=== PATIENT | male | born 1945 | race Caucasian/White ===

== ENCOUNTER 2021-01-08 20:03 | Emergency (ER) | payer OTHER ==
--- NOTE | 2021-01-08 20:58 | RAD REPORT ---
EXAM DESCRIPTION: CT - CTHCSPWOC - 01/08/2021 8:44 pm CLINICAL HISTORY: PAIN, fall, head and neck injury COMPARISON: No comparisons TECHNIQUE: Axial 5 mm thick images of the head were obtained. Axial 2 mm thick images of the cervic al spine were obtained with sagittal and coronal reconstruction images generated and reviewed. All CT scans are performed using dose optimization technique as appropriate and may include automated exposure control or mA/KV adjustment according to patient size. FINDINGS: No intracranial hemorrhage, mass, edema or acute intracranial finding. No suspicion for ac merle infarction. No extra-axial fluid collections. Mastoid air cells and paranasal sinuses are clear. No globe or orbit abnormality seen. Atrophy and chronic ischemic changes are present [id number] in severity. Ventricles are in proportion to the volume loss. No skullbase fracture. Advanced facet joint degenerative changes are present. Multilevel uncovertebra l joint hypertrophy changes are present. Posterior endplate spurring posterior longitudinal ligament calcifications cause borderline spinal stenosis at C3-4. Large posterior endplate spurs and leg calcifications at C4-5 protrude significantly into the central canal. Central canal is reduced to 7 mm. There is almost certainly flattening the cord. Central kati l detail is inherently limited. There are degenerative calcifications in the disc space with signific ant right foraminal stenosis from facet and uncovertebral joint hypertrophy. Canal is reduced to 6-7 mm at the superior aspect of C5 right-sided protruding endplate spur likely f lattens the right lateral cord at at C5-6. There is mild bilateral foraminal stenosis at this level. Mild canal encroachment on the right at C6-7. . Cervical body height and alignment are normal. Slight narrowing of the C6-7 disc space noted. No fracture or acute bony abnormality. Central canal detail is inherently limited. No paraspinal mass or hematoma. IMPRESSION: Atrophy and chronic ischemic changes are present with no acute intracranial finding seen . No fracture or acute cervical spine finding identifiable. There are severe degenerative changes causi ng significant central spinal stenosis and cord flattening at multiple levels. Central canal detail i s inherently limited. Negative CT cervical spine examination for acute or significant finding.
[2021-01-08] MEDS ORDERED: MORPHINE 4 MG/ML SYR ONE (21:20)
[2021-01-08] MEDS ORDERED: ONDANSETRON 4 MG/2 ML VIAL ONE (21:20)
[2021-01-08 21:48] LABS: Absolute Lymphocytes (CBC) 0.5 K/uL (0.7-4.9); Basophils % 0.5 % (0-1.3); Hematocrit 30.8 % (39.6-49.0); Lymphocytes % 6.3 % (15.3-44.8); MPV 7.7 fL (7.6-11.3); RBC Red Blood Cell Count 3.41 M/uL (4.33-5.43)
[2021-01-08 22:04] LABS: Protime INR 0.92
--- NOTE | 2021-01-08 22:04 | RAD REPORT ---
EXAM DESCRIPTION: RAD - Tib Fib Left - 01/08/2021 9:07 pm CLINICAL HISTORY: Fall, laceration, leg pain COMPARISON: None. FINDINGS: No fracture is identified. There is no dislocation or periosteal reaction noted. No acute or suspicious bony finding. Degenerative meniscal calcifications are present. No foreign body in the soft tissues. IMPRESSION: No acute bone or joint finding. No foreign body in the soft tissues.
--- NOTE | 2021-01-08 22:06 | RAD REPORT ---
EXAM DESCRIPTION: RAD - Tib Fib Right - 01/08/2021 9:05 pm CLINICAL HISTORY: PAIN COMPARISON: Tibia Fibula Right dated 06/03/2012 FINDINGS: No fracture is identified. There is no dislocation or periosteal reaction noted. Meniscal degenerative calcifications are present. Medial compartment narrowing present with marginal spurring. Old hardware in place from prior calcaneus fracture repair. No foreign body in the soft tissues. Arterial calcifications are present. IMPRESSION: Negative right tibia & fibula examination for acute bone or joint finding No foreign body in the soft tissues.
--- NOTE | 2021-01-08 22:07 | RAD REPORT ---
EXAM DESCRIPTION: RAD - Shoulder Left 2 View - 01/08/2021 9:05 pm CLINICAL HISTORY: PAIN, fall COMPARISON: No comparisons TECHNIQUE: Internal and external rotation views of the left shoulder were obtained. FINDINGS: There is no fracture or dislocation. AC joint degenerative changes are present. Small infe riorly directed spur from the head of the clavicle with mild degenerative change to the undersurface of the acromion. Mild greater tuberosity degenerative changes are present. No suspicious soft tissue finding. IMPRESSION: Left shoulder degenerative change as detailed. No acute findings seen.
--- NOTE | 2021-01-08 22:07 | RAD REPORT ---
EXAM DESCRIPTION: RAD - Elbow Left 3 View - 01/08/2021 9:05 pm CLINICAL HISTORY: PAIN, fall COMPARISON: None. FINDINGS: No fracture is identified and no elevated posterior fat pad. There is no dislocation or pe riosteal reaction noted. No foreign body in the soft tissues. Soft tissue injury is present along th e posterolateral aspect of the elbow and proximal forearm. IMPRESSION: Negative left elbow examination for acute bone or joint finding. No foreign body.
--- NOTE | 2021-01-08 22:08 | RAD REPORT ---
EXAM DESCRIPTION: RAD - Hand Left 3 View - 01/08/2021 9:05 pm CLINICAL HISTORY: PAIN, fall COMPARISON: None. FINDINGS: No fracture, dislocation or periosteal reaction noted. IP joint space narrowing seen with minimal spurring but no erosive component. MCP joints are spared. Advanced degenerative change presen t at the trapezial first metacarpal articulation. No foreign body in the soft tissues. IMPRESSION: Negative left hand examination for acute bone or joint finding.
[2021-01-08 22:10] LABS: Potassium 3.6 mmol/L (3.5-5.1)
--- NOTE | 2021-01-09 01:16 | EDPHYS ---
Physician Documentation [facility] Name: Reilly Gillespie Age: 75 yrs Sex: Male : 1945 Arrival Date: 01/08/2021 Time: 20:05 Bed 13 Private MD: ED Physician Brenden Dalton HPI: 01/08 21:46 This 75 yrs old Male presents to ER via EMS with complaints of Fall. 7 21:46 Details of fall: The patient fell from seated position, out of a chair, and struck wood 7 kimberly. Onset: The symptoms/episode began/occurred just prior to arrival, today. Associated injuries: The patient sustained injury to the head, contusion, left shoulder, left arm and left hand, abrasion, contusion, ecchymosis, skin tear left arm, left leg, contusion, skin tear, right leg, contusion, skin tear. Severity of symptoms: At their worst the symptoms were moderate, earlier today, in the emergency department the symptoms have improved, mildly. Historical: - Allergies: 20:16 Augmentin; bs2 20:16 Cipro; bs2 20:16 Levaquin; bs2 - PMHx: 20:16 Dialysis; High Cholesterol; Hypertension; Prostate Cancer; Renal Disease; Sleep Apnea; bs2 - Social history:: Smoking status: Patient denies any tobacco usage or history of. ROS: 21:46 Constitutional: Negative for fever, chills, and weight loss, Eyes: Negative for injury, mh7 pain, redness, and discharge, ENT: Negative for injury, pain, and discharge, Neck: Negative for injury, pain, and swelling, Cardiovascular: Negative for chest pain, palpitations, and edema, Respiratory: Negative for shortness of breath, cough, wheezing, and pleuritic chest pain, Abdomen/GI: Negative for abdominal pain, nausea, vomiting, diarrhea, and constipation, Back: Negative for injury and pain, : Negative for injury, bleeding, discharge, and swelling, Neuro: Negative for headache, weakness, numbness, tingling, and seizure, Psych: Negative for depression, anxiety, suicide ideation, homicidal ideation, and hallucinations, Allergy/Immunology: Negative for hives, rash, and allergies, Endocrine: Negative for neck swelling, polydipsia, polyuria, polyphagia, and marked weight changes, Hematologic/Lymphatic: Negative for swollen nodes, abnormal bleeding, and unusual bruising. Exam: 21:46 Constitutional: This is a well developed, well nourished patient who is awake, alert, mh7 and in no acute distress. Head/Face: Normocephalic, atraumatic. Eyes: Pupils equal round and reactive to light, extra-ocular motions intact. Lids and lashes normal. Conjunctiva and sclera are non-icteric and not injected. Cornea within normal limits. Periorbital areas with no swelling, redness, or edema. ENT: Nares patent. No nasal discharge, no septal abnormalities noted. Tympanic membranes are normal and external auditory canals are clear. Oropharynx with no redness, swelling, or masses, exudates, or evidence of obstruction, uvula midline. Mucous membranes moist. Neck: Trachea midline, no thyromegaly or masses palpated, and no cervical lymphadenopathy. Supple, full range of motion without nuchal rigidity, or vertebral point tenderness. No Meningismus. Chest/axilla: Normal chest wall appearance and motion. Nontender with no deformity. No lesions are appreciated. Cardiovascular: Regular rate and rhythm with a normal S1 and S2. No gallops, murmurs, or rubs. Normal PMI, no JVD. No pulse deficits. Respiratory: Lungs have equal breath sounds bilaterally, clear to auscultation and percussion. No rales, rhonchi or wheezes noted. No increased work of breathing, no retractions or nasal flaring. Abdomen/GI: Soft, non-tender, with normal bowel sounds. No distension or tympany. No guarding or rebound. No evidence of tenderness throughout. Back: No spinal tenderness. No costovertebral tenderness. Full range of motion. Neuro: Awake and alert, GCS 15, oriented to person, place, time, and situation. Cranial nerves II-XII grossly intact. Motor strength 5/5 in all extremities. Sensory grossly intact. Cerebellar exam normal. Normal gait. Psych: Awake, alert, with orientation to person, place and time. Behavior, mood, and affect are within normal limits. 21:46 Musculoskeletal/extremity: Extremities: noted in the left shoulder: contusion, mh7 ecchymosis, pain, tenderness, noted in the left elbow: abrasion, contusion, skin tear, noted in the left leg: contusion, laceration, Noted in right leg: contusion, laceration, ROM: intact in all extremities, Circulation is intact in all extremities. Sensation intact. Compartment Syndrome exam of affected extremity: is normal. no numbness, no tingling, no sensation deficit, no palor, no weak pulses, Joints: the left shoulder displays tenderness, contusion, the left elbow displays skin tear, Tendon exam: specific tendon testing normal through active and passive range of motion 21:46 Skin: injury, laceration(s), the wound is approximately 2.5 cm(s), with a depth of mh7 0.5 cm(s), of the left leg, the second wound is approximately 3.5 cm(s), with a depth of 0.5 cm(s), of the right leg, skin tear left elbow. Vital Signs: 20:13 BP 134 / 88; Pulse 96; Resp 16; Temp 97.7(O); Pulse Ox 100% on R/A; Weight 74.84 kg bs2 (R); Height 5 ft. 10 in. (177.80 cm) (R); Pain 6/10; 21:30 BP 144 / 100; Pulse 91; Resp 16; Pulse Ox 100% on R/A; bs2 22:00 BP 147 / 95; Pulse 90; Resp 16; Pulse Ox 100% on R/A; bs2 23:00 BP 149 / 93; Pulse 89; Resp 16; Pulse Ox 100% on R/A; bs2 20:13 Body Mass Index 23.67 (74.84 kg, 177.80 cm) bs2 Laceration: 01/09 01:11 Wound Repair of 4cm ( 1.6in ) subcutaneous laceration to right hodge. Linear shaped.. mh7 Distal neuro/vascular/tendon intact. Anesthesia: Local anesthetic administered with 3 mls of 1% lidocaine. Wound prep: Extensive cleansing with hibiclenz by ak, Wound irrigation with saline, Wound explored extensively, Copious irrigation. Skin closed with 4 4-0 Prolene using simple sutures and sterile technique. Dressed with Neosporin, 4x4's, Zaid. Patient tolerated well. MDM: 01:09 Differential diagnosis: abrasion, closed head injury, contusion, fracture, laceration. mh7 Data reviewed: vital signs, nurses notes, lab test result(s), cardiac enzymes, CBC, electrolytes, EKG, radiologic studies, CT scan, plain films. Counseling: I had a detailed discussion with the patient and/or guardian regarding: the historical points, exam findings, and any diagnostic results supporting the discharge/admit diagnosis, lab results, radiology results, the need for outpatient follow up, to return to the emergency department if symptoms worsen or persist or if there are any questions or concerns that arise at home. Response to treatment: the patient's symptoms have markedly improved after treatment. 01:15 Patient medically screened. [facility] 01/08 20:19 Order name: Basic Metabolic Panel 2 01/08 20:19 Order name: CBC with Diff 2 01/08 20:19 Order name: Type And Screen 2 01/08 20:19 Order name: Basic Metabolic Panel; Complete Time: 22:18 EDMS 01/08 20:19 Order name: CBC with Automated Diff; Complete Time: 22:18 EDMS 01/08 20:28 Order name: PT-INR 2 01/08 20:12 Order name: XRAY Elbow LEFT 3 view; Complete Time: 22:18 bs2 01/08 20:12 Order name: XRAY Shoulder LEFT 2 view; Complete Time: 22:18 bs2 01/08 20:12 Order name: XRAY Tib Fib LEFT; Complete Time: 22:18 bs2 01/08 20:12 Order name: XRAY Tib Fib RIGHT; Complete Time: 22:18 bs2 01/08 20:12 Order name: XRAY Hand LEFT 3 View; Complete Time: 22:18 bs2 01/08 20:29 Order name: Protime (+INR); Complete Time: 22:18 EDMS 01/08 20:19 Order name: Labs collected and sent; Complete Time: 22:54 2 01/08 20:21 Order name: Head C Spine Mpr Wo Con; Complete Time: 21:12 EDMS Administered Medications: No medications were administered Disposition Summary: 01/09/21 01:15 Discharge Ordered Location: Home [facility] Problem: new mh7 Symptoms: have improved mh7 Condition: Stable mh7 Diagnosis - Fall-Mechanical mh7 - Contusion, Left Shoulder mh7 - Laceration, Right Leg mh7 - Abrasions mh7 - Skin Tear, Left Elbow, Left Leg mh7 Followup: 7 - With: Private Physician - When: 1 - 2 days - Reason: Wound Recheck, Worsening of condition, Recheck today's complaints, Continuance of care, Re-evaluation by your physician Discharge Instructions: - Discharge Summary Sheet [facility] - Contusion, [id number]-[id number] [facility] - Laceration Care, Adult, Zjfj-[id number]-[id number] [facility] - Abrasion, Iimp-sj-Yong 7 - Skin Tear, Cjbx-[id number] 7 - Fall Prevention in the Home, Adult, Offk-sw-Tgln [facility] Forms: - Medication Reconciliation Form [facility] - Thank You Letter [facility] - Antibiotic Education [facility] - Prescription Opioid Use [facility] Signatures: Dispatcher [employer] EDMS Brenden Dalton MD MD 7 Mandy Escamilla bs2 Corrections: (The following items were deleted from the chart) 01/08 20:21 20:19 C Spine Wo Con+CT.RAD.BRZ ordered. EDMS EDMS 20:22 20:19 Head Brain Wo Cont+CT.RAD.BRZ ordered. EDMS EDMS
--- NOTE | 2021-01-09 01:16 | ER ---
Nurse's Notes [facility] Name: Reilly Gillespie Age: 75 yrs Sex: Male : 1945 Arrival Date: 01/08/2021 Time: 20:05 Bed 13 Private MD: Diagnosis: Fall-Mechanical;Contusion, Left Shoulder;Laceration, Right Leg;Abrasions;Skin Tear, Left Elbow, Left Leg Presentation: 01/08 20:13 Chief complaint: Patient states: Fell out of chair, after leaning to far forward, pt bs2 remembers falling forward but does not remember how long he was on ground possible LOC, skin tears bilateral lower legs, LT hand, LT elbow and dark bruise to LT shoulder. Coronavirus screen: Client denies travel out of the [place] in the last 14 days. At this time, the client does not indicate any symptoms associated with coronavirus-19. Ebola Screen: Patient negative for fever greater than or equal to 101.5 degrees Fahrenheit, and additional compatible Ebola Virus Disease symptoms Patient denies exposure to infectious person. Patient denies travel to an Ebola-affected area in the 21 days before illness onset. No symptoms or risks identified at this time. Initial Sepsis Screen: Does the patient meet any 2 criteria? No. Patient's initial sepsis screen is negative. Does the patient have a suspected source of infection? No. Patient's initial sepsis screen is negative. Risk Assessment: Do you want to hurt yourself or someone else? Patient reports no desire to harm self or others. Onset of symptoms was January 08, 2021. 20:13 Method Of Arrival: EMS: [facility] bs2 20:13 Acuity: JERRY 2 bs2 Triage Assessment: 20:16 General: Appears in no apparent distress. uncomfortable, slender, well groomed, well bs2 developed, well nourished, Behavior is calm, cooperative, appropriate for age. Pain: Complains of pain in left hand, left arm, right leg and left leg Pain currently is 6 out of 10 on a pain scale. EENT: No deficits noted. No signs and/or symptoms were reported regarding the EENT system. Neuro: No deficits noted. Cardiovascular: No deficits noted. Respiratory: No deficits noted. GI: No deficits noted. No signs and/or symptoms were reported involving the gastrointestinal system. : No deficits noted. No signs and/or symptoms were reported regarding the genitourinary system. Derm: Wound noted left hand, left arm, right leg and left leg. Historical: - Allergies: 20:16 Augmentin; bs2 20:16 Cipro; bs2 20:16 Levaquin; bs2 - PMHx: 20:16 Dialysis; High Cholesterol; Hypertension; Prostate Cancer; Renal Disease; Sleep Apnea; bs2 - Social history:: Smoking status: Patient denies any tobacco usage or history of. Screenin:15 Abuse screen: Denies threats or abuse. Denies injuries from another. Nutritional bs2 screening: No deficits noted. Tuberculosis screening: No symptoms or risk factors identified. Fall Risk Fall in past 12 months (25 points). Secondary diagnosis (15 points) impaired mobility, IV access (20 points). Ambulatory Aid- Crutches/Cane/Walker (15 pts). Gait- Mental Status- Oriented to own ability (0 pts). Assessment: 20:15 General: Appears uncomfortable, slender, well groomed, well developed, well nourished, bs2 Behavior is calm, cooperative, appropriate for age. Pain: Complains of pain in left elbow and left shoulder and left leg and right leg and left arm and left hand Pain currently is 3 out of 10 on a pain scale. Neuro: No deficits noted. Neuro: Reports headache in left. Cardiovascular: No deficits noted. Respiratory: No deficits noted. GI: No deficits noted. No signs and/or symptoms were reported involving the gastrointestinal system. : No deficits noted. No signs and/or symptoms were reported regarding the genitourinary system. EENT: No deficits noted. No signs and/or symptoms were reported regarding the EENT system. Derm: No deficits noted. No signs and/or symptoms reported regarding the dermatologic system. Vital Signs: 20:13 BP 134 / 88; Pulse 96; Resp 16; Temp 97.7(O); Pulse Ox 100% on R/A; Weight 74.84 kg bs2 (R); Height 5 ft. 10 in. (177.80 cm) (R); Pain 6/10; 21:30 BP 144 / 100; Pulse 91; Resp 16; Pulse Ox 100% on R/A; bs2 22:00 BP 147 / 95; Pulse 90; Resp 16; Pulse Ox 100% on R/A; bs2 23:00 BP 149 / 93; Pulse 89; Resp 16; Pulse Ox 100% on R/A; bs2 20:13 Body Mass Index 23.67 (74.84 kg, 177.80 cm) bs2 ED Course: 20:05 Patient arrived in ED. mw2 20:15 Brenden Dalton MD is Attending Physician. 7 20:15 Patient has correct armband on for positive identification. Placed in gown. Bed in low bs2 position. Call light in reach. Side rails up X2. Pulse ox on. NIBP on. Door closed. Lights dimmed. Warm blanket given. 20:15 Dressings: Vaseline gauze X 3; left hand, right leg and left leg and left elbow. bs2 20:16 Triage completed. bs2 20:16 Arm band placed on right wrist. bs2 20:43 XRAY Elbow LEFT 3 view Sent. bs2 20:43 XRAY Shoulder LEFT 2 view Sent. bs2 20:43 XRAY Tib Fib RIGHT Sent. bs2 20:43 XRAY Tib Fib LEFT Sent. bs2 20:43 XRAY Hand LEFT 3 View Sent. bs2 20:44 Head C Spine Mpr Wo Con In Process Unspecified. EDMS 21:05 XRAY Elbow LEFT 3 view In Process Unspecified. EDMS 21:05 XRAY Shoulder LEFT 2 view In Process Unspecified. EDMS 21:05 XRAY Tib Fib RIGHT In Process Unspecified. EDMS 21:05 XRAY Hand LEFT 3 View In Process Unspecified. EDMS 21:07 XRAY Tib Fib LEFT In Process Unspecified. EDMS 22:54 Basic Metabolic Panel Sent. bs2 22:54 CBC with Diff Sent. bs2 22:54 Type And Screen Sent. bs2 22:54 PT-INR Sent. bs2 07 01:47 Assist provider with laceration repair on right hodge that was between 2.6 to 7.5 cm bs2 using sutures. Set up tray. Patient tolerated well. IV discontinued, intact, bleeding controlled, No redness/swelling at site. Pressure dressing applied. Administered Medications: No medications were administered Outcome: 01:15 Discharge ordered by . [facility] 01:48 Discharged to home ambulatory, via wheelchair. bs2 01:48 Condition: improved 01:48 Discharge instructions given to patient, significant other, Instructed on discharge instructions, follow up and referral plans. wound care, how to pressure dress should the elbow start bleeding again Demonstrated understanding of instructions, follow-up care. 01:49 Patient left the ED. bs2 Signatures: Dispatcher [employer] SATHYA Elmer Becerra mw2 Brenden Dalton MD MD 7 Mandy Escamilla bs2
[2021-01-09 02:06] VITALS: TEMP 97.7; O2SAT 100
[2021-01-09 02:10] VITALS: BP 149/93
== END 2021-01-09 01:49 | disposition home or self-care (01) ==
LOC: ER 20:03
PROC: 0JQN0ZZ Repair Right Lower Leg Subcutaneous Tissue and Fascia, Open Approach (ICD-10-PCS; principal; 2021-01-09)
DX: S81.811A Laceration without foreign body, right lower leg, initial encounter (principal); S51.012A Laceration without foreign body of left elbow, initial encounter; W07.XXXA Fall from chair, initial encounter; Z88.1 Allergy status to other antibiotic agents; I10 Essential (primary) hypertension
CPT/HCPCS: 85025; 80048; 36415; 86900; 86850; 85610; 86901; 70450; 72125; 73130; 73080; 73030; 73590 ×2; 99284; 12002; J2405

== ENCOUNTER 2021-04-13 11:56 | Emergency (ER) | payer OTHER ==
[2021-04-13] MEDS ORDERED: LIDOCAINE 1% W/EPI 1:100,000 MDV 20 ML VIAL ONE (12:40)
[2021-04-13 13:02] LABS: Absolute Lymphocytes (CBC) 0.5 K/uL (0.7-4.9); Basophils % 0.4 % (0-1.3); Hematocrit 30.8 % (39.6-49.0); Lymphocytes % 10.4 % (15.3-44.8); MPV 7.6 fL (7.6-11.3); RBC Red Blood Cell Count 3.05 M/uL (4.33-5.43)
[2021-04-13 13:21] LABS: Potassium 5.1 mmol/L (3.5-5.1)
--- NOTE | 2021-04-13 14:26 | EDPHYS ---
Physician Documentation [facility] Name: Reilly Gillespie Age: 75 yrs Sex: Male : 1945 Arrival Date: 04/13/2021 Time: 11:57 Bed 3 Private MD: ED Physician Hardy Christensen HPI: 04/13 14:19 This 75 yrs old Male presents to ER via EMS with complaints of corner block cutter access bleeding. 14:19 The patient or guardian complains of Fistula bleeding. The complaints affect the right rn bicep. Onset: The symptoms/episode began/occurred just prior to arrival. Treatment prior to arrival includes: applying pressure to the affected area. Modifying factors: The symptoms are alleviated by Pressure. the symptoms are aggravated by nothing. Severity of symptoms: At their worst the symptoms were moderate, in the emergency department the symptoms have improved. The patient has not experienced similar symptoms in the past. The patient has been recently seen by a physician:. Patient reports was attempting to get dialysis and when they put the needle in the fistula they could not stop the bleeding. Otherwise feels okay. EMS wrapped wound with bleeding controlled.. Historical: - Allergies: 12:02 Augmentin; ss 12:02 Cipro; ss 12:02 Levaquin; ss - PMHx: 12:02 Dialysis; High Cholesterol; Hypertension; Prostate Cancer; Renal Disease; Sleep Apnea; ss - Immunization history:: Client reports receiving the 2nd dose of the Covid vaccine. - Social history:: Smoking status: Patient denies any tobacco usage or history of. - Family history:: not pertinent. - Hospitalizations: : No recent hospitalization is reported. ROS: 14:19 Constitutional: Negative for fever, chills, and weight loss, Eyes: Negative for injury, rn pain, redness, and discharge, Neck: Negative for injury, pain, and swelling, Cardiovascular: Negative for chest pain, palpitations, and edema, Respiratory: Negative for shortness of breath, cough, wheezing, and pleuritic chest pain, Abdomen/GI: Negative for abdominal pain, nausea, vomiting, diarrhea, and constipation, Back: Negative for injury and pain, MS/Extremity: Positive for bleeding from right upper extremity dialysis fistula Skin: Negative for injury, rash, and discoloration, Neuro: Negative for headache, weakness, numbness, tingling, and seizure. Exam: 14:19 Constitutional: This is a well developed, well nourished patient who is awake, alert, rn and in no acute distress. Cardiovascular: Regular rate and rhythm. No pulse deficits. Respiratory: No increased work of breathing, no retractions or nasal flaring. MS/ Extremity: Pulses equal, no cyanosis. Right upper extremity fistula with superficial laceration and puncture wound with pressurized bleeding. Controlled with direct pressure. No cyanosis or ischemia of the distal arm Vital Signs: 11:58 BP 146 / 94; Pulse 95; Resp 18; Temp 98.0(TE); Pulse Ox 99% on R/A; Weight 74.84 kg; ss Height 5 ft. 9 in. (175.26 cm); Pain 0/10; 13:48 BP 148 / 91; Pulse 90; Resp 17; Pulse Ox 100% on R/A; tw2 11:58 Body Mass Index 24.37 (74.84 kg, 175.26 cm) ss Laceration: 14:19 Wound Repair of 1cm ( 0.4in ) subcutaneous laceration to Right upper extremity rn overlying dialysis fistula with arterial bleeding and required [id number] stitch to control arterial bleed. Distal neuro/vascular/tendon intact. Anesthesia: Wound infiltrated with 1 mls of 1% lidocaine w/ Epi. Wound prep: Moderate cleansing by me. Skin closed with 2 5-0 Prolene using simple sutures and sterile technique. Dressed with pressure dressing. Patient tolerated well. MDM: 12:00 Patient medically screened. rn 14:19 Differential diagnosis: Puncture wound and laceration to fistula with arterial bleed. rn Data reviewed: vital signs, nurses notes, lab test result(s), and as a result, I will discharge patient. Counseling: I had a detailed discussion with the patient and/or guardian regarding: the historical points, exam findings, and any diagnostic results supporting the discharge/admit diagnosis, lab results, the need for outpatient follow up, to return to the emergency department if symptoms worsen or persist or if there are any questions or concerns that arise at home. Response to treatment: the patient's symptoms have resolved after treatment, and as a result, I will discharge patient. Special discussion: I discussed with the patient/guardian in detail that at this point there is no indication for admission to the hospital. It is understood, however, that if the symptoms persist or worsen the patient needs to return immediately for re-evaluation. ED course: Consulted with Dr. Murray, states can be discharged since does not need emergent dialysis and bleeding controlled with stitches. Will see patient Thursday for dialysis.. 04/13 12:36 Order name: CBC with Diff; Complete Time: 13:53 rn 04/13 12:36 Order name: Basic Metabolic Panel; Complete Time: 13:53 rn 04/13 12:36 Order name: IV Start; Complete Time: 13:56 rn Administered Medications: No medications were administered Disposition Summary: 04/13/21 14:25 Discharge Ordered Location: Home rn Problem: new rn Symptoms: are resolved rn Condition: Stable rn Diagnosis - Arterial bleeding from dialysis fistula rn - End stage renal disease rn Followup: rn - With: Private Physician - When: 2 - 3 days - Reason: Recheck today's complaints, Re-evaluation by your physician Discharge Instructions: - Discharge Summary Sheet rn - Dialysis Vascular Access Malfunction rn - End-Stage Kidney Disease rn - Uncontrolled Wound Bleeding rn Forms: - Medication Reconciliation Form rn - Thank You Letter rn - Antibiotic returned goods inspector - Prescription Opioid Use rn Signatures: Dispatcher [employer] Hardy Diaz MD MD rn Smirch, Shelby, RN RN ss
--- NOTE | 2021-04-13 14:26 | ER ---
Nurse's Notes [facility] Name: Reilly Gillespie Age: 75 yrs Sex: Male : 1945 Arrival Date: 04/13/2021 Time: 11:57 Bed 3 Private MD: Diagnosis: Arterial bleeding from dialysis fistula;End stage renal disease Presentation: 04/13 11:58 Chief complaint: EMS states: Dialysis nurse attempted to access dialysis fistula, but ss noted quite a bit of bleeding. Pt reports that yesterday he had an angioplasty to open up areas of stenosis. Coronavirus screen: Client denies travel out of the [place] in the last 14 days. Ebola Screen: Patient denies exposure to infectious person. Patient denies travel to an Ebola-affected area in the 21 days before illness onset. Initial Sepsis Screen: Does the patient meet any 2 criteria? No. Patient's initial sepsis screen is negative. Does the patient have a suspected source of infection? No. Patient's initial sepsis screen is negative. Risk Assessment: Do you want to hurt yourself or someone else? Patient reports no desire to harm self or others. Onset of symptoms was April 13, 2021. Care prior to arrival: pressure dressing composed of gauze and Coban used to stop bleeding. No active bleeding observed at this time with dressing in place. 11:58 Method Of Arrival: EMS: [facility] 11:58 Acuity: JERRY 2 ss Triage Assessment: 14:49 General: Appears. hb Historical: - Allergies: 12:02 Augmentin; ss 12:02 Cipro; ss 12:02 Levaquin; ss - PMHx: 12:02 Dialysis; High Cholesterol; Hypertension; Prostate Cancer; Renal Disease; Sleep Apnea; ss - Immunization history:: Client reports receiving the 2nd dose of the Covid vaccine. - Social history:: Smoking status: Patient denies any tobacco usage or history of. - Family history:: not pertinent. - Hospitalizations: : No recent hospitalization is reported. Screenin:02 Abuse screen: Denies threats or abuse. Denies injuries from another. Nutritional ss screening: No deficits noted. Tuberculosis screening: Never had TB. Fall Risk None identified. Assessment: 13:48 Reassessment: Patient appears in no apparent distress at this time. No changes from tw2 previously documented assessment. Patient and/or family updated on plan of care and expected duration. Pain level reassessed. Patient is alert, oriented x 3, equal unlabored respirations, skin warm/dry/pink. Vital Signs: 11:58 BP 146 / 94; Pulse 95; Resp 18; Temp 98.0(TE); Pulse Ox 99% on R/A; Weight 74.84 kg; Height 5 ft. 9 in. (175.26 cm); Pain 0/10; 13:48 BP 148 / 91; Pulse 90; Resp 17; Pulse Ox 100% on R/A; tw2 11:58 Body Mass Index 24.37 (74.84 kg, 175.26 cm) ED Course: 11:57 Patient arrived in ED. 12:00 Hardy Christensen MD is Attending Physician. rn 12:02 Triage completed. ss 12:02 Arm band placed on right wrist. 12:02 Patient has correct armband on for positive identification. Pulse ox on. NIBP on. 12:02 Patient maintains SpO2 saturation greater than 95% on room air. 13:56 Aliyah Blancas, RN is Primary Nurse. hb Administered Medications: No medications were administered Outcome: 14:25 Discharge ordered by . rn 14:49 Patient left the ED. hb Signatures: Hardy Christensen MD MD rn Smirch, Shelby, RN RN Aliyah Blancas RN RN hb Wise, Tara, RN RN tw2
[2021-04-13 15:01] VITALS: TEMP 98
[2021-04-13 15:02] VITALS: BP 148/91; O2SAT 100
--- NOTE | 2021-04-13 16:19 | CON ---
Additional Consulting Physician: Dr. Christensen. History Of Present Illness: The patient is seen in emergency room in room 3. The patient is alert, awake, and comfortable, able to talk in full sentences. He was at the dialysis unit this morning whe n his fistula was bleeding and could not be stopped at the start of dialysis. The patient had been i [facility] with interventional lap polisher to get his fistula evaluated. He had a fist ulogram done, had 70% blockage, and states that was cleaned up. When he arrived to the dialysis unit today, he had a little bit of oozing from the location, but the area was not looking concerning and he was started on dialysis. Needle was placed to start him on dialysis. However, the bleeding then exacerbated and the patient started squirting blood from there. The area was pressure blocked and th e patient was sent to the emergency room with ambulance. The patient is otherwise alert, awake, able to answer questions comfortably. His last hemoglobin was about 11.4 to 11.5. Physical Examination: Vital Signs: His blood pressure on arrival and at the dialysis unit was about 140 systolic. Lungs: Clear. Abdomen: Soft. Extremities: Reveal no edema. He is otherwise in good condition except for the problem that this fi stula is bleeding. Past Medical History: The patient on dialysis, end-stage renal disease. Social History: Lives with . Alert, awake, does not drink alcohol in excess. Does not smoke ci garettes or use any drugs. Family History: Noncontributory. Allergies: TO LEVAQUIN AND CIPROFLOXACIN. Medications: Reviewed. The patient is not on any anticoagulation as per his own history. He did no t get any heparin today on dialysis that was confirmed with the dialysis nurse as well. Laboratory Data: Labs are back for WBC at 5.0, hemoglobin and hematocrit are reasonable at 10.2 and 30.8, platelet count of 121. Assessment And Plan: End-stage renal disease. The patient has regular dialysis day-to-day, but volu me status is good. Blood pressure is good. Breathing comfortably. His CBC looks reasonable with a hemoglobin of 10.2. If the bleeding is stopped with a stitch and his BNP comes back okay, the patien t may be able to go home with plan to come to dialysis on Thursday and we can do an extra treatment at that point. If the treatment is unsuccessful or the fistula cannot be used at that point, outpatient evaluation to get the fistula assessed and perhaps a catheter placement can be considered at that po int. If his BMP comes requiring him to get urgent dialysis and/or needing immediate attention for th e fistula because it continues to bleed, the patient then will be needing transfer to [facility] for higher level of care and vascular evaluation. I have discussed this with Dr. Christensen. BMP results are still pending, but the CBC results do not look concerning. Fistula bleeding seems to lyons ve stopped for now. If numbers come okay, the patient will be discharged home with plan to come to [facility] on Thursday. If the numbers look concerning, then transfer would be sought. The patient wants to go to [facility] if he needs to be transferred. I have also discussed the case with the patient's , who was in the emergency room visiting him and she is also in agreement. Also, discussed the plan with Dr. Christensen, who is the emergency room physic ian. SINGH/TUNG Voice ID: [id number] Report ID: [id number]
== END 2021-04-13 14:49 | disposition home or self-care (01) ==
LOC: ER 11:56
PROC: 0JQD0ZZ Repair Right Upper Arm Subcutaneous Tissue and Fascia, Open Approach (ICD-10-PCS; principal; 2021-04-13)
DX: T82.838A Hemorrhage due to vascular prosthetic devices, implants and grafts, initial encounter (principal); N18.6 End stage renal disease; Z99.2 Dependence on renal dialysis; Z88.6 Allergy status to analgesic agent; Z88.1 Allergy status to other antibiotic agents
CPT/HCPCS: 36415; 80048; 85025; 99284

== ENCOUNTER 2023-04-21 15:00 | Inpatient (IN) | payer OTHER ==
[2023-04-21 15:27] LABS: Absolute Lymphocytes (CBC) 0.6 K/uL (0.7-4.9); Hematocrit 31.1 % (39.6-49.0); Lymphocytes % 4.8 % (15.3-44.8); MCV 89.1 fL (80-100); MPV 7.2 fL (7.6-11.3); Platelets 253 thou/uL (152-406); RBC Red Blood Cell Count 3.49 M/uL (4.33-5.43)
[2023-04-21 15:37] LABS: Protime INR 1.16
[2023-04-21 15:40] LABS: Potassium 4.8 mEq/L (3.5-5.1)
--- OUTSIDE RECORDS SUMMARY | 2023-04-21 15:43 | XMS REPORT | Continuity of Care Document ---
:1945 Author Organization [facility] t Address [address] [facility] [address] [place] [address] Care Team Providers Name Role Phone Pcp, Patient Does Not Have A Primary Care Physician [phone] GÓMEZ FAY NATASHA Attending Clinician Unavailable [id number] Attending Clinician Unavailable Hailee Mclaughlin Anavella Attending Clinician Unava ilable Clint Arthur Attending Clinician Unavailable Maurilio Pena MD Attending Clinician [phone] Jadiel SYLVESTER, Ezequiel Attending Clinician Unavailable Елена Martines RN Attending Clinician Unavailable Cherelle Espino MD Attending Clinician Renetta Arthur MD Attending Clinician [phone] Saima Arthur MD Attending Clinician Miky Escobedo Attending Clinician Unavailable Hernesto Buenrostro MD Attending Clinician Ahmet Styles MD Attending Clinician [phone] Jeff Cruz MD Attending Clinician Arvind DEPARTMENT ASSISTANTAlma Attending Clinician Tamara Bell MA Attending Clinician Unavailable Rody Nava RN Attending Clinician Unavailable Chao Siegel MD Attending Clinician , [facility] Sleep Lab Bed Attending Clinician Unavailable Escobar Valdes MD Attending Clinician ESCOBAR VALDES Attending Clinician Unavailable ESCOBAR VALDES Attending Clinician Unavailable Doctor Unassigned, [place] Attending Clinician Unavailable Adonay Valencia MD Attending Clinician Christ Mancuso LVN Attending Clinician Unavailable Cleo Lerner MD Attending Clinician Josue Graham MD Attending Clinician Meghan Walton MA Attending Clinician Unavailable Jonathan Knox MD Attending Clinician [phone] Andreea Ann RN Attending Clinician Unavailable Gwendolyn Weems MA Attending Clinician Unavailable Ja Dahl MD Attending Clinician Provider, Unknown Attending Clinician Unavailable Danielle Dumas MA Attending Clinician Unavailable Emelia Paiz MA Attending Clinician Unavailable Elizabeth Cardenas MA Attending Clinician Unavailable Julien Lerner Attending Clinician Unavailable [facility] Attending Clinician Sweetie SINGH, [facility] Jesusita Attending Clinician Cholo Szymanski MD Attending Clinician Ray Garcia MD Attending Clinician Nae Tineo MD Attending Clinician [phone] ZULY CAMPBELL Attending Clinician Unavailable ELIZABETH OTTO Attending Clinician Unavailable MD ELIZABETH OTTO Attending Clinician Unavailable MATT REZA Attending Clinician Unavailable ILIANA STEVE Attending Clinician Unavailable COREY NEAL Attending Clinician Unavailable JANNIE ARGUETA Attending Clinician Unavailable GENET ROJAS Attending Clinician Unavailable WILLIAM GALO Attending Clinician Unavailable MD JANNIE ARGUETA Attending Clinician Unavailable MALENA REY Attending Clinician Unavailable NEDRA HURD Attending Clinician Unavailable JOSH SHABAZZ Attending Clinician Unavailable VIPIN ARGUETA Attending Clinician Unavailable MD VIPIN ARGUETA Attending Clinician Unavailable ALBA RODRIGUEZ Attending Clinician Unavailable JACKY CARRASQUILLO Attending Clinician Unavailable MD ADONAY VALENCIA Attending Clinician Unavailable CHAITANYA BARROSO Attending Clinician Unavailable BEHZAD JOHNSON Attending Clinician Unavailable SUZY FORREST Attending Clinician Unavailable MD BERTHA BOWERS Attending Clinician Unavailable MD SUZY FORREST Attending Clinician Unavailable KAMILAH ALLISON Attending Clinician Unavailable MD JA DAHL Attending Clinician Unavailable MEGHAN COX Attending Clinician Unavailable JOHNNIE YADAV Attending Clinician Unavailable MD JOSUE GRAHAM Attending Clinician Unavailable GÓMEZ FAY NATASHA Admitting Clinician Unavailable [id number] Admitting Clinician Unavailable Alfred Mclaughlin Anav Admitting Clinician Unavailable SAIMA ARTHUR Admitting Clinician Unavailable JA DAHL Admitting Clinician Unavailable MAXI JUAREZ Admitting Clinician Unavailable ELIZABETH OTTO Admitting Clinician Unavailable MD ELIZABETH OTTO Admitting Clinician Unavailable COREY NEAL Admitting Clinician Unavailable JANNIE ARGUETA Admitting Clinician Unavailable GENET ROJAS Admitting Clinician Unavailable MD MANDIE SHEETS Admitting Clinician Unavailable MANDIE SHEETS Admitting Clinician Unavailable VIPIN ARGUETA Admitting Clinician Unavailable MD VIPIN ARGUETA Admitting Clinician Unavailable JACKY CARRASQUILLO Admitting Clinician Unavailable MD ADONAY VALENCIA Admitting Clinician Unavailable BERTHA BOWERS Admitting Clinician Unavailable MD BERTHA BOWERS Admitting Clinician Unavailable WILLIAM GALO Admitting Clinician Unavailable MD JA DAHL Admitting Clinician Unavailable NEDRA HURD Admitting Clinician Unavailable MEGHAN COX Admitting Clinician Unavailable JOSUE GRAHAM Admitting Clinician Unavailable MD JOSUE GRAHAM Admitting Clinician Unavailable Payers Payer Name Policy Type Policy Number Effective Date Expiration Date S ource AETM AETM [id number] AETNA MEDICARE C1 [id number] 2017 Common Spi rit PPO 00:00:00 - [facility] Problems Condition Condition Condition Status Onset Resolution Last Treating Co mments Source Name Details Category Date Date Treatment Clinician Date Adrenal Adrenal Disease Active Methodi insufficie insufficie 8-19 st ncy ncy 00:00: Hospita 00 l Dizziness Dizziness Disease Active Met [facility] 8-15 st 00:00: Hospita 00 l Rheumatic Rheumatic Disease Active Met [facility] aortic aortic 7-24 st stenosis stenosis 00:00: Hospit a 00 l Tricuspid Tricuspid Disease Active Met hodi valve valve 2-03 st insufficie insufficie 00:00: Ho spita ncy ncy 00 l Heart Heart Disease Active 2021-07 Methodi transplant transplant 1 st recipient recipient 00:00: Hosp anant 00 l Sepsis, Sepsis, Disease Active 2021-07 Methodi due to due to 07-14 st unspecifie unspecifie 00:00: Ho spita d d 00 l organism, organism, unspecifie unspecifie d whether d whether acute acute organ organ dysfunctio dysfunctio n present n present COVID-19 COVID-19 Disease Active Meth[facility] di virus virus 4-08 st detected detected 00:00: Hospit a 00 l ESRD (end ESRD (end Disease Active 2020-07 Met hodi stage stage 1-27 st renal renal 00:00: Hospita disease) disease) 00 l Cough Cough Disease Active 2020-07 Methodi 1-11 st 00:00: Hospita 00 l Pneumonia Pneumonia Disease Active 2020-07 Met hodi due to due to 07-14 COVID-19 COVID-19 00:00: Hospit a virus virus 00 l Tachypnea Tachypnea Disease Active Met hodi 5-18 st 00:00: Hospita 00 l Encounter Encounter Disease Active Met hodi for for 5-12 st pre-transp pre-transp 00:00: Ho spita lant lant 00 l evaluation evaluation for kidney for kidney transplant transplant CKD CKD Disease Active Methodi (chronic (chronic 5-04 st kidney kidney 00:00: Hospita disease) disease) 00 l stage 5, stage 5, GFR less GFR less than 15 than 15 ml/min ml/min Coronary Coronary Disease Active Metho di artery artery 04 st disease disease 00:00: Hospita involving involving 00 l [place] coronary coronary artery of artery of [place] heart heart without without angina angina pectoris pectoris Hx of CABG Hx of CABG Disease Active M ethodi 11-06 st 00:00: Hospita 00 l Hx of Hx of Disease Active Methodi heart heart 11-06 st transplant transplant 00:00: Ho spita 00 l Essential Essential Disease Active Met hodi hypertensi hypertensi 11-06 st on on 00:00: Hospita 00 l Mixed Mixed Disease Active Methodi hyperlipid hyperlipid 11-06 st emia emia 00:00: Hospita 00 l Dependence Dependence Disease Active M ethodi on on 11-[address] hemodialys hemodialys 00:00: Ho spita is is 00 l MARIA T MARIA T Disease Active Methodi (obstructi (obstructi 11-06 ve sleep ve sleep 00:00: Hospit a apnea) apnea) 00 l Prostate Prostate Disease Active Metho di cancer cancer 11-06 st 00:00: Hospita 00 l Kidney Kidney Disease Active Methodi stones stones 504 st 00:00: Hospita 00 l Recurrent Recurrent Disease Recurre Me thodi Clostridio Clostridio nce 4-14 st ides ides 00:00: Hospita difficile difficile 00 l diarrhea diarrhea Clostridiu Clostridiu Disease Active M ethodi m m 4-13 st difficile difficile 00:00: Hosp anant diarrhea diarrhea 00 l Acute Acute Disease Active Methodi diarrhea diarrhea 3-13 st 00:00: Hospita 00 l Severe Severe Disease Active Methodi sepsis sepsis 07-07 st 00:00: Hospita 00 l Diarrhea Diarrhea Disease Active Overview: Me thodi of of 07-[address] presumed presumed 00:00: g of this Hos luciano infectious infectious 00 note l origin origin might be different from the original. Added automatic ally from request for surgery [id number] Debility Debility Disease Active Metho di 01-03 st 00:00: Hospita 00 l Status Status Disease Active Methodi post post 627 st reverse reverse 00:00: Hospita total total 00 l arthroplas arthroplas ty of ty of right right shoulder shoulder Complete Complete Disease Active Overview: Me thodi tear of tear of 6-[address] right right 00:00: g of this Hospita rotator rotator 00 note l cuff cuff might be different from the original. Added automatic ally from request for surgery [id number] Glenohumer Glenohumer Disease Active Overview : Methodi al al 12-[address] arthritis, arthritis, 00:00: g of this Hospita right right 00 note l might be different from the original. Added automatic ally from request for surgery [id number] Heart Heart Disease Active Overview: Method i transplant transplant 12-[address] ed ed 00:00: g of this Hospita 00 note l might be different from the original. Added automatic ally from request for surgery [id number] S/P right S/P right Disease Active Met hodi rotator rotator 4-16 st cuff cuff 00:00: Hospita repair repair 00 l Left Left Disease Active Methodi ureteral ureteral 08-25 stone stone 00:00: Hospita 00 l Hydronephr Hydronephr Disease Active M ethodi osis osis 08-10 00:00: Hospita 00 l Fever Fever Disease Active Methodi 01-11 00:00: Hospita 00 l Sepsis Sepsis Disease Active Methodi 01-11 00:00: Hospita 00 l Anemia, Anemia, Disease Active Methodi macrocytic macrocytic 01-11 00:00: Hospita 00 l Leukocytos Leukocytos Disease Active 2018 M ethodi is is 01-11 00:00: Hospita 00 l Thrombocyt Thrombocyt Disease Active M ethodi openia openia 01-11 00:00: Hospita 00 l Hypocalcem Hypocalcem Disease Active 2017- M ethodi ia ia 01-11 00:00: Hospita 00 l Hematoma Hematoma Disease Active Metho di 10-09 st 00:00: Hospita 00 l Hematoma Hematoma Disease Active Metho di of right of right 10-08 st thigh thigh 00:00: Hospita 00 l Cardiac Cardiac Disease Active Overview: Meth araceli allograft allograft 21 Formattin s t vasculopat vasculopat 00:00: g of this Hospita hy hy 00 note l might be different from the original. Added automatic ally from request for surgery [id number] Lipodystro Lipodystro Disease Active M ethodi phy phy 1-12 st 00:00: Hospita 00 l Cognitive Cognitive Disease Active Met hodi impairment impairment 03-27 st 00:00: Hospita 00 l Adrenal Adrenal Disease Active Methodi insufficie insufficie 02-18 st ncy due to ncy due to 00:00: Ho spita steroid steroid 00 l withdrawal withdrawal Status Status Disease Active Overview: Method i post heart post heart 02-[address] transplant transplant 00:00: g of this Hospita ation ation 00 note l might be different from the original. Images from the original note were not included. Pseudophak Pseudophak Disease Active M ethodi ia ia 01-21 st 00:00: Hospita 00 l Bilateral Bilateral Disease Active Last Met hodi posterior posterior 01-21 Assessmen s t capsular capsular 00:00: t & Plan: Hos luciano opacificat opacificat 00 Formattin l ion ion g of this note might be different from the original. Trace, follow. MRx deferred. Epiretinal Epiretinal Disease Active Last M ethodi membrane membrane 01-[address] (ERM) of (ERM) of 00:00: t & Plan: Hos luciano left eye left eye 00 Formattin l g of this note might be different from the original. OS, trace, stable. Heart Heart Disease Active Overview: Method i replaced replaced 11-[address] by by 00:00: g of this Hospita transplant transplant 00 note is l different from the original. Images from the original note were not included. DO NOT DELETE - [facility] DO NOT DELETE Year 1 Biopsy ScheduleP atient Name: : Date of Transplan t: Dx: CMV EBV Toxo Surgeon: Ischemic Time: Status at OHT: ABO: Insurance at Txp: Discharge Date: Visit Date Biopsy C4D Treatment Echo CMV Level Week1 High Risk Labs Week 2 Echo Week 3 Echo Week 4 DSA/ High Risk Labs/ HeartCare Week 6 Week 8 HeartCare Week10 Week12 Echo/DSA/ High Risk Labs/Hear tCare/Bon e Loss Labs/ DEXA Scan Month4 HeartCare Month5 HeartCare Month6 Echo/DSA/ High Risk Labs/ HeartCare / Bone Loss Labs Month7 Month8 Month9 Echo/ Bone Loss Labs/ HeartCae Month10 Month11 Annual 10/14/21 2R 12/09/21 Neg 5.9 Annual Annual Disease Active Methodi physical physical 10-31 exam exam 00:00: Hospita 00 l [place] agent jail Disease Active Met hodi current current 10-31 use of use of 00:00: Hospita immunosupp immunosupp 00 l ressive ressive drug drug Osteoporos Osteoporos Disease Active M ethodi is of is of 10-31 femur femur 00:00: Hospita without without 00 l pathologic pathologic al al fracture fracture Hyperparat Hyperparat Disease Active M ethodi hyroidism, hyroidism, 10-31 secondary secondary 00:00: Hosp anant renal renal 00 l ED ED Disease Active Methodi (erectile (erectile 10-31 dysfunctio dysfunctio 00:00: Ho spita n) n) 00 l Hyperlipid Hyperlipid Disease Active Overview : Methodi emia emia 10-[address] 00:00: g of this Hospita 00 note l might be different from the original. Well controlle d with medicatio n and diet [id number] Dialysis Problem Active Comm on patient [facility] Hypertensi Hypertensi Problem Active C ommon on on [facility] Seasonal Allergic Problem Active Commo n allergic rhinitis, Spiri t rhinitis seasonal - 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 Restless Restless Problem Active Commo n legs legs Spirit syndrome syndrome - [facility] Gastroesop GERD Problem Active Commo n hageal (gastroeso Spirit reflux phageal [facility] disease reflux St disease) [facility] ESRD on ESRD on Disease Active Methodi hemodialys hemodialys st is is Hospita l Allergies, Adverse Reactions, Alerts Allergy Allergy Status Severity Reaction(s) Onset Inactive Treating Comm ents Source Name Type Date Date Clinician Amlodipi Propensi Active Swelling Leg Meth araceli ne ty to 2-[address] adverse 00:00: Hospita reaction 00 l s to drug Amoxicil Propensi Active Other (See 2014-07 Headache Methodi virgil-Pot ty to Comments) 0-[address] Clavulan adverse 00:00: patient Hospit a ate reaction 00 07/17/17 l s to Tolerates drug zosyn well this is not an allergy Levoflox Propensi Active Other (See 2014-07 Muscle Me thodi acin ty to Comments) 0-[address] adverse 00:00: tendon Hospita reaction 00 aches and l s to pain drug ciproflo ciproflo Active Unknown Commo n xacin xacin [facility] - [facility] amoxicil amoxicil Active Unknown Commo n virgil / virgil / Spirit clavulan clavulan - [facility] ate ate [facility] NO KNOWN Drug Active Univers ALLERGIE Class ity of [facility] Family History Family Member Diagnosis Comments Start Date Stop Date Source Natural brother Heart disease Method [facility] Natural father [facility] Natural mother Heart disease [facility] Natural sister Heart disease [facility] Social History Social Habit Start Date Stop Date Quantity Comments Source History of Tobacco Common Spirit - Use [facility] Sexual orientation Method [facility] History of Social 2023-03-04 2023-03-[address] function 00:00:00 00:00:00 Hospital Alcohol intake 2023-01-30 2023-01-30 Current drinker Metho dist 00:00:00 00:00:00 of alcohol Hospital (finding) Tobacco use and 2022-02-10 2022-02-10 Smokeless Hindu exposure 00:00:00 00:00:00 tobacco non-user Hospital Sex Assigned At [birth year] [facility] 00:00:00 00:00:00 Hospital Smoking Status Start Date Stop Date Source Tobacco smoking consumption [facility] Never smoked tobacco [facility] Medications Ordered Filled Start Stop Current Ordering Indication Dosage Frequency Signature Comments Components Source Medication Medication Date Date Medication? Clinician (SIG) Name Name acetaminoph Yes 1000mg Q8H Take 2 Me thodi en 8-[address] (TYLENOL) 16:18: (1,000 mg Hos luciano 500 MG 51 total) by l tablet mouth every 8 (eight) hours as needed for mild pain. fexofenadin 0 Yes 180mg QD Take 1 Met hodi e (KASIA) 8-[address] 180 MG 16:18: (180 mg Hospita tablet 51 total) by l mouth daily. benzonatate 0 Yes 100mg Q.[id number] Take 1 Methodi (TESSALON) [id number] 100 MG 16:18: 3D (100 mg Hospita capsule 51 total) by l mouth 3 (three) times a day as needed for cough. cholecalcif 0 Yes 5000U QD Take 1 Met hodi jarvis, 8-[address] vitamin D3, 16:18: (5,000 Hosp anant 125 mcg 51 Units l (5,000 total) by unit) mouth tablet nightly. denosumab 0 Yes 60mg Q180D Inject 1 Met hodi (PROLIA) 60 8-30 mL ([address] mg/mL 16:18: total) Hospita syringe 51 under the l syringe skin every 6 (six) months. cyanocobala 0 Yes 100ug QD Take 1 Met hodi min 100 MCG 8-[address] tablet 16:18: (100 mcg Hospita 51 total) by l mouth every morning. montelukast 0 Yes 10mg QD Take 1 Meth araceli (SINGULAIR) 8-30 tablet (10 st 10 mg 16:18: mg total) Hospita tablet 51 by mouth l nightly. azelastine 0 Yes 1{spray Q.5D 1 spray M ethodi (ASTELIN) 03-04 } into each st 137 mcg 16:18: nostril 2 Hospi ta (0.1 %) 51 (two) l nasal spray times a day. Use in each nostril as directed midodrine 2022-0 3- No 5mg Q.[id number] Take 1 Methodi (PROAMATINE 30 08-30 [id number] tablet (5 st ) 5 MG 14:11: 00:00 3W mg total) Hospi ta tablet 17 :00 by mouth 3 l (three) times a week. Only on dialysis days; Jacky. midodrine 2022-0 Yes 5mg Q.[id number] Take 1 Methodi (PROAMATINE 8-30 [id number] tablet (5 st ) 5 MG 00:00: 3W mg total) Hospit a tablet 00 by mouth 3 l (three) times a week. Only on dialysis days; TueThuSat. tacrolimus Yes [id number] 1mg QD Take 1 Methodi (PROGRAF) 1 30 capsule (1 st MG capsule 00:00: mg total) Ho spita 00 by mouth l every evening. tacrolimus Yes [id number] .5mg QD Take 1 [facility] (PROGRAF) [address] 0.5 MG 00:00: (0.5 mg Hospita capsule 00 total) by l mouth every morning. vancomycin 2022- No 125mg Q.5D Take 1 Met hodi (VANCOCIN) 03-04-[address] 125 MG 00:00: 00:00 (125 mg Hospita capsule 00 :00 total) by l mouth 2 (two) times a day for 30 days. tacrolimus 2022- No [id number] .5mg QD Take 1 Methodi (PROGRAF) 03-04-[address] 0.5 MG 00:00: 00:00 (0.5 mg Hospita capsule 00 :00 total) by l mouth every morning for 30 days. tacrolimus 2022- No [id number] .5mg QD Take 1 [facility] (PROGRAF) 03-04-[address] 0.5 MG 00:00: 00:00 (0.5 mg Hospita capsule 00 :00 total) by l mouth every evening. aspirin 2022- No 81mg QD Take 1 [facility]i (ECOTRIN) 8 08-10 tablet (81 st 81 MG 18:05: 00:00 mg total) Hospit a enteric 08 :00 by mouth l coated daily. tablet hydrALAZINE 0 2022- No 25mg Q.5D Take 1 Met hodi (APRESOLINE 8- 08-10 tablet (25 s t ) 25 MG 18:05: 00:00 mg total) Hosp anatn tablet 08 :00 by mouth 2 l (two) times a day as needed (take if sbp is over 140 bpm). melatonin 3 No 3mg Take 1 Met hodi mg tablet 02-12-10 tablet (3 st 18:05: 00:00 mg total) Hospita 08 :00 by mouth. l ferrous No 324mg QD Take 1 Method i gluconate 02-[address] (FERGON) 00:00: 04:59 (324 mg Hospi ta 324 MG 00 :00 total) by l tablet mouth daily with breakfast for 30 days. QUEtiapine No 25mg QD Take 1 Meth araceli (SEROquel) 02-12 tablet (25 st 25 MG 00:00: 04:59 mg total) Hospit a tablet 00 :00 by mouth l nightly for 30 days. apixaban Yes 2.5mg Q.5D Take 1 Method i (ELIQUIS) 7-[address] 2.5 mg 00:00: (2.5 mg Hospita tablet 00 total) by l mouth 2 (two) times a day. predniSONE Yes TAKE 1 Metho di (DELTASONE) 7-[address] 5 mg tablet 00:00: MOUTH Hospi ta 00 DAILY l tacrolimus 2022- No [id number] TAKE ONE Methodi (PROGRAF) 7-18 08-[address] 0.5 MG 00:00: 00:00 MOUTH Hospita capsule 00 :00 EVERY l EVENING FOR 30 DAYS predniSONE 2022- No TAKE 1 Meth araceli (DELTASONE) 6-27 08-[address] 5 mg tablet 00:00: 00:00 MOUTH Hosp anant 00 :00 DAILY l pantoprazol Yes TAKE 1 Meth araceli e 6-23 TABLET(40 st (PROTONIX) 00:00: MG) BY Hospi ta 40 MG EC 00 MOUTH l tablet DAILY ferric 2022- No 1g QD Take 1 g Method i citrate 10-[address] (AURYXIA 11:20: 00:00 daily. Hospit a ORAL) 52 :00 l fluticasone 2022- No 100ug Q24H 2 sprays Methodi (FLONASE) 10-16 ([address] 50 11:20: 00:00 total) by Hospita mcg/actuati 28 :00 Each Nare l on nasal route spray daily as needed. denosumab 2022- No [id number] 60mg Met hodi (PROLIA) 08-15 st syringe 60 17:15: 16:50 Hospit a mg 00 :00 l pravastatin 2022- No 40mg QD Take 1 Met hodi (PRAVACHOL) 07-23 tablet (40 s t 40 mg 18:06: 00:00 mg total) Hospit a tablet 41 :00 by mouth l daily. pravastatin Yes TAKE 1 Meth araceli (PRAVACHOL) 07-23 TABLET(40 st 40 mg 00:00: MG) BY Hospita tablet 00 MOUTH l EVERY NIGHT loteprednol 2022- No 1[drp] Q24H Administer Methodi etabonate 07-[address] (Lotemax) 10:47: 00:00 into the Hos luciano 0.5 % 02 :00 left eye l drops,gel daily as needed. midodrine 2022- No 5mg Q.[id number] Take 1 Methodi (PROAMATINE 07-18 [id number] tablet (5 st ) 5 MG 00:00: 05:59 3D mg total) Hospi ta tablet 00 :00 by mouth 3 l (three) times a day for 30 days. tacrolimus 2022- No [id number] 1mg QD Take 1 Methodi (PROGRAF) 1 07-10 08-30 capsule (1 s t MG capsule 00:00: 00:00 mg total) H ospita 00 :00 by mouth l every morning. tacrolimus 2021-07- No [id number] Take 2 Methodi (PROGRAF) 08-27-[address] 0.5 MG 00:00: 00:00 (1 mg Hospita capsule 00 :00 total) by l mouth every morning AND 1 capsule (0.5 mg total) every evening. Take one capsule (0.5 mg) by mouth once daily in the morning and take two capsules (total 1 mg) by mouth nightly.. NON 2022-1 2022- No QD Apply 1 Methodi FORMULARY 08-[address] 15:51: 00:00 n Hospita 01 :00 topically l daily. Compounded Topical Cream - 1 applicatio n to forehead daily for shingles tacrolimus 2021-07 No 1.5mg QD Take 3 Met hodi (PROGRAF) 08-12- capsules st 0.5 MG 15:51: 00:00 (1.5 mg Hospita capsule 01 :00 total) by l mouth nightly. tacrolimus 2021-07 No 1mg QD Take 1 Meth araceli (PROGRAF) 1 08-11 capsule (1 s t MG capsule 15:51: 00:00 mg total) H ospita 21 :00 by mouth l every morning. tacrolimus 2021-07 No [id number] Take one Methodi (PROGRAF) 08-[address] 0.5 MG 00:00: 00:00 (0.5 mg) Hospit a capsule 00 :00 by mouth l once daily in the morning and take two capsules (total 1 mg) by mouth nightly. tacrolimus 2021-07 No [id number] .5mg Q.5D Take 1 Methodi (PROGRAF) 07-[address] 0.5 MG 00:00: 00:00 (0.5 mg Hospita capsule 00 :00 total) by l mouth 2 (two) times a day. tacrolimus 2021-07 No [id number] 1mg QD Take 1 Methodi (PROGRAF) 1 07-22 capsule (1 s t MG capsule 00:00: 00:00 mg total) H ospita 00 :00 by mouth l every morning. tacrolimus 2021-07 No [id number] .5mg QD Take 1 Methodi (PROGRAF) 17 -[address] 0.5 MG 00:00: 00:00 (0.5 mg Hospita capsule 00 :00 total) by l mouth nightly. cephalexin 2021-07 No 500mg QD Take 1 Met hodi (Keflex) 07-[address] 500 MG 00:00: 00:00 (500 mg Hospita capsule 00 :00 total) by l mouth every evening. On days of dialysis, take dose after dialysis tacrolimus 2021-07 [id number] 1mg Q.5D Take 1 Methodi (PROGRAF) 1 07-20- capsule (1 s t MG capsule 00:00: 00:00 mg total) H ospita 00 :00 by mouth 2 l (two) times a day. pantoprazol 2021-07 No 40mg QD Take 1 Met hodi e 07-14 tablet (40 st (PROTONIX) 20:25: 00:00 mg total) H ospita 40 MG EC 07 :00 by mouth l tablet daily. pravastatin 2021-07 No 1 tablet M ethodi (PRAVACHOL) 07-[address] 40 mg 20:23: 00:00 Once a day Hospi ta tablet 04 :00 l pramipexole 2021-07 No .125mg QD Take 0.125 Methodi (MIRAPEX) 07-[address] 0.125 MG 20:22: 00:00 mouth Hospita tablet 51 :00 every l evening. montelukast 2021-07 No 10mg QD Take 10 mg Method[facility] (SINGULAIR) 07-[address] 10 mg 20:22: 00:00 nightly. Hospita tablet 17 :00 l pramipexole 2021-07- No 1 tablet M ethodi (MIRAPEX) 0-17 10-[address] 0.125 MG 12:20: 00:00 bedtime Hospi ta tablet 38 :00 Orally l Once a day pramipexole 2021-07 Yes 1 tablet Me thodi (MIRAPEX) 0-[address] 0.125 MG 00:00: bedtime Hospit a tablet 00 Orally l Once a dayStrengt h: 0.125 mg calcium Yes 1334mg [id number] Take 2 [facility] acetate,alfredo - [id number] capsules st sphat bind, 00:00: 3D (1,334 mg H ospita (PHOSLO) 00 total) by l 667 mg mouth 3 capsule (three) times a day with meals. pantoprazol 2022- No 40mg QD Take 1 Met hodi e 12-18 tablet (40 st (PROTONIX) 00:00: 00:00 mg total) H ospita 40 MG EC 00 :00 by mouth l tablet daily. tacrolimus 2021- No [id number] .5mg QD Take 1 [facility] (PROGRAF) 12-[address] 0.5 MG 00:00: 00:00 (0.5 mg Hospita capsule 00 :00 total) by l mouth every evening for 30 days. tacrolimus 2021- No [id number] 1mg Q.5D Take 1 [facility] (PROGRAF) 1 12-18 capsule (1 s t MG capsule 00:00: 00:00 mg total) H ospita 00 :00 by mouth 2 l (two) times a day. predniSONE 2022- No 5mg QD Take 1 Meth araceli (DELTASONE) 12-03 tablet (5 st 5 mg tablet 00:00: 00:00 mg total) Hospita 00 :00 by mouth l daily. Cardiac transplant rejection prevention . SantyL 2021- No APPLY Methodi ointment 11-[address] 00:00: 00:00 THICK TO Hospita 00 :00 WOND DAILY l gabapentin Yes 100mg QD Take 1 Meth araceli (NEURONTIN) 11-[address] 100 mg 00:00: (100 mg Hospita capsule 00 total) by l mouth nightly. pravastatin 2020-07- No 40mg QD Take 1 Met hodi (PRAVACHOL) 08-11 tablet (40 s t 40 mg 00:00: 05:59 mg total) Hospit a tablet 00 :00 by mouth l nightly. [place] 2019-07 Yes 1{tbl} QD Take 1 Meth araceli Rx 1-60-300 2-[address] mg-mg-mcg 00:00: mouth Hospita tablet 00 daily. l Pipersalzenaida Tessalon Yes Clint 1 capsule Common Perles Perles 12-07 Arthur as needed Spiri t 00:00: - [facility] 00 [facility] Tessalon Tessalon No 1{capsu TID Tessalon Perles 100 Perles 100 6-04 le_as_n Perles 100 MG MG 00:00: eeded} MG 00 Pravastatin Pravastatin Yes Clint 1 tablet Common Sodium Sodium Arthur [facility] CellCept CellCept Yes Clint not Commo n Arthur defined [facility] Montelukast Montelukast Yes Clint TAKE 1 Common Sodium Sodium Arthur TABLET BY Spiri t MOUTH - CHI DAILY [facility] Flonase Flonase Yes Clint 1 spray in C ommon Arthur each [facility] nostril [facility] Protonix Protonix Yes Clint 1 tablet C ommon Arthur [facility] Prolia Prolia Yes Clint not Common Arthur defined [facility] Prograf Prograf Yes Clint not Common Arthur defined [facility] Lovaza Lovaza Yes Clint 2 capsules Com mon Arthur [facility] Singulair Singulair Yes Clint 1 tablet Common Arthur in the [facility] evening [facility] Pramipexole Pramipexole Yes Clint 1 tablet Common Dihydrochlo Dihydrochlo Arthur before Spirit ride ride bedtime [facility] Dilaudid Dilaudid Yes Clint 1 ml as Co mmon Arthur needed [facility] Gabapentin Gabapentin Yes Clint 1 capsule Common Arthur [facility] Flonase Flonase Yes Clint 2SPRAY(S) Co mmon Allergy Allergy Arthur INTRANASAL Sp alfredito Relief Relief LY ONCE A - CHI DAY FOR 30 [facility] Flonase Flonase No Flonase Allergy Allergy Allergy Relief 50 Relief 50 Relief 50 MCG/ACT MCG/ACT MCG/ACT CellCept CellCept No CellCept 250 MG 250 MG 250 MG Montelukast Montelukast No Montelukas Sodium 10 Sodium 10 t Sodium MG MG 10 MG Pramipexole Pramipexole No 1{table QD Pramipexol Dihydrochlo Dihydrochlo t_befor e ride 0.125 ride 0.125 e_bedti Dihydrochl MG MG me} oride 0.125 MG Dilaudid 2 Dilaudid 2 No 1{ml_as 6xD Dilaudid 2 MG/ML MG/ML _needed MG/ML } Prolia 60 Prolia 60 No Prolia 60 MG/ML MG/ML MG/ML Gabapentin Gabapentin No 1{capsu TID Gabapentin 100 MG 100 MG le} 100 MG Protonix 40 Protonix 40 No 1{table QD Protonix MG MG t} 40 MG Singulair Singulair No 1{table QD Singulair 10 MG 10 MG t_in_th 10 MG e_eveni ng} Prograf 1 Prograf 1 No Prograf 1 MG MG MG Flonase 50 Flonase 50 No 1{spray QD Flonase 50 MCG/ACT MCG/ACT _in_eac MCG/ACT h_nostr il} Pravastatin Pravastatin No 1{table QD Pravastati Sodium 40 Sodium 40 t} n Sodium MG MG 40 MG Lovaza 1 GM Lovaza 1 GM No 2{capsu BID Lovaza 1 les} GM Montelukast Montelukast No Montelukas Sodium 10 Sodium 10 t Sodium 10 Immunizations Ordered Immunization Filled Immunization Date Status Commen ts Source Name Name PFIZER COVID-19 MRNA Unknown Completed [facility] PFIZER COVID-19 MRNA Unknown Completed [facility] PFIZER COVID-19 MRNA Unknown Completed [facility] Bebtelovimab Unknown Completed [facility] Remdesivir Unknown Completed [facility] Remdesivir Unknown Completed [facility] Remdesivir Unknown Completed [facility] Vital Signs Vital Name Observation Time Observation Value Comments Source Systolic blood 2023-03-04 16:19:13 134 mm[Hg] Method [facility] pressure Diastolic blood 2023-03-04 16:19:13 81 mm[Hg] [facility] pressure Heart rate 2023-03-04 16:19:13 95 /min [facility] Body temperature 2023-03-04 16:19:13 36.28 Jacqui [facility] Respiratory rate 2023-03-04 16:19:13 18 /min [facility] Oxygen saturation in 2023-03-04 16:19:13 96 /min [facility] Arterial blood by Pulse oximetry Body weight 2023-03-04 09:58:52 83.553 kg [facility] BMI 2023-03-04 09:58:52 25.69 kg/m2 [facility] Body height 2023-02-01 20:24:00 180.3 cm [facility] Procedures Procedure Date / Time Performing Source Performed Clinician ESTIMATED GFR 2023-04-17 [facility] Maliea BASIC METABOLIC PANEL 2023-04-10 [facility] 16:01:00 CBC WITH PLATELET AND 2023-04-10 [facility] DIFFERENTIAL 16:01:00 [id number] TACROLIMUS LEVEL, 2023-04-10 [facility] RANDOM 16:01:00 CYTOMEGALOVIRUS BY PCR 2023-04-10 [facility] 16:01:00 ESTIMATED GFR [facility]10 [facility] Maliea ESTIMATED GFR 2023-04-03 Yann [facility] 05:08:00 Maliea ESTIMATED GFR 2023-03-27 [facility] 05:07:00 Maliea ESTIMATED GFR 2023-03-20 [facility] 05:07[facility]00 Maliea ESTIMATED GFR 2023-03-13 [facility] 05:07[facility]00 Maliea ESTIMATED GFR 2023-03-06 [facility] 05:08:00 Shana [id number] 2023-03-05 [facility] 00:00:00 [facility] ANTI XA APIXABAN 2023-03-04 Y[facility] keisha 18:08:00 Shana FL MODIFIED BARIUM SWALLOW 2023-03-04 [facility] 16:53:13 [id number] TACROLIMUS LEVEL, 2023-03-04 [facility] 11:02:00 Maliea CBC WITH PLATELET AND 2023-03-04 [facility] DIFFERENTIAL 11:02:00 COMPREHENSIVE METABOLIC 2023-03-04 [facility] PANEL 11:02:00 ESTIMATED GFR 2023-03-[address] [facility] 11[facility]02:00 MANUAL DIFFERENTIAL 2023-03-04 [facility] spital 11:02:00 ECG 12-LEAD 2023-03-04 Daryl [facility] Hospit al 04:26:07 HEMODIALYSIS 2023-03-03 Tracey [facility] 14:34:12 Aung CBC WITH PLATELET AND 2023-03-03 Saran Glez [facility] DIFFERENTIAL 09:44:00 Vincent BASIC METABOLIC PANEL 2023-03-03 Amaris [facility] 09:44:00 Vincent [id number] TACROLIMUS LEVEL, 2023-03-03 Amaris [facility] RANDOM 09:44:00 Vincent MAGNESIUM LEVEL 2023-03-03 [facility] 09:44:00 Aung PHOSPHORUS LEVEL 2023-03-03 Will, Tracey [facility] 09:44:00 Aung ESTIMATED GFR 2023-03-03 Saran Glezist Hospit al 09:44:00 Vincent MANUAL DIFFERENTIAL 2023-03-03 [facility] 09:44:00 Vincent MAGNESIUM LEVEL 2023-03-02 Edmar Pérez Hospi keisha 09:36:00 CBC WITH PLATELET AND 2023-03-02 Sandhya [facility] DIFFERENTIAL 09:36:00 COMPREHENSIVE METABOLIC 2023-03-02 Sandhya [facility] PANEL 09:36:00 [id number] TACROLIMUS LEVEL, 2023-03-02 [facility] 09:36:00 Vincent PROTHROMBIN TIME WITH INR 2023-03-02 Saran Glez [facility] 09:36:00 Vincent ESTIMATED GFR 2023-03-02 Saima [facility] Hospit al 09:36:00 BILIRUBIN DIRECT 2023-03-02 Saran Glez [facility] keisha 09:36:00 Vincent MANUAL DIFFERENTIAL 2023-03-02 Saima [facility] spital 09:36:00 ULTRAFILTRATION 2023-03-01 Shayne Younger Hosp ital 21:01:18 MAGNESIUM LEVEL 2023-03-01 Edmar Pérez [facility] keisha 10:25:00 CBC WITH PLATELET AND 2023-03-01 Sandhya [facility] DIFFERENTIAL 10:25:00 COMPREHENSIVE METABOLIC 2023-03-01 Arthur [facility] PANEL 10:25:00 [id number] TACROLIMUS LEVEL, 2023-03-01 [facility] RANDOM 10:25:00 Vincent TOTAL IRON BINDING CAPACITY 2023-03-01 Amaris [facility] 10:25:00 Vincent FERRITIN LEVEL 2023-03-01 Amaris [facility] Hospit al 10:25:00 Vincent IMMUNOGLOBULIN G 2023-03-01 [facility] 10:25:00 Vincent ESTIMATED GFR 2023-03-01 Arthur [facility] 10:25:00 BILIRUBIN DIRECT 2023-03-01 [facility] 10:25:00 Vincent XR CHEST 1 VW PORTABLE 2023-02-28 [facility] 20:05:54 Vincent ECG 12-LEAD 2023-02-28 [facility] 19:35[facility]52 Vincent MAGNESIUM LEVEL 2023-02-28 Edmar P[facility]rez [facility] keisha 11:07:00 PHOSPHORUS LEVEL 2023-02-28 Forest wellsisal [facility] ital 11:07:00 CBC WITH PLATELET AND 2023-02-28 [facility] 11:07:00 COMPREHENSIVE METABOLIC 2023-02-28 Arthur [facility] PANEL 11:07:00 ESTIMATED GFR 2023-02-[address] [facility] 11:07:00 [id number] TACROLIMUS LEVEL, 2023-02-28 [facility] RANDOM 11:07:00 MANUAL DIFFERENTIAL 2023-02-28 [facility] 11:07:00 HEMODIALYSIS 2023-02-27 Ward Ochoa [facility] 15:04:27 Max LDH 2023-02-27 Valerio Rodriguez [facility] 13:56:00 [id number] TACROLIMUS LEVEL, 2023-02-27 [facility] RANDOM 11:00:00 PROTHROMBIN TIME WITH INR 2023-02-27 Luis Huang [facility] 05:49:00 Douglas PARTIAL THROMBOPLASTIN TIME 2023-02-[address] [facility] [place] (PTT) 05:49:00 Douglas ANTI XA APIXABAN 2023-02-27 Luis Huang Ho spital 05:49:00 Douglas CBC WITH PLATELET AND 2023-02-27 [facility]imi [facility] DIFFERENTIAL 05:48:00 COMPREHENSIVE METABOLIC 2023-02-27 [facility] Edmar [facility] PANEL 05:48:00 MAGNESIUM LEVEL 2023-02-27 [facility] keisha 05:48:00 PHOSPHORUS LEVEL 2023-02-27 [facility] Hosp ital 05:48:00 ESTIMATED GFR 2023-02-27 Saima [facility] 05:48:00 IONIZED CALCIUM 2023-02-27 [facility] 05:48:00 Douglas ESTIMATED GFR 2023-02-27 Cleo Lerner [facility] 05:08:00 Maliea POC GLUCOSE 2023-02-27 ArthurIsacSaima [facility] 02:18:00 POC GLUCOSE 2023-02-26 Arthur, [facility] 22:02:00 HEMODIALYSIS 2023-02-26 Ward [facility] 15:33:26 Max US THORACENTESIS WITH 2023-02-26 [facility] IMAGING 15:26:46 XR CHEST 1 VW PORTABLE 2023-02-26 Ivonne Cuevas [facility] 15:23:39 GLUCOSE LEVEL, [facility] 2023-02-26 [facility] 14:57:00 ALBUMIN, MISC FLUID 2023-02-26 [facility] spital 14:57:00 LDH, MISC FLUID 2023-02-26 [facility] al 14:57:00 CELL COUNT AND 2023-02-26 [facility] DIFFERENTIAL, BODY FLUID 14:57:00 PROTEIN, [facility] FLUID 2023-02-26 [facility] spital 14:57:00 TRIGLYCERIDES, MISC FLUID 2023-02-26 [facility] 14:57:00 PH, MISC FLUID 2023-02-26 [facility] 14:57:00 CYTOLOGY 2023-02-[address] [facility] (NON-GYNECOLOGICAL) REQUEST 14:57:00 AEROBIC CULTURE 2023-02-26 [facility] 14:57:00 ANAEROBIC CULTURE 2023-02-26 [facility] Hosp ital 14:57:00 GRAM STAIN 2023-02-[address] [facility] 14:57:00 PARTIAL THROMBOPLASTIN TIME 2023-02-26 [facility] (PTT) 10:37:00 [id number] TACROLIMUS LEVEL, 2023-02-26 [facility] 10:37:00 PROTHROMBIN TIME WITH INR 2023-02-26 [facility] 06:22:00 CBC WITH PLATELET AND 2023-02-26 [facility] DIFFERENTIAL 06:22:00 COMPREHENSIVE METABOLIC 2023-02-26 [facility] PANEL 06:22:00 MAGNESIUM LEVEL 2023-02-[address] [facility] [place] keisha 06:22:00 PHOSPHORUS LEVEL 2023-02-26 [facility] ital 06:22:00 ESTIMATED GFR 2023-02-26 Sandhya [facility] 06:22:00 IONIZED CALCIUM 2023-02-26 [facility] 06:22:00 POC GLUCOSE 2023-02-26 [facility] 02:06:00 ENTERIC BACTERIAL PANEL 2023-02-25 [facility] 22:26:00 ENTERIC PARASITIC PANEL 2023-02-25 [facility] 22:26:00 POC GLUCOSE 2023-02-[address] [facility] 22:14:00 TRANSFUSE RED BLOOD CELLS 2023-02-25 [facility] 21:58:00 TYPE AND SCREEN 2023-02-25 [facility] 17:59:00 FIBRINOGEN 2023-02-25 Edmar Pérez Hospi keisha 17:59:00 PREPARE RBC 2023-02-25 [facility] 17:59:00 POC GLUCOSE 2023-02-25 [facility] 17:17:00 HEMOGLOBIN & HEMATOCRIT 2023-02-25 [facility] 13:24:00 VITAMIN B12 LEVEL 2023-02-25 [facility]osp ital 13:24:00 FOLATE LEVEL 2023-02-25 [facility] 13:24:00 XR CHEST 1 VW PORTABLE 2023-02-25 [facility] 12:08:06 [id number] TACROLIMUS LEVEL, 2023-02-25 [facility] RANDOM 10:37:00 CBC WITH PLATELET AND 2023-02-25 [facility] DIFFERENTIAL 07:21:00 PHOSPHORUS LEVEL 2023-02-25 [facility] Hospi keisha 07:21:00 IONIZED CALCIUM 2023-02-25 [facility] 07:21:00 SMEAR REVIEW 2023-02-25 Arthur, [facility] 07:21:00 MAGNESIUM LEVEL 2023-02-25 Edmar Pérez SMimi [facility] keisha 07:21:00 COMPREHENSIVE METABOLIC 2023-02-25 Edmar wells [facility] PANEL 07:21:00 ESTIMATED GFR 2023-02-25 Edmar Pérez [facility] keisha 07:21:00 ESTIMATED GFR 2023-02-[address] [facility] 06:12:00 CLOSTRIDIUM DIFFICILE TOXIN 2023-02-25 [facility] GENE (QUALITATIVE REAL-TIME 01:57:00 PCR) MAGNESIUM LEVEL 2023-02-24 Edmar Pérez SMimi [facility] keisha 23:40:00 PHOSPHORUS LEVEL 2023-02-24 Edmar wells [facility] 23:40:00 POTASSIUM LEVEL 2023-02-24 Edmar Pérez. [facility] keisha 23:40:00 IONIZED CALCIUM 2023-02-24 Edmar Pérez [facility] keisha 23:40:00 US CHEST 2023-02-24 [facility] 23:00:00 TTE LIMITED W AGITATED 2023-02-24 [facility] SALINE WO CONT W DOP 21:21:00 CT ABDOMEN PELVIS W 2023-02-24 Kristajaz, [facility] sp[facility] CONTRAST 21:10:27 INFLUENZA ANTIGEN TEST, 2023-02-24 [facility] REFLEX NEGATIVE TO RPP 15:56:00 RESPIRATORY PATHOGEN PANEL 2023-02-24 [facility] WITH COVID-19 RT-PCR 15:56:00 METHICILLIN-RESISTANT 2023-02-24 [facility] STAPHYLOCOCCUS AUREUS 15:55:00 (MRSA), IRINEO HEMODIALYSIS CATHETER 2023-02-24 [facility] PLACEMENT 14:13:06 HEMODIALYSIS CATHETER 2023-02-24 [facility] PLACEMENT 14:09:55 HEMODIALYSIS CATHETER 2023-02-24 [facility] PLACEMENT 14:05:45 BUN LEVEL 2023-02-24 Ward Ochoa Hospit al 13:56:00 Max CREATININE LEVEL 2023-02-24 Wadr Ochoa Hospi keisha 13:56:00 Max CALCIUM LEVEL 2023-02-24 Don Ward [facility] 13:56:00 Max IONIZED CALCIUM 2023-02-24 Don Ward [facility] 13:56:00 Max MAGNESIUM LEVEL 2023-02-24 Don Wardsiobhan [facility] al 13:56:00 Max PHOSPHORUS LEVEL 2023-02-24 Don Ward [facility] keisha 13:56:00 Max SODIUM LEVEL 2023-02-24 Don Wardsiobhan [facility] Hospit al 13:56:00 Max POTASSIUM LEVEL 2023-02-24 Ward Ochoa Hospit al 13:56:00 Max PARTIAL THROMBOPLASTIN TIME 2023-02-24 [facility] (PTT) 13:56:00 Max HEMOGLOBIN & HEMATOCRIT 2023-02-24 [facility] 13:56:00 Max PLATELET COUNT 2023-02-24 Ward Ochoa Hospit al 13:56:00 Max IMMUNOGLOBULIN G 2023-02-24 Lonny Tiffany [facility] keisha 13:56:00 ESTIMATED GFR 2023-02-24 Ward Ochoa Hospit al 13:56:00 Max POC GLUCOSE 2023-02-[address] [facility] 12:43:00 HI ARTL CATHJ/CANNULJ 2023-02-24 [facility] MNTR/TRANSFUSION SPX PRQ 10:42:26 POC GLUCOSE 2023-02-24 [facility] 10:07:00 BLOOD CULTURE, AEROBIC & 2023-02-24 [facility] ANAEROBIC 07:09:00 CYTOMEGALOVIRUS BY PCR 2023-02-24 [facility] 07:06:00 [facility] ARTERIAL BLOOD GAS 2023-02-24 [facility] pital 07:05:00 LACTIC ACID LEVEL, SEPSIS - 2023-02-24 [facility] NOW AND REPEAT 2X EVERY 3 07:04:00 HOURS BUN LEVEL 2023-02-24 Ward Ochoa Hospit al 07:03:00 Max CREATININE LEVEL 2023-02-24 Ward Ochoa Hospi keisha 07:03:00 Max CALCIUM LEVEL 2023-02-24 Ward Ochoa Hospit al 07:03:00 Max IONIZED CALCIUM 2023-02-24 Ward Ochoa Hospit al 07:03:00 Max MAGNESIUM LEVEL 2023-02-24 Ward Ochoa Hospit al 07:03:00 Max PHOSPHORUS LEVEL 2023-02-24 Ward Ochoa Hospi keisha 07:03:00 Max SODIUM LEVEL 2023-02-24 Ward Ochoa Hospit al 07:03:00 Max POTASSIUM LEVEL 2023-02-24 [facility] 07:03[facility]00 Max PARTIAL THROMBOPLASTIN TIME 2023-02-24 [facility] (PTT) 07:03:00 Max ESTIMATED GFR 2023-02-24 [facility] 07:03:00 Max CORTISOL LEVEL, AM 2023-02-24 [facility] Hos pital 07:03:00 Max CBC WITH PLATELET AND 2023-02-24 [facility] DIFFERENTIAL 07:01:00 VANCOMYCIN LEVEL, RANDOM 2023-02-24 [facility] 07:00:00 ESTIMATED GFR 2023-02-[address] [facility] 06:30:00 POC GLUCOSE 2023-02-[address] [facility] 05:05:00 CT CHEST WO CONTRAST 2023-02-24 [facility] H ospital 03:23:45 CT HEAD WO CONTRAST 2023-02-24 [facility] Ho spital 03:23:25 BLOOD CULTURE, AEROBIC & 2023-02-24 [facility] ANAEROBIC 02:51:00 POC GLUCOSE 2023-02-24 [facility] Hospit al 02:27:00 THYROID STIMULATING HORMONE 2023-02-24 [facility] 00:08:00 T4, FREE 2023-02-24 [facility] 00:08:00 PARATHYROID HORMONE 2023-02-24 [facility] Ho spital 00:08:00 PROTHROMBIN TIME WITH INR 2023-02-24 Edmar Pérez [facility] 00:08:00 LACTIC ACID LEVEL, SEPSIS - 2023-02-24 [facility] NOW AND REPEAT 2X EVERY 3 00:08:00 HOURS ANTI XA APIXABAN 2023-02-24 [facility] 00:08:00 PROCALCITONIN 2023-02-23 [facility] al 21:50:00 CBC WITH PLATELET AND 2023-02-23 [facility] DIFFERENTIAL 21:50:00 PROTHROMBIN TIME WITH INR 2023-02-23 [facility] 21:50:00 PARTIAL THROMBOPLASTIN TIME 2023-02-23 [facility] (PTT) 21:50:00 LACTIC ACID LEVEL, SEPSIS - 2023-02-23 [facility] NOW AND REPEAT 2X EVERY 3 21:50:00 HOURS CORTISOL LEVEL, RANDOM 2023-02-23 [facility] 21:50:00 COMPREHENSIVE METABOLIC 2023-02-23 [facility] 21:50:00 ESTIMATED GFR 2023-02-23 Saima [facility] 21:50:00 ANTI XA APIXABAN 2023-02-23 Isac Arthurchibenita Steveist Hospi keisha 21:50:00 SMEAR REVIEW 2023-02-23 Saima [facility] Hospit al 21:50:00 CRYPTOCOCCAL ANTIGEN SCREEN 2023-02-23 [facility] 21:50:00 ECG 12-LEAD 2023-02-23 ArthurRenetta jaureguiist Hospit al 21:29:57 Rupert POC GLUCOSE 2023-02-23 ArthurSaima jaureguiist Hospit al 21:18:00 ESTIMATED GFR 2023-02-23 Saima [facility] Hospit al 20:25:00 ECG 12-LEAD 2023-02-23 Arun Ryan spital 19:37:41 BUN LEVEL 2023-02-23 Ward Ochoa Hospit al 19:26:00 Max CREATININE LEVEL 2023-02-23 Ward Ochoa Hos[facility] keisha 19:26:00 Max CALCIUM LEVEL 2023-02-23 Ward Ochoa Hospit al 19:26:00 Max IONIZED CALCIUM 2023-02-23 Ward Ochoa Hospit al 19:26:00 Max MAGNESIUM LEVEL 2023-02-23 Ward Ochoa Hospit al 19:26:00 Max PHOSPHORUS LEVEL 2023-02-23 Ward Ochoa Hos[facility] keisha 19:26:00 Max SODIUM LEVEL 2023-02-23 [facility] 19:26:00 Max POTASSIUM LEVEL 2023-02-23 [facility] 19:26:00 Max ESTIMATED GFR 2023-02-23 [place] [facility] 19:26:00 Max PARTIAL THROMBOPLASTIN TIME 2023-02-23 [facility] (PTT) 19:25:00 Max HEMOGLOBIN & HEMATOCRIT 2023-02-23 [facility] 19:25:00 Max PLATELET COUNT 2023-02-23 [place] [facility] 19:25:00 [facility] ARTERIAL BLOOD GAS 2023-02-23 [facility] 19:11:00 POC GLUCOSE 2023-02-23 [facility] 18:16:00 COVID-19 QUALITATIVE RT-PCR 2023-02-23 [facility] 16:43:00 LACTIC ACID LEVEL 2023-02-23 [facility] 16:37:00 PROCALCITONIN 2023-02-23 Isac [facility] 16:37:00 SEDIMENTATION RATE 2023-02-23 ArthurIsac jaureguiSaimaB[facility] 16:37:00 C-REACTIVE PROTEIN 2023-02-23 Arthur, [facility] pital 16:37:00 XR CHEST 1 VW PORTABLE 2023-02-23 [facility] 13:55:00 CBC WITH PLATELET AND 2023-02-23 [facility] DIFFERENTIAL 08:50:00 Blanca COMPREHENSIVE METABOLIC 2023-02-23 [facility] PANEL 08:50:00 Blanca [id number] TACROLIMUS LEVEL, 2023-02-23 [facility] RANDOM 08:50:00 Blanca MAGNESIUM LEVEL 2023-02-23 [facility] 08:50:00 Blanca ESTIMATED GFR 2023-02-23 [facility] 08:50:00 Blanca ECG 12-LEAD 2023-02-23 Paige Mar [facility] 02:41:53 Karim SPUTUM CULTURE 2023-02-22 [facility] 22:25:00 GRAM STAIN 2023-02-22 [facility] 22:25:00 CBC WITH PLATELET AND 2023-02-22 [facility] DIFFERENTIAL 10:19:00 Blanca COMPREHENSIVE METABOLIC 2023-02-22 [facility] PANEL 10:19:00 Blanca [id number] TACROLIMUS LEVEL, 2023-02-22 [facility] RANDOM 10:19:00 Blanca MAGNESIUM LEVEL 2023-02-22 [facility] 10:19:00 Blanca ESTIMATED GFR 2023-02-22 [facility] 10:19:00 Blanca RESPIRATORY PATHOGEN PANEL 2023-02-21 [facility] WITH COVID-19 RT-PCR 22:24:00 XR CHEST 1 VW PORTABLE 2023-02-21 [facility] 18:56:57 HEMODIALYSIS 2023-02-21 Ward [facility] 13:53:20 Max CBC WITH PLATELET AND 2023-02-21 [facility] DIFFERENTIAL 09:50:00 Blanca COMPREHENSIVE METABOLIC 2023-02-21 [facility] PANEL 09:50:00 Blanca [id number] TACROLIMUS LEVEL, 2023-02-21 [facility] RANDOM 09:50:00 Blanca MAGNESIUM LEVEL 2023-02-21 [facility] 09:50:00 Blanca ESTIMATED GFR 2023-02-21 [facility] 09:50:00 Blanca DONOR SPECIFIC ANTIBODY 2023-02-21 [facility] 09:50:00 Blanca CBC WITH PLATELET AND 2023-02-20 [facility] DIFFERENTIAL 10:16:00 COMPREHENSIVE METABOLIC 2023-02-20 [facility] PANEL 10:16:00 [id number] TACROLIMUS LEVEL, 2023-02-20 Reji Munguia [facility] RANDOM 10:16:00 Tradell ESTIMATED GFR 2023-02-20 [facility], [facility] 10:16:00 ESTIMATED GFR 2023-02-20 Cleo Lerner [facility] 05:07:00 Maliea HEPATITIS B SURFACE ANTIGEN 2023-02-19 [facility] 14:23:00 Max URINE CULTURE 2023-02-19 [facility] 13:45:00 Tradell URINALYSIS SCREEN AND 2023-02-19 [facility] MICROSCOPY, WITH REFLEX TO 11:18:00 Tradell CULTURE CBC WITH PLATELET AND 2023-02-19 [facility] DIFFERENTIAL 11:16:00 COMPREHENSIVE METABOLIC 2023-02-19 [facility] PANEL 11:16:00 MAGNESIUM LEVEL 2023-02-19 Lu Alegria [facility] spital 11:16:00 PHOSPHORUS LEVEL 2023-02-19 Lu [facility]legria [facility] ospital 11:16:00 ESTIMATED GFR 2023-02-19 Arthur, [facility] 11:16:00 POC GLUCOSE 2023-02-19 Artuhr, [facility] 01:42:00 BLOOD CULTURE, AEROBIC & 2023-02-18 [facility] ANAEROBIC 23:32:00 Tradell POC GLUCOSE 2023-02-18 Arthur, [facility] 21:40:00 US CHEST 2023-02-18 Arthur, Asima [facility] 21:15:00 [facility]YSIS 2023-02-18 [facility] 20:24:00 Max POC GLUCOSE 2023-02-18 Arthur, [facility] 16:57:00 POC GLUCOSE 2023-02-18 Arthur, [facility] 12:52:00 TTE COMPLETE, WO CONTRAST, 2023-02-18 [place] [facility] W DOPPLER ([id number]) 12:00:00 Kemble CBC WITH PLATELET AND 2023-02-18 [facility] DIFFERENTIAL 10:14:00 COMPREHENSIVE METABOLIC 2023-02-18 [facility] PANEL 10:14:00 [id number] TACROLIMUS LEVEL, 2023-02-18 [facility] TROUGH 10:14:00 Kemble ESTIMATED GFR 2023-02-18 [facility] 10:14:00 MAGNESIUM LEVEL 2023-02-18 [facility] 10:14:00 XR CHEST 1 VW PORTABLE 2023-02-17 [facility] 22:58:00 Kemble CBC WITH PLATELET AND [facility]23[facility]02-[facility]:05[facility]00 Rupert COMPREHENSIVE METABOLIC 2023-02-17 [facility] PANEL 19:05:00 Rupert PHOSPHORUS LEVEL 2023-02-17 Sandhya Replaced By [facility] keisha 19:05:00 Rupert MAGNESIUM LEVEL 2023-02-17 [facility] 19:05:00 Rupert LACTIC ACID LEVEL, SEPSIS - 2023-02-17 [facility] AND REPEAT 2X EVERY 3 19:05:00 Rupert HOURS ESTIMATED GFR 2023-02-17 [facility] 19:05[facility]00 Rupert ECG ED PRELIMINARY 2023-02-17 Renetta [facility] INTERPRETATION 17:41:41 Rupert HI CRITICAL CARE 2023-02-17 Renetta Arthur [facility] ILL/INJURED PATIENT INIT 17:41:41 Rupert 30-74 MIN ECG 12-LEAD 2023-02-17 [facility] 16:34[facility]56 Rupert ESTIMATED GFR 2023-02-13 [facility] 05:06:00 Maliea POC GLUCOSE 2023-02-12 [facility] 17:45:00 POC GLUCOSE 2023-02-12 [facility] 12:39:00 CBC WITH PLATELET AND 2023-02-12 Arthur, [facility] DIFFERENTIAL 10:06:00 COMPREHENSIVE METABOLIC 2023-02-12 [facility] PANEL 10:06:00 PROTHROMBIN TIME WITH INR 2023-02-12 [facility] 10:06:00 ESTIMATED GFR 2023-02-12 [facility] 10:06:00 [id number] TACROLIMUS LEVEL, 2023-02-12 [facility] RANDOM 10:05:00 POC GLUCOSE 2023-02-12 [facility] 02:47:00 HEMODIALYSIS 2023-02-11 Tracey Solis [facility] 23:15:41 Aung POC GLUCOSE 2023-02-11 [facility] 22:49:00 POC GLUCOSE 2023-02-11 Arthur, [facility] 17:21:00 US ABDOMINAL DOPPLER 2023-02-11 [facility] ospital 14:35:45 US ABDOMINAL WITH LIVER 2023-02-[address] [facility] ELAST[facility] 14:35:25 POC GLUCOSE 2023-02-[address] [facility] 13:20:00 CBC WITH PLATELET AND 2023-02-11 [facility] DIFFERENTIAL 10:10:00 COMPREHENSIVE METABOLIC 2023-02-11 [facility] PANEL 10:10:00 PROTHROMBIN TIME WITH INR 2023-02-11 [facility] 10:10:00 ESTIMATED GFR 2023-02-11 [facility] 10:10:00 [id number] TACROLIMUS LEVEL, 2023-02-11 [facility] RANDOM 10:10:00 POC GLUCOSE 2023-02-[address] [facility] 02:19:00 POC GLUCOSE 2023-02-10 [facility] 23:02:00 ANTINUCLEAR ANTIBODIES 2023-02-10 [facility] ([facility]) WITH REFLEX TO TITER 20:45:00 AND PATTERN, IMMUNOFLUORESCENCE IMMUNOGLOBULIN G 2023-02-10 [facility] ke[facility] 20:45:00 HEPATITIS B CORE ANTIBODY 2023-02-10 [facility] TOTAL 20:45:00 ALPHA-1 ANTITRYPSIN 2023-02-10 [facility] PHENOTYPE 20:45:00 ALPHA-1 ANTITRYPSIN LEVEL 2023-02-10 [facility] 20:45:00 ALPHA FETOPROTEIN 2023-02-10 [facility] ital 20:45:00 CARCINOEMBRYONIC ANTIGEN 2023-02-10 [facility] (CEA) 20:45:00 CANCER ANTIGEN 19-9 2023-02-10 [facility] Ho spital 20:45:00 ANTI-NEUTROPHILIC 2023-02-10 [facility] ital CYTOPLASMIC ABS PANEL 20:45:00 HEMOCHROMATOSIS (HFE) 3 2023-02-10 [facility] MUTATIONS 20:45:00 ACUTE VIRAL HEPATITIS PANEL 2023-02-10 [facility] (HAV, HBV, HCV) 20:45:00 DOUBLE-STRANDED DNA (DSDNA) 2023-02-10 [facility] ANTIBODIES, CRITHIDIA 20:45:00 SMOOTH MUSCLE ANTIBODIES 2023-02-10 [facility] TITER 20:45:00 POC GLUCOSE 2023-02-10 [facility] 17:22:00 HEPATIC FUNCTION PANEL 2023-02-10 [facility] 15:21:00 PROTHROMBIN TIME WITH INR 2023-02-10 [facility] 15:21:00 POC GLUCOSE 2023-02-10 [facility] 13:10:00 CBC WITH PLATELET AND 2023-02-10 [facility] DIFFERENTIAL 10:20:00 Williams BASIC METABOLIC PANEL 2023-02-10 [facility] 10:20:00 Derek [id number] TACROLIMUS LEVEL, 2023-02-10 [facility] RANDOM 10:20:00 Vincent ESTIMATED GFR 2023-02-10 [facility]00 Vincent POC GLUCOSE 2023-02-10 [facility] 02:01:00 HEMODIALYSIS 2023-02-09 Tracey Solis [facility] pital 22:56:13 Aung POC GLUCOSE 2023-02-09 Arthur, [facility] 22:55:00 POC GLUCOSE 2023-02-09 Arthur, [facility] 17:09:00 POC GLUCOSE 2023-02-09 Arthur, [facility] 13:03:00 CBC WITH PLATELET AND 2023-02-09 [facility] DIFFERENTIAL 09:45:00 Vincent BASIC METABOLIC PANEL 2023-02-09 [facility] 09:45:00 Vincent [id number] TACROLIMUS LEVEL, 2023-02-09 [facility] RANDOM 09:45:00 Vincent ESTIMATED GFR 2023-02-09 [facility] 09:45:00 Vincent POC GLUCOSE 2023-02-09 [facility] 02:16:00 POC GLUCOSE 2023-02-08 Arthur, [facility] 23:06:00 POC GLUCOSE 2023-02-08 Arthur, [facility] 17:55:00 POC GLUCOSE 2023-02-08 Arthur, [facility] 12:58:00 CBC WITH PLATELET AND 2023-02-08 [facility] DIFFERENTIAL 09:59:00 Vincent BASIC METABOLIC PANEL 2023-02-08 [facility] 09:59:00 Vincent [id number] TACROLIMUS LEVEL, 2023-02-08 [facility] RANDOM 09:59:00 Vincent TOTAL IRON BINDING CAPACITY 2023-02-08 [facility] 09:59:00 Vincent FERRITIN LEVEL 2023-02-08 [facility] 09:59[facility]00 Vincent ESTIMATED GFR 2023-02-08 [facility] 09:59[facility]00 Vincent POC GLUCOSE 2023-02-08 Arthur, [facility] 02:43:00 POC GLUCOSE 2023-02-07 Arthur, [facility] 23:28:00 HEMODIALYSIS 2023-02-07 Shayne Younger [facility] 19:07:47 XR CHEST 1 VW PORTABLE 2023-02-07 Saran Glez [facility] 18:47:57 Vincent POC GLUCOSE 2023-02-07 [facility], [facility] 17:45:00 POC GLUCOSE 2023-02-07 Arthur, [facility] 13:05:00 BASIC METABOLIC PANEL 2023-02-07 [facility] 10:15:00 CBC WITH PLATELET AND 2023-02-07 [facility] DIFFERENTIAL 10:15:00 [id number] TACROLIMUS LEVEL, 2023-02-07 [facility] RANDOM 10:15:00 ESTIMATED GFR 2023-02-07 [facility], [facility] 10:15:00 MANUAL DIFFERENTIAL 2023-02-07 Arthur, [facility] spital 10:15:00 POC GLUCOSE 2023-02-07 [facility], [facility] 02:49:00 POC GLUCOSE 2023-02-06 [facility], [facility] 22:51:00 POC GLUCOSE 2023-02-06 [facility], [facility] 17:41:00 POC GLUCOSE 2023-02-06 [facility], [facility] 12:50:00 BASIC METABOLIC PANEL 2023-02-06 [facility] 10:45:00 CBC WITH PLATELET AND 2023-02-06 [facility] DIFFERENTIAL 10:45:00 [id number] TACROLIMUS LEVEL, 2023-02-06 [facility] RANDOM 10:45:00 ESTIMATED GFR 2023-02-06 Arthur, [facility] 10:45:00 MANUAL DIFFERENTIAL 2023-02-06 Arthur, [facility]ital 10:45:00 POC GLUCOSE 2023-02-06 Arthur, [facility] 01:54:00 POC GLUCOSE 2023-02-05 Arthur, [facility] 23:08:00 POC GLUCOSE 2023-02-05 Arthur, [facility] 17:48:00 POC GLUCOSE 2023-02-05 [facility] 13:15:00 COMPREHENSIVE METABOLIC 2023-02-05 [facility] PANEL 10:09:00 CBC WITH PLATELET AND 2023-02-05 [facility] DIFFERENTIAL 10:09:00 ESTIMATED GFR 2023-02-05 [facility] 10:09:00 MANUAL DIFFERENTIAL 2023-02-05 [facility] 10:09:00 POC GLUCOSE 2023-02-05 [facility] 02:13:00 POC GLUCOSE 2023-02-04 [facility] 23:35:00 COVID-19, INFLUENZA A&B, 2023-02-04 [facility] AND RSV QUALITATIVE RT-PCR 18:42:00 POC GLUCOSE 2023-02-04 [facility] 17:26:00 HEMODIALYSIS 2023-02-04 Tracey Solis [facility] pital 17:03:08 Aung POC GLUCOSE 2023-02-04 [facility] 13:19:00 COMPREHENSIVE METABOLIC 2023-02-04 [facility] PANEL 11:05:00 CBC WITH PLATELET AND 2023-02-04 [facility] DIFFERENTIAL 11:05:00 ESTIMATED GFR 2023-02-04 [facility] 11:05:00 [id number] TACROLIMUS LEVEL, 2023-02-04 [facility] TROUGH 11:05:00 MANUAL DIFFERENTIAL 2023-02-04 [facility] spital 11:05:00 POC GLUCOSE 2023-02-04 [facility] 03:08:00 POC GLUCOSE 2023-02-03 [facility] 23:00:00 POC GLUCOSE 2023-02-03 [facility] 17:47:00 POC GLUCOSE 2023-02-03 [facility] 13:05:00 COMPREHENSIVE METABOLIC 2023-02-03 [facility] PANEL 10:29:00 CBC WITH PLATELET AND 2023-02-03 [facility] DIFFERENTIAL 10:29:00 ESTIMATED GFR 2023-02-03 Arthur, [facility] 10:29:00 [id number] TACROLIMUS LEVEL, 2023-02-03 [facility] TROUGH 10:29:00 MANUAL DIFFERENTIAL 2023-02-03 Arthur, [facility] spital 10:29:00 POC GLUCOSE 2023-02-03 Arthur, [facility] 02:02:00 HEMODIALYSIS 2023-02-03 Tracey Solis [facility] 01:08:34 Aung POC GLUCOSE 2023-02-02 Arthur, [facility] 23:13:00 POC GLUCOSE 2023-02-02 Arthur, [facility] 17:28:00 POC GLUCOSE 2023-02-02 Arthur [facility] 13:10:00 [id number] TACROLIMUS LEVEL, 2023-02-02 [facility] TROUGH 10:36:00 Blanca BASIC METABOLIC PANEL 2023-02-02 [facility] 10:30:00 MAGNESIUM LEVEL 2023-02-02 Arthur, [facility] 10:30:00 PHOSPHORUS LEVEL 2023-02-02 Arthur, [facility] keisha 10:30:00 CBC HEMOGRAM 2023-02-02 Rathur, [facility] 10:30:00 ESTIMATED GFR 2023-02-02 Arthur, [facility] 10:30:00 POC GLUCOSE 2023-02-02 Arthur, [facility] 03:06:00 POC GLUCOSE 2023-02-01 Arthur, [facility] 23:09:00 POC GLUCOSE 2023-02-01 Arthur, [facility] 16:53:00 POC GLUCOSE 2023-02-01 Arthur, [facility] 12:50:00 [id number] TACROLIMUS LEVEL, 2023-02-01 [facility] TROUGH 10:46:00 Blanca XR CHEST 1 VW PORTABLE 2023-02-01 [facility] 09:38:09 Devante BASIC METABOLIC PANEL 2023-02-01 [facility] 06:03:00 Devante CBC WITH PLATELET AND 2023-02-01 [facility] DIFFERENTIAL 06:03:00 Devante MAGNESIUM LEVEL 2023-02-01 [facility] Hospit al 06:03:00 Devante PHOSPHORUS LEVEL 2023-02-01 [facility] Hospi keisha 06:03:00 Devante ESTIMATED GFR 2023-02-01 [facility] Hospit al 06:03:00 Devante POC GLUCOSE 2023-02-01 [facility] 01:06:00 POC GLUCOSE 2023-01-31 [facility] 21:30:00 POC GLUCOSE 2023-01-31 Arthur [facility] 17:16:00 POC GLUCOSE 2023-01-31 [facility] 12:55:00 XR CHEST 1 VW PORTABLE 2023-01-31 [facility] 11:02:22 Devante [id number] TACROLIMUS LEVEL, 2023-01-31 [facility] TROUGH 10:37:00 Blanca ECG 12-LEAD 2023-01-31 Driss Tam [facility] ital 06:25:23 COMPREHENSIVE METABOLIC 2023-01-31 [facility] PANEL 05:45:00 MAGNESIUM LEVEL 2023-01-31 [facility] 05:45:00 PHOSPHORUS LEVEL 2023-01-31 [facility] keisha 05:45:00 CBC WITH PLATELET AND 2023-01-31 [facility] DIFFERENTIAL 05:45:00 ESTIMATED GFR 2023-01-31 [facility] 05:45:00 IONIZED CALCIUM 2023-01-31 [facility] 05:45:00 POC GLUCOSE 2023-01-31 [facility] 05:39:00 ESTIMATED GFR 2023-01-31 [facility] 05:12:00 Alyssa POC GLUCOSE 2023-01-31 ArthurIsac jaureguiSaima [facility] 01:36:00 POC GLUCOSE 2023-01-30 Isac Arthurchita [facility] 22:30:00 MAGNESIUM LEVEL 2023-01-30 Isac Arthurchita [facility] 18:45:00 PHOSPHORUS LEVEL 2023-01-30 Isac Arthurchita [facility] keisha 18:45:00 BASIC METABOLIC PANEL 2023-01-30 [facility] 18:45:00 ESTIMATED GFR 2023-01-30 Isac Arthurchita [facility] 18:45:00 ESTIMATED GFR 2023-01-30 Isac Arthurchita [facility] 17:16:00 POC GLUCOSE 2023-01-30 ArthurIsac jaureguiSaima [facility] 16:51:00 HEMODIALYSIS 2023-01-30 Ward Ochoa [facility] 15:43:28 Max ULTRAFILTRATION 2023-01-30 Ward Ocho[facility] 15:43:27 Max POC GLUCOSE 2023-01-30 Arthur, [facility] 13:14:00 [id number] TACROLIMUS LEVEL, 2023-01-30 [facility] TROUGH 10:45:00 Blanca IONIZED CALCIUM 2023-01-30 ArthurSaima [facility] 10:45:00 POC GLUCOSE 2023-01-30 Saima Arthur [facility] 10:23:00 ECG 12-LEAD 2023-01-30 Driss Tam [facility] 09:12:03 POC GLUCOSE 2023-01-30 ArthurIsacSaima [facility] 05:30:00 CBC WITH PLATELET AND 2023-01-30 Gillian Snowden [facility] DIFFERENTIAL 05:21:00 Alyssa COMPREHENSIVE METABOLIC 2023-01-30 Gillian Snowden [facility] PANEL 05:21:00 Alyssa MAGNESIUM LEVEL 2023-01-30 [facility] 05:21:00 Alyssa PHOSPHORUS LEVEL 2023-01-30 Gillian Snowden [facility] 05:21:00 Alyssa ESTIMATED GFR 2023-01-30 [facility] 05:21:00 Alyssa TYPE AND SCREEN 2023-01-30 Saima Arthur [facility] 05:20:00 CBC WITH PLATELET AND 2023-01-30 [facility] DIFFERENTIAL 04:13:00 Alyssa POC GLUCOSE 2023-01-30 Saima Atrhur [facility] 01:30:00 POC GLUCOSE 2023-01-29 Saima Arthur [facility] 22:47:00 MAGNESIUM LEVEL 2023-01-29 Ward Ochoa [facility] 21:15:00 Max POTASSIUM LEVEL 2023-01-29 Ward Ochoa [facility] 21:15:00 Max PHOSPHORUS LEVEL 2023-01-29 Ward Ochoa [facility] keisha 21:15:00 Max IONIZED CALCIUM 2023-01-29 Ward Ochoa [facility] 21:15:00 Max POC GLUCOSE 2023-01-29 Saima Arthur [facility] 17:24:00 BUN LEVEL 2023-01-29 Driss Tam [facility] 13:53:00 CREATININE LEVEL 2023-01-29 Driss Tam [facility] 13:53:00 CALCIUM LEVEL 2023-01-29 [facility] 13:53:00 IONIZED CALCIUM 2023-01-29 [facility] 13:53:00 MAGNESIUM LEVEL 2023-01-29 [facility] 13:53:00 PHOSPHORUS LEVEL 2023-01-29 Driss Tam [facility] 13:53:00 POTASSIUM LEVEL 2023-01-29 [facility] 13:53:00 SODIUM LEVEL 2023-01-29 Driss Tam [facility] 13:53:00 PARTIAL THROMBOPLASTIN TIME 2023-01-29 Driss Tam [facility] (PTT) 13:53:00 HEMOGLOBIN & HEMATOCRIT 2023-01-29 Driss Tam [facility] 13:53:00 PLATELET COUNT 2023-01-29 [facility]iss [facility] 13:53:00 ESTIMATED GFR 2023-01-29 Yonatan [facility] ital 13:53:00 POC GLUCOSE 2023-01-29 Zita Arthurta [facility] 13:26:00 POC GLUCOSE 2023-01-29 Isac Arthurchita [facility] 11:06:00 XR CHEST 1 VW PORTABLE 2023-01-29 [facility] 11:04:31 Alyssa [id number] TACROLIMUS LEVEL, 2023-01-29 [facility] TROUGH 10:33:00 Blanca POC GLUCOSE 2023-01-29 Saima Arthur [facility] 09:25:00 POC GLUCOSE 2023-01-29 Zita Arthurta [facility] 07:32:00 ECG 12-LEAD 2023-01-29 [facility] 06:43:21 POC GLUCOSE 2023-01-29 Zita Arthurta [facility] 06:23:00 VANCOMYCIN LEVEL, RANDOM 2023-01-29 [facility] 05:24:00 CBC WITH PLATELET AND 2023-01-29 [facility] DIFFERENTIAL 05:22:00 Alyssa PARTIAL THROMBOPLASTIN TIME 2023-01-29 [facility] (PTT) 05:21:00 COMPREHENSIVE METABOLIC 2023-01-29 [facility] PANEL 05:21:00 Alyssa MAGNESIUM LEVEL 2023-01-29 Isi, [facility] 05:21:00 Alyssa PHOSPHORUS LEVEL 2023-01-29 [place], Gillianjordan [facility] 05:21:00 Alyssa ESTIMATED GFR 2023-01-29 [facility] 05:21:00 Alyssa POC GLUCOSE 2023-01-29 Saima Arthur [facility] 05:20:00 ESTIMATED GFR 2023-01-29 [facility] 05:12:00 POC GLUCOSE 2023-01-29 Isac Arthurchita [facility] 04:13:00 POC GLUCOSE 2023-01-29 Isac Arthurchita [facility] 03:09:00 ARTERIAL BLOOD GAS 2023-01-29 [facility] 01:35:00 Alyssa BASIC METABOLIC PANEL 2023-01-29 [facility] 01:35:00 Alyssa ESTIMATED GFR 2023-01-29 [facility] 01:35:00 Alyssa POC GLUCOSE 2023-01-29 Saima Arthur [facility] 01:33:00 XR CHEST 1 VW PORTABLE 2023-01-28 [facility] 22:36:30 POC GLUCOSE 2023-01-28 Sandhya [facility] 21:49:00 ECG 12-LEAD 2023-01-28 [facility] ital 21:41:26 INFLUENZA ANTIGEN TEST, 2023-01-28 [facility] REFLEX NEGATIVE TO RPP 21:12:00 RESPIRATORY PATHOGEN PANEL 2023-01-28 VirgilHardeep [facility] WITH COVID-19 RT-PCR 21:12:00 BUN LEVEL 2023-01-28 [facility] 21:12:00 CREATININE LEVEL 2023-01-28 [facility] 21:12:00 CALCIUM LEVEL 2023-01-28 [facility] 21:12:00 IONIZED CALCIUM 2023-01-28 [facility] 21:12:00 MAGNESIUM LEVEL 2023-01-28 [facility] 21:12:00 PHOSPHORUS LEVEL 2023-01-28 [facility] 21:12:00 POTASSIUM LEVEL 2023-01-28 [facility] 21:12:00 SODIUM LEVEL 2023-01-28 [facility] 21:12:00 PARTIAL THROMBOPLASTIN TIME 2023-01-28 [facility] ([facility] 21:12:00 HEMOGLOBIN & HEMATOCRIT 2023-01-28 [facility] 21:12:00 PLATELET COUNT 2023-01-28 [facility] [facility] 21:12:00 ESTIMATED GFR 2023-01-28 Ward [facility] 21:12:00 Max LACTIC ACID LEVEL, SEPSIS - 2023-01-28 [facility] NOW AND REPEAT 2X EVERY 3 21:00:00 HOURS HEMODIALYSIS CATHETER 2023-01-28 Rm Arthur [facility] PLACEMENT 20:15:47 Jefferson TTE COMPLETE, W CONTRAST, W 2023-01-28 [facility] DOPPLER ([id number]) 18:19:00 CT HEAD WO CONTRAST 2023-01-28 Khanh Ferro [facility]ital 18:14:46 PROCALCITONIN 2023-01-28 [facility] 16:44:00 IONIZED CALCIUM 2023-01-28 [facility] 16:44:00 LACTIC ACID LEVEL, SEPSIS - 2023-01-28 [facility] NOW AND REPEAT 2X EVERY 3 16:44:00 HOURS POC GLUCOSE 2023-01-28 Saima [facility] 16:21:00 ARTERIAL BLOOD GAS 2023-01-28 Des[facility]e [facility] 15:04:00 URINE CULTURE 2023-01-28 [facility]ac Ar[facility]urchita [facility] 14:30:00 URINALYSIS SCREEN AND 2023-01-28 GardnersDesiree [facility] MICROSCOPY, WITH REFLEX TO 14:30:00 CULTURE POC GLUCOSE 2023-01-28 Saima [facility] 13:54:00 COVID-19 QUALITATIVE RT-PCR 2023-01-28 Khanh Ferro [facility] 12:55:00 CBC WITH PLATELET AND 2023-01-28 [facility] DIFFERENTIAL 09:48:00 COMPREHENSIVE METABOLIC 2023-01-28 [facility] PANEL 09:48:00 [id number] TACROLIMUS LEVEL, 2023-01-28 [facility] RANDOM 09:48:00 VANCOMYCIN LEVEL, RANDOM 2023-01-28 Khan[facility] 09:48:00 ESTIMATED GFR 2023-01-28 Saima [facility] 09:48:00 ECG PRE/POST OP 2023-01-28 Khanh Ferro [facility] 09:05:15 POC GLUCOSE 2023-01-[address] 04:00:00 XR CHEST 1 VW PORTABLE 2023-01-28 [facility] 00:03:48 CBC WITH PLATELET AND 2023-01-27 [facility] DIFFERENTIAL 23:25:00 BASIC METABOLIC PANEL 2023-01-27 [facility] 23:25:00 ESTIMATED GFR 2023-01-27 Ah[facility] Styles [facility] keisha 23:25:00 Ian BLOOD CULTURE, AEROBIC & 2023-01-27 [facility] ANAEROBIC 23:23:00 BLOOD CULTURE, AEROBIC & 2023-01-27 [facility] ANAEROBIC 23:05:00 POC ARTERIAL BLOOD GAS, 2023-01-27 [facility] CORRECTED AND LYTES 22:45:00 CV TAVR FOR CARDIOLOGY 2023-01-27 Maurilio Pena Juan David [facility] 15:09:18 [place] ACTIVATED CLOTTING TIME 2023-01-27 [facility] 14:10:00 ACTIVATED CLOTTING TIME 2023-01-27 [facility] 13:32:00 ARTERIAL LINE 2023-01-27 [facility] 13:29:04 Ian HI ECHO TRANSESOPHAG R-T 2D 2023-01-27 Ahmet Styles [facility] W/PRB IMG ACQUISJ I&R 13:02:00 Ian ACTIVATED CLOTTING TIME 2023-01-27 [facility] 12:59:00 POC ARTERIAL BLOOD GAS, 2023-01-27 [facility] CORRECTED AND LYTES 12:58:00 HI AN ELECTIVE ENDOTRACHEAL 2023-01-27 Ahmet Weston [facility] AIRWAY 12:49:00 Ian TAVR FOR SURGERY 2023-01-27 [facility] 12:33:00 Ian CBC WITH PLATELET AND 2023-01-27 Yonatan [facility] DIFFERENTIAL 09:43:00 COMPREHENSIVE METABOLIC 2023-01-27 Driss Tam [facility] PANEL 09:43:00 [id number] TACROLIMUS LEVEL, 2023-01-27 Driss Tam [facility] RANDOM 09:43:00 CYTOMEGALOVIRUS BY PCR 2023-01-27 [facility] 09:43:00 Vincent PROTHROMBIN TIME WITH INR 2023-01-27 [facility] 09:43:00 Vincent PARTIAL THROMBOPLASTIN TIME 2023-01-27 [facility] (PTT) 09:43:00 Vincent TOTAL IRON BINDING CAPACITY 2023-01-27 [facility] 09:43:00 Vincent FERRITIN LEVEL 2023-01-27 [facility] 09:43[facility]00 Vincent IMMUNOGLOBULIN G 2023-01-27 [facility] keisha 09:43:00 Vincent ESTIMATED GFR 2023-01-[address] [facility] 09:43:00 BILIRUBIN DIRECT 2023-01-27 [facility] 09:43:00 Vincent DONOR SPECIFIC ANTIBODY 2023-01-27 [facility] 09:43:00 Vincent FERRITIN LEVEL 2023-01-27 [facility]osp ital 04:38:00 TOTAL IRON BINDING CAPACITY 2023-01-27 [facility] 04:38:00 HEPATITIS B SURFACE ANTIGEN 2023-01-27 [facility] 00:10:00 HEMODIALYSIS 2023-01-26 Shayne [facility] ital 23:18:39 ECG 12-LEAD 2023-01-26 [facility] 22:56:37 Vincent XR CHEST 1 VW PORTABLE 2023-01-26 [facility] 21:55:15 PROTHROMBIN TIME WITH INR 2023-01-26 [facility] 20:52:00 PARTIAL THROMBOPLASTIN TIME 2023-01-26 [facility] (PTT) 20:52:00 LDH 2023-01-26 Sandhya [facility] 20:52:00 LACTIC ACID LEVEL 2023-01-26 [facility] 20:52:00 TROPONIN T 2023-01-26 Sandhya [facility] 20:52:00 COMPREHENSIVE METABOLIC 2023-01-26 Sandhya [facility] PANEL 20:52:00 CBC WITH PLATELET AND 2023-01-26 [facility] DIFFERENTIAL 20:52:00 NT-PROBNP 2023-01-[address] [facility] 20:52:00 ESTIMATED GFR 2023-01-[address] [facility] 20:52:00 MAGNESIUM LEVEL 2023-01-26 [facility] 20:52:00 PHOSPHORUS LEVEL 2023-01-26 [facility] 20:52:00 ESTIMATED GFR 2023-01-26 [facility] 20:50:00 PREPARE RBC 2023-01-26 [facility] 20:38:00 TYPE AND SCREEN 2023-01-26 [facility]ante [facility] 20:38:00 SLEEP STUDY DATA REPORT 2023-01-03 Doctor Unassigned, [facility] 05:01:00 [facility] ECG PRE/POST OP 2022-11-10 Lillian Welsh [facility]ital 18:34:09 CV SELECTIVE CORONARY 2022-10-17 [facility] ANGIOGRAPHY 16:24:50 POC PANEL 2022-10-17 [facility] 14:19:00 ESTIMATED GFR 2022-10-17 [facility], [facility] al 14:19:00 ECG PRE/POST OP 2022-10-17 [facility] 14:07:19 BASIC METABOLIC PANEL 2022-09-29 [facility] 19:26:00 CBC WITH PLATELET AND 2022-09-29 [facility] DIFFERENTIAL 19:26:00 PHOSPHORUS LEVEL 2022-09-29 [facility] 19:26:00 MAGNESIUM LEVEL 2022-09-29 [facility] 19:26:00 HEPATIC FUNCTION PANEL 2022-09-29 [facility], [facility] 19:26:00 LIPID PANEL 2022-09-29 [facility], [facility] 19:26:00 HEMOGLOBIN A1C 2022-09-29 [facility], [facility] 19:26:00 IONIZED CALCIUM 2022-09-29 [facility], [facility] 19:26:00 PARATHYROID HORMONE 2022-09-29 [facility], [facility] spital 19:26:00 T3 2022-09-29 [facility], [facility] 19:26:00 T4 2022-09-29 [facility], [facility] 19:26:00 THYROID STIMULATING HORMONE 2022-09-29 [facility], [facility] 19:26:00 URIC ACID LEVEL 2022-09-29 [facility], [facility] 19:26:00 LDH 2022-09-29 [facility], [facility] 19:26:00 TROPONIN T 2022-09-29 [facility], [facility] 19:26:00 B NATRIURETIC PEPTIDE 2022-09-29 [facility], [facility] 19:26:00 [id number] TACROLIMUS LEVEL, 2022-09-29 [facility] RANDOM 19:26:00 VITAMIN D 25 HYDROXY LEVEL 2022-09-29 [facility] 19:26:00 PROSTATE SPECIFIC ANTIGEN 2022-09-29 [facility], [facility] 19:26:00 TESTOSTERONE, TOTAL, 2022-09-29 [facility], [facility] ospital IMMUNOASSAY (FOR ADULT 19:26:00 MALES) ESTIMATED GFR 2022-09-29 [facility], [facility] 19:26:00 PROSPERA 2022-09-29 Cleo Lerner [facility] 19:23:00 Maliea TTE COMPLETE, W CONTRAST, W 2022-09-29 [facility] DOPPLER ([id number]) 18:57:00 XR CHEST 2 VW 2022-09-29 Robbin, Ashrith [facility] 17:01:22 BONE DENSITY PERIPHERAL 2022-09-29 [facility] 17:01:06 BONE DENSITY 2022-09-29 [facility] 17:00:27 US ABDOMEN COMPLETE 2022-09-29 [facility] 16:11:00 CV CTA TTVR WORKUP W 2022-09-12 [facility] CONTRAST 19:45:00 Avila POC CREATININE 2022-09-12 [facility] spital 19:21:00 Avila ESTIMATED GFR 2022-09-12 [facility] 19:21:00 Avila POC CREATININE 2022-09-12 [facility] sp[facility] 19:15:00 [place] ECG 12-LEAD 2022-08-08 [facility] sp[facility] 16:23:36 [place] TTE COMPLETE, W CONTRAST, W 2022-08-08 [facility] DOPPLER ([id number]) 15:43:37 [place] VITAMIN D 25 HYDROXY LEVEL 2022-08-06 [facility] 15:49:00 BASIC METABOLIC PANEL 2022-08-06 [facility] 15:49:00 BASIC METABOLIC PANEL 2022-07-21 [facility] 17:03:00 CBC WITH PLATELET AND 2022-07-21 [facility] DIFFERENTIAL 17:03:00 [id number] TACROLIMUS LEVEL, 2022-07-21 [facility] RANDOM 17:03:00 CYTOMEGALOVIRUS BY PCR 2022-07-21 [facility] 17:03:00 ESTIMATED GFR 2022-07-18 [facility] 16:02:00 BASIC METABOLIC PANEL 2022-07-11 [facility] 17:00:00 CBC WITH PLATELET AND 2022-07-11 [facility] DIFFERENTIAL 17:00:00 [id number] TACROLIMUS LEVEL, 2022-07-11 [facility] RANDOM 17:00:00 CYTOMEGALOVIRUS BY PCR 2022-07-11 [facility] 17:00:00 MAGNESIUM LEVEL 2022-06-20 [facility] 16:01[facility]00 BASIC METABOLIC PANEL 2022-06-20 [facility] 16:01:00 CBC WITH PLATELET AND 2022-06-20 [facility] DIFFERENTIAL 16:01:00 [id number] TACROLIMUS LEVEL, 2022-06-20 [facility] RANDOM 16:01:00 CBC WITH PLATELET AND 2022-06-10 [facility] DIFFERENTIAL 11:23:00 Vincent BASIC METABOLIC PANEL 2022-06-10 [facility] 11:23:00 Vincent [id number] TACROLIMUS LEVEL, 2022-06-10 [facility] RANDOM 11:23:00 Vincent CYTOMEGALOVIRUS BY PCR 2022-06-10 [facility] 11:23:00 Vincent ESTIMATED GFR 2022-06-10 [facility] 11:23:00 Vincent HEMODIALYSIS 2022-06-10 Will, Estevan-C[facility]ar [facility] 03:00:58 Aung CBC WITH PLATELET AND 2022-06-09 [facility] DIFFERENTIAL 11:31:00 Vincent BASIC METABOLIC PANEL 2022-06-09 [facility] 11:31:00 Vincent [id number] TACROLIMUS LEVEL, 2022-06-09 [facility] R[facility] 11:31:00 Vincent PHOSPHORUS LEVEL 2022-06-09 Will, Estevan-Ceasar [facility] 11:31:00 Aung MAGNESIUM LEVEL 2022-06-09 Will, [facility] 11:31:00 Aung ESTIMATED GFR 2022-06-09 [facility] 11:31:00 Vincent XR CHEST 1 VW PORTABLE 2022-06-08 [facility] 18:33:18 Vincent CBC WITH PLATELET AND 2022-06-08 [facility] DIFFERENTIAL 11:51:00 Vincent BASIC METABOLIC PANEL 2022-06-08 [facility] 11:51:00 Vincent [id number] TACROLIMUS LEVEL, 2022-06-08 [facility] RANDOM 11:51:00 Vincent PHOSPHORUS LEVEL 2022-06-08 Solis, Estevan-Ceasar [facility] 11:51:00 Aung MAGNESIUM LEVEL 2022-06-08 Solis, [facility] 11:51:00 Aung ESTIMATED GFR 2022-06-08 [facility] 11:51:00 Vincent HEMODIALYSIS 2022-06-07 Shayne Younger [facility] 14:03:56 CBC WITH PLATELET AND 2022-06-07 [facility] DIFFERENTIAL 12:52:00 Vincent BASIC METABOLIC PANEL 2022-06-07 [facility] 12:52:00 Vincent [id number] TACROLIMUS LEVEL, 2022-06-07 [facility] RANDOM 12:52:00 Vincent PHOSPHORUS LEVEL 2022-06-07 Will, Tracey [facility] 12:52:00 Aung MAGNESIUM LEVEL 2022-06-07 Solis, Tracey [facility] 12:52:00 Aung ESTIMATED GFR 2022-06-07 [facility] 12:52:00 Vincent CBC WITH PLATELET AND 2022-06-06 [facility] DIFFERENTIAL 10:55:00 Vincent BASIC METABOLIC PANEL 2022-06-06 [facility] 10:55:00 Vincent [id number] TACROLIMUS LEVEL, 2022-06-06 [facility] RANDOM 10:55:00 Vincent ESTIMATED GFR 2022-06-06 [facility] 10:55:00 Vincent CBC WITH PLATELET AND 2022-06-05 [facility] DIFFERENTIAL 11:27:00 Vincent BASIC METABOLIC PANEL 2022-06-05 [facility] 11:27:00 Vincent [id number] TACROLIMUS LEVEL, 2022-06-05 [facility] RANDOM 11:27:00 Vincent ESTIMATED GFR 2022-06-05 Saran Glez [facility] 11:27:00 Vincent HEMODIALYSIS 2022-06-04 Tracey Sol[facility] 20:22:17 Aung CBC WITH PLATELET AND 2022-06-04 [facility] DIFFERENTIAL 11:42:00 Kirk Savage BASIC METABOLIC PANEL 2022-06-04 [facility] 11:42:00 Kirk Savage [id number] TACROLIMUS LEVEL, 2022-06-04 [facility] TROUGH 11:42:00 Kirk Savage ESTIMATED GFR 2022-06-04 [facility] al 11:42:00 Kirk Savage CBC WITH PLATELET AND 2022-06-[address] [facility] DIFFER[facility] 12:03:00 Kirk Savage BASIC METABOLIC PANEL 2022-06-[address] [facility] 12:03:00 Kirk Savage [id number] TACROLIMUS LEVEL, 2022-06-03 [facility] TROUGH 12:03:00 Kirk Savage ESTIMATED GFR 2022-06-03 [facility] 12:03:00 Kirk Savage HEMODIALYSIS 2022-06-03 Tracey Sol[facility] 03:09:17 Aung CBC WITH PLATELET AND 2022-06-[address] [facility] DIFFERENTIAL 10:59:00 Kirk Savage BASIC METABOLIC PANEL 2022-06-02 [facility] 10:59:00 Kirk Savage [id number] TACROLIMUS LEVEL, 2022-06-02 [facility] TROUGH 10:59:00 Kirk Savage ESTIMATED GFR 2022-06-02 [facility] 10:59:00 Kirk Savage CBC WITH PLATELET AND 2022-06-01 Amaris [facility] DIFFERENTIAL 12:22:00 Vincent BASIC METABOLIC PANEL 2022-06-01 Amaris [facility] 12:22:00 Vincent [id number] TACROLIMUS LEVEL, 2022-06-01 Amaris [facility] RANDOM 12:22:00 Vincent ESTIMATED GFR 2022-06-01 [facility] 12:22:00 Vincent [id number] TACROLIMUS LEVEL, 2022-05-31 [facility] TROUGH 11:40:00 CBC WITH PLATELET AND 2022-05-31 [facility] DIFFERENTIAL 11:40:00 Vincent BASIC METABOLIC PANEL 2022-05-31 [facility] 11:40:00 Vincent ESTIMATED GFR 2022-05-31 [facility] 11:40:00 Vincent HEMODIALYSIS 2022-05-30 Shayne Younger [facility] 21:19:52 [id number] TACROLIMUS LEVEL, 2022-05-30 [facility] TROUGH 11:36:00 CBC WITH PLATELET AND 2022-05-30 [facility] DIFFERENTIAL 11:36:00 Vincent BASIC METABOLIC PANEL 2022-05-30 [facility] 11:36:00 Vincent ESTIMATED GFR 2022-05-30 [facility] 11:36:00 Vincent XR HAND 3+ VW RIGHT 2022-05-29 ArthurSaima [facility] sp[facility] 17:41:00 [id number] TACROLIMUS LEVEL, 2022-05-29 [facility] TROUGH 11:09:00 CBC WITH PLATELET AND 2022-05-29 [facility] DIFFERENTIAL 11:09:00 Vincent BASIC METABOLIC PANEL 2022-05-29 [facility] 11:09:00 Vincent ESTIMATED GFR 2022-05-29 [facility] 11:09:00 Vincent URINE CULTURE 2022-05-28 [facility] 20:04:00 [facility] URINALYSIS SCREEN AND 2022-05-28 [facility] MICROSCOPY, WITH REFLEX TO 20:04:00 Vincent CULTURE CBC WITH PLATELET AND 2022-05-28 [facility] DIFFERENTIAL 10:56:00 Vincent BASIC METABOLIC PANEL 2022-05-28 [facility] 10:56:00 Vincent [id number] TACROLIMUS LEVEL, 2022-05-28 [facility] RANDOM 10:56:00 Vincent ESTIMATED GFR 2022-05-28 [facility] al 10:56:00 Vincent HEMODIALYSIS 2022-05-28 Tracey Sol[facility] 00:08:22 Aung CBC WITH PLATELET AND 2022-05-27 [facility] DIFFERENTIAL 09:52:00 Vincent BASIC METABOLIC PANEL 2022-05-27 [facility] 09:52:00 Vincent [id number] TACROLIMUS LEVEL, 2022-05-27 [facility] RANDOM 09:52:00 Vincent ESTIMATED GFR 2022-05-27 [facility] 09:52:00 Vincent CBC WITH PLATELET AND 2022-05-26 [facility] DIFFERENTIAL 11:24:00 [id number] TACROLIMUS LEVEL, 2022-05-26 [facility] TROUGH 11:24:00 BASIC METABOLIC PANEL 2022-05-26 Estevan SolisCeasar [facility] 11:24:00 Aung ESTIMATED GFR 2022-05-26 Estevan [facility] 11:24:00 Aung HEMODIALYSIS 2022-05-25 Estevan [facility] 17:30:36 Aung CBC WITH PLATELET AND 2022-05-25 [facility] DIFFERENTIAL 12:19:00 [id number] TACROLIMUS LEVEL, 2022-05-25 [facility] TROUGH 12:19:00 COMPREHENSIVE METABOLIC 2022-05-25 [facility] PANEL 12:19:00 ESTIMATED GFR 2022-05-[address] 12:19:00 METHICILLIN-RESISTANT 2022-05-25 [facility] STAPHYLOCOCCUS AUREUS 03:28:00 Arturo foreman (MRSA)IRINEO RESPIRATORY PATHOGEN PANEL 2022-05-25 [facility] WITH COVID-19 RT-PCR 03:18:00 Arturo foreman BLOOD CULTURE, AEROBIC & 2022-05-25 [place], [facility]IC 03:08:00 [facility] PROCALCITONIN 2022-05-25 [facility] 03:06:00 o, Arturo Kulkarni XR CHEST 1 VW PORTABLE 2022-05-25 [facility] 02:43:42 o, Arturo Kulkarni POC GLUCOSE 2022-05-25 [facility] 01:04:00 COMPREHENSIVE METABOLIC 2022-05-25 [facility] PANEL 00:20:00 [facility] LACTIC ACID LEVEL 2022-05-25 [facility] 00:20:00 ESTIMATED GFR 2022-05-25 [facility] keisha 00:20:00 [facility] BLOOD CULTURE, AEROBIC & 2022-05-25 [facility] ANAEROBIC 00:10:00 [facility] 2022-05-24 [facility] PANEL 23:30:00 Tarawaly CBC WITH PLATELET AND 2022-05-24 [facility] DIFFERENTIAL 23:30:00 Tarawaly MAGNESIUM LEVEL 2022-05-24 [facility] Hospit al 23:30:00 Tarawaly PHOSPHORUS LEVEL 2022-05-24 [facility] keisha 23:30:00 Tarawaly ESTIMATED GFR 2022-05-24 [facility] 23:30[facility]00 Tarawaly ECG 12-LEAD 2022-05-24 [facility] Hospit al 23:20:38 Tarawaly POC GLUCOSE 2022-05-24 [facility] 22:40:00 CBC WITH PLATELET AND 2022-05-24 [facility] DIFFERENTIAL 11:45:00 BASIC METABOLIC PANEL 2022-05-24 Trcaey [facility] 11:45:00 Aung ESTIMATED GFR 2022-05-24 Tr[facility] 11:45:00 Aung HEMODIALYSIS 2022-05-24 Tr[facility] 03:06:56 Aung OR [place] < 1 HOUR 2022-05-23 [facility] 20:30:00 Abdullahi FISTULOGRAPHY, DIALYSIS 2022-05-23 [facility] SHUNT, AND DECLOTTING 19:36:00 Abdullahi US DUPLEX HEMODIALYSIS AVG 2022-05-23 [facility] AVF ACCESS 15:00:00 Sandip CBC WITH PLATELET AND 2022-05-23 [facility] DI[facility] 11:15:00 BASIC METABOLIC PANEL 2022-05-23 [facility] 11:15:00 Vincent [id number] TACROLIMUS LEVEL, 2022-05-23 [facility] RANDOM 11:15:00 Vincent PROTHROMBIN TIME WITH INR 2022-05-23 [facility] 11:15:00 PARTIAL THROMBOPLASTIN TIME 2022-05-23 [facility] (PTT) 11:15:00 ESTIMATED GFR 2022-05-23 Amaris [facility] Hospit al 11:15:00 Vincent ESTIMATED GFR 2022-05-23 Arthur, [facility] 11:03:00 COMPREHENSIVE METABOLIC 2022-05-22 [facility] PANEL 13:45:00 CBC WITH PLATELET AND 2022-05-22 [facility] DIFFERENTIAL 13:45:00 [id number] TACROLIMUS LEVEL, 2022-05-22 [facility] RANDOM 13:45:00 ESTIMATED GFR 2022-05-22 Sandhya [facility] 13:45:00 CBC WITH PLATELET AND 2022-05-22 [facility] DIFFERENTIAL 11:58:00 COMPREHENSIVE METABOLIC 2022-05-22 [facility] PANEL 11:58:00 [id number] TACROLIMUS LEVEL, 2022-05-22 Amaris [facility] RANDOM 11:58:00 Vincent ESTIMATED GFR 2022-05-22 Sandhya [facility] 11:58:00 HEMODIALYSIS 2022-05-21 Tracey [facility] 21:22:11 Aung XR CHEST 1 VW PORTABLE 2022-05-21 [facility] 14:50:00 Vincent CBC WITH PLATELET AND 2022-05-21 [facility] DIFFERENTIAL 12:02:00 COMPREHENSIVE METABOLIC 2022-05-21 [facility] PANEL 12:02:00 [id number] TACROLIMUS LEVEL, 2022-05-21 [facility]Tri[facility] RANDOM 12:02:00 Vincent ESTIMATED GFR 2022-05-21 Isac Arthurchita [facility] 12:02:00 CBC WITH PLATELET AND 2022-05-20 [facility] DIFFERENTIAL 21:36:00 Vincent CBC WITH PLATELET AND 2022-05-20 [facility] DIFFERENTIAL 11:57:00 COMPREHENSIVE METABOLIC 2022-05-20 [facility] PANEL 11:57:00 [id number] TACROLIMUS LEVEL, 2022-05-20 [facility] RANDOM 11:57:00 Vincent C-REACTIVE PROTEIN 2022-05-20 [facility] 11:57:00 Vincent ESTIMATED GFR 2022-05-20 Sandhya [facility] 11:57:00 CONSULT TO WOUND AND 2022-05-19 Saima Arthur ospital CONTINENCE NURSE 22:23:13 HEMODIALYSIS 2022-05-19 Tracey [facility] 21:05:17 Aung BASIC METABOLIC PANEL 2022-05-19 [facility] (formerly [facility]) 11:13:00 Aung CBC WITH PLATELET AND 2022-05-19 Estevan SolisCeasar [facility] DIFFERENTIAL 11:13:00 Aung ESTIMATED GFR 2022-05-19 [facility] 11:13:00 Aung COMPREHENSIVE METABOLIC 2022-05-19 Estevan SolisCeasar [facility] PANEL 11:13:00 Aung [id number] TACROLIMUS LEVEL, 2022-05-19 Luis Huang [facility] TROUGH 11:13:00 Douglas CBC WITH PLATELET AND 2022-05-18 [facility] DI[facility] 11:19:00 Vincent BASIC METABOLIC PANEL 2022-05-18 [facility] 11:19:00 Vincent [id number] TACROLIMUS LEVEL, 2022-05-18 [facility] RANDOM 11:19:00 Vincent ESTIMATED GFR 2022-05-18 [facility] Vincent CBC WITH PLATELET AND 2022-05-17 [facility] DIFFERENTIAL 13:41:00 COMPREHENSIVE METABOLIC 2022-05-17 [facility] PANEL 11:16:00 [id number] TACROLIMUS LEVEL, 2022-05-17 [facility] RANDOM 11:16:00 Vincent IMMUNOGLOBULIN G 2022-05-17 [facility] keisha 11:16:00 Vincent ESTIMATED GFR 2022-05-17 [facility]00 DONOR SPECIFIC ANTIBODY 2022-05-17 [facility] 11:16:00 Vincent HEMODIALYSIS 2022-05-17 [facility] 06:06:50 Aung TTE COMPLETE, W CONTRAST, W 2022-05-[address] [facility] [place] [place] DOPPLER ([id number]) 21:03:00 CBC WITH PLATELET AND 2022-05-16 [facility] DIFFERENTIAL 11:42:00 COMPREHENSIVE METABOLIC 2022-05-16 [facility] PANEL 11:42:00 [id number] TACROLIMUS LEVEL, 2022-05-16 [facility] RANDOM 11:42:00 Vincent TOTAL IRON BINDING CAPACITY 2022-05-16 [facility] 11:42:00 Vincent FERRITIN LEVEL 2022-05-16 [facility] 11:42[facility]00 Vincent LIPID PANEL 2022-05-16 [facility] 11:42:00 Vincent THYROID STIMULATING HORMONE 2022-05-16 [facility] 11:42:00 Vincent T4, FREE 2022-05-16 [facility] 11[facility]42:00 Vincent ESTIMATED GFR 2022-05-16 [facility] Hospit al 11:42:00 DONOR SPECIFIC ANTIBODY 2022-05-16 [facility] 11:42:[address] CHEST WO CONTRAST 2022-05-16 Citlalli [facility] 03:44:28 HEPATITIS B SURFACE ANTIGEN 2022-05-15 [facility] HomeCeasar [facility] [place] [place] 20:53:00 Aung HEMODIALYSIS 2022-05-15 [facility] 17:38:14 Aung CYTOMEGALOVIRUS BY PCR 2022-05-15 [facility] 14:59:00 Derek CBC WITH PLATELET AND 2022-05-15 [facility] DIFFERENTIAL 11:03:00 COMPREHENSIVE METABOLIC 2022-05-15 [facility] PANEL 11:03:00 [id number] TACROLIMUS LEVEL, 2022-05-15 [facility] RANDOM 11:03:00 VANCOMYCIN LEVEL, RANDOM 2022-05-15 [facility] 11:03:00 ESTIMATED GFR 2022-05-15 [facility] Hospit al 11:03:00 C-REACTIVE PROTEIN 2022-05-15 [facility] 11:03:00 PROCALCITONIN 2022-05-[address] [facility] 11:03:00 TROPONIN T 2022-05-[address] [facility] 08:00:00 [id number] TACROLIMUS LEVEL, 2022-05-15 [facility] TROUGH 07:05:00 XR CHEST 1 VW PORTABLE 2022-05-15 [facility] 02:15:00 RESPIRATORY PATHOGEN PANEL 2022-05-15 [facility] WITH COVID-19 RT-PCR 01:53:00 INFLUENZA ANTIGEN 2022-05-15 Estevan [facility] 01:53:00 METHICILLIN-RESISTANT 2022-05-15 Ali, [facility] STAPHYLOCOCCUS AUREUS 01:52:00 (MRSA), IRINEO BLOOD CULTURE, AEROBIC & 2022-05-15 [facility] ANAEROBIC 01:28:00 Adolfo CBC WITH PLATELET AND 2022-05-15 [facility] DIFFERENTIAL 01:28:00 Adolfo COMPREHENSIVE METABOLIC 2022-05-15 [facility] Hospital PANEL 01:28:00 Adolfo TROPONIN T 2022-05-15 [facility] Hospit al 01:28:00 Adolfo B NATRIURETIC PEPTIDE 2022-05-15 [facility] 01:28:00 Adolfo PARTIAL THROMBOPLASTIN TIME 2022-05-15 [facility] (PTT) 01:28:00 Adolfo PROTHROMBIN TIME WITH INR 2022-05-15 [facility] 01:28:00 Adolfo ESTIMATED GFR 2022-05-15 [facility] Hospit al 01:28:00 Adolfo PROCALCITONIN 2022-05-15 [facility] 01:28:00 MAGNESIUM LEVEL 2022-05-15 [facility] 01:28:00 Ololade PHOSPHORUS LEVEL 2022-05-15 [facility] keisha 01:28:00 Ololade ECG ED PRELIMINARY 2022-05-15 [facility] INTERPRETATION 01:10:02 HI CRITICAL CARE 2022-05-15 [facility] keisha ILL/INJURED PATIENT INIT 01:10:02 Ololade 30-74 MIN [id number] 2021-03-16 [facility] 00:00:00 [facility] [id number] 2021-03-16 [facility] 00:00:00 [facility] [id number] 2021-03-16 [facility] 00:00:00 [facility] [id number] 2021-03-16 [facility] 00:00:00 [facility] [id number] 2021-03-16 [facility] 00:00:00 [facility] [id number] 2021-03-16 [facility] 00:00:00 [facility] [id number] 2021-03-16 [facility] 00:00:00 [facility] [id number] 2021-03-16 [facility] 00:00:00 [facility] [id number] 2021-03-16 [facility] 00:00:00 [facility] [id number] 2021-03-16 [facility] 00:00:00 [facility] [id number] 2021-03-16 [facility] 00:00:00 [facility] [id number] 2021-03-16 [facility] 00:00:00 [facility] [id number] 2021-03-16 [facility] 00:00:00 [facility] [id number] 2021-03-16 [facility] 00:00:00 [facility] [id number] 2021-03-16 [facility] 00:00:00 [facility] [id number] 2021-03-16 [facility] 00:00:00 [facility] Plan of Care Planned Activity Planned Date Details Comments Source Future Scheduled 2023-04-21 65+ PNEUMOCOCCAL [facility] Test 08:09:04 VACCINE (1 - PCV) [code = 65+ PNEUMOCOCCAL VACCINE (1 - PCV)] Future Scheduled 2023-04-21 SHINGLES VACCINES (1 Met [facility] Test 08:09:04 of 2) [code = SHINGLES VACCINES (1 of 2)] Future Scheduled 2023-04-21 RSV VACCINES > 60 YR Met [facility] Test 08:09:04 (1 - 1-dose 60+ series) [code = RSV VACCINES > 60 YR (1 - 1-dose 60+ series)] Future Scheduled 2023-04-21 COVID-19 VACCINE (5 - [facility] Test 08:09:04 season) [code = COVID-19 VACCINE ( - season)] Future Scheduled 2023-04-21 INFLUENZA VACCINE (#1) M [facility] Test 08:09:04 [code = INFLUENZA VACCINE (#1)] Future Scheduled 2023-04-21 Screening for [facility] Test 08:09:04 malignant neoplasm of colon (procedure) [code = 434935714] Encounters Start End Encounter Admission Attending Care Care Encounter Source Date/Time Date/Time Type Type Clinicians Facility Department ID 2023-03-03 Outpatient 3 BING FAYPL BIMAL [id number] [facility] 15:24:34 [facility]Z [facility] 2023-02-27 Outpatient 3 [id number] ENCPL BIMAL [id number] [facility] 14:06:53 0825 [facility] 2023-02-26 Outpatient 3 [id number] ENCPL BIMAL [facility] 11:52:29 0824 [facility] 2023-02-24 Outpatient 3 [id number] ENCPL CRD [facility] 12:56:52 0822 [facility] 2023-02-05 Outpatient 3 [id number] ENCPL CRD [id number] [facility] 10:21:27 0803 [facility] 2023-02-04 Outpatient 3 [id number] ENCPL REF [id number] [facility] 12:56:16 0802 [facility] [place] [facility] 2022-06-13 Outpatient 3 [facility] ENCPL BIMAL 2021 [facility] 10:26:15 hez, 1209 [facility] [place] [facility] 2022-06-06 Outpatient 3 [facility] ENCPL BIMAL 2021 [facility] 11:25:18 hez, 1202 [facility] 2022-06-03 Outpatient 3 [id number] ENCPL REF [id number] [facility] 12:09:33 1129 [facility] 2022-06-02 Outpatient 3 [id number] ENCPL REF [id number] [facility] 13:23:34 1128 [facility] 2021-10-28 Outpatient 3 BING FAYPL OTH [id number] [facility] 08:09:05 GÓMEZ 0425 [facility] 2021-10-24 Outpatient 3 BING FAYPL OTH [id number] [facility] 11:26:39 GÓMEZ 0421 [facility] 2021-10-22 Outpatient 3 SUMEET ENCPL OTH [id number] [facility] 11:35:56 GÓMEZ 0419 [facility] [place] [facility] 2021-10-18 Outpatient 3 BING FAYPL OTH [id number] [facility] 16:20:23 GÓMEZ 0415 [facility] [place] [facility] 2021-10-17 Outpatient 3 [id number] ENCPL REF [facility] 11:37:24 0414 [facility] [place] [facility] 2021-08-01 Outpatient 3 SUMEET, ENCPL CRD [facility] 12:52:07 GÓMEZ 0909 [facility] [place] 2021-08-01 Outpatient 3 [id number] ENCPL REF [facility] 12:51:30 0908 [facility] [place] [facility] 2021-08-01 Outpatient 3 [id number] ENCPL OTH [facility] 12:43:57 0818 [facility] [place] [facility] 2021-08-01 Outpatient 3 [id number] ENCPL REF [facility] 12:41:43 0812 [facility] [place] [facility] 2021-08-01 Outpatient 3 [id number] ENCPL OTH [facility] 11:53:16 0405 [facility] [place] 2021-07-31 [facility] [id number] Common 12:43:22 Clint 38792 [facility] 2021-07-31 Outpatient Arthur[facility] [id number] Common 10:59:18 Clint 53348 [facility] 2021-07-31 Outpatient Arthur[facility] [id number] Common 10:59:00 Clint 29826 [facility] 2021-03-25 Outpatient NEW ENCGEN ENCGEN [id number] EN CG[facility] 10:10:56 ADMISSION 2023-04-21 2023-04-21 Telephone Kaylyn, 1.2.840.1 [id number] 2100 [id number] Methodi 00:00:00 00:00:[address] Juan David 3.430.2.7 Hospit a [place] .3.412608 l .8 2023-04-17 2023-04-17 Orders Merhav, Nse 1.2.840.1 [id number] 21 [id number] Methodi 00:00:00 00:00:[address] 3.430.2.7 Hospit a .3.489746 l .8 2023-04-14 2023-04-14 René Martines, 1.2.840.1 [id number] 2100 [id number] Methodi 00:00:00 00:00:[address] 3.430.2.7 Hospit a .3.844629 l .8 2023-04-10 2023-04-10 Orders Merhav, Nse 1.2.840.1 [id number] Methodi 00:00:00 00:00:[address] 3.430.2.7 Hospit a .3.200161 l .8 2023-04-03 2023-04-03 Documentat Merhav, Nse 1.2.840.1 [id number] Methodi 00:00:00 00:00:[address] 3.430.2.7 Hospit a .3.238577 l .8 2023-04-03 2023-04-03 Orders Merhav, Nse 1.2.840.1 [id number] 21 [id number] Methodi 00:00:00 00:00:[address] 3.430.2.7 Hospit a .3.543954 l .8 2023-03-27 2023-03-27 Orders Merhav, Nse 1.2.840.1 [id number] Methodi 00:00:00 00:00:[address] 3.430.2.7 Hospit a .3.043412 l .8 2023-03-20 2023-03-20 Orders Merhav, Nse 1.2.840.1 [id number] Methodi 00:00:00 00:00:[address] 3.430.2.7 Hospit a .3.113736 l .8 2023-03-18 2023-03-18 Christiano Espino, 1.2.840.1 [id number] 2100 092008 Methodi 00:00:00 00:00:00 Cherelle Simmons 45450.1.[address] 3.430.2.7 Hospit a .3.390223 l .8 2023-03-04 2023-03-16 Inpatient 3 ALENA FAY BIN [id number] [facility] 16:48:00 12:08:00 [facility]MEZ [facility]30 [facility]23-03-13 2023-03-13 Orders Merhav, Nse 1.2.840.1 [id number] 21 [id number] Methodi 00:00:00 00:00:[address] 3.430.2.7 Hospit a .3.268653 l .8 2023-03-06 2023-03-06 Documentat Merhav, Nse 1.2.840.1 [id number] Methodi 00:00:00 00:00:[address] 3.430.2.7 Hospit a .3.631811 l .8 2023-03-06 2023-03-06 Orders Merhav, Nse 1.2.840.1 [id number] 21 [id number] Methodi 00:00:00 00:00:[address] 3.430.2.7 Hospit a .3.415442 l .8 2023-02-17 2023-03-04 [facility] 1.2.840 .1 [id number] Methodi 11:28:00 16:18:00 Encounter Saima Arthur 12000.1.[address] 3.430.2.7 Hospit a .3.813542 l .8 2023-02-17 2023-03-04 Inpatient [facility] [id number] [place] [address] 00:00:00 00:00:[address] SA[address] 2023-03-02 2023-03-02 Telephone Kaylyn, 1.2.840.1 [id number] 2100 [id number] Methodi 00:00:00 00:00:[address] Juan David 3.430.2.7 Hospit a [place] .3.473934 l .8 2023-02-27 2023-02-27 Orders Merhav, Nse 1.2.840.1 [id number] 21 [id number] Methodi 00:00:00 00:00:[address] 3.430.2.7 Hospit a .3.773489 l .8 2023-02-26 2023-02-26 Orders Sanjari, 1.2.840.1 [id number] 07080 28603 Methodi 00:00:00 00:00:00 Only Beatrizad 51302.1.[address] 3.430.2.7 Hospit a .3.539458 l .8 2023-02-20 2023-02-20 Orders Merhav, Nse 1.2.840.1 [id number] 21 [id number] Methodi 00:00:00 00:00:[address] 3.430.2.7 Hospit a .3.053258 l .8 2023-02-13 2023-02-13 Orders Conrad, 1.2.840.1 [id number] 2100 958625 Methodi 00:00:00 00:00:00 Only Елена 59218.1.[address] 3.430.2.7 Hospit a .3.535803 l .8 2023-02-13 2023-02-13 Orders Merhav, Nse 1.2.840.1 [id number] Methodi 00:00:00 00:00:[address] 3.430.2.7 Hospit a .3.826118 l .8 2023-01-26 2023-02-12 [facility] 1.2.840.1 [id number] 11865 83504 Methodi 15:20:00 18:04:00 Encounter Saima 62446.1.[address] 3.430.2.7 Hospit a .3.781737 l .8 2023-01-26 2023-02-12 [facility] 012 [id number] [address] [place] 00:00:00 00:00:00 SAIMA [address] 2023-02-11 2023-02-11 Telephone Morgan, 1.2.840.1 [id number] 2100 [id number] Methodi 00:00:00 00:00:[address] 3.430.2.7 Hospit a .3.367571 l .8 2023-02-03 2023-02-03 Orders Jadiel, Nse 1.2.840.1 [id number] 21 [id number] Methodi 00:00:00 00:00:[address] 3.430.2.7 Hospit a .3.548258 l .8 2023-01-27 2023-01-27 Surgery Jensen, 1.2.840.1 [id number] 38466 25231 Methodi 07:30:00 10:40:[address] Ian 3.430.2.7 Hospit a .3.223652 l .8 2023-01-27 2023-01-27 Anesthesia Cruz, Adelsobir 1.2.840.1 [id number] [id number] Methodi 07:34:00 10:20:00 Event Alma Samuels 57687.1.[address] 3.430.2.7 Hospit a .3.517973 l .8 2023-01-27 2023-01-27 Orders Arabella, 1.2.840.1 [id number] 38164 20869 Methodi 00:00:00 00:00:00 Only Tamara 67141.1.[address] 3.430.2.7 Hospit a .3.092953 l .8 2023-01-20 2023-01-20 Orders Brandy, 1.2.840.1 [id number] 2100 026422 Methodi 00:00:00 00:00:00 Only Rody 78561.1.[address] 3.430.2.7 Hospit a .3.749471 l .8 2023-01-20 2023-01-20 Refill Robbin, 1.2.840.1 [id number] 3456 Methodi 00:00:00 00:00:[address] 3.430.2.7 Hospit a .3.021519 l .8 2023-01-03 2023-01-03 Hogshead Inspector 1, [facility] Sleep Lab Bed [facility] 1. 2.840.114 [id number] Univers 20:00:00 22:30:00 Visit Escobar aVldes 350.1.13. 10 ity of [place] 4.2.7.2.686 [facility] [id number] [facility] [address] 2023-01-03 2023-01-03 Outpatient R ESCOBAR VALDES [facility] [id number] Univers 20:00:00 20:00:00 ESCOBAR VALDES ity [facility] 2023-01-03 2023-01-03 Orders Doctor PATTIE 1.2.840.114 [id number] Univers 00:00:00 00:00:00 Only Unassigned, ROBIN 350.1.13.10 ity of [facility] 4.2.7.2.686 [facility] [id number] [facility] [address] 2022-12-30 2022-12-30 Refill Bhimaraj, 1.2.840.1 [id number] 2100 657018 Methodi 00:00:00 00:00:[address] 3.430.2.7 Hospit a .3.921561 l .8 2022-12-26 2022-12-26 Refill Bhimaraj, 1.2.840.1 [id number] 2100 498744 Methodi 00:00:00 00:00:[address] 3.430.2.7 Hospit a .3.893918 l .8 2022-12-26 2022-12-26 Refill Robbin, 1.2.840.1 [id number] 777922 6251 Methodi 00:00:00 00:00:[address] 3.430.2.7 Hospit a .3.608151 l .8 2022-12-24 2022-12-24 Orders Bartolome, 1.2.840.1 [id number] 849080 4375 Methodi 00:00:00 00:00:00 Only Christ 63166.1.[address] 3.430.2.7 Hospit a .3.686651 l .8 2022-12-19 2022-12-19 Office Srinivas 1.2.840.1 [id number] 0082 Methodi 09:00:00 10:06:53 Visit Cherelle PascualMmii 79991.1.[address] 3.430.2.7 Hospit a .3.120292 l .8 2022-12-19 2022-12-19 Outpatient [facility] [id number] [address] [place] [address] 00:00:00 00:00:[address] CHERELLE [address] 2022-12-05 2022-12-05 Documentat Conrad, 1.2.840.1 [id number] 2 [id number] Methodi 00:00:00 00:00:00 ion Елена 72871.1.[address] 3.430.2.7 Hospit a .3.420850 l .8 2022-11-10 2022-11-21 Office Cleo Lerner 1.2.840.1 104 876919 [id number] Methodi 13:20:00 13:56:44 Visit Josue Graham 56970.1.[address] 3.430.2.7 Hospit a .3.045792 l .8 2022-11-11 2022-11-11 Abstract Anton, 1.2.840.1 [id number] 2100 885450 Methodi 00:00:00 00:00:[address] 3.430.2.7 Hospit a .3.172665 l .8 2022-11-10 2022-11-10 Office Lisette, 1.2.840.1 [id number] 9429 Methodi 15:30:00 15:50:00 Visit Jonathan 51437.1.[address] Patrice 3.430.2.7 Hospit a .3.125421 l .8 2022-11-10 2022-11-10 Outpatient YANN, [facility] [id number] [address] [place] 00:00:00 00:00:[address]O [address] 2022-11-10 2022-11-10 Outpatient LISETTE, [facility] [id number] [address] [place] 00:00:00 00:00:00 JONATHAN Aren[address] [facility] 2022-11-10 2022-11-10 Travel 1.2.840.1 1.2.541.504 4866 293715 Methodi 00:00:00 00:00:[address] 3.430.2.7 0.2.7.3.698 Ho spita .3.328669 084.8 l .8 2022-10-27 2022-10-27 Telephone Pattie, 1.2.840.1 [id number] 2100 475118 Methodi 00:00:00 00:00:[address] 3.430.2.7 Hospit a .3.914067 l .8 2022-10-20 2022-10-20 Telephone Dank, 1.2.840.1 [id number] 190 [id number] Methodi 00:00:00 00:00:[address] 3.430.2.7 Hospit a .3.254926 l .8 2022-10-17 2022-10-17 [facility], 1.2.840.1 [id number] 2100 691343 Methodi 08:47:00 15:41:00 Encounter Imad 51337.1.[address] 3.430.2.7 Hospit a .3.999621 l .8 2022-10-17 2022-10-17 Surgery [facility], 1.2.840.1 [id number] 43049 40999 Methodi 10:39:00 12:14:[address] 3.430.2.7 Hospit a .3.099971 l .8 2022-10-17 2022-10-17 Outpatient [facility] 021 [id number] [address] [place] 00:00:00 00:00:[address]AD [address] 2022-10-17 2022-10-17 Travel 1.2.840.1 1.2.300.341 2401 028262 Methodi 00:00:00 00:00:[address] 3.430.2.7 0.2.7.3.698 Ho spita .3.369460 084.8 l .8 2022-10-16 2022-10-16 Documentat Provider, 1.2.840.1 [id number] 2 [id number] Methodi 00:00:00 00:00:00 ion Unknown 37317.1.[address] 3.430.2.7 Hospit a .3.147301 l .8 2022-10-06 2022-10-06 Orders Pattie, 1.2.840.1 [id number] 712953 3669 Methodi 00:00:00 00:00:00 Only Andreea 10091.1.[address] 3.430.2.7 Hospit a .3.829901 l .8 2022-10-06 2022-10-06 Telephone Pattie, 1.2.840.1 [id number] 2100 601586 Methodi 00:00:00 00:00:[address] 3.430.2.7 Hospit a .3.418812 l .8 2022-10-01 2022-10-01 Orders Conrad, 1.2.840.1 [id number] 2099 658218 Methodi 00:00:00 00:00:00 Only Елена 72446.1.[address] 3.430.2.7 Hospit a .3.328566 l .8 2022-09-30 2022-09-30 Telephone Alesia, 1.2.840.1 [id number] 21 [id number] Methodi 00:00:00 00:00:[address] 3.430.2.7 Hospit a .3.902699 l .8 2022-09-29 2022-09-29 [facility], 1.2.840.1 [id number] 96061 51404 Methodi 12:08:12 23:59:00 Encounter Ashrith 67013.1.[address] 3.430.2.7 Hospit a .3.736602 l .8 2022-09-29 2022-09-29 [facility], 1.2.840.1 [id number] 86146 82398 Methodi 10:56:47 12:07:00 Encounter Ashrith 42526.1.[address] 3.430.2.7 Hospit a .3.587147 l .8 2022-09-29 2022-09-29 [facility], 1.2.840.1 [id number] 61284 87518 Methodi 10:56:33 12:07:00 Encounter Ashrith 69951.1.[address] 3.430.2.7 Hospit a .3.145921 l .8 2022-09-29 2022-09-29 [facility], 1.2.840.1 [id number] 24552 77676 Methodi 10:56:20 12:07:00 Encounter Ashrith 99487.1.[address] 3.430.2.7 Hospit a .3.938218 l .8 2022-09-29 2022-09-29 [facility], 1.2.840.1 [id number] 72433 54982 Methodi 10:00:00 10:55:00 Encounter Ashrith 95897.1.[address] 3.430.2.7 Hospit a .3.245904 l .8 2022-09-29 2022-09-29 [facility] [id number] [address] [place] [address] 00:00:00 00:00:00 ASHRITH [address] 2022-09-29 2022-09-29 [facility] [id number] [place] [address] 00:00:00 00:00:00 ASHRITH [address] 2022-09-29 2022-09-29 [facility] [id number] [address] [place] [address] 00:00:00 00:00:00 ASHRITH [address] 2022-09-29 2022-09-29 Outpatient [facility] [id number] [address] [place] 00:00:00 00:00:00 ASHRITH [address] 2022-09-29 2022-09-29 Outpatient [facility], [facility] [id number] [address] [place] 00:00:00 00:00:00 ASHRITH [address] 2022-09-29 2022-09-29 Outpatient [facility], [facility] [id number] [address] [place] 00:00:00 00:00:00 ASHRITH [address] 2022-09-29 2022-09-29 [facility], 1.2.840.1 [id number] 2099 [id number] Methodi 00:00:00 00:00:[address] [place] 3.430.2.7 Hospit a [place] .3.199056 l .8 2022-09-29 2022-09-29 Travel 1.2.840.1 1.2.703.249 7645 [id number] [facility] 00:00:00 00:00:[address] 3.430.2.7 0.2.7.3.698 Ho spita .3.294745 084.8 l .8 2022-09-26 2022-09-26 Orders Conrad, 1.2.840.1 [id number] 2099 [id number] [facility] 00:00:00 00:00:00 Only Елена 75070.1.[address] 3.430.2.7 Hospit a .3.218930 l .8 2022-09-22 2022-09-22 [facility], 1.2.840.1 [id number] 2099 [id number] Methodi 00:00:00 00:00:[address] [place] 3.430.2.7 Hospit a [place] .3.190275 l .8 2022-09-12 2022-09-12 [facility], 1.2.840.1 [id number] 33508 38150 Methodi 12:50:26 15:16:03 Encounter Maurilio 33924.1.[address] [place] 3.430.2.7 Hospit a [place] .3.966960 l .8 2022-09-12 2022-09-12 Outpatient KAYLYN, [facility] [id number] [address] [place] 00:00:00 00:00:00 MAURILIO [address] 2022-09-12 2022-09-12 Travel 1.2.840.1 1.2.765.976 6476 155680 [facility] 00:00:00 00:00:[address] 3.430.2.7 0.2.7.3.698 Ho spita .3.271309 084.8 l .8 2022-09-04 2022-09-04 Orders Paiz, 1.2.840.1 [id number] 43367 [facility] 00:00:00 00:00:00 Only Emelia 32457.1.[address] 3.430.2.7 Hospit a .3.304334 l .8 2022-08-26 2022-08-26 Telephone [facility], 1.2.840.1 [id number] 2100 [id number] Methodi 00:00:00 00:00:[address] [place] 3.430.2.7 Hospit a [place] .3.102588 l .8 2022-08-20 2022-08-20 Documentat Conrad, 1.2.840.1 [id number] 2 [id number] [facility] 00:00:00 00:00:00 ion Елена 38484.1.[address] 3.430.2.7 Hospit a .3.122133 l .8 2022-08-15 2022-08-15 Clinical Cardenas, 1.2.840.1 [id number] 14606 04842 [facility] 10:00:00 10:15:00 Support Elizabeth 92645.1.[address] 3.430.2.7 Hospit a .3.730266 l .8 2022-08-15 2022-08-15 Outpatient [facility] [id number] [address] [place] 00:00:00 00:00:[address] 2022-08-15 2022-08-15 Travel 1.2.840.1 1.2.289.194 2692 [id number] [facility] 00:00:00 00:00:[address] 3.430.2.7 0.2.7.3.698 Ho spita .3.911604 084.8 l .8 2022-08-14 2022-08-14 Documentat Conrad, 1.2.840.1 [id number] 2 [id number] [facility] 00:00:00 00:00:00 ion Елена 03907.1.[address] 3.430.2.7 Hospit a .3.825985 l .8 2022-08-08 2022-08-08 Office Kaylyn, 1.2.840.1 [id number] 6422 [facility] 09:45:00 10:47:40 Visit Maurilio 24507.1.[address] [place] 3.430.2.7 Hospit a [place] .3.335275 l .8 2022-08-08 2022-08-08 Outpatient [facility] [id number] [address] [place] 00:00:00 00:00:00 MAURILIO 455 Method i 2022-08-08 2022-08-08 Outpatient [facility] [id number] 181 [place] 00:00:00 00:00:00 MAURILIO [address] 2022-08-08 2022-08-08 Travel 1.2.840.1 1.2.123.169 2412 613008 Methodi 00:00:00 00:00:[address] 3.430.2.7 0.2.7.3.698 Ho spita .3.999668 084.8 l .8 2022-08-01 2022-08-01 Ya Martines, 1.2.840.1 [id number] 2100 357686 Methodi 00:00:00 00:00:00 Only Елена 24521.1.[address] 3.430.2.7 Hospit a .3.801815 l .8 2022-07-30 2022-07-30 Orders Conrad, 1.2.840.1 [id number] 2099 247403 Methodi 00:00:00 00:00:00 Only Елена 49797.1.[address] 3.430.2.7 Hospit a .3.817263 l .8 2022-07-30 2022-07-30 Telephone Yann, 1.2.840.1 [id number] 2099 399661 Methodi 00:00:00 00:00:[address] 3.430.2.7 Hospit a .3.654915 l .8 2022-07-30 2022-07-30 Orders Conrad, 1.2.840.1 [id number] 2099 755618 Methodi 00:00:00 00:00:00 Only Елена 02420.1.[address] 3.430.2.7 Hospit a .3.002753 l .8 2022-07-25 2022-07-25 Orders Arabella, 1.2.840.1 [id number] 59387 23519 Methodi 00:00:00 00:00:00 Only Tamara 25677.1.[address] 3.430.2.7 Hospit a .3.722815 l .8 2022-07-25 2022-07-25 Orders Conrad, 1.2.840.1 [id number] 2099 809234 Methodi 00:00:00 00:00:00 Only Елена 26872.1.[address] 3.430.2.7 Hospit a .3.266021 l .8 2022-07-24 2022-07-24 Documentat Conrad, 1.2.840.1 [id number] 2 [id number] Methodi 00:00:00 00:00:00 ion Елена 24917.1.[address] 3.430.2.7 Hospit a .3.449486 l .8 2022-07-23 2022-07-23 Documentat Conrad, 1.2.840.1 [id number] 2 [id number] Methodi 00:00:00 00:00:00 ion Елена 27404.1.[address] 3.430.2.7 Hospit a .3.654597 l .8 2022-07-22 2022-07-22 Orders Conrad, 1.2.840.1 [id number] 2099 804390 Methodi 00:00:00 00:00:00 Only Елена 51971.1.[address] 3.430.2.7 Hospit a .3.837651 l .8 2022-07-21 2022-07-21 Refill Jennparisleoncio, 1.2.840.1 [id number] 2100 036056 Methodi 00:00:00 00:00:[address] 3.430.2.7 Hospit a .3.065756 l .8 2022-07-18 2022-07-18 Office [facility], 1.2.840.1 [id number] 3042 Methodi 10:00:00 10:20:00 Visit Ashri 66069.1.[address] 3.430.2.7 Hospit a .3.061997 l .8 2022-07-18 2022-07-18 Lab [facility], 1.2.840.1 [id number] 5101 Methodi 08:00:00 08:05:[address] 3.430.2.7 Hospit a .3.997107 l .8 2022-07-18 2022-07-18 [facility] [id number] 818 [place] 00:00:00 00:00:00 [address]SHRITH [address] 2022-07-18 2022-07-18 [facility] [id number] 716 [place] 00:00:00 00:00:00 [address]RITH [address] 2022-07-18 2022-07-18 Travel 1.2.840.1 1.2.274.437 1789 040664 Methodi 00:00:00 00:00:[address] 3.430.2.7 0.2.7.3.698 Ho spita .3.784052 084.8 l .8 2022-07-18 2022-07-18 Orders Conrad, 1.2.840.1 [id number] 2100 [id number] Methodi 00:00:00 00:00:00 Only Елена 88444.1.[address] 3.430.2.7 Hospit a .3.644615 l .8 2022-07-10 2022-07-10 Orders Conrad, 1.2.840.1 [id number] 2099 611413 Methodi 00:00:00 00:00:00 Only Елена 95963.1.[address] 3.430.2.7 Hospit a .3.713433 l .8 2022-06-26 2022-06-26 Documentat Conrad, 1.2.840.1 [id number] 2 [id number] Methodi 00:00:00 00:00:00 ion Елена 64836.1.[address] 3.430.2.7 Hospit a .3.523520 l .8 2022-06-20 2022-06-20 Orders Larry, 1.2.840.1 [id number] 3623 Methodi 00:00:00 00:00:00 [address] Maxi 81082.1.[address] 3.430.2.7 Hospit a .3.256906 l .8 2022-06-19 2022-06-19 Telephone Yann, 1.2.840.1 [id number] 2100 653326 Methodi 00:00:00 00:00:[address] 3.430.2.7 Hospit a .3.442364 l .8 2022-05-14 2022-06-10 [facility] 1.2.840.1 79932 1029 5340175850 Methodi 18:04:00 15:51:00 [facility] Saima Arthur 77224.1.[address] 3.430.2.7 Hospit a .3.560228 l .8 2022-05-14 2022-06-10 [facility] [id number] [place] [address] 00:00:00 00:00:00 SAIMA [address] 2022-05-23 2022-05-23 Anesthesia Cholo Szymanski 1.2.840.1 1040 99231 [id number] Methodi 13:37:00 14:41:00 Event Ray Garcia 38379.1.[address] 3.430.2.7 Hospit a .3.380842 l .8 2022-05-23 2022-05-23 Surgery Bavare, 1.2.840.1 [id number] 7155 Methodi 12:25:00 13:50:00 Nae 56123.1.1 728 s t Abdullahi 3.430.2.7 Hospi ta .3.031256 l .8 2022-05-14 2022-05-14 Travel 1.2.840.1 1.2.470.457 2051 065798 Methodi 00:00:00 00:00:[address] 3.430.2.7 0.2.7.3.698 Ho spita .3.328026 084.8 l .8 2022-04-21 2022-04-21 Refill Conrad, 1.2.840.1 [id number] 2100 726539 Methodi 00:00:00 00:00:[address] 3.430.2.7 Hospit a .3.147912 l .8 2022-03-12 2022-03-12 [facility] [id number] [address] [place] 00:00:00 00:00:00 CHAO 521 Method i 2022-03-12 2022-03-12 [facility] [id number] 814 [place] 00:00:00 00:00:00 CHAO 563 Method i 2022-02-10 2022-02-10 Outpatient SHANNAN, [facility] [id number] 521 [place] 00:00:00 00:00:00 ZULY 426 Method i 2022-02-10 2022-02-10 Outpatient MORGAN, [facility] [id number] 296 [place] 00:00:00 00:00:00 HERNESTO cordero 2021-12-09 2021-12-09 Outpatient LARRY, [facility] [id number] 491 [place] 00:00:00 00:00:00 MAHWASH 005 Method i 2021-12-03 2021-12-03 Outpatient LARRY, [facility] [id number] 159 [place] 00:00:00 00:00:00 MAHWASH 813 Method i 2021-12-03 2021-12-03 Outpatient ROBBIN, [facility] [id number] 160 [place] 00:00:00 00:00:00 ASHRISTEF 574 Method i 2021-10-06 2021-10-29 Inpatient ARTHUR, [facility] 031 [id number] 39 [place] 00:00:00 00:00:00 SAIMA 484 Method i 2021-09-13 2021-09-13 Outpatient FAM, [facility] 021 [id number] [place] 00:00:00 00:00:00 ELIZABETH 447 Method i 2021-08-16 2021-08-16 Outpatient FAM, [facility] 021 [id number] 8447 [place] 00:00:00 00:00:00 ELIZABETH 897 Method i 2021-08-14 2021-08-14 Outpatient FAM, [facility] [id number] 4566 [place] 00:00:00 00:00:00 ELIZABETH 709 Method i 2021-08-14 2021-08-14 Outpatient [facility] [id number] 296 [place] 00:00:00 00:00:00 184 Method i 2021-07-26 2021-07-26 Outpatient JUAQUIN, [facility] [id number] 814 [place] 00:00:00 00:00:00 MATT 843 Method i 2021-07-26 2021-07-26 Outpatient SALOMONK, [facility] [id number] 450 [place] 00:00:00 00:00:00 MATT 806 Method i 2021-07-26 2021-07-26 Outpatient EVI, [facility] [id number] [id number] [place] 00:00:00 00:00:00 ILIANA 017 Method i 2021-07-19 2021-07-19 Outpatient FAM, [facility] 021 [id number] [place] 00:00:00 00:00:00 ELIZABETH 225 Method i 2021-07-17 2021-07-17 Outpatient FAM, [facility] [id number] 6686 [place] 00:00:00 00:00:00 ELIZABETH 201 Method i 2021-07-17 2021-07-17 Outpatient FAM, [facility] [id number] 4619 [place] 00:00:00 00:00:00 ELIZABETH 095 Method i 2021-07-17 2021-07-17 Outpatient FAM [facility] [id number] 2625 [place] 00:00:00 00:00:00 ELIAZBETH 689 Method i 2021-06-20 2021-06-20 Outpatient LACEY, [facility] [id number] [place] 00:00:00 00:00:00 ADONAY 503 Method i 2021-06-01 2021-06-04 Inpatient ÁNGEL, [facility] [id number] 64 [place] 00:00:00 00:00:00 COREY 573 Method i 2021-05-14 2021-05-19 Inpatient ELLIE, [facility] [id number] 7427 [place] 00:00:00 00:00:00 JANNIE 455 Method i 2021-01-08 2021-01-08 Outpatient BOB, [facility] [id number] 5917 [place] 00:00:00 00:00:00 GENET 384 Method i 2021-01-08 2021-01-08 Outpatient IRAJ, [facility] [id number] 075 [place] 00:00:00 00:00:00 AHMED 427 Method i 2020-12-31 2020-12-31 Outpatient LACEY [facility] [id number] [place] 00:00:00 00:00:00 ADONAY 236 Method i 2020-12-20 2020-12-20 Outpatient IRAJ, [facility] [id number] 936 [place] 00:00:00 00:00:00 AHMED 244 Method i 2020-12-06 2020-12-06 Outpatient IRAJ, [facility] [id number] 095 [place] 00:00:00 00:00:00 AHMED 466 Method i 2020-11-28 2020-11-28 Outpatient BOB, [facility] 021 [id number] [place] 00:00:00 00:00:00 GENET 157 Method i 2020-11-20 2020-11-23 Inpatient ELLIE, [facility] 064 [id number] [place] 00:00:00 00:00:00 JANNIE 762 Method i 2020-11-14 2020-11-14 Outpatient CANDIDO, [facility] [id number] 238 [place] 00:00:00 00:00:00 MALENA 946 Method i 2020-11-14 2020-11-14 Outpatient CANDIDO, [facility] [id number] 238 [place] 00:00:00 00:00:00 MALENA 947 Method i 2020-11-14 2020-11-14 Outpatient VICKEY, [facility] [id number] 7926 [place] 00:00:00 00:00:00 NEDRA 143 Method i 2020-11-14 2020-11-14 Outpatient [facility] [id number] 342 [place] 00:00:00 00:00:00 880 Method i 2020-11-12 2020-11-12 Outpatient LACEY, [facility] [id number] [place] 00:00:00 00:00:00 ADONAY [address] 2020-11-07 2020-11-07 Outpatient LACEY, [facility] [id number] [place] 00:00:00 00:00:00 ADONAY 623 Method i 2020-11-07 2020-11-07 Outpatient ROBBIN, [facility] [id number] 076 [place] 00:00:00 00:00:00 ASHRITH 846 Method i 2020-11-07 2020-11-07 Outpatient ROBBIN, [facility] [id number] 077 [place] 00:00:00 00:00:00 [address]SHRITH [address] 2020-11-07 2020-11-07 Outpatient ROBBIN, [facility] [id number] 921 [place] 00:00:00 00:00:00 ASHRITH [address] 2020-11-07 2020-11-07 Outpatient ROBBIN, [facility] [id number] 077 [place] 00:00:00 00:00:00 ASHRITH [address] 2020-11-07 2020-11-07 Outpatient ROBBIN, [facility] [id number] 077 [place] 00:00:00 00:00:00 ASHRITH [address] 2020-10-26 2020-10-26 Outpatient SHABAZZ, [facility] [id number] 005 [place] 00:00:00 00:00:00 JOSH 203 Method i 2020-10-16 2020-10-26 Inpatient ELLIE, [facility] 064 [id number] [place] 00:00:00 00:00:00 VIPIN 500 Method i 2020-10-11 2020-10-11 Outpatient IRAJ, [facility] [id number] 317 [place] 00:00:00 00:00:00 AHMED 375 Method i 2020-09-25 2020-09-25 (TEL) STLMLC STLMLC [id number] [place] 00:00:00 00:00:00 [facility] 2020-09-24 2020-09-24 Outpatient RADHAO, [facility] [id number] 668 [place] 00:00:00 00:00:00 ALBA 423 Method i 2020-09-24 2020-09-24 Outpatient MARIELUERO, [facility] [id number] 785 [place] 00:00:00 00:00:00 ALBA 059 Method i 2020-09-15 2020-09-20 Inpatient FOREIGN, UMAR [facility] [id number] [place] 00:00:00 00:00:00 901 Method i 2020-09-10 2020-09-10 Outpatient SHANNAN, [facility] [id number] 097 [place] 00:00:00 00:00:00 ZULY 539 Method i 2020-09-06 2020-09-06 Outpatient IRAJ, [facility] [id number] 822 [place] 00:00:00 00:00:00 AHMED 045 Method i 2020-08-24 2020-08-24 Outpatient BHIMARAJ, [facility] [id number] [place] 00:00:00 00:00:00 ADONAY 758 Method i 2020-08-24 2020-08-24 Outpatient DHARMESH, [facility] [id number] [place] 00:00:00 00:00:00 RAFIK 728 Method i 2020-08-09 2020-08-09 Outpatient IRAJ, [facility] [id number] [place] 00:00:00 00:00:00 AHMED [address] 2020-08-07 2020-08-07 Outpatient FRANDO, [facility] [id number] 034 [place] 00:00:00 00:00:00 BEHZAD [address] 2020-08-01 2020-08-01 Outpatient BHIMARAJ, [facility] [id number] [place] 00:00:00 00:00:00 ADONAY [address] 2020-08-01 2020-08-01 Outpatient BHIMARAJ, [facility] [id number] [place] 00:00:00 00:00:00 ADONAY [address] 2020-07-31 2020-07-31 Outpatient IRAJ, [facility] [id number] 994 [place] 00:00:00 00:00:00 AHMED [address] 2020-07-07 2020-07-24 Inpatient ROSALVAEKLAURENT, [facility] 031 [id number] 7030 [place] 00:00:00 00:00:00 SUZY [address] 2020-06-20 2020-06-20 Outpatient [facility] [id number] 324 [place] 00:00:00 00:00:[address] 2020-06-20 2020-06-20 Outpatient [facility] [id number] 325 [place] 00:00:00 00:00:[address] 2020-06-14 2020-06-14 Outpatient IRAJ, [facility] [id number] 155 [place] 00:00:00 00:00:00 AHMED [address] 2020-06-11 2020-06-11 Outpatient IRAJ, [facility] [id number] 722 [place] 00:00:00 00:00:00 AHMED [address] 2020-06-11 2020-06-11 Outpatient IRAJ, [facility] [id number] 760 [place] 00:00:00 00:00:00 AHMED [address] 2020-05-18 2020-05-23 Inpatient KEEGAN JU [facility] [id number] 13 [place] 00:00:00 00:00:[address] 2020-05-16 2020-05-16 Outpatient [facility] [id number] 903 [place] 00:00:00 00:00:[address] 2020-05-16 2020-05-16 Outpatient [facility] [id number] 354 [place] 00:00:00 00:00:[address] 2020-05-10 2020-05-10 Outpatient IRAJ, [facility] [id number] 266 [place] 00:00:00 00:00:00 AHMED [address] 2020-04-12 2020-04-12 Outpatient IRAJ, [facility] [id number] 577 [place] 00:00:00 00:00:00 AHMED [address] 2020-03-30 2020-03-30 Outpatient TOMPSON, [place] [id number] 1341 [place] 00:00:00 00:00:00 ELIZABETH [address] 2020-03-26 2020-03-26 Outpatient TOMPSON, [facility] [id number] [place] 00:00:00 00:00:00 ELIZABETH [address] 2020-03-21 2020-03-21 Outpatient TOMPSON, [facility] [id number] [place] 00:00:00 00:00:00 ELIZABETH [address] 2020-03-16 2020-03-16 Outpatient HOBEIKA, [facility] [id number] [place] 00:00:00 00:00:00 NEDRA [address] 2020-03-13 2020-03-13 Outpatient MILES, [facility] [id number] 092 [place] 00:00:00 00:00:00 ZULY [address] 2020-03-09 2020-03-09 Outpatient KOREAN, [facility] [id number] 425 [place] 00:00:00 00:00:00 MEGHAN [address] 2020-03-08 2020-03-08 Outpatient IRAJ, [facility] [id number] 513 [place] 00:00:00 00:00:00 AHMED [address] 2020-02-22 2020-02-22 Outpatient REY, [facility] [id number] 138 [place] 00:00:00 00:00:00 MALENA [address] 2020-02-22 2020-02-22 Outpatient IRAJ, [facility] [id number] 138 [place] 00:00:00 00:00:00 AHMED [address] 2020-02-22 2020-02-22 Outpatient IRAJ, [facility] [id number] 138 [place] 00:00:00 00:00:00 AHMED [address] 2020-02-22 2020-02-22 Outpatient REY, [facility] [id number] 138 [place] 00:00:00 00:00:00 MALENA [address] 2020-02-22 2020-02-22 Outpatient REY, [facility] [id number] 138 [place] 00:00:00 00:00:00 MALENA [address] 2020-02-17 2020-02-17 Outpatient LEIF, [facility] [id number] 450 [place] 00:00:00 00:00:00 JOHNNIE [address] 2020-02-09 2020-02-09 Outpatient IRAJ, [facility] [id number] 148 [place] 00:00:00 00:00:00 AHMED [address] 2020-01-16 2020-01-16 Outpatient BHIMARAJ, [facility] [id number] [place] 00:00:00 00:00:00 ADONAY [address] 2020-01-16 2020-01-16 Outpatient SHAKIL, [facility] [id number] 295 [place] 00:00:00 00:00:00 JAWAIRIA [address] 2020-01-16 2020-01-16 Outpatient [facility] [id number] 508 [place] 00:00:00 00:00:[address] 2020-01-13 2020-01-13 Outpatient NABILA, [facility] 021 [id number] [place] 00:00:00 00:00:00 IMAD [address] 2020-01-12 2020-01-12 Outpatient IRAJ, [facility] [id number] 995 [place] 00:00:00 00:00:00 AHMED [address] 2020-01-11 2020-01-11 Outpatient BHIMARAJ, [facility] [id number] [place] 00:00:00 00:00:00 ADONAY [address] 2020-01-11 2020-01-11 Outpatient BHIMARAJ, [facility] [id number] [place] 00:00:00 00:00:00 ADONAY [address] 2020-01-11 2020-01-11 Outpatient IRAJ, [facility] [id number] 603 [place] 00:00:00 00:00:00 AHMED [address] 2020-01-11 2020-01-11 Outpatient BHIMARAJ, [facility] [id number] [place] 00:00:00 00:00:00 ADONAY [address] 2020-01-11 2020-01-11 Outpatient BHIMARAJ, [facility] [id number] [place] 00:00:00 00:00:00 ADONAY [address] 2020-01-11 2020-01-11 Outpatient BHMITESH, [facility] [id number] 75840 [place] 00:00:00 00:00:00 ADONAY [address] 2020-01-11 2020-01-11 Outpatient BHIMARAJ, [facility] [id number] [place] 00:00:00 00:00:00 ADONAY [address] 2020-01-11 2020-01-11 Outpatient BHPARISRARadha, [facility] [id number] [place] 00:00:00 00:00:00 ADONAY [address] 2020-01-04 2020-01-07 Inpatient ELLIE, [facility] [id number] 9617 [place] 00:00:00 00:00:00 JANNIE [address] 2019-12-17 2019-12-17 Outpatient KOREAN, [facility] [id number] [place] 00:00:00 00:00:00 MEGHAN [address] 2019-12-08 2019-12-08 Outpatient IRAJ, [facility] [id number] 767 [place] 00:00:00 00:00:00 AHMED [address] 2019-12-04 2019-12-04 Outpatient IRAJ, [facility] [id number] 269 [place] 00:00:00 00:00:00 AHMED [address] 2019-11-15 2019-11-15 Outpatient IRAJ, [facility] [id number] 749 [place] 00:00:00 00:00:00 AHMED [address] 2019-11-14 2019-11-14 Outpatient KOREAN, [facility] [id number] 404 [place] 00:00:00 00:00:00 MEGHAN [address] 2019-11-05 2019-11-05 Outpatient KOREAN, [facility] [id number] 042 [place] 00:00:00 00:00:00 MEGHAN [address] 2019-10-12 2019-10-12 Outpatient IRAJ, [facility] [id number] 278 [place] 00:00:00 00:00:00 AHMED [address] 2019-10-11 2019-10-11 Outpatient IRAJ, [facility] [id number] 367 [place] 00:00:00 00:00:00 AHMED [address] 2019-10-03 2019-10-03 Out[facility] [id number] [place] 11:31:00 11:31:[place] [address] [place] [address] [facility] 2019-09-22 2019-09-22 Outpatient IRAJ, [facility] [id number] 598 [place] 00:00:00 00:00:00 AHMED [address] 2019-09-08 2019-09-08 Outpatient IRAJ, [facility] [id number] 164 [place] 00:00:00 00:00:00 AHMED [address] 2019-09-08 2019-09-08 Outpatient IRAJ, [facility] [id number] 218 [place] 00:00:00 00:00:00 AHMED [address] 2019-08-03 2019-08-03 Outpatient MILES, [facility] [id number] 098 [place] 00:00:00 00:00:00 ZULY [address] 2019-07-14 2019-07-14 Outpatient [facility] [id number] [place] 11:00:00 11:00:00 [place] [address] [facility] 2019-07-07 2019-07-07 Outpatient [facility] [id number] [place] 09:10:00 09:10:00 t [place] [address] [facility] 2019-03-31 2019-03-31 Outpatient [facility] [id number] [place] 10:30:00 10:30:00 t [place] [address] [facility] 2018-04-01 2018-04-01 Outpatient [facility] [id number] [place] 13:30:00 13:30:00 t [place] [address] [facility] 2017-12-07 2017-12-07 Outpatient [facility] [id number] [place] 14:02:00 14:02:00 [address] [place] [address] [facility] 2017-09-29 2017-09-29 Outpatient Dean Mann [id number] [place] 11:00:00 11:00:00 t [employer] [facility] it [employer] [facility] Results Test Description Test Time Test Comments Results Result Comments Source Basic metabolic panel 2023-04-14 19:45:00 Test Item Value Reference Range Interpretation Comme nts Glucose (test code = 85 mg/dL 65-99 Fastin g reference 2345-7) interval BUN (test code = 3094-0) 36 mg/dL 7-25 H Creatinine (test code = 5.30 mg/dL 0.70-1.28 H 2160-0) eGFR (test code = 36632-9) 11 See_Comment L [Automated message] The system [facility] h generated this result transmitted ref erence range: > OR = 6 0 mL/min/1.73m2. The reference range was not used to int erpret this result as normal/abnormal . BUN/creatinine ratio (test 7 See_Comment [Automated message] code = 3097-3) The system [facility] generated this result transmitted ref erence range: 6 - 22 ( calc). The reference r brittney was not used to interpret this result as normal/abnor mal. Sodium (test code = 138 mmol/L 836-477 9427-2) Potassium (test code = 4.6 mmol/L 3.5-5.3 2823-3) Chloride (test code = 100 mmol/L 98-110 2075-0) CO2 (test code = 8-9) 28 mmol/L 20-32 Calcium (test code = 11.5 mg/dL 8.6-10.3 H 80954-1) RAC (test code = RAC) Performing Organization Information: Site ID: [id number] Name: [facility] Address: [address] [place] [id number] Director: Alannah Roth Lab Interpretation (test Abnormal code = 29585-7) [facility] with platelet and [id number] 19:45:00 Test Item Value Reference Range Interpretation Comments WBC (test code = 8.2 See_Comment [Automated 3490-2) message] The system which generated this result transmitted reference range : 3.8 - 10.8 Thousand/uL. Th e reference range was not used to interpret this result as normal/abnormal . RBC (test code = 3.64 See_Comment L [Automated 789-8) message] The system which generated this result transmitted reference range : 4.20 - 5.80 Million/uL. The reference range was not used to interpret this result as normal/abnormal . HGB (test code = 10.9 g/dL 13.2-17.1 L 718-7) HCT (test code = 33.5 % 38.5-50.0 L 4544-3) MCV (test code = 92.0 fL 80.0-100.0 787-2) MCH (test code = 29.9 pg 27.0-33.0 785-6) MCHC (test code = 32.5 g/dL 32.0-36.0 786-4) RDW (test code = 14.4 % 11.0-15.0 788-0) Platelet count (test 215 See_Comment [Autom ated code = 777-3) message] The system which generated this result transmitted reference range : 140 - 400 Thousand/uL. Th e reference range was not used to interpret this result as normal/abnormal . MPV (test code = 10.5 fL 7.5-12.5 776-5) Neutrophils, 5551 See_Comment [Automated absolute (test code message] The = 751-8) system which generated this result transmitted reference range : 1,500 - 7,800 cells/uL. The reference range was not used to interpret this result as normal/abnormal . Lymphocytes, 1337 See_Comment [Automated absolute (test code message] The = 731-0) system which generated this result transmitted reference range : 850 - 3,900 cells/uL. The reference range was not used to interpret this result as normal/abnormal . Monocytes, absolute 869 See_Comment [Automa rahul (test code = 742-7) message] The system which generated this result transmitted reference range : 200 - 950 cells/uL. The reference range was not used to interpret this result as normal/abnormal . Eosinophils, 361 See_Comment [Automated absolute (test code message] The = 711-2) system which generated this result transmitted reference range : 15 - 500 cells/uL. The reference range was not used to interpret this result as normal/abnormal . Basophils, absolute 82 See_Comment [Automa rahul (test code = 704-7) message] The system which generated this result transmitted reference range : 0 - 200 cells/u L. The reference range was not used to interpr et this result as normal/abnormal . Neutrophils (test 67.7 % code = 770-8) Lymphocytes (test 16.3 % code = 736-9) Monocytes (test code 10.6 % = 5905-5) Eosinophils (test 4.4 % code = 713-8) Basophils + RC (test 1.0 % code = 706-2) RAC (test code = Performing RAC) Organization Information: Site ID: [id number] Name: [facility] Address: [address] [place] [address] Director: Alannah Roth Lab Interpretation Abnormal (test code = 46752-6) [facility]eland[facility]kuad[facility] Tacrolimus level, jixlja9252-20-59 19:45:00 Test Item Value Reference Interpretation Comments Range Tacrolimus, highly 4.8 mcg/L L No defini tive sensitive, LC/MS/MS therapeu tic or toxic (test code = [place] [address]-2) beenestablished . Optimal blood d rug levels are influencedby ty pe of transplant, pat ient response, time post-transplant , co-administrati on of other drugs, an d drug formulatio n. The following t rough range is a sugg ested guideline: 5.0- 20.0 mcg/L. This piper t was developed and i ts analytical performance characteristics have been determined by [facility]. It has not been cleared or appr felisa by theFDA. This assay has been validated pursu ant to the CLIA regulations and is used for clinic al purposes. RAC (test code = Performing RAC) Organization Information: Site ID: [id number] Name: [facility] Address: [address] [place] [address] Director: Dr. Ramy Shoemaker Lab Interpretation Abnormal (test code = 96195-5) [facility]yt[facility]galovirus by CJQ4801-16-03 19:45:00 Test Item Value Reference Interpretation Comments Range Source PLASMA (test code = 15229-2) CMV DNA, QN NOT DETECTED IU/mL real time PCR (test code = 32525-4) CMV DNA, QN NOT DETECTED Log IU/mL REFERENCE RANG E: NOT DETECTED PCR (test This test was d eveloped and code = its analytical 93788-4) performancechar acteristics have been deter mined by [facility].It has not been cleared or appr felisa by the U.S. Food andDr ug Administration. This assay has been validated pursuantto the CLIA regulation s and is used for clinical pu rposes. For additional info rmation, please refer [email or web address] [email or web address]/C [email or web address](Thi s link is being provided for informational/e ducational purposes only.) RAC (test Performing code = RAC) Organization Information: Site ID: EZ Name: [facility], Address: [address] [place] [id number] Director: Sonam Hunt MD,PhD,SYED [facility] Center[facility] 12 xbpd3268-99-71 23:32:53 Test Item Value Reference Range Interpretation Comments Ventricular rate 92 (test code = 253) Atrial rate (test 92 code = 255) HI interval (test 64 code = 266) QRSD interval (test 102 code = 260) QT interval (test 398 code = 264) QTC interval (test 492 code = 265) QRS axis 1 (test code -20 = 268) T wave axis (test 77 code = 270) EKG impression (test ^^^ Poor data quality, code = 273) interpretation may be adversely affected-Possible Junctional rhythm-Incomplete right bundle branch block-Nonspecific T wave abnormality-Prolonged QT-Abnormal ECG-In automated comparison with ECG of 28-FEB-2023 14:35,-Sinus rhythm has replaced Junctional rhythm- [facility] CenterCyt[facility] (non-gynecological) tukwckf2207-38-57 21:23:03 Test Item Value Reference Range Interpretation Comments Case number (test code = [id number]) Cytology See link below for (non-gynecological) PDF Lab Report report (test code = 1178) Result status (test code This is Final Report = [id number]) for [id number] [facility] azrficd1819-18-74 02:21:00 Test Item Value Reference Range Interpretation Comments POC glucose (test code = 110 mg/dL 65-99 H Ope rator Name: 57705-2) Gil Osborn ID: [id number] able: [facility] Notified sporting goods sales associate Interpretation (test Abnormal code = 26172-3) [facility] Center[facility] RBC, 1 Units, Irradiated, CMV Negative, Leukoreduced 2023-02-25 21:48:00 Test Item Value Reference Range Interpretation Comments Product name (test code Red Cells AS1 Leukored = 25) Irrad Unit number (test code [id number] = [id number]) Product code (test code X9000M54 = 3092) Dispense status (test Transfused code = 24) Blood expiration date (test code = 302) Blood type code (test 9500 code = 308) Blood type (test code = O NEGATIVE 1314) Compatibility (test Compatible code = 6400) KEVIN (test code = KEVIN) [facility] CenterDonnh specific vykspauw4041-05-04 17:18:54 Test Item Value Reference Range Interpretation Comments DSA serum ID (test code [id number] = 5858) DSA serum collection D&T 02/21/2023 04:50 AM (test code = 5859) DSA class I antibody Negative assignment (test code = 5862) DSA antibody I comments NONE (test code = 5863) DSA cPRA class I (test 0 code = 5860) DSA class II antibody Negative assignment (test code = 5864) DSA antibody II comments NONE (test code = 5865) DSA cPRA class II (test 0 code = 5861) Case number (test code = [id number]) Donor specific antibody See link below for PDF (test code = 1080) PDF [facility] RNA [Presence] in Respiratory specimen by IRINEO with probe aqdmxnzfx5167-25-43 15:26:46 Test Item Value Reference Range Interpretation Comments SARS-CoV-2 (COVID-19) RNA Not detected [Presence] in Respiratory specimen by IRINEO with probe detection (test code = 64951-8) Whether patient is employed in a No healthcare setting (test code = 62153-6) Whether the patient has symptoms Yes related to condition of interest (test code = 95498-4) Whether the patient was No hospitalized for condition of interest (test code = 42942-9) Whether the patient was admitted No to intensive care unit (ICU) for condition of interest (test code = 62582-8) Whether patient resides in a No congregate care setting (test code = 25791-2) status (test code = No 28500-9) Date and time of symptom onset Unknown (test code = 52736-7) ERIK MANE WESTUrine zcftraq6026-92-44 14:38:00 Test Item Value Reference Range Interpretation Comments Urine culture (test SEE COMMENT Bacteriu melvi screen code = 8103290) negative. [facility] and B iso6889-59-04 15:12:45 Test Item Value Reference Range Interpretation Comments SARS-CoV-2 (COVID-19) RNA Not detected [Presence] in Respiratory specimen by IRINEO with probe detection (test code = 84488-4) Whether patient resides in a No congregate care setting (test code = 91945-3) Date and time of symptom onset Unknown (test code = 70647-1) Whether the patient was No hospitalized for condition of interest (test code = 52742-3) Whether the patient was admitted No to intensive care unit (ICU) for condition of interest (test code = 40112-2) Whether patient is employed in a No healthcare setting (test code = 77395-8) Whether the patient has symptoms No related to condition of interest (test code = 95820-2) status (test code = No 47669-3) ERIK DE LA ROSAG Pre/Post Op TIMED at 0400 For 3 Bdlyburrnir0793-40-22 14:55:08 Test Item Value Reference Range Interpretation Comments Ventricular rate (test 113 code = 253) Atrial rate (test code 113 = 255) HI interval (test code 100 = 266) QRSD interval (test 82 code = 260) QT interval (test code 318 = 264) QTC interval (test code 436 = 265) P axis 1 (test code = 114 267) QRS axis 1 (test code = -38 268) T wave axis (test code 62 = 270) EKG impression (test Sinus tachycardia with code = 273) short HI-Left axis deviation-Pulmonary disease pattern-Nonspecific T wave abnormality-Abnormal ECG- Alhaji WareARS-CoV-2 (COVID-19) RNA [Presence] in Respiratory specimen by IRINEO with probe vgpyuuoav7345-85-82 14:51:48 Test Item Value Reference Range Interpretation Comments SARS-CoV-2 (COVID-19) RNA [Presence] Detected in Respiratory specimen by IRINEO with probe detection (test code = 92211-0) Whether patient is employed in a Unknown healthcare setting (test code = 25156-3) Whether the patient has symptoms Unknown related to condition of interest (test code = 88425-8) Whether the patient was hospitalized Unknown for condition of interest (test code = 17901-4) Whether the patient was admitted to Unknown intensive care unit (ICU) for condition of interest (test code = 85891-2) Whether patient resides in a Unknown congregate care setting (test code = 26281-3) status (test code = Unknown 14836-0) Date and time of symptom onset (test Unknown code = 92928-7) [facility] PROTESTANT WESTActivated clotting quhw6465-69-98 08:04:00 Test Item Value Reference Range Interpretation Comments Activated clotting time 244 See_Comment H Oper ator Name: (test code = 5298) Nehemias Henry Micheal ID: [id number] [Automated mess age] The system [employer] generated this result transmitted ref erence range: 96 - 152 sec. The reference r brittney was not used to interpret this result as normal/abnor mal. Lab Interpretation (test Abnormal code = 87232-1) [facility] arterial blood gas, corrected and znxum4242-16-74 22:45:00 Test Item Value Reference Range Interpretation Comments pH, arterial (test 7.40 7.35-7.45 code = 2744-1) pCO2, arterial (test 42 See_Comment [Autom ated message] code = 2019-8) The system [facility] generated this result transmitted ref erence range: 35 - 45 mmHg. The reference r brittney was not used to interpret this result as normal/abnor mal. pO2, arterial (test 88 See_Comment [Automa rahul message] code = 2703-7) The system [facility] generated this result transmitted ref erence range: 80 - 90 mmHg. The reference r brittney was not used to interpret this result as normal/abnor mal. Temperature, Celsius 37.0 Degrees C (test code = 8310-5) O2 saturation, 96 % 95-100 arterial (test code = 2708-6) pH, arterial 7.40 corrected (test code = 03239-2) pCO2, arterial 42 mmHg corrected (test code = 23598-6) pO2, arterial 88 mmHg Comp Field Case Manager ID: T ran corrected (test code Atul Robertson ID: = [id number]) [id number] Base excess, arterial 1 See_Comment [Auto mated message] (test code = 1925-7) The sys tem which generated this result transmitted ref erence range: -2 - 2 m Eq/L. The reference r brittney was not used to interpret this result as normal/abnor mal. Hemoglobin, syringe 11.4 g/dL 14.0-18.0 L (test code = 718-7) Potassium, syringe 5.0 See_Comment [Automat ed message] (test code = 21960-6) The sy stem which generated this result transmitted ref erence range: 3.5 - 5. 0 mEq/L. The refe rence range was not u sed to interpret this result as normal/abnor mal. Sodium, syringe (test 134 See_Comment L [Auto mated message] code = 2947-0) The system [facility] generated this result transmitted ref erence range: 135 - 14 8 mEq/L. The refe rence range was not u sed to interpret this result as normal/abnor mal. Ionized calcium, 1.20 mmol/L 1.11-1.32 arterial (test code = 33610-9) Glucose, syringe 89 mg/dL 65-99 (test code = 2345-7) Lactic acid, syringe 0.9 mmol/L 0.5-2.2 (test code = 48203-5) Lab Interpretation Abnormal (test code = 90653-5) [facility] rhhdf8245-67-25 14:23:00 Test Item Value Reference Range Interpretation Comments POC sodium (test code = 136 mmol/L 024-978 1549-0) POC potassium (test code 4.7 mmol/L 3.5-5.0 = 6298-4) POC chloride (test code = 97 mmol/L 99-109 L 9-3) POC CO2 (test code = 29 mmol/L 24-31 29276-8) POC glucose (test code = 91 mg/dL 65-99 2339-0) POC BUN (test code = 41 mg/dL 8-24 H 6299-2) POC creatinine (test code 4.9 mg/dl 0.7-1.2 H = 28478-0) POC hematocrit (test code 37 % 41-51 L = 4544-3) POC anion gap (test code 16 mmol/L 8-20 Ope rator Name: = [id number]) Christiano Marquez DDevice ID: [id number] Lab Interpretation (test Abnormal code = 04157-5) [facility] afiwrwuobu6421-22-24 19:23:00 Test Item Value Reference Range Interpretation Comments POC creatinine (test 4.7 mg/dl 0.7-1.2 H Operato r Name: Ng code = 10145-6) PaulineDevic e ID: [id number] Lab Interpretation Abnormal (test code = 26420-2) Hindu DlofgucpPWCB-MuK-6 (COVID-19) RNA [Presence] in Respiratory specimen by IRINEO with probe oexvcvttr2893-85-49 10:22:40 Test Item Value Reference Range Interpretation Comments SARS-CoV-2 (COVID-19) RNA Not detected [Presence] in Respiratory specimen by IRINEO with probe detection (test code = 79105-7) Whether patient is employed in a Unknown healthcare setting (test code = 80564-8) Whether the patient has symptoms Unknown related to condition of interest (test code = 80930-7) Whether the patient was Unknown hospitalized for condition of interest (test code = 79859-1) Whether the patient was admitted Unknown to intensive care unit (ICU) for condition of interest (test code = 17511-8) Whether patient resides in a Unknown congregate care setting (test code = 90252-5) status (test code = Unknown 44586-3) Date and time of symptom onset Unknown (test code = 64238-8) ERIK MANE FSCHUGPP-TnN-4 (COVID-19) RNA [Presence] in Respiratory specimen by IRINEO with probe gsmdtrtmj8392-31-10 19:22:54 Test Item Value Reference Range Interpretation Comments SARS-CoV-2 (COVID-19) RNA [Presence] Detected in Respiratory specimen by IRINEO with probe detection (test code = 79931-6) Whether patient is employed in a Unknown healthcare setting (test code = 33549-3) Whether the patient has symptoms Unknown related to condition of interest (test code = 55300-0) Whether the patient was hospitalized Unknown for condition of interest (test code = 75863-0) Whether the patient was admitted to Unknown intensive care unit (ICU) for condition of interest (test code = 52755-4) Whether patient resides in a Unknown congregate care setting (test code = 64572-9) status (test code = Unknown 87238-2) Date and time of symptom onset (test Unknown code = 31738-3) ERIK WILSONSARS-CoV-2 (COVID-19) RNA [Presence] in Respiratory specimen by IRINEO with probe qidlntbls8030-51-81 17:40:48 Test Item Value Reference Range Interpretation Comments SARS-CoV-2 (COVID-19) RNA Not detected Not-Detected [Presence] in Respiratory specimen by IRINEO with probe detection (test code = 44193-7) Whether patient is employed in a healthcare setting (test code = 47921-8) Whether the patient has symptoms related to condition of interest (test code = 28218-2) Patient was hospitalized because of this condition (test code = 09227-7) Whether the patient was admitted to intensive care unit (ICU) for condition of interest (test code = 07766-0) Whether patient resides in a congregate care setting (test code = 58223-1) ERIK WILSONSARS-CoV-2 (COVID-19) RNA [Presence] in Respiratory specimen by IRINEO with probe jprwwymup5445-61-81 15:13:15 Test Item Value Reference Range Interpretation Comments SARS-CoV-2 (COVID-19) RNA Not detected Not-Detected [Presence] in Respiratory specimen by IRINEO with probe detection (test code = 54542-6) Whether patient is employed in a healthcare setting (test code = 15001-8) Whether the patient has symptoms related to condition of interest (test code = 91928-0) Patient was hospitalized because of this condition (test code = 64113-4) Whether the patient was admitted to intensive care unit (ICU) for condition of interest (test code = 07994-9) Whether patient resides in a congregate care setting (test code = 70995-4) ERIK BONNERRS-CoV-2 (COVID-19) RNA [Presence] in Respiratory specimen by IRINEO with probe hoenhssvd2839-09-24 15:29:58 Test Item Value Reference Range Interpretation Comments SARS-CoV-2 (COVID-19) RNA Not detected Not-Detected [Presence] in Respiratory specimen by IRINEO with probe detection (test code = 03822-7) Whether patient is employed in a healthcare setting (test code = 10172-0) Whether the patient has symptoms related to condition of interest (test code = 51258-0) Patient was hospitalized because of this condition (test code = 48076-9) Whether the patient was admitted to intensive care unit (ICU) for condition of interest (test code = 11298-5) Whether patient resides in a congregate care setting (test code = 32005-8) ERIK BONNERRS-CoV-2 (COVID-19) RNA [Presence] in Respiratory specimen by IRINEO with probe pzrvqonrp3166-22-32 20:16:18 Test Item Value Reference Range Interpretation Comments SARS-CoV-2 (COVID-19) RNA Not detected Not-Detected [Presence] in Respiratory specimen by IRINEO with probe detection (test code = 38614-8) ERIK BONNERRS-CoV-2 (COVID-19) IgG+IgM Ab [Presence] in Serum or Plasma by Weztjzmwbun2297-12-74 15:25:00 Test Item Value Reference Range Interpretation Comments SARS-CoV-2 (COVID-19) IgG+IgM Ab Not detected [Presence] in Serum or Plasma by Immunoassay (test code = 30378-9) ERIK BONNERRS-CoV-2 (COVID-19) IgG Ab [Presence] in Serum or Plasma by Azafjmblvye2510-29-42 15:25:00 Test Item Value Reference Range Interpretation Comments SARS-CoV-2 (COVID-19) IgG Ab Not detected [Presence] in Serum or Plasma by Immunoassay (test code = 89042-7) ERIK WILSONSARS-CoV-2 (COVID-19) IgG+IgM Ab [Presence] in Serum or Plasma by Eoklddltowy8834-61-25 06:42:00 Test Item Value Reference Range Interpretation Comments SARS-CoV-2 (COVID-19) IgG+IgM Ab Positive [Presence] in Serum or Plasma by Immunoassay (test code = 70896-6) ERIK WILSONSARS-CoV-2 (COVID-19) IgG Ab [Presence] in Serum or Plasma by Hdymqrckfrk1880-73-52 06:42:00 Test Item Value Reference Range Interpretation Comments SARS-CoV-2 (COVID-19) IgG Ab Not detected [Presence] in Serum or Plasma by Immunoassay (test code = 31460-9) ERIK WILSONSARS-CoV-2 (COVID-19) RNA [Presence] in Respiratory specimen by IRINEO with probe lkwznvevf6385-80-43 16:10:13 Test Item Value Reference Range Interpretation Comments SARS-CoV-2 (COVID-19) RNA Not detected Not-Detected [Presence] in Respiratory specimen by IRINEO with probe detection (test code = 42031-7) ERIK MANE IRQESSPR-MzO-8 (COVID-19) RNA [Presence] in Respiratory specimen by IRINEO with probe zwxjunhel4638-45-38 14:50:19 Test Item Value Reference Range Interpretation Comments SARS-CoV-2 (COVID-19) RNA Not detected Not-Detected [Presence] in Respiratory specimen by IRINEO with probe detection (test code = 02649-5) ERIK WILSONSARS-CoV-2 (COVID-19) RNA [Presence] in Respiratory specimen by IRINEO with probe kyljkgynq9331-43-69 22:04:03 Test Item Value Reference Range Interpretation Comments SARS-CoV-2 (COVID-19) RNA Not detected Not-Detected [Presence] in Respiratory specimen by IRINEO with probe detection (test code = 92927-7) ERIK PROTESTANT WLZULMVB-MiH-6 (COVID-19) RNA [Presence] in Respiratory specimen by IRINEO with probe rlatrtfpk6378-21-14 17:30:06 Test Item Value Reference Range Interpretation Comments SARS-CoV-2 (COVID-19) RNA Not detected Not-Detected [Presence] in Respiratory specimen by IRINEO with probe detection (test code = 75518-7) VALENCIA ALHAJI ALBRIGHT-CoV-2 (COVID-19) RNA [Presence] in Respiratory specimen by IRINEO with probe wbuufmoyw1318-78-84 16:16:05 Test Item Value Reference Range Interpretation Comments SARS-CoV-2 (COVID-19) RNA Not detected Not-Detected [Presence] in Respiratory specimen by IRINEO with probe detection (test code = 48998-4) ERIK ALBRIGHT coronavirus 2 RNA [Presence] in Respiratory specimen by IRINEO with probe maywekchc0543-18-50 10:25:17 Test Item Value Reference Range Interpretation Comments SARS coronavirus 2 RNA Not detected Not-Detected [Presence] in Respiratory specimen by IRINEO with probe detection (test code = 82716-7) ERIK ALBRIGHT coronavirus 2 RNA [Presence] in Respiratory specimen by IRINEO with probe ncjvicuhs0970-46-79 06:37:09 Test Item Value Reference Range Interpretation Comments SARS coronavirus 2 RNA Not detected Not-Detected [Presence] in Respiratory specimen by IRINEO with probe detection (test code = 76064-3) ERIK WILSON
[2023-04-21 15:50] LABS: Blood Morphology Comment NOT SEEN (NOT SEEN); Platelet Estimate ADEQ; White Blood Cell Scan OK (OK)
[2023-04-21 16:32] LABS: SARS-CoV-2 Antigen Rapid Res Negative (Negative)
--- NOTE | 2023-04-21 16:35 | RAD REPORT ---
EXAM DESCRIPTION: RAD - Tib Fib Right - 04/21/2023 3:50 pm CLINICAL HISTORY: PAIN COMPARISON: Tib Fib Right dated 01/08/2021; Ankle Right 3 View dated 04/21/2023 TECHNIQUE: Right tibia and fibula, 2 views. FINDINGS: At least moderate knee joint effusion, allowing for the degree of patient rotation. No fra cture is identified. There is no dislocation or periosteal reaction noted. Diffuse osteopenia. Fixati on screw in the calcaneus is stable. Moderate to advanced knee and scattered up to moderate midfoot d egenerative changes. Vascular calcifications No foreign body or other soft tissue abnormality. IMPRESSION: At least moderate knee joint effusion. No other acute right tibia & fibula findings.
--- NOTE | 2023-04-21 16:43 | ER ---
Nurse's Notes [facility] Name: Reilly Gillespie Age: 77 yrs Sex: Male : 1945 Arrival Date: 04/21/2023 Time: 15:00 Bed 4 Private MD: Diagnosis: Hypotension, unspecified;Muscle weakness (generalized);End stage renal disease;Pneumonia, unspecified organism Presentation: 04/21 15:08 Chief complaint: Patient states: Fell onto R knee early this morning. Pain and weakness ll1 since. Had 30 minutes of dialysis, then called 911. BP was low for dialysis, better for EMS. EMS states: VSS, FS 101. Coronavirus screen: Vaccine status: Patient reports receiving the 2nd dose of the covid vaccine. Client denies travel out of the [place] in the last 14 days. At this time, the client does not indicate any symptoms associated with coronavirus-19. Coronavirus screen: Client indicates they have traveled out of the [place] in the last 14 days. Ebola Screen: Patient denies travel to an Ebola-affected area in the 21 days before illness onset. Initial Sepsis Screen: Does the patient meet any 2 criteria? HR > 90 bpm. No. Patient's initial sepsis screen is negative. Does the patient have a suspected source of infection? Yes: Bone or joint infection. Risk Assessment: Do you want to hurt yourself or someone else? Patient reports no desire to harm self or others. Onset of symptoms was April 21, 2023. 15:08 Method Of Arrival: EMS ll1 15:08 Acuity: JERRY 3 ll1 Triage Assessment: 15:10 General: Appears uncomfortable, Behavior is calm, cooperative, appropriate for age. ll1 Pain: Complains of pain in left leg Quality of pain is described as aching. Neuro: Reports weakness. Musculoskeletal: Reports pain in left leg. Injury Description: Report R ankle FX. Historical: - Allergies: 15:08 Augmentin; ll1 15:08 Cipro; ll1 15:08 Levaquin; ll1 - PMHx: 15:08 Dialysis; High Cholesterol; Hypertension; Prostate Cancer; Renal Disease; Sleep Apnea; ll1 - Immunization history:: Adult Immunizations up to date. - Social history:: Smoking status: Patient denies any tobacco usage or history of. - Family history:: not pertinent. - Hospitalizations: : No recent hospitalization is reported. Screenin:54 [facility] ED Fall Risk Assessment (Adult) History of falling in the last 3 months, ll1 including since admission Yes- single mechanical fall (1 pt) Impaired Gait Yes (1 pt) Mobility Assist Device Used Yes (1 pt) Score/Fall Risk Level 3 or more points = High Risk Oriented to surroundings, Maintained a safe environment, Educated pt \T\ family on fall prevention, incl call for assistance when getting out of bed, Hourly rounding (assess needs \T\ fall precautionary measures) done, Implemented a Fall Risk Plan of Care, Offered frequent toileting (1:1 observation). Abuse screen: Denies threats or abuse. Nutritional screening: No deficits noted. Tuberculosis screening: No symptoms or risk factors identified. Assessment: 15:24 Reassessment: No changes from previously documented assessment. Patient and/or family ll1 updated on plan of care and expected duration. Pain level reassessed. Patient is alert, oriented x 3, equal unlabored respirations, skin warm/dry/pink. 15:54 Reassessment: No changes from previously documented assessment. Dr. Christensen at . ll1 17:30 Reassessment: No changes from previously documented assessment. Patient and/or family ll1 updated on plan of care and expected duration. Pain level reassessed. Patient is alert, oriented x 3, equal unlabored respirations, skin warm/dry/pink. 18:02 Reassessment: No changes from previously documented assessment. Patient and/or family ll1 updated on plan of care and expected duration. Pain level reassessed. Patient is alert, oriented x 3, equal unlabored respirations, skin warm/dry/pink. 18:30 Reassessment: No changes from previously documented assessment. Patient and/or family ll1 updated on plan of care and expected duration. Pain level reassessed. Patient is alert, oriented x 3, equal unlabored respirations, skin warm/dry/pink. Vital Signs: 15:08 BP 118 / 56; Pulse 100; Resp 18; Temp 98; Pulse Ox 98% ; Weight 72.57 kg; Height 5 ft. ll1 6 in. ; Pain 6/10; 15:52 BP 156 / 108; Pulse 88; Resp 20; Pulse Ox 100% ; ll1 17:50 BP 164 / 98; Pulse 95; Resp 18; Pulse Ox 100% on R/A; ll1 19:47 BP 168 / 98; Pulse 86; Resp 16; Temp 98; Pulse Ox 100% ; bp 15:08 Body Mass Index 25.82 (72.57 kg, 167.64 cm) ll1 15:08 Pain Scale: Adult ll1 ED Course: 15:05 Patient arrived in ED. rn 15:05 Hardy Christensen MD is Attending Physician. rn 15:07 Yesenia Carbajal, HIGINIO is Primary Nurse. ll1 15:07 Arm band placed on Patient placed in an exam room, on a stretcher. ll1 15:09 Triage completed. ll1 15:24 Inserted saline lock: 22 gauge in left antecubital area, using aseptic technique. Blood ll1 collected. 15:52 XRAY Ankle RIGHT 3 view In Process Unspecified. EDMS 15:52 XRAY Tib Fib RIGHT In Process Unspecified. EDMS 15:54 Patient has correct armband on for positive identification. Bed in low position. Call ll1 light in reach. Client placed on continuous cardiac and pulse oximetry monitoring. NIBP monitoring applied. conveyor monitor on. 16:40 Cesar Zuniga MD is Hospitalizing Provider. rn 16:44 CXR XRAY In Process Unspecified. EDMS 17:37 Lactate w/ 2H reflex if indic. Sent. jl7 17:37 Blood Culture Adult (2) Sent. jl7 19:06 Primary Nurse role handed off by Yesenia Carbajal, HIGINIO bp 19:06 Lm Downey, HIGINIO is Primary Nurse. bp 19:46 No provider procedures requiring assistance completed. Patient admitted, IV remains in bp place. 19:49 Provided Education on: SPLINT. bp Administered Medications: 18:00 Drug: Cefepime IVPB 1 grams IVPB at 200 ml/hr once over 30 mins; (mix in NS 100 mL) ll1 Route: IVPB; Rate: 200 ml/hr; Infused Over: 30 mins; Site: left antecubital; 18:30 Follow up: Response: No adverse reaction; IV Status: Completed infusion; IV Intake: ll1 100ml Medication: 15:54 VIS not applicable for this client. ll1 Intake: 18:30 IV: 100ml; Total: 100ml. ll1 Outcome: 16:43 Decision to Hospitalize by Provider. rn 19:47 Admitted to Med/surg accompanied by tech, via stretcher, room 214, with chart, Report bp called to DORYS SYLVESTER 19:47 Condition: good 19:47 Instructed on the need for admit, 19:52 Patient left the ED. rv Signatures: Dispatcher [employer] EDHardy Arvizu MD MD rn Leal, Jahala RN RN jl7 Lm Downey RN RN bp Tito Rollins RN RN rv Yesenia Carbajal RN RN ll1
--- NOTE | 2023-04-21 16:43 | EDPHYS ---
Physician Documentation [facility] Name: Reilly Gillespie Age: 77 yrs Sex: Male : 1945 Arrival Date: 04/21/2023 Time: 15:00 Bed 4 Private MD: ED Physician Hardy Christensen HPI: 04/21 15:08 This 77 yrs old Male presents to ER via Unassigned with complaints of leg pain. rn 15:08 EMS reports called out to dialysis center for a hypotensive reading during dialysis. rn EMS was told blood pressure was in the high 80s systolic. Patient was seen last night at [facility] after a fall and diagnosed with a right ankle fracture, splinted, discharged home. Family took him to dialysis, his scheduled dialysis, completed some of his dialysis and then was noted to have transient low blood pressure. EMS reports upon arrival has been normotensive after dialysis center administered 2 small boluses. Patient reports only pain to right lower extremity.. Onset: The symptoms/episode began/occurred today. Severity of symptoms: At their worst the symptoms were mild in the emergency department the symptoms have improved. It is unknown whether or not the patient has had similar symptoms in the past. The patient has been recently seen by a physician:. Historical: - Allergies: 15:08 Augmentin; ll1 15:08 Cipro; ll1 15:08 Levaquin; ll1 - PMHx: 15:08 Dialysis; High Cholesterol; Hypertension; Prostate Cancer; Renal Disease; Sleep Apnea; ll1 - Immunization history:: Adult Immunizations up to date. - Social history:: Smoking status: Patient denies any tobacco usage or history of. - Family history:: not pertinent. - Hospitalizations: : No recent hospitalization is reported. ROS: 15:08 Constitutional: Negative for fever, chills, and weight loss, Cardiovascular: Negative rn for chest pain, palpitations, and edema, Respiratory: Negative for shortness of breath, cough, wheezing, and pleuritic chest pain, Abdomen/GI: Negative for abdominal pain, nausea, vomiting, diarrhea, and constipation, MS/Extremity: Positive for right leg pain and injury since last night Skin: Negative for injury, rash, and discoloration, Neuro: Negative for headache, weakness, numbness, tingling, and seizure, Exam: 15:08 Constitutional: This is a well developed, well nourished patient who is awake, alert, rn and in no acute distress. Head/Face: Normocephalic, atraumatic. Cardiovascular: Regular rate and rhythm. No pulse deficits. Respiratory: No increased work of breathing, no retractions or nasal flaring. Abdomen/GI: Soft, non-tender Skin: Warm, dry MS/ Extremity: Pulses equal, no cyanosis. Right lower extremity in a short leg splint. No discoloration of splinted foot. Pulses palpable. Neuro: Awake and alert, GCS 15 Vital Signs: 15:08 BP 118 / 56; Pulse 100; Resp 18; Temp 98; Pulse Ox 98% ; Weight 72.57 kg; Height 5 ft. ll1 6 in. ; Pain 6/10; 15:52 BP 156 / 108; Pulse 88; Resp 20; Pulse Ox 100% ; ll1 17:50 BP 164 / 98; Pulse 95; Resp 18; Pulse Ox 100% on R/A; ll1 19:47 BP 168 / 98; Pulse 86; Resp 16; Temp 98; Pulse Ox 100% ; bp 15:08 Body Mass Index 25.82 (72.57 kg, 167.64 cm) ll1 15:08 Pain Scale: Adult ll1 MDM: 15:05 Patient medically screened. rn 16:28 Differential Diagnosis COVID, flu, viral illness, UTI, volume depletion, orthostatic rn hypotension. Data reviewed: vital signs, nurses notes, lab test result(s), EKG, radiologic studies, plain films, and as a result, I will admit patient. Consideration of Admission/Observation Patient was admitted/placed on observation. Escalation of care including admission/observation considered. Care significantly affected by the following chronic conditions: Hypertension, Chronic Kidney Disease. Counseling: I had a detailed discussion with the patient and/or guardian regarding the historical points, exam findings, and any diagnostic results supporting the discharge/admit diagnosis, lab results, radiology results, the need for further work-up and treatment in the hospital. Response to treatment: the patient's symptoms have mildly improved after treatment, and as a result, I will admit patient. ED course: Patient has been normotensive entire time here after fluid boluses given at dialysis. Ankle fracture does not require immediate attention or surgery, can follow-up with his private orthopedist as an outpatient. states that has had possibly viral illness recently with runny nose and cough. Chest x-ray pending. COVID and flu pending. 16:39 ED course: concerned with weakness and episode of hypotension, concerned of fall rn and how he would do if he was discharged again. Will obs to Dr. Zuniga. 17:08 Management of patient was discussed with the following: Primary Care Provider: rn Discussed with Dr. Zuniga, given allergies, requests cefepime. . Independent interpretation of the following test(s) in the Emergency Department X-Ray: My interpretation is Chest x-ray shows mild pulmonary edema and possible right pneumonia.. 04/21 15:06 Order name: CBC with Diff; Complete Time: 15:52 rn 04/21 15:06 Order name: Basic Metabolic Panel; Complete Time: 15:52 rn 04/21 15:06 Order name: Protime (+inr); Complete Time: 15:52 rn 04/21 15:06 Order name: Ptt, Activated; Complete Time: 15:52 rn 04/21 15:11 Order name: BNP; Complete Time: 15:52 rn 04/21 15:29 Order name: CBC Smear Scan; Complete Time: 15:52 EDOR 04/21 16:08 Order name: SARS RAPID; Complete Time: 16:43 rn 04/21 16:08 Order name: Flu; Complete Time: 16:43 rn 04/21 17:09 Order name: Blood Culture Adult (2) rn 04/21 17:09 Order name: Lactate w/ 2H reflex if indic. rn 04/21 18:07 Order name: Lactate w/ 2H reflex if indic. EDMS 04/21 15:06 Order name: XRAY Ankle RIGHT 3 view; Complete Time: 17:00 rn 04/21 15:19 Order name: XRAY Tib Fib RIGHT; Complete Time: 16:43 rn 04/21 16:08 Order name: CXR XRAY; Complete Time: 17:00 ll1 04/21 15:11 Order name: EKG; Complete Time: 15:11 rn 04/21 15:06 Order name: IV Start; Complete Time: 15:10 rn 04/21 15:11 Order name: EKG - Nurse/Tech; Complete Time: 15:24 rn 04/21 15:11 Order name: Cardiac monitoring; Complete Time: 15:24 rn 04/21 15:11 Order name: O2 Sat Monitoring; Complete Time: 15:24 rn Administered Medications: 18:00 Drug: Cefepime IVPB 1 grams IVPB at 200 ml/hr once over 30 mins; (mix in NS 100 mL) ll1 Route: IVPB; Rate: 200 ml/hr; Infused Over: 30 mins; Site: left antecubital; 18:30 Follow up: Response: No adverse reaction; IV Status: Completed infusion; IV Intake: ll1 100ml Disposition Summary: 04/21/23 16:43 Hospitalization Ordered Notes: Hospitalization Status: Observation rn Provider: Cesar Zuniga rn Location: Telemetry/MedSurg (observation) rn Condition: Stable rn Problem: new rn Symptoms: have improved rn Bed/Room Type: Standard rn Room Assignment: 214(04/21/23 18:51) bd Diagnosis - Hypotension, unspecified rn - Muscle weakness (generalized) rn - End stage renal disease rn - Pneumonia, unspecified organism rn Forms: - Medication Reconciliation Form rn - SBAR form rn - Leadership Thank You Letter rn Signatures: Dispatcher [employer] Chelsey Greene Roman, MD MD rn Lewis, Lynsay, RN RN ll1 Corrections: (The following items were deleted from the chart) 18:51 16:43 rn bd
--- NOTE | 2023-04-21 16:53 | RAD REPORT ---
EXAM DESCRIPTION: RAD - Ankle Right 3 View - 04/21/2023 3:51 pm CLINICAL HISTORY: post fall and splint last night COMPARISON: Chest Single View dated 04/21/2023; Tib Fib Right dated 04/21/2023 TECHNIQUE: Right ankle, 3 views. FINDINGS: A crescentic lucency along the distal tibia with medial cortex irregularity, may represent an acute or healing fracture. Diffuse osteopenia. No dislocation or periosteal reaction. No joint ef fusion seen. Fixation screw along the base of the calcaneus. No joint space narrowing. No soft tissue abnormality. IMPRESSION: Crescentic lucency along the distal tibia, may represent an acute or healing fracture. O steopenia limits evaluation.
--- NOTE | 2023-04-21 16:59 | RAD REPORT ---
EXAM DESCRIPTION: Raizat Single View04/21/2023 4:42 pm CLINICAL HISTORY: CONGESTION COMPARISON: Chest Pa And Lat (2 Views) dated 05/13/2021; Chest Pa And Lat (2 Views) dated 05/15/2017; Chest Pa And Lat (2 Views) dated 07/29/2016; Chest Pa And Lat (2 Views) dated 03/24/2016 TECHNIQUE: Portable AP view of the chest. FINDINGS: Abandoned wire fragment along the SVC, stable. Newly placed vascular stents which appear t o be along the distal SVC and IVC. Developing right basilar airspace opacity with layering small to m oderate effusion. No pneumothorax. The cardiomediastinal contours are stable, with sequelae of prior CABG. IMPRESSION: Developing right basilar airspace opacity with layering small to moderate effusion. Unde rlying pneumonia should be considered.
--- NOTE | 2023-04-21 17:45 | P.HP ---
Certification for Inpatient Patient admitted to: Inpatient With expected LOS: >2 Midnights Practitioner: I am a practitioner with admitting privileges, knowledge of patient current condition, hospital course, and medical plan of care. Services: Services provided to patient in accordance with Admission requirements found in Title 42 Section 412.3 of the Code of Federal Regulations Patient History Date of Service: 04/21/23 Reason for admission: weak, fell at home, broke r ankle. History of Present Illness: STANLEY IS A HEART TRANSPLANT PATIENT WHO FELL AT HOME AFTER BEING WEAK AND BROKE R ANKLE. HE IS ALSO ESRD PATIENT ON HD. FAMILY IS NOT ABLE TO TAKE CARE OF HIM. HE FIRST WENT TO [place] AND NOW HERE THEY WERE NOT ABLE TO TAKE HIM TO HD. HE IS CONFUSED AND NOT ABLE TO TELL ME WHAT HAPPENED. Allergies levofloxacin [From Levaquin] Allergy (Unverified 09/10/16 19:14) Unknown ciprofloxacin [From Cipro] Adverse Reaction (Severe, Verified 06/03/12 15:32) lungs fill with fluid ciprofloxacin HCl [From Cipro] Adverse Reaction (Severe, Verified 06/03/12 15:32) lungs fill with fluid amoxicillin trihydrate [From Augmentin] Adverse Reaction (Mild, Verified 06/03/12 15:32) headache potassium clavulanate [From Augmentin] Adverse Reaction (Mild, Verified 06/03/12 15:32) headache Home Medications: Fexofenadine/Pseudoephedrine [Alison-D 24 Hour Tablet] 180 mg PO DAILY 10/06/13 Hydralazine [Apresoline*] 25 mg PO DAILY 10/06/13 Pantoprazole Sodium [Protonix] 40 mg PO DAILY 10/06/13 Pramipexole [Mirapex] 1.25 tab PO DAILY 10/06/13 Pravastatin Sodium [Pravachol] 40 mg PO BEDTIME 10/06/13 Tacrolimus [Prograf] 1 mg PO BEDTIME 10/06/13 Tacrolimus [Prograf] 1.5 mg PO AC 10/06/13 predniSONE [Deltasone] 5 mg PO DAILY 10/06/13 Acetaminophen 500 mg PO TID 01/20/21 Aspirin [Aspirin EC 81 MG] 81 mg PO DAILY 01/20/21 Fluticasone [Flonase 50mcg Nasal [place]] 2 sprays NS DAILY 01/20/21 Mecobalamin [B12 Active] 1,000 mcg PO DAILY 01/20/21 Montelukast [Singulair] 10 mg PO AC 01/20/21 Hydralazine HCl 25 mg PO DAILY 11/20/21 Melatonin 3 mg PO DAILY 11/20/21 - Past Medical/Surgical History Diabetic: No -: ESRD -: heart transplant -: htn -: lymphedema -: Shingles -: Heart transplant 2012 -: Balloon assist pump installed 2012 -: Wound cleaning debridement 2011 -: Defibrillator/pacemaker 2008 -: Cardiac ablation 2007 -: Mortons Neuroma removed left foot 2007 -: Pacemaker installed 2006 -: Tendon replacement interior tight ankle 2005 - Social History Alcohol use: Yes Review of Systems 10-point ROS is otherwise unremarkable Physical Examination - Physical Exam General: Oriented x2, Mild distress, Confused HEENT: Atraumatic, PERRLA, Mucous membr. moist/pink, EOMI, Sclerae nonicteric Neck: Supple, 2+ carotid pulse no bruit, No LAD, Without JVD or thyroid abnormality Respiratory: Clear to auscultation bilaterally, Normal air movement Cardiovascular: Regular rate/rhythm, Normal S1 S2 Gastrointestinal: Normal bowel sounds, No tenderness Musculoskeletal: No tenderness Integumentary: No rashes Neurological: Normal gait, Normal speech, Normal strength at 5/5 x4 extr, Normal tone, Normal affect Lymphatics: No axilla or inguinal lymphadenopathy - Studies Laboratory Data (last 24 hrs) 04/21/23 04/21/23 04/21/23 15:15 15:15 15:15 WBC 12.60 H Hgb 10.4 L Hct 31.1 L Plt Count 253 PT 12.8 H INR 1.16 APTT 44.4 H Sodium 139 Potassium 4.8 BUN 47 H Creatinine 6.43 H Glucose 99 Microbiology Data (last 24 hrs): 04/21/23 16:10 Nasopharnyx Influenza Type A Antigen Screen - Final 04/21/23 16:10 Nasopharnyx Influenza Type B Antigen Screen - Final Assessment and Plan - Problems (Diagnosis) (1) Bacterial pneumonia Current Visit: Yes Status: Acute Plan: ALLERGIC TO MANY MEDS I ASKED ER MD TO START CEFEPIME SPUTUM CS (2) Closed right ankle fracture Current Visit: Yes Status: Acute Plan: ORTHO CONSULT. SNIF OR NH OR SWING BED (3) Metabolic encephalopathy Current Visit: Yes Status: Acute Plan: SHOULD IMPROVE WITH IMPROVED INFECTION. (4) End-stage renal disease on hemodialysis Current Visit: No Status: Chronic Plan: CONSULT NEPH (5) Heart transplanted Current Visit: No Status: Chronic Plan: HAS MANY DOCTORS IN [place] FOR FOLLOW UP. - Advance Directives Does patient have a Living Will: No Does patient have a Durable POA for Healthcare: No
[2023-04-21] MEDS ORDERED: NA CHLORIDE 0.9% 100 ML ONE (17:52)
[2023-04-21] MEDS ORDERED: CEFEPIME 1 GM/VIAL ONE (17:52)
[2023-04-21] MEDS ORDERED: ONDANSETRON 4 MG/2 ML VIAL IV PRN (19:42)
[2023-04-21 20:39] VITALS: BMI 29.0
[2023-04-21] MEDS ORDERED: METOPROLOL XL 50 MG TAB PO SCH (21:00)
[2023-04-21] MEDS: APIXABAN 2.5 MG TABLET PO SCH (21:00)
[2023-04-21] MEDS ORDERED: CEFEPIME 1 GM in NA CHLORIDE 0.9% 100 ML IV SCH (21:00)
[2023-04-21] MEDS ORDERED: ACETAMINOPHEN 500 MG TAB PO PRN (21:01)
[2023-04-21] MEDS: METOPROLOL TAR 50 MG TAB PO SCH (21:13)
--- NOTE | 2023-04-21 21:52 | P.CNS ---
Date of Consult: 04/21/23 Reason for Consult: ESRD Requesting Physician: Cesar Zuniga V Chief Complaint: weak, fell at home, broke r ankle. History of Present Illness: 77 yo WM ESRD, Heart Transplant presented to the ER from dialysis due to hypotension and weakness following a broken right ankle earlier today. 15:08 This 77 yrs old Male presents to ER via Unassigned with complaints of leg pain. rn 15:08 EMS reports called out to dialysis center for a hypotensive reading during dialysis. rn EMS was told blood pressure was in the high 80s systolic. Patient was seen last night at [facility] after a fall and diagnosed with a right ankle fracture, splinted, discharged home. Family took him to dialysis, his scheduled dialysis, completed some of his dialysis and then was noted to have transient low blood pressure. EMS reports upon arrival has been normotensive after dialysis center administered 2 small boluses. Patient reports only pain to right lower extremity.. Onset: The symptoms/episode began/occurred today. Severity of symptoms: At their worst the symptoms were mild in the emergency department the symptoms have improved. It is unknown whether or not the patient has had similar symptoms in the past. The patient has been recently seen by a physician:. Allergies levofloxacin [From Levaquin] Allergy (Verified 04/21/23 20:37) Unknown ciprofloxacin [From Cipro] Adverse Reaction (Severe, Verified 04/21/23 20:37) lungs fill with fluid ciprofloxacin HCl [From Cipro] Adverse Reaction (Severe, Verified 04/21/23 20:37) lungs fill with fluid amoxicillin trihydrate [From Augmentin] Adverse Reaction (Mild, Verified 04/21/23 20:37) headache potassium clavulanate [From Augmentin] Adverse Reaction (Mild, Verified 04/21/23 20:37) headache Home medications list reviewed: Yes Home Medications: Fexofenadine/Pseudoephedrine [Alison-D 24 Hour Tablet] 180 mg PO DAILY 10/06/13 Hydralazine [Apresoline*] 25 mg PO BID 10/06/13 Pantoprazole Sodium [Protonix] 40 mg PO DAILY 10/06/13 Pramipexole [Mirapex] 0.125 tab PO DAILY 10/06/13 Pravastatin Sodium [Pravachol] 40 mg PO BEDTIME 10/06/13 Tacrolimus [Prograf] 0.5 mg PO BEDTIME 10/06/13 Tacrolimus [Prograf] 1 mg PO AC 10/06/13 predniSONE [Deltasone] 5 mg PO DAILY 10/06/13 Acetaminophen 1,000 mg PO Q8H PRN 01/20/21 Aspirin [Aspirin EC 81 MG] 81 mg PO DAILY 01/20/21 Fluticasone [Flonase 50mcg Nasal [place]] 2 sprays NS DAILY 01/20/21 Montelukast [Singulair] 10 mg PO BEDTIME 01/20/21 Apixaban [Eliquis] 2.5 mg PO BID 04/22/23 Cyanocobalamin (Vitamin B-12) [Vitamin B-12] 100 mcg PO DAILY 04/22/23 Denosumab 60 mg SQ SEECOM 04/22/23 Folic Acid/Vit B Complex and C [[place] Tablet] 1 tab PO DAILY 04/22/23 Gabapentin [Neurontin] 100 mg PO BEDTIME 04/22/23 - Past Medical/Surgical History Diabetic: No -: ESRD (Dr. Velazquez/ Dr. Valdivia) -: Heart transplant -: HTN -: Lymphedema -: Shingles -: Heart transplant 2012 -: Balloon assist pump installed 2012 -: Wound cleaning debridement 2011 -: Defibrillator/pacemaker 2008 -: Cardiac ablation 2007 -: Mortons Neuroma removed left foot 2007 -: Pacemaker installed 2006 -: Tendon replacement interior tight ankle 2006 - Social History Smoking Status: Never smoker Alcohol use: Yes CD- Drugs: No Caffeine use: Yes Place of Residence: Home Review of Systems 10-point ROS is otherwise unremarkable General: Weakness, Malaise Musculoskeletal: Leg Pain Physical Examination Temp Pulse Resp BP Pulse Ox 98 F 101 H 16 183/108 H 04/21/23 19:47 04/21/23 21:13 04/21/23 19:47 04/21/23 21:13 General: In no apparent distress, Cooperative HEENT: Atraumatic Neck: Supple Respiratory: Normal air movement Cardiovascular: Regular rate/rhythm, Edema Gastrointestinal: Soft and benign, Non-distended, No guarding Musculoskeletal: No clubbing, No contractures Integumentary: No rashes, No cyanosis Neurological: Normal speech Laboratory Data (last 24 hrs) 04/21/23 04/21/23 04/21/23 15:15 15:15 15:15 WBC 12.60 H Hgb 10.4 L Hct 31.1 L Plt Count 253 PT 12.8 H INR 1.16 APTT 44.4 H Sodium 139 Potassium 4.8 BUN 47 H Creatinine 6.43 H Glucose 99 Imagings Data: EXAM DESCRIPTION: RADChest Single View04/21/2023 4:42 pm CLINICAL HISTORY: CONGESTION COMPARISON: Chest Pa And Lat (2 Views) dated 05/13/2021; Chest Pa And Lat (2 Views) dated 05/15/2017; Chest Pa And Lat (2 Views) dated 07/29/2016; Chest Pa And Lat (2 Views) dated 03/24/2016 TECHNIQUE: Portable AP view of the chest. FINDINGS: Abandoned wire fragment along the SVC, stable. Newly placed vascular stents which appear to be along the distal SVC and IVC. Developing right basilar airspace opacity with layering small to moderate effusion. No pneumothorax. The cardiomediastinal contours are stable, with sequelae of prior CABG. IMPRESSION: Developing right basilar airspace opacity with layering small to moderate effusion. Underlying pneumonia should be considered. EXAM DESCRIPTION: RAD - Ankle Right 3 View - 04/21/2023 3:51 pm CLINICAL HISTORY: post fall and splint last night COMPARISON: Chest Single View dated 04/21/2023; Tib Fib Right dated 04/21/2023 TECHNIQUE: Right ankle, 3 views. FINDINGS: A crescentic lucency along the distal tibia with medial cortex irregularity, may represent an acute or healing fracture. Diffuse osteopenia. No dislocation or periosteal reaction. No joint effusion seen. Fixation screw along the base of the calcaneus. No joint space narrowing. No soft tissue abnormality. IMPRESSION: Crescentic lucency along the distal tibia, may represent an acute or healing fracture. Osteopenia limits evaluation. Conclusions/Impression: ESRD on HD TTS -HD TIW HTN with CKD/ CHF, labile -Labetolol prn -Continue Metoprolol Diastolic CHF, chronic -Low sodium diet -HD with UF Anemia in CKD -Retacrit prn CKD MBD Hypercalcemia -Renvela prn Heart Transplant Immunosuppressive state -Restart immunosuppressive therapy Hospitalist and ER notes reviewed Thank you kindly for the consultation Greater than 30min patient care
[2023-04-21] MEDS ORDERED: LABETALOL 20 MG/4ML SYRINGE IV PRN (22:06)
[2023-04-22 03:46] LABS: Absolute Lymphocytes (CBC) 0.9 K/uL (0.7-4.9); Hematocrit 25.5 % (39.6-49.0); Lymphocytes % 10.8 % (15.3-44.8); MCV 88.9 fL (80-100); MPV 7.6 fL (7.6-11.3); Platelets 216 thou/uL (152-406); RBC Red Blood Cell Count 2.87 M/uL (4.33-5.43)
[2023-04-22 03:47] LABS: Potassium 5.4 mEq/L (3.5-5.1)
[2023-04-22 06:41] LABS: Absolute Lymphocytes (CBC) 1.2 K/uL (0.7-4.9); Lymphocytes % 13.2 % (15.3-44.8); MCV 89.8 fL (80-100); MPV 7.2 fL (7.6-11.3); Platelets 215 thou/uL (152-406); RBC Red Blood Cell Count 3.23 M/uL (4.33-5.43)
[2023-04-22 06:52] LABS: Protime INR 1.38
[2023-04-22 07:04] LABS: Potassium 5.2 mEq/L (3.5-5.1)
[2023-04-22] MEDS ORDERED: ACETAMINOPHEN 500 MG TAB PO PRN (08:04)
[2023-04-22] MEDS ORDERED: HYDRALAZINE HCL 25 MG TABLET PO SCH (09:00)
[2023-04-22] MEDS: ASPIRIN EC 81 MG TAB PO SCH (09:00)
[2023-04-22] MEDS: CYANOCOBALAMIN 100 MCG PO SCH (09:00)
[2023-04-22] MEDS: APIXABAN 2.5 MG TABLET PO SCH ×2 (09:00→20:29)
[2023-04-22] MEDS ORDERED: PRAMIPEXOLE 0.25 MG TAB PO SCH (09:00)
[2023-04-22] MEDS: METOPROLOL TAR 50 MG TAB PO SCH ×2 (09:00→20:29)
[2023-04-22] MEDS: PANTOPRAZOLE 40MG TABLET PO SCH (09:00)
[2023-04-22] MEDS: LACTOBACILLUS/ACIDOPHILUS TAB PO SCH ×3 (09:00→21:00)
[2023-04-22] MEDS: predniSONE 5 MG TAB PO SCH (09:00)
--- NOTE | 2023-04-22 09:22 | RAD REPORT ---
EXAM DESCRIPTION: CT - Head angio - 04/22/2023 8:31 am CLINICAL HISTORY: Rule out large vessel occlusion Headache, drowsiness, CVA symptomology COMPARISON: Ct Stroke Brain Wo Cont dated 04/22/2023; Head Brain Wo Cont dated 03/04/2021 TECHNIQUE: CT angiography of the head was performed with MIPs. All CT scans are performed using dose optimization technique as appropriate and may include automated exposure control or mA/KV adjustment according to patient size. FINDINGS: Motion artifact is present, limiting quality of the study. No aneurysm is seen. No large v essel occlusion. Significant vertebral atherosclerosis, greater on the left. Right vertebral artery i s narrowed distally prior to basilar artery. Moderate atherosclerotic plaque right M1 segment. The visualized dural venous sinuses are patent. IMPRESSION: Motion degraded study is submitted demonstrating moderate multifocal atheromatous plaqui ng as detailed. There is significant stenosis of the distal right vertebral artery intracranially. Moderate atherosclerotic plaque is seen resulting in mild stenosis right M1 segment.
--- NOTE | 2023-04-22 09:26 | RAD REPORT ---
EXAM DESCRIPTION: CT - Neck Angio - 04/22/2023 8:31 am CLINICAL HISTORY: Rule out large vessel occlusion Headache, drowsiness, CVA symptomology COMPARISON: Head C Spine Mpr Wo Con dated 01/08/2021 TECHNIQUE: CT angiography of the neck vessels was performed with MIPs. All CT scans are performed using dose optimization technique as appropriate and may include automated exposure control or mA/KV adjustment according to patient size. FINDINGS: A left aortic arch is identified with normal three vessel configuration of the great vesse ls. Significant atheromatous plaquing is present the origin of the left subclavian artery. Mild atherosclerosis of both common carotid arteries noted. There is heavy hard plaquing present right carotid bulb with estimated 70-80% stenosis. Moderate to h eavy atherosclerotic plaquing is seen left carotid bulb with stenosis estimated at 80-90% based on NA SCET criteria. Left vertebral artery is dominant. Distal intracranial right vertebral artery is moderately narrowed with diminished flow seen. IMPRESSION: Heavy atherosclerotic vascular plaquing is present in both proximal internal carotid art oliver/carotid artery bulbs, greater on the left. This results in bilateral carotid stenosis as detailed . NASCET criteria used. Mild 0-49% stenosis Moderate 50-69% stenosis Severe 70-99% stenosis
[2023-04-22] MEDS ORDERED: VANCOMYCIN 1 GM in NA CHLORIDE 0.9% 250 ML IVPB ONE (09:49)
[2023-04-22] MEDS ORDERED: NA CHLORIDE 0.9% 1,000 ML IV PRN (09:53)
[2023-04-22] MEDS ORDERED: MANNITOL 25% 12.5 GM/50 ML VIAL IV PRN (09:53)
[2023-04-22] MEDS ORDERED: ALBUMIN HUMAN 25% 50 ML IV SCH (10:00)
[2023-04-22] MEDS ORDERED: VANCOMYCIN 1 GM in NA CHLORIDE 0.9% 250 ML IVPB SCH (10:00)
--- NOTE | 2023-04-22 10:39 | RAD REPORT ---
EXAM DESCRIPTION: ADDENDUM #1 ADDENDUM: Meghan Rodriguez RN is notified of findings on 04/22/2023 at 7:55 AM ET. Electronically signed by: Gutierrez Castillo MD 04/22/2023 6:59 AM CDT End of Addendum EXAM DESCRIPTION: CT Head/Brain Without Contrast 04/22/2023 at 6: 10 AM CLINICAL HISTORY: Code Stroke COMPARISON: CT Head/Brain Without Contrast 03/04/2021 TECHNIQUE: Head/brain axial images acquired without contrast. Coronal and sagittal reformats created . Exam performed according to departmental dose-optimization program which includes automated exposur e control, adjustment of mA and/or kV according to patient size, and/or use of iterative reconstructi on technique. FINDINGS: No midline shift, mass effect, intracranial hemorrhage, or hydrocephalus. CSF spaces appear overall mildly enlarged likely representing age-appropriate cerebral volume loss. Small polyp or mucous retention cyst in left maxillary sinus. Mastoid air cells clear. No skull fracture or significant skull lesion. Calcified atherosclerotic intracranial internal carotid and vertebral arteries. Extensive scalp vascular calcifications. Both lenses show postsurgical changes (intraocular lens implant). IMPRESSION: Unremarkable CT head/brain without contrast. If there remains strong clinical suspicion of acute ischemic infarct, then MR brain/head recommended (if there are no contraindications). Electronically signed by: Gutierrez Castillo MD 04/22/2023 6:30 AM CDT Due to temporary technical issues with the PACS/Fluency reporting system, reports are being signed by the in house radiologists without review as a courtesy to insure prompt reporting. The interpreting radiologist is fully responsible for the content of the report.
[2023-04-22] MEDS: HOME MED 1 EA UNK (Tacrolimus [Prograf] 0.5 MG Capsule) PO SCH ×2 (11:30→15:58)
[2023-04-22] MEDS ORDERED: NA CHLORIDE 0.9% 250 ML ONE (11:54)
--- NOTE | 2023-04-22 12:24 | EKG ---
Test Date: 2023-04-22 Test Time: 06:47:54 Assistant Professor Of Art: KELLY MEASUREMENT RESULTS: Intervals: Rate: 89 HI: QRSD: 80 QT: 528 QTc: 642 Glad[place]: P: HI: QRS: -49 T: -43 INTERPRETIVE STATEMENTS: Major Artifact, repeat EKG. Electronically Signed On 04-22-23 12:23:01 CDT by Abelardo Resendiz
--- NOTE | 2023-04-22 12:26 | EKG ---
Test Date: 2023-04-21 Test Time: 15:27:54 Building Engineer: Ania HARTMAN MEASUREMENT RESULTS: Intervals: Rate: 87 NV: QRSD: 82 QT: 344 QTc: 413 [place]: P: NV: QRS: -33 T: 49 INTERPRETIVE STATEMENTS: Sinus rhythm Left axis deviation Nonspecific T wave abnormality Abnormal ECG Compared to ECG 07/23/2010 18:50:02 Left-axis deviation now present T-wave abnormality now present Sinus tachycardia no longer present AV dual-paced complex(es) or rhythm no longer present Electronically Signed On 04-22-23 12:24:23 CDT by Abelardo Resendiz
[2023-04-22] MEDS: ALBUMIN HUMAN 25% 100 ML IV ONE ×2 (12:30→14:00)
[2023-04-22 13:59] LABS: Hepatitis B surface AG Interp. Nonreactive (Nonreactive)
[2023-04-22 14:12] LABS: Hepatitis B Surface Ab - Quant < 3.10 mIU/mL (<8.0)
[2023-04-22] MEDS: EPOETIN ALFA 10,000 UNIT/ML VIAL IV SCH (14:15)
[2023-04-22] MEDS: CEFEPIME 1 GM in NA CHLORIDE 0.9% 100 ML IV SCH (18:22)
--- NOTE | 2023-04-22 18:31 | P.PN ---
Subjective Date of Service: 04/22/23 Chief Complaint: weak, fell at home, broke r ankle. Subjective: New changes LAST NIGHT HE HAD CONFUSION, APHASIA AND HAD STROKE PROTOCOL FOLLOWED. CT BRAIN IS NEGATIVE. CT ANGIO SHOWS BILATERAL 80% STENOSIS AND R VERTEBRAL OCCLUSION. I TALKED TO ABOUT CODE Yusuf TAT. SHE IS GOING TO TALK TO SON. HE ALREADY HAS PAPERS FOR NOT DOING ANYTHING IN CASE OF CODE. WILL PICK NH. Review of Systems 10-point ROS is otherwise unremarkable Physical Examination - Vital Signs Temperature: 98.2 F Blood Pressure: 122/69 Pulse: 97 Respirations: 16 Pulse Ox (%): 93 - Physical Exam General: Mild distress, Moderate distress HEENT: Atraumatic, PERRLA, EOMI Neck: Supple, JVD not distended Respiratory: Clear to auscultation bilaterally, Normal air movement Cardiovascular: Regular rate/rhythm, Normal S1 S2 Gastrointestinal: Normal bowel sounds, No tenderness Musculoskeletal: No tenderness Integumentary: No rashes Neurological: Other, Abnormal speech, Abnormal strength (GEN WEAK) Lymphatics: No axilla or inguinal lymphadenopathy - Studies Laboratory Data (last 24 hrs) 04/22/23 04/22/23 04/22/23 06:31 06:31 06:31 WBC 9.00 Hgb 9.6 L D Hct 29.0 L Plt Count 215 PT 15.2 H INR 1.38 APTT 47.9 H Sodium 139 Potassium 5.2 H BUN 55 H Creatinine 7.52 H Glucose 97 04/22/23 04/22/23 02:27 02:27 WBC 8.40 Hgb 8.8 L D Hct 25.5 L Plt Count 216 PT INR APTT Sodium 139 Potassium 5.4 H BUN 52 H Creatinine 7.32 H Glucose 95 Microbiology Data (last 24 hrs): 04/21/23 16:10 Nasopharnyx Influenza Type A Antigen Screen - Final 04/21/23 16:10 Nasopharnyx Influenza Type B Antigen Screen - Final Medications List Reviewed: Yes Assessment And Plan - Current Problems (Diagnosis) (1) Bacterial pneumonia Current Visit: Yes Status: Acute Plan: ALLERGIC TO MANY MEDS I ASKED ER MD TO START CEFEPIME SPUTUM CS IV ABX DW DR. CHAUDHARY. (2) Closed right ankle fracture Current Visit: Yes Status: Acute Plan: ORTHO CONSULT. SNIF OR NH OR SWING BED (3) Metabolic encephalopathy Current Visit: Yes Status: Acute Plan: SHOULD IMPROVE WITH IMPROVED INFECTION. (4) End-stage renal disease on hemodialysis Current Visit: No Status: Chronic Plan: CONSULT NEPH (5) Heart transplanted Current Visit: No Status: Chronic Plan: HAS MANY DOCTORS IN [place] FOR FOLLOW UP. (6) Aphasia Current Visit: Yes Status: Acute Plan: HAPPENED OVERNIGHT. CT NEG BUT CT ANGIO SHOWS 80-90 BILAT. CAROTID STENOSIS AND VERTERBRAL STENOSIS DW SON AND TODAY. THEY MADE HIM DNR PER HIS WISH. REFER TO SNIF SW MET WITH FAMILY. CAROTID INTERVENTION IS ONLY WORTH IT IF HE BECOMES VIABLE. (7) Altered mental status Current Visit: Yes Status: Acute
[2023-04-22] MEDS: GABAPENTIN 100 MG CAP PO SCH (20:29)
[2023-04-22] MEDS: MONTELUKAST 10 MG TAB PO SCH (20:29)
[2023-04-22] MEDS ORDERED: HOME MED 1 EA UNK (Tacrolimus [Prograf] 1 MG Capsule) PO SCH (21:00)
[2023-04-22] MEDS: ATORVASTATIN 20 MG TAB PO SCH (21:00)
[2023-04-22] MEDS ORDERED: HOME MED 1 EA UNK (Pravastatin Sodium [Pravachol] 40 MG Tablet) PO SCH (21:00)
[2023-04-22] MEDS ORDERED: ATORVASTATIN 10 MG TAB PO SCH (21:00)
--- NOTE | 2023-04-22 21:47 | P.PN ---
Date of Service: 04/22/23 Vital Signs Temp Pulse Resp BP Pulse Ox 98.2 F 103 H 16 90/57 L 93 04/22/23 18:36 04/22/23 20:29 04/22/23 18:36 04/22/23 20:29 04/22/23 18:36 Medications Acetaminophen (Acetaminophen 500 Mg Tab) 1,000 mg PO Q8H PRN PRN Reason: Pain scale 2-4 (Mild) Apixaban (Apixaban 2.5 Mg Tablet) 2.5 mg PO BID [facility] Last Admin: 04/22/23 20:29 Dose: Not Given Aspirin (Aspirin Ec 81 Mg Tab) 81 mg PO DAILY [facility] Last Admin: 04/22/23 09:00 Dose: Not Given Atorvastatin Calcium (Atorvastatin 20 Mg Tab) 20 mg PO BEDTIME [facility] Epoetin Dung (Epoetin Dung 10,000 Unit/Ml Vial) 10,000 unit IV EVERY HD [facility] Last Admin: 04/22/23 14:15 Dose: 10,000 unit Gabapentin (Gabapentin 100 Mg Cap) 100 mg PO BEDTIME [facility] Last Admin: 04/22/23 20:29 Dose: Not Given Heparin Sodium (Porcine) (Heparin 1,000 Unit/Ml Vial) 3,000 unit IV EVERY HD PRN PRN Reason: Prevent HD Sytem Clotting Last Admin: 04/22/23 12:27 Dose: 3,000 unit Home Med (Cyanocobalamin (Vitamin B-12) [Vitamin B-12]) 100 mcg PO DAILY [facility] Last Admin: 04/22/23 09:00 Dose: Not Given Home Med (Tacrolimus [Prograf]) 1 mg PO AC [facility] Last Admin: 04/22/23 15:58 Dose: Not Given Home Med (Tacrolimus [Prograf]) 0.5 mg PO BEDTIME [facility] Last Admin: 04/22/23 20:29 Dose: Not Given Cefepime HCl 1 gm/ Sodium (Chloride) 100 mls @ 200 mls/hr IV Q24H [facility]; Protocol Last Admin: 04/22/23 18:22 Dose: 100 mls Albumin Human (Albumin 25%) 50 mls @ 100 mls/hr IV EVERY HD [facility] Sodium Chloride (Ns 1000 Ml Ivbag) 1,000 mls @ 0 mls/hr IV .Q0M PRN; Protocol PRN Reason: Priming and BP support at HD Stop: 04/22/23 23:59 Vancomycin HCl 1 gm/ Sodium (Chloride) 250 mls @ 250 mls/hr IVPB AFTER EACH DIALYSIS [facility] Labetalol HCl (Labetalol 20 Mg/4ml Syringe) 10 mg IV Q4H PRN PRN Reason: Goal to achieve SBP in comment Lactobacillus Acidoph/Bulgaricus (Lactobacillus/Acidophilus Tab) 1 tab PO TID [facility] Last Admin: 04/22/23 14:00 Dose: Not Given Mannitol (Mannitol 25% 12.5 Gm/50 Ml Vial) 12.5 gm IV EVERY HD PRN PRN Reason: Titrate to SBP (MUST DEFINE) Metoprolol Tartrate (Metoprolol Tar 50 Mg Tab) 50 mg PO BID [facility] Last Admin: 04/22/23 20:29 Dose: Not Given Montelukast Sodium (Montelukast 10 Mg Tab) 10 mg PO BEDTIME [facility] Last Admin: 04/22/23 20:29 Dose: Not Given Ondansetron HCl (Ondansetron 4 Mg/2 Ml Vial) 4 mg IV Q6H PRN PRN Reason: NAUSEA / VOMITING Pantoprazole Sodium (Pantoprazole 40mg Tablet) 40 mg PO DAILY [facility]; Protocol Last Admin: 04/22/23 09:00 Dose: Not Given Pramipexole Dihydrochloride (Pramipexole 0.25 Mg Tab) 0.0313 mg PO DAILY [facility] Prednisone (Prednisone 5 Mg Tab) 5 mg PO DAILY [facility] Last Admin: 04/22/23 09:00 Dose: Not Given Lab Results (last 24 hrs) 04/22/23 12:30: Hep Bs Antigen Nonreactive, Hep B Surface Ag Comm Report, Hep Bs Antibody Nonreactive, Hep Bs Antibody, Quant < 3.10 04/22/23 06:31: Sodium 139, Potassium 5.2 H, Chloride 107, Carbon Dioxide 25, Anion Gap 12.2, BUN 55 H, Creatinine 7.52 H, Est GFR (CKD-EPI) 7 L, Glucose 97, Calcium 10.6 H 04/22/23 06:31: PT 15.2 H, INR 1.38, APTT 47.9 H 04/22/23 06:31: WBC 9.00, RBC 3.23 L, Hgb 9.6 L D, Hct 29.0 L, MCV 89.8, MCH 29.7, MCHC 33.1, RDW 17.4 H, Plt Count 215, MPV 7.2 L, Neutrophils % 67.9, Lym phocytes % 13.2 L, Monocytes % 15.5 H, Eosinophils % 2.0, Basophils % 1.4 H, Absolute Neutrophils 6.1, Absolute Lymphocytes 1.2, Absolute Monocytes 1.4 H, Absolute Eosinophils 0.2, Absolute Basophils 0.1 04/22/23 05:59: POC Glucose 88 04/22/23 02:27: Sodium 139, Potassium 5.4 H, Chloride 107, Carbon Dioxide 25, Anion Gap 12.4, BUN 52 H, Creatinine 7.32 H, Est GFR (CKD-EPI) 7 L, Glucose 95, Calcium 10.5 H 04/22/23 02:27: WBC 8.40, RBC 2.87 L, Hgb 8.8 L D, Hct 25.5 L, MCV 88.9, MCH 30.7, MCHC 34.5, RDW 17.3 H, Plt Count 216, MPV 7.6, Neutrophils % 72.4, Lymphocytes % 10.8 L, Monocytes % 14.8 H, Eosinophils % 1.4, Basophils % 0.6, Absolute Neutrophils 6.1, Absolute Lymphocytes 0.9, Absolute Monocytes 1.3, Absolute Eosinophils 0.1, Absolute Basophils 0.1 Microbiology Results 04/21/23 17:53 Blood - Blood Aerobic Blood Culture - Preliminary No growth in 24 hours. 04/21/23 17:53 Blood - Blood Anaerobic Blood Culture - Preliminary No growth in 24 hours. 04/21/23 17:27 Blood - Blood Aerobic Blood Culture - Preliminary No growth in 24 hours. 04/21/23 17:27 Blood - Blood Anaerobic Blood Culture - Preliminary No growth in 24 hours. 04/21/23 16:10 Nasopharnyx Influenza Type A Antigen Screen - Final 04/21/23 16:10 Nasopharnyx Influenza Type B Antigen Screen - Final Assessment/ Plan: Nephrology Code stroke this morning Poorly responsive Weakness and fatigue Cold Vitals, medications, blood work and imaging reviewed in the chart. General: In no apparent distress, Cooperative HEENT: Atraumatic Neck: Supple Respiratory: Normal air movement Cardiovascular: Regular rate/rhythm, Edema Gastrointestinal: Soft and benign, Non-distended, No guarding Musculoskeletal: No clubbing, No contractures Integumentary: No rashes, No cyanosis Neurological: Normal speech Laboratory Data (last 24 hrs) 04/21/23 04/21/23 04/21/23 15:15 15:15 15:15 WBC 12.60 H Hgb 10.4 L Hct 31.1 L Plt Count 253 PT 12.8 H INR 1.16 APTT 44.4 H Sodium 139 Potassium 4.8 BUN 47 H Creatinine 6.43 H Glucose 99 Imagings Data: EXAM DESCRIPTION: RADChest Single View04/21/2023 4:42 pm CLINICAL HISTORY: CONGESTION COMPARISON: Chest Pa And Lat (2 Views) dated 05/13/2021; Chest Pa And Lat (2 V iews) dated 05/15/2017; Chest Pa And Lat (2 Views) dated 07/29/2016; Chest Pa And Lat (2 Views) dated 03/24/2016 TECHNIQUE: Portable AP view of the chest. FINDINGS: Abandoned wire fragment along the SVC, stable. Newly placed vascular stents which appear to be along the distal SVC and IVC. Developing right basilar airspace opacity with layering small to moderate effusion. No pneumothorax. The cardiomediastinal contours are stable, with sequelae of prior CABG. IMPRESSION: Developing right basilar airspace opacity with layering small to moderate effusion. Underlying pneumonia should be considered. EXAM DESCRIPTION: RAD - Ankle Right 3 View - 04/21/2023 3:51 pm CLINICAL HISTORY: post fall and splint last night COMPARISON: Chest Single View dated 04/21/2023; Tib Fib Right dated 04/21/2023 TECHNIQUE: Right ankle, 3 views. FINDINGS: A crescentic lucency along the distal tibia with medial cortex irregularity, may represent an acute or healing fracture. Diffuse osteopenia. No dislocation or periosteal reaction. No joint effusion seen. Fixation screw along the base of the calcaneus. No joint space narrowing. No soft tissue abnormality. IMPRESSION: Crescentic lucency along the distal tibia, may represent an acute or healing fracture. Osteopenia limits evaluation. Conclusions/Impression: ESRD on HD TTS -HD TIW -Acute HD today HTN with CKD/ CHF, labile -Labetolol prn -Continue Metoprolol Diastolic CHF, chronic -Low sodium diet -HD with UF Anemia in CKD -Retacrit prn CKD MBD Hypercalcemia -Renvela prn Heart Transplant Immunosuppressive state -Continue immunosuppressive therapy Hospitalist note reviewed Case reviewed with Dr. Zuniga Greater than 30min patient care
[2023-04-23 05:02] LABS: Absolute Lymphocytes (CBC) 1.4 K/uL (0.7-4.9); Hematocrit 28.4 % (39.6-49.0); Lymphocytes % 11.4 % (15.3-44.8); MCV 90.3 fL (80-100); MPV 7.3 fL (7.6-11.3); Platelets 204 thou/uL (152-406); RBC Red Blood Cell Count 3.15 M/uL (4.33-5.43)
[2023-04-23 05:21] LABS: Albumin 2.7 g/dL (3.4-5.0); Bilirubin Total 0.7 mg/dL (0.2-1.0); Phosphorus 4.3 mg/dL (2.5-4.9); Potassium 4.5 mEq/L (3.5-5.1); Protein, Total 6.2 g/dL (6.4-8.2)
[2023-04-23] MEDS: HOME MED 1 EA UNK (Tacrolimus [Prograf] 0.5 MG Capsule) PO SCH ×2 (07:30→11:30)
[2023-04-23] MEDS ORDERED: VANCOMYCIN 1 GM in NA CHLORIDE 0.9% 250 ML IVPB ONE (08:00)
--- NOTE | 2023-04-23 08:30 | RAD REPORT ---
EXAM DESCRIPTION: CT - Head Brain Wo Cont - 04/23/2023 8:20 am CLINICAL HISTORY: cva COMPARISON: April 22, 2023 TECHNIQUE: Computed axial tomography of the head was obtained. IV contrast was not requested. All CT scans are performed using dose optimization technique as appropriate and may include automated exposure control or mA/KV adjustment according to patient size. FINDINGS: An intracranial bleed is not seen The ventricles are normal in caliber No extra-axial fluid collection is noted. Mild low-density areas within periventricular, deep and subcortical white matter likely represent is chemic changes secondary to small vessel disease. Fluid within the sinuses/ mastoids is not seen. IMPRESSION: No acute intracranial abnormality is seen If patient's symptoms persist MRI of the brain would be recommended
[2023-04-23] MEDS: APIXABAN 2.5 MG TABLET PO SCH ×2 (09:00→21:00)
[2023-04-23] MEDS ORDERED: PRAMIPEXOLE 0.25 MG TAB PO SCH (09:00)
[2023-04-23] MEDS: CYANOCOBALAMIN 100 MCG PO SCH (09:00)
[2023-04-23] MEDS: LACTOBACILLUS/ACIDOPHILUS TAB PO SCH ×3 (09:00→21:00)
[2023-04-23] MEDS: ASPIRIN EC 81 MG TAB PO SCH (09:00)
[2023-04-23] MEDS: predniSONE 5 MG TAB PO SCH (09:00)
[2023-04-23] MEDS: PANTOPRAZOLE 40MG TABLET PO SCH (09:00)
[2023-04-23] MEDS: METOPROLOL TAR 50 MG TAB PO SCH ×2 (09:00→21:00)
[2023-04-23] MEDS: EPOETIN ALFA 10,000 UNIT/ML VIAL IV SCH (11:15)
[2023-04-23] MEDS ORDERED: ALBUMIN HUMAN 25% 100 ML IV ONE (11:41)
--- NOTE | 2023-04-23 12:51 | P.PN ---
Subjective Date of Service: 04/23/23 Chief Complaint: weak, fell at home, broke r ankle. Subjective: Worsening LAST NIGHT HE HAD CONFUSION, APHASIA AND HAD STROKE PROTOCOL FOLLOWED. CT BRAIN IS NEGATIVE. CT ANGIO SHOWS BILATERAL 80% STENOSIS AND R VERTEBRAL OCCLUSION. I TALKED TO ABOUT CODE Yusuf POWERS. SHE IS GOING TO TALK TO SON. HE ALREADY HAS PAPERS FOR NOT DOING ANYTHING IN CASE OF CODE. WILL PICK NH. HE IS STILL OBTUNDED. NOT FOLLOWING COMMANDS WELL. HE LIFTED HIS R ARM ON COMMAND ONCE. Review of Systems is unable to be obtained Physical Examination - Vital Signs Temperature: 99.1 F Blood Pressure: 118/61 Pulse: 103 Respirations: 23 Pulse Ox (%): 92 - Physical Exam General: Confused, Unresponsive HEENT: Atraumatic, PERRLA, EOMI Neck: Supple, JVD not distended Respiratory: Clear to auscultation bilaterally, Normal air movement Cardiovascular: Regular rate/rhythm, Normal S1 S2 Gastrointestinal: Normal bowel sounds, No tenderness Musculoskeletal: No tenderness, Other (RIGHT FOOT FRACTURE.) Integumentary: No rashes Neurological: Normal speech, Normal tone, Normal affect Lymphatics: No axilla or inguinal lymphadenopathy - Studies Medications List Reviewed: Yes Assessment And Plan - Current Problems (Diagnosis) (1) Bacterial pneumonia Current Visit: Yes Status: Acute Plan: ALLERGIC TO MANY MEDS I ASKED ER MD TO START CEFEPIME SPUTUM CS IV ABX DW DR. CHAUDHARY. (2) Closed right ankle fracture Current Visit: Yes Status: Acute Plan: ORTHO CONSULT. SNIF OR NH OR SWING BED (3) Metabolic encephalopathy Current Visit: Yes Status: Acute Plan: SHOULD IMPROVE WITH IMPROVED INFECTION. (4) End-stage renal disease on hemodialysis Current Visit: No Status: Chronic Plan: CONSULT NEPH (5) Heart transplanted Current Visit: No Status: Chronic Plan: HAS MANY DOCTORS IN [place] FOR FOLLOW UP. (6) Aphasia Current Visit: Yes Status: Acute Plan: HAPPENED OVERNIGHT. CT NEG BUT CT ANGIO SHOWS 80-90 BILAT. CAROTID STENOSIS AND VERTERBRAL STENOSIS DW SON AND TODAY. THEY MADE HIM DNR PER HIS WISH. REFER TO [facility] SW MET WITH FAMILY. CAROTID INTERVENTION IS ONLY WORTH IT IF HE BECOMES VIABLE. (7) Altered mental status Current Visit: Yes Status: Acute Plan: I SUSPECT HE HAS HAD CVA WE CAN'T DETECT ON CT. HE CAN'T DO MRI HE HAS BILATERAL SEVERE CAROTID STENOSIS. HIS ENCEPHALOPATHY IS FROM INFECTION AND UREMIA POSSIBLY. PROGNOSIS IS POOR FAMILY IS CONSIDERING HOSPICE AT HOME. THEY WILL LET ME KNOW.
[2023-04-23] MEDS: PRAMIPEXOLE 0.25 MG TAB PO SCH (15:00)
[2023-04-23] MEDS ORDERED: D10W 250 ML BAG IV PRN (16:00)
[2023-04-23] MEDS ORDERED: D50W 25 GM/50 ML SYRINGE IV PRN (16:00)
[2023-04-23] MEDS ORDERED: DEXTROSE 10%-WATER 500 ML IV SCH (16:00)
[2023-04-23] MEDS ORDERED: VANCOMYCIN 1 GM in NA CHLORIDE 0.9% 250 ML IVPB SCH (18:00)
[2023-04-23] MEDS ORDERED: VANCOMYCIN 1.5 GM in NA CHLORIDE 0.9% 500 ML IVPB ONE (18:00)
[2023-04-23] MEDS: CEFEPIME 1 GM in NA CHLORIDE 0.9% 100 ML IV SCH (18:16)
--- NOTE | 2023-04-23 20:10 | P.PN ---
Date of Service: 04/23/23 Vital Signs Temp Pulse Resp BP Pulse Ox 99.3 F 113 H 21 H 117/66 96 04/23/23 16:00 04/23/23 16:00 04/23/23 16:00 04/23/23 16:00 04/23/23 16:00 Medications Acetaminophen (Acetaminophen 500 Mg Tab) 1,000 mg PO Q8H PRN PRN Reason: Pain scale 2-4 (Mild) Apixaban (Apixaban 2.5 Mg Tablet) 2.5 mg PO BID [facility] Last Admin: 04/23/23 09:00 Dose: Not Given Aspirin (Aspirin Ec 81 Mg Tab) 81 mg PO DAILY [facility] Last Admin: 04/23/23 09:00 Dose: Not Given Atorvastatin Calcium (Atorvastatin 20 Mg Tab) 20 mg PO BEDTIME [facility] Last Admin: 04/22/23 21:00 Dose: Not Given Dextrose (D10w 250 Ml Bag) 125 ml IV PRN PRN; Protocol PRN Reason: HYPOGLYCEMIA PROTOCOL Epoetin Dung (Epoetin Dung 10,000 Unit/Ml Vial) 10,000 unit IV EVERY HD [facility] Last Admin: 04/23/23 11:15 Dose: 10,000 unit Gabapentin (Gabapentin 100 Mg Cap) 100 mg PO BEDTIME CAIT Last Admin: 04/22/23 20:29 Dose: Not Given Heparin Sodium (Porcine) (Heparin 1,000 Unit/Ml Vial) 3,000 unit IV EVERY HD PRN PRN Reason: Prevent HD Sytem Clotting Last Admin: 04/23/23 10:38 Dose: 3,000 unit Home Med (Cyanocobalamin (Vitamin B-12) [Vitamin B-12]) 100 mcg PO DAILY [facility] Last Admin: 04/23/23 09:00 Dose: Not Given Home Med (Tacrolimus [Prograf]) 0.5 mg PO BEDTIME [facility] Home Med (Tacrolimus [Prograf]) 1 mg PO DAILY [facility] Cefepime HCl 1 gm/ Sodium (Chloride) 100 mls @ 200 mls/hr IV Q24H [facility]; Protocol Last Admin: 04/23/23 18:16 Dose: 100 mls Albumin Human (Albumin 25%) 50 mls @ 100 mls/hr IV EVERY HD [facility] Last Admin: 04/23/23 11:29 Dose: 50 mls Vancomycin HCl 1 gm/ Sodium (Chloride) 250 mls @ 250 mls/hr IVPB AFTER EACH DIALYSIS [facility] Labetalol HCl (Labetalol 20 Mg/4ml Syringe) 10 mg IV Q4H PRN PRN Reason: Goal to achieve SBP in comment Lactobacillus Acidoph/Bulgaricus (Lactobacillus/Acidophilus Tab) 1 tab PO TID [facility] Last Admin: 04/23/23 14:00 Dose: Not Given Mannitol (Mannitol 25% 12.5 Gm/50 Ml Vial) 12.5 gm IV EVERY HD PRN PRN Reason: Titrate to SBP (MUST DEFINE) Metoprolol Tartrate (Metoprolol Tar 50 Mg Tab) 50 mg PO BID [facility] Last Admin: 04/23/23 09:00 Dose: Not Given Montelukast Sodium (Montelukast 10 Mg Tab) 10 mg PO BEDTIME [facility] Last Admin: 04/22/23 20:29 Dose: Not Given Ondansetron HCl (Ondansetron 4 Mg/2 Ml Vial) 4 mg IV Q6H PRN PRN Reason: NAUSEA / VOMITING Pantoprazole Sodium (Pantoprazole 40mg Tablet) 40 mg PO DAILY [facility]; Protocol Last Admin: 04/23/23 09:00 Dose: Not Given Pramipexole Dihydrochloride (Pramipexole 0.25 Mg Tab) 0.125 mg PO DAILY [facility] Last Admin: 04/23/23 15:00 Dose: Not Given Prednisone (Prednisone 5 Mg Tab) 5 mg PO DAILY [facility] Last Admin: 04/23/23 09:00 Dose: Not Given Microbiology Results 04/21/23 17:53 Blood - Blood Aerobic Blood Culture - Preliminary No growth in 24 hours. 04/21/23 17:53 Blood - Blood Anaerobic Blood Culture - Preliminary No growth in 24 hours. 04/21/23 17:27 Blood - Blood Aerobic Blood Culture - Preliminary No growth in 24 hours. 04/21/23 17:27 Blood - Blood Anaerobic Blood Culture - Preliminary No growth in 24 hours. 04/21/23 16:10 Nasopharnyx Influenza Type A Antigen Screen - Final 04/21/23 16:10 Nasopharnyx Influenza Type B Antigen Screen - Final Assessment/ Plan: Nephrology No dyspnea No chest pain Weakness and fatigue No acute events overnight Vitals, medications, blood work and imaging reviewed in the chart. General: In no apparent distress, Cooperative HEENT: Atraumatic Neck: Supple Respiratory: Normal air movement Cardiovascular: Regular rate/rhythm, Edema Gastrointestinal: Soft and benign, Non-distended, No guarding Musculoskeletal: No clubbing, No contractures Integumentary: No rashes, No cyanosis Neurological: Normal speech Laboratory Data (last 24 hrs) 04/21/23 04/21/23 04/21/23 15:15 15:15 15:15 WBC 12.60 H Hgb 10.4 L Hct 31.1 L Plt Count 253 PT 12.8 H INR 1.16 APTT 44.4 H Sodium 139 Potassium 4.8 BUN 47 H Creatinine 6.43 H Glucose 99 Imagings Data: EXAM DESCRIPTION: RADChest Single View04/21/2023 4:42 pm CLINICAL HISTORY: CONGESTION COMPARISON: Chest Pa And Lat (2 Views) dated 05/13/2021; Chest Pa And Lat (2 Views) dated 05/15/2017; Chest Pa And Lat (2 Views) dated 07/29/2016; Chest Pa And Lat (2 Views) dated 03/24/2016 TECHNIQUE: Portable AP view of the chest. FINDINGS: Abandoned wire fragment along the SVC, stable. Newly placed vascular stents which appear to be along the distal SVC and IVC. Developing right basilar airspace opacity with layering small to moderate effusion. No pneumothorax. The cardiomediastinal contours are stable, with sequelae of prior CABG. IMPRESSION: Developing right basilar airspace opacity with layering small to moderate effusion. Underlying pneumonia should be considered. EXAM DESCRIPTION: RAD - Ankle Right 3 View - 04/21/2023 3:51 pm CLINICAL HISTORY: post fall and splint last night COMPARISON: Chest Single View dated 04/21/2023; Tib Fib Right dated 04/21/2023 TECHNIQUE: Right ankle, 3 views. FINDINGS: A crescentic lucency along the distal tibia with medial cortex irregularity, may represent an acute or healing fracture. Diffuse osteopenia. No dislocation or periosteal reaction. No joint effusion seen. Fixation screw along the base of the calcaneus. No joint space narrowing. No soft tissue abnormality. IMPRESSION: Crescentic lucency along the distal tibia, may represent an acute or healing fracture. Osteopenia limits evaluation. Conclusions/Impression: ESRD on HD TTS -HD TIW -Acute HD today -Seen and examined on HD today HTN with CKD/ CHF, labile -Labetolol prn -Continue Metoprolol Diastolic CHF, chronic -Low sodium diet -HD with UF Anemia in CKD -Retacrit TIW CKD MBD Hypercalcemia -Renvela prn Heart Transplant Immunosuppressive state -Continue immunosuppressive therapy RLL Bacterial PNA -Continue Abx Hospitalist note reviewed Case reviewed with Dr. Zuniga
[2023-04-23] MEDS ORDERED: ACETAMINOPHEN 650MG/RECT SUPP PR PRN ×2 (20:31→20:38)
[2023-04-23] MEDS: ATORVASTATIN 20 MG TAB PO SCH (21:00)
[2023-04-23] MEDS: GABAPENTIN 100 MG CAP PO SCH (21:00)
[2023-04-23] MEDS: MONTELUKAST 10 MG TAB PO SCH (21:00)
[2023-04-23] MEDS ORDERED: HOME MED 1 EA UNK (Tacrolimus [Prograf] 0.5 MG Capsule) PO SCH (21:00)
[2023-04-24] MEDS ORDERED: HYDROCORTISONE SUC 100 MG INJ IV SCH (06:00)
[2023-04-24] MEDS ORDERED: D5W 1,000 ML IV SCH (06:00)
[2023-04-24] MEDS: PRAMIPEXOLE 0.25 MG TAB PO SCH (09:00)
[2023-04-24] MEDS: CYANOCOBALAMIN 100 MCG PO SCH (09:00)
[2023-04-24] MEDS: APIXABAN 2.5 MG TABLET PO SCH (09:00)
[2023-04-24] MEDS: LACTOBACILLUS/ACIDOPHILUS TAB PO SCH (09:00)
[2023-04-24] MEDS: ASPIRIN EC 81 MG TAB PO SCH (09:00)
[2023-04-24] MEDS: PANTOPRAZOLE 40MG TABLET PO SCH (09:00)
[2023-04-24] MEDS ORDERED: HOME MED 1 EA UNK (Tacrolimus [Prograf] 1 MG Capsule) PO SCH (09:00)
[2023-04-24] MEDS: METOPROLOL TAR 50 MG TAB PO SCH (09:00)
[2023-04-24] MEDS: predniSONE 5 MG TAB PO SCH (09:00)
[2023-04-24 10:06] VITALS: BP 108/52; TEMP 98.7
--- NOTE | 2023-04-24 11:19 | P.PN ---
(S) Pt's condition continues to decline, he has had low grade temps, BG have been low, he has been obtunded and has not had any PO intake. D5W IVF started by primary team. Pt has not been able to clear secretions. at bedside, case discussed in detail, /son have decided on IP hospice and she is agreeable to stopping any further dialysis due to pt's acute and chronic decline. (O) Vitals reviewed in the EMR Vitals, medications, blood work and imaging reviewed in the chart. General: Chronically ill appearing, pale, obtunded HEENT: Atraumatic, on LFNC Respiratory: Mild tachpnea, reduced BS Rt base, wet cough Cardiovascular: Tachy, mostly regular Gastrointestinal: Soft and benign, Non-distended Musculoskeletal: Rt UE AV access, Rt foot in cast Neuro: Obtunded, does not open eyes, non verbal, some grimacing Reviewed in the EMR Conclusions/Impression: ESRD on chronic HD -Last HD performed yesterday, pt's has elected to stop HD and proceed with hospice care in the setting of pt's acute (on chronic) decline which appears to be appropriate as pt is obtunded, hypoglycemic, febrile and likely with Rt sided (aspiration) or other PNA developed in the setting of fall, ankle fracture, debility/weakness, other. -Pt appears to be appropriate for IP hospice care, palliative measures per primary team. Greg Valdivia MD, [facility]
[2023-04-24 11:21] VITALS: O2SAT 93
[2023-04-24] MEDS ORDERED: VANCOMYCIN 1 GM in NA CHLORIDE 0.9% 250 ML IVPB SCH (18:00)
[2023-04-25] MEDS ORDERED: VANCOMYCIN 1 GM in NA CHLORIDE 0.9% 250 ML IVPB SCH (18:00)
== END 2023-04-24 13:40 | disposition hospice, inpatient (51) | DRG 193 ==
LOC: ER 15:00 → ERHOLD 16:47 → 2ND 19:47 → OBSVTOIN 04-22 14:34
PROVIDERS: ADMIT Internal Medicine; ATTEND Internal Medicine
PROC: 5A1D70Z Performance of Urinary Filtration, Intermittent, Less than 6 Hours Per Day (ICD-10-PCS; principal; 2023-04-21)
DX: J15.9 Unspecified bacterial pneumonia (principal); G93.41 Metabolic encephalopathy; N18.6 End stage renal disease; Z94.1 Heart transplant status; I50.32 Chronic diastolic (congestive) heart failure; I13.2 Hypertensive heart and chronic kidney disease with heart failure and with stage 5 chronic kidney disease, or end stage renal disease; R47.01 Aphasia; I95.3 Hypotension of hemodialysis; D63.1 Anemia in chronic kidney disease; E83.52 Hypercalcemia; E16.2 Hypoglycemia, unspecified; E78.00 Pure hypercholesterolemia, unspecified; I65.23 Occlusion and stenosis of bilateral carotid arteries; I65.03 Occlusion and stenosis of bilateral vertebral arteries; S82.891D Other fracture of right lower leg, subsequent encounter for closed fracture with routine healing; Z51.5 Encounter for palliative care; Z88.1 Allergy status to other antibiotic agents; Z99.2 Dependence on renal dialysis; Z85.46 Personal history of malignant neoplasm of prostate; Z79.82 Long term (current) use of aspirin; Z79.52 Long term (current) use of systemic steroids; Z79.899 Other long term (current) drug therapy; Z20.822 Contact with and (suspected) exposure to COVID-19
CPT/HCPCS: 36415; 70450; 70496; 70498; 71045; 80048; 80053; 80202; 82947; 83605; 83735; 83880; 84100; 85025; 85610; 85730; 86706; 87040; 87340; 87804; 87811; 90935; 93005; 96365; 99285; G0378; J0692; J1644; J1720; J7040; J7050; J7512; P9047; Q4081; Q9967

== ENCOUNTER 2023-04-24 13:42 | Inpatient (IN) | payer OTHER ==
--- OUTSIDE RECORDS SUMMARY | 2023-04-24 13:49 | XMS REPORT | Continuity of Care Document ---
:1945 Author Organization [facility] t Address [address] [facility] [address] [place] [address] Care Team Providers Name Role Phone Pcp, Patient Does Not Have A Primary Care Physician [id number] GÓMEZ FAY NATASHA Attending Clinician Unavailable [id number] Attending Clinician Unavailable Hailee Mclaughlin Anavella Attending Clinician Unava ilable Clint Arthur Attending Clinician Unavailable Maurilio Pena MD Attending Clinician [phone] Jadiel SYLVESTER, Ezequiel Attending Clinician Unavailable Елена Martines RN Attending Clinician Unavailable Román Espino MD Attending Clinician Renetta Arthur MD Attending Clinician [phone] Saima Arthur MD Attending Clinician Miky Escobedo Attending Clinician Unavailable Hernesto Buenrostro MD Attending Clinician Ahmet Styles MD Attending Clinician [phone] Jeff Cruz MD Attending Clinician Arvind FRITZAlma Attending Clinician Tamara Bell MA Attending Clinician Unavailable Rody Nava RN Attending Clinician Unavailable Chao Siegel MD Attending Clinician , [facility] Sleep Lab Bed Attending Clinician Unavailable Escobar Valdes MD Attending Clinician ESCOBAR VALDES Attending Clinician Unavailable ESCOBAR VALDES Attending Clinician Unavailable Doctor Unassigned, [place] Attending Clinician Unavailable Adonay Valencia MD Attending Clinician Christ Mancuso LVN Attending Clinician Unavailable Cleo Lerner MD Attending Clinician Josue Graham MD Attending Clinician Meghan Walton MA Attending Clinician Unavailable Jonathan Knox MD Attending Clinician [phone] Andreea Blankenship RN Attending Clinician Unavailable Gwendolyn Weems MA Attending Clinician Unavailable Ja Dahl MD Attending Clinician Provider, Unknown Attending Clinician Unavailable Danielle Dumas MA Attending Clinician Unavailable Emelia Paiz MA Attending Clinician Unavailable Elizabeth Cardenas MA Attending Clinician Unavailable Julien Lerner Attending Clinician Unavailable [facility]H [facility] Attending Clinician Sweetie SINGH, [facility] Jesusita Attending Clinician Cholo Szymanski MD Attending Clinician Ray Garcia MD Attending Clinician Nae Tineo MD Attending Clinician [phone] ZULY CAMPBELL Attending Clinician Unavailable ELIZABETH OTTO [...] Unavailable MD SUZY FORREST Attending Clinician Unavailable LOLITA ALLISON Attending Clinician Unavailable MD JA DAHL Attending Clinician Unavailable MEGHAN COX Attending Clinician Unavailable JOHNNIE YADAV Attending Clinician Unavailable MD JOSUE GRAHAM Attending Clinician Unavailable GÓMEZ FAY NATASHA Admitting Clinician Unavailable [id number] Admitting Clinician Unavailable Alfred Mclaughlin Anav Admitting [...] JACKY CARRASQUILLO Admitting Clinician Unavailable MD ADONAY VLAENCIA Admitting Clinician Unavailable BERTHA BOWERS Admitting Clinician Unavailable MD BERTHA BOWERS Admitting Clinician Unavailable WILLIAM GALO Admitting Clinician Unavailable MD JA DAHL Admitting Clinician Unavailable NEDRA HURD Admitting Clinician Unavailable MEGHAN COX Admitting Clinician Unavailable JOSUE GRAHAM Admitting Clinician Unavailable MD JOSUE GRAHAM Admitting Clinician Unavailable Payers Payer Name Policy Type Policy Number Effective Date Expiration Date S ource AETM AETM [id number] AETNA MEDICARE C1 [id number] 2017 Common Spi rit PPO 00:00:[facility] Problems Condition Condition Condition Status [...] 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 00:00: Hosp anant 00 l [...] disease 00:00: Hospita involving involving 00 l [place] coronary coronary artery of artery of [place] heart heart without without angina angina pectoris [...] Mixed Disease Active Methodi hyperlipid hyperlipid 11-06 emia emia 00:00: Hospita 00 l Dependence Dependence Disease Active M ethodi on on 11-06 hemodialys hemodialys 00:00: Ho spita is is 00 l MARIA T MARIA T Disease Active Methodi (obstructi (obstructi 11-06 ve sleep ve sleep 00:00: Hospit a apnea) apnea) 00 l Prostate Prostate Disease Active Metho di cancer cancer 11-06 st 00:00: Hospita 00 l Kidney Kidney Disease Active Methodi stones stones 11-06 st 00:00: Hospita 00 l Recurrent Recurrent [...] Added automatic ally from request for surgery [id number] Debility Debility Disease Active Metho di 01-03 st 00:00: Hospita 00 l Status Status Disease Active 2019-0 Methodi post post 6-27 st reverse reverse 00:00: Hospita total total 00 l arthroplas arthroplas ty of ty of right right shoulder shoulder Complete Complete Disease Active Overview: Me thodi tear of tear of 6-[address] right right 00:00: g of this Hospita rotator rotator 00 note l cuff cuff might be different from the original. Added automatic ally from request for surgery [id number] Glenohumer Glenohumer Disease Active Overview : Methodi al al 12-[address] arthritis, arthritis, 00:00: g of this Hospita right right 00 note l might be different from the original. Added automatic ally from request for surgery [id number] Heart Heart Disease Active Overview: Method i transplant transplant 12-[address] ed ed 00:00: g of this Hospita 00 note l might be different from the original. Added automatic ally from request for surgery [id number] S/P right S/P right Disease Active Met hodi rotator rotator 4-16 st cuff cuff 00:00: Hospita repair repair 00 l Left Left Disease Active Methodi ureteral ureteral 08-25 st stone stone 00:00: Hospita 00 l Hydronephr Hydronephr Disease Active 2019 M ethodi osis osis 08-10 00:00: Hospita 00 l Fever Fever Disease Active 0 Methodi 01-11 00:00: Hospita 00 l Sepsis Sepsis Disease Active 0 Methodi 01-11 00:00: Hospita 00 l Anemia, Anemia, Disease Active Methodi macrocytic macrocytic 01-11 00:00: Hospita 00 l Leukocytos Leukocytos Disease Active 2018-0 M ethodi is is 01-11 00:00: Hospita 00 l Thrombocyt Thrombocyt Disease Active 2017-0 M ethodi openia openia 01-11 00:00: Hospita 00 l Hypocalcem Hypocalcem Disease Active 2017-0 M ethodi ia ia 01-11 00:00: Hospita 00 l Hematoma Hematoma Disease Active Metho di 10-09 st 00:00: Hospita 00 l Hematoma Hematoma Disease Active Metho di of right of right 10-08 st thigh thigh 00:00: Hospita 00 l Cardiac Cardiac Disease Active Overview: Meth araceli allograft allograft -21 Formattin s t vasculopat vasculopat 00:00: g of this Hospita hy hy 00 note l might be different from the original. Added automatic ally from request for surgery [id number] Lipodystro Lipodystro Disease Active M ethodi phy [...] were not included. 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 Family History Family Member Diagnosis Comments Start Date Stop Date Source Natural brother Heart disease Method [facility] Natural father [facility] Natural mother Heart disease [facility] Natural sister Heart disease [facility] Social History Social Habit Start Date Stop Date Quantity Comments Source History of Tobacco Common Spirit - Use [facility] Sexual orientation [facility] History of Social 2023-03-04 2023-03-[address] function 00:00:00 00:00:00 Hospital Alcohol intake 2023-01-30 2023-01-30 1 /d [facility] 00:00:00 00:00:00 Hospital Tobacco use and 2022-02-10 2022-02-10 Smokeless [facility] exposure 00:00:00 00:00:00 tobacco non-user Hospital Sex Ass[birth year] [facility] 00:00:00 00:00:00 Hospital Smoking Status Start Date Stop Date Source Tobacco smoking consumption [facility] Never smoked tobacco [facility] Medications Ordered Filled Start Stop Current Ordering Indication Dosage Frequency Signature Comments Components Source Medication Medication Date Date Medication? Clinician (SIG) Name Name acetaminoph Yes 1000mg Q8H Take 2 Me thodi en 8-[address] (TYLENOL) 16:18: (1,000 mg Hos luciano 500 MG 51 total) by l tablet mouth every 8 (eight) hours as needed for mild pain. fexofenadin 2022-0 Yes 180mg QD Take 1 Met hodi e (KASIA) 8-[address] 180 MG 16:18: (180 mg Hospita tablet 51 total) by l mouth daily. benzonatate 2022-0 Yes 100mg Q.[id number] Take 1 Methodi (TESSALON) [id number] 100 MG 16:18: 3D (100 [...] as directed midodrine 2022-0 3- No 5mg Q.[id number] Take 1 Methodi (PROAMATINE 30 -30 [id number] tablet (5 st ) 5 MG 14:11: 00:00 3W mg total) Hospi ta tablet 17 :00 by mouth 3 l (three) times a week. Only on dialysis days; TueThuSat. midodrine 0 Yes 5mg Q.[id number] Take 1 Methodi (PROAMATINE 8-30 [id number] tablet (5 st ) 5 MG 00:00: 3W mg total) Hospit a tablet 00 by mouth 3 l (three) times a week. Only on dialysis days; TueThuSat. tacrolimus Yes [id number] 1mg QD Take 1 Methodi (PROGRAF) 1 30 capsule (1 st MG capsule 00:00: mg total) Ho spita 00 by mouth l every evening. tacrolimus Yes [id number] .5mg QD Take 1 [facility] (PROGRAF) [address] 0.5 MG 00:00: (0.5 mg Hospita capsule 00 total) by l mouth every morning. vancomycin 2022-2022- No 125mg Q.5D Take 1 Met hodi (VANCOCIN) 03-04-[address] 125 MG 00:00: 00:00 (125 mg Hospita capsule 00 :00 total) by l mouth 2 (two) times a day for 30 days. tacrolimus 2022- No [id number] .5mg QD Take 1 Methodi (PROGRAF) 03-04-[address] 0.5 MG 00:00: 00:00 (0.5 mg Hospita capsule 00 :00 total) by l mouth every morning for 30 days. tacrolimus 2022- No [id number] .5mg QD Take 1 Methodi (PROGRAF) 03-04-[address] 0.5 MG 00:00: 00:00 (0.5 mg Hospita capsule 00 :00 total) by l mouth every evening. aspirin 2022- No 81mg QD Take 1 Methodi (ECOTRIN) 8- 08-10 tablet (81 st 81 MG 18:05: 00:00 mg total) Hospit a enteric 08 :00 by mouth l coated daily. tablet hydrALAZINE 2022-2022- No 25mg Q.5D Take 1 Met hodi (APRESOLINE 8-10 08-10 tablet (25 s t ) 25 MG 18:05: 00:00 mg total) Hosp anant tablet 08 :00 by mouth 2 l (two) times a day as needed (take if sbp is over 140 bpm). melatonin 3 2022- No 3mg Take 1 Met hodi mg [...] ta 00 DAILY l tacrolimus 2022- No [id number] TAKE ONE Methodi (PROGRAF) 7-18 08-[address] 0.5 MG 00:00: 00:00 MOUTH Hospita capsule 00 :00 EVERY l EVENING FOR 30 DAYS predniSONE 2022-2022- No TAKE 1 Meth araceli (DELTASONE) 6-27 08-[address] 5 mg tablet 00:00: 00:00 MOUTH Hosp anant 00 :00 DAILY l pantoprazol Yes TAKE 1 Meth araceli e 6-23 TABLET(40 st (PROTONIX) 00:00: MG) BY Hospi ta 40 MG EC 00 MOUTH l tablet DAILY ferric 2022- No 1g QD Take 1 g Method i citrate 10-16-[address] (AURYXIA 11:20: 00:00 daily. Hospit a ORAL) 52 :00 l fluticasone 2022- No 100ug Q24H 2 sprays Methodi (FLONASE) 10-16 ([address] 50 11:20: 00:00 total) by Hospita mcg/actuati 28 :00 Each Nare l on nasal route spray daily as needed. denosumab 2022- No [id number] 60mg Met hodi (PROLIA) 08-15 02-10 st syringe 60 17:15: 16:50 Hospit a mg 00 :00 l pravastatin 2022- No 40mg QD Take 1 Met hodi (PRAVACHOL) 07-23-18 tablet (40 s t 40 mg 18:06: 00:00 mg total) Hospit a tablet 41 :00 by mouth l daily. pravastatin Yes TAKE 1 Meth araceli (PRAVACHOL) 07-23 TABLET(40 st 40 mg 00:00: MG) BY Hospita tablet 00 MOUTH l EVERY NIGHT loteprednol No 1[drp] Q24H Administer Methodi etabonate 07-[address] (Lotemax) 10:47: 00:00 into the Hos luciano 0.5 % 02 :00 left eye l drops,gel daily as needed. midodrine No 5mg Q.[id number] Take 1 Methodi (PROAMATINE 07-18 [id number] tablet (5 st ) 5 MG 00:00: 05:59 3D mg total) Hospi ta tablet 00 :00 by mouth 3 l (three) times a day for 30 days. tacrolimus 2022- No [id number] 1mg QD Take 1 Methodi (PROGRAF) 07-1030 capsule (1 s t MG capsule 00:00: 00:00 mg total) H ospita 00 :00 by mouth l every morning. tacrolimus 2021-07- No [id number] Take 2 Methodi (PROGRAF) 08-27-[address] 0.5 MG 00:00: 00:00 (1 mg Hospita capsule 00 :00 total) by l mouth every morning AND 1 capsule (0.5 mg total) every evening. Take one capsule (0.5 mg) by mouth once daily in the morning and take two capsules (total 1 mg) by mouth nightly.. NON 2021-07 QD Apply 1 Methodi FORMULARY 08-[address] 15:51: 00:00 n Hospita 01 :00 topically l daily. Compounded Topical Cream - 1 applicatio n to forehead daily for shingles tacrolimus 2021-07 No 1.5mg QD Take 3 Met hodi (PROGRAF) 08-[address] 0.5 MG 15:51: 00:00 (1.5 mg Hospita capsule 01 :00 total) by l mouth nightly. tacrolimus 2021-07 No 1mg QD Take 1 Meth araceli (PROGRAF) 1 08-11 capsule (1 s t MG capsule 15:51: 00:00 mg total) H ospita 21 :00 by mouth l every morning. tacrolimus 2021-07 No [id number] Take one Methodi (PROGRAF) 08-[address] 0.5 MG 00:00: 00:00 (0.5 mg) Hospit a capsule 00 :00 by mouth l once daily in the morning and take two capsules (total 1 mg) by mouth nightly. tacrolimus 2021-07 No [id number] .5mg Q.5D Take 1 Methodi (PROGRAF) 07-[address] 0.5 MG 00:00: 00:00 (0.5 mg Hospita capsule 00 :00 total) by l mouth 2 (two) times a day. tacrolimus 2021-07 No [id number] 1mg QD Take 1 Methodi (PROGRAF) 1 07-2218 capsule (1 s t MG capsule 00:00: 00:00 mg total) H ospita 00 :00 by mouth l every morning. tacrolimus 2021-07 No [id number] .5mg QD Take 1 Methodi (PROGRAF) 07-[address] 0.5 MG 00:00: 00:00 (0.5 mg Hospita capsule 00 :00 total) by l mouth nightly. cephalexin 2021-07 No 500mg QD Take 1 Met hodi (Keflex) 07-20-[address] 500 MG 00:00: 00:00 (500 mg Hospita capsule 00 :00 total) by l mouth every evening. On days of dialysis, take dose after dialysis tacrolimus 2021-07 No [id number] 1mg Q.5D Take 1 Methodi (PROGRAF) 1 07-20 capsule (1 s t MG capsule 00:00: 00:00 mg total) H ospita 00 :00 by mouth 2 l (two) times a day. pantoprazol 2021-07 No 40mg QD Take 1 Met hodi e 07-14 tablet (40 st (PROTONIX) 20:25: 00:00 mg total) H ospita 40 MG EC 07 :00 by mouth l tablet daily. pravastatin 2021-07 1 tablet M ethodi (PRAVACHOL) 07-14 Orally [...] nightly. Hospita tablet 17 :00 l pramipexole 2021-07 No 1 tablet M ethodi (MIRAPEX) 0-17 10-[address] 0.125 MG 12:20: 00:00 bedtime Hospi ta tablet 38 :00 Orally l Once a day pramipexole 2021-07 Yes 1 tablet Me thodi (MIRAPEX) 0-[address] 0.125 MG 00:00: bedtime Hospit a tablet 00 Orally l Once a dayStrengt h: 0.125 mg calcium Yes 1334mg Q.[id number] Take 2 Methodi acetate,alfredo 6-[id number] sphat bind, 00:00: 3D (1,334 mg H ospita (PHOSLO) 00 total) by l 667 mg mouth 3 capsule (three) times a day with meals. pantoprazol No 40mg QD Take 1 Met hodi e 12-18 tablet (40 st (PROTONIX) 00:00: 00:00 mg total) H ospita 40 MG EC 00 :00 by mouth l tablet daily. tacrolimus 2021- No [id number] .5mg QD Take 1 Methodi (PROGRAF) 12-[address] 0.5 MG 00:00: 00:00 (0.5 mg Hospita capsule 00 :00 total) by l mouth every evening for 30 days. tacrolimus 2021- No [id number] 1mg Q.5D Take 1 Methodi (PROGRAF) 1 [...] 00:00: mouth Hospita tablet 00 daily. l Erik Valencia Yes Clint 1 capsule Common Perles Perles 6 Arthur as needed Spiri t 00:00: - [facility] 00 [facility] Pipersalzenaida Oterosalon No 1{capsu TID Tessalon Perles 100 Perles 100 6-04 le_as_n Perles 100 MG MG 00:00: eeded} MG 00 Pravastatin Pravastatin Yes Clint 1 tablet Common Sodium Sodium Arthur [facility] CellCept CellCept Yes Clint not Commo n Arthur defined [facility] Montelukast Montelukast Yes Clint TAKE 1 Common Sodium Sodium Arthur TABLET BY Spiri t MOUTH - [facility] DAILY [facility] Flonase Flonase Yes Clint 1 spray in C ommon Arthur each [facility] nostril [facility] Protonix Protonix Yes Clint 1 tablet C ommon Arthur [facility] Prolia Prolia Yes Clint not Common Arthur defined [facility] Prograf Prograf Yes Clint not Common Arthur defined [facility] Lovaza Lovaza Yes Clint 2 capsules Com mon Arthur [facility] Singulair Singulair Yes Clint 1 tablet Common Arthur in the [facility] evening [facility] Pramipexole Pramipexole Yes Clint 1 tablet Common Dihydrochlo Dihydrochlo Arthur before Spirit ride ride bedtime [facility] Dilaudid Dilaudid Yes Clint 1 ml as Co mmon Arthur needed [facility] Gabapentin Gabapentin Yes Clint 1 capsule Common Arthur [facility] Flonase Flonase Yes Clint 2SPRAY(S) Co mmon Allergy Allergy Arthur INTRANASAL Sp alfredito Relief Relief LY ONCE A - CHI DAY FOR 30 DAYS [facility] Flonase Flonase No Flonase Allergy Allergy Allergy [...] Name Name PFIZER COVID-[address] [facility] PFIZER COVID-[address] [facility] PFIZER COVID-[address] [facility] Bebtelovimab Unknown Completed [facility] Remdesivir Unknown Completed [facility] Remdesivir Unknown Completed [facility] Remdesivir Unknown Completed [facility] Vital Signs Vital Name Observation Time Observation Value Comments Source Systolic blood 2023-03-04 16:19:13 134 mm[Hg] [facility] pressure Diastolic blood 2023-03-04 16:19:13 81 mm[Hg] [facility] pressure Heart rate 2023-03-04 16:19:13 95 /min [facility] Body temperature 2023-03-04 16:19:13 36.28 Jacqui [facility] Respiratory rate 2023-03-04 16:19:13 18 /min [facility] Oxygen saturation in 2023-03-04 16:19:13 96 /min [facility] Arterial blood by Pulse oximetry Body weight 2023-03-04 09:58:52 83.553 kg [facility] BMI 2023-03-04 09:58:52 25.69 kg/m2 [facility] Body height 2023-02-01 20:24:00 180.3 cm [facility] Procedures Procedure Date / Time Performing Source Performed Clinician ESTIMATED GFR 2023-04-17 [facility] Maliea BASIC METABOLIC PANEL 2023-04-10 [facility] 16:01:00 CBC WITH PLATELET AND 2023-04-10 [facility] DIFFERENTIAL 16:01:00 [id number] TACROLIMUS LEVEL, 2023-04-10 [facility] RANDOM 16:01:00 CYTOMEGALOVIRUS BY PCR 2023-04-10 [facility] 16:01:00 ESTIMATED GFR 2023-04-10 Yann Cle[facility] 05:06:00 Maliea ESTIMATED GFR 2023-04-03 Yann Cle[facility] 05:08:00 Maliea ESTIMATED GFR 2023-03-27 Yann Cle[facility] 05:07:00 Maliea ESTIMATED GFR 2023-03-20 [facility] 05:07[facility]00 Maliea ESTIMATED GFR 2023-03-13 [facility] 05:07:00 Maliea ESTIMATED GFR 2023-03-06 [facility] 05:08:00 Shana [id number] 2023-03-05 [facility] 00:00:00 [facility] [place] ANTI XA APIXABAN 2023-03-04 Yann Cleo [facility] keisha 18:08:00 Shana [place] MODIFIED BARIUM SWALLOW 2023-03-04 [facility] 16:53:13 [id number] TACROLIMUS LEVEL, 2023-03-04 [facility] TROUGH 11:02:00 Maliea CBC WITH PLATELET AND 2023-03-04 [facility] DIFFERENTIAL 11:02:00 COMPREHENSIVE METABOLIC 2023-03-04 [facility] PANEL 11:02:00 ESTIMATED GFR [facility] 11:[facility]00 MANUAL DIFFERENTIAL 2023-03-04 [facility] spital 11:02:00 ECG 12-LEAD 2023-03-04 Na, Darylricky [facility] al 04:26:07 HEMODIALYSIS 2023-03-03 Tracey [facility] 14:34:12 Aung CBC WITH PLATELET AND 2023-03-03 Amaris [facility] DIFFERENTIAL 09:44:00 Vincent BASIC METABOLIC PANEL [facility]03[facility] 09[facility]00 Vincent [id number] TACROLIMUS LEVEL, 2023-03-03 [facility] 09:44:00 Vincent MAGNESIUM LEVEL 2023-03-03 [facility] 09:44:00 Aung PHOSPHORUS LEVEL 2023-03-03 Will, Tracey [facility] 09:44:00 Aung ESTIMATED GFR 2023-03-03 Saran [facility] 09:44:00 Vincent MANUAL DIFFERENTIAL 2023-03-03 Amaris Saran [facility] 09:44:00 Vincent MAGNESIUM LEVEL 2023-03-02 Edmar Pérez Hospi keisha 09:36:00 CBC WITH PLATELET AND 2023-03-02 [facility] 09:36:00 COMPREHENSIVE METABOLIC 2023-03-02 Yuriy [facility] PANEL 09:36:00 [id number] TACROLIMUS LEVEL, 2023-03-02 Amaris [facility] Hospital RANDOM 09:36:00 Vincent PROTHROMBIN TIME WITH INR 2023-03-02 [facility] 09[facility]36:00 Vincent ESTIMATED GFR 2023-03-02 Saima [facility] 09:36:00 BILIRUBIN DIRECT 2023-03-02 Saran Glez [facility] keisha 09:36:00 Vincent MANUAL DIFFERENTIAL 2023-03-02 Saima [facility] 09:36:00 ULTRAFILTRATION 2023-03-01 Shayne Younger Hosp ital 21:01:18 MAGNESIUM LEVEL 2023-03-01 Edmar Pérez Hospi keisha 10:25:00 CBC WITH PLATELET AND 2023-03-01 [facility] 10:25:00 COMPREHENSIVE METABOLIC 2023-03-01 Arthur, [facility] PANEL 10:25:00 [id number] TACROLIMUS LEVEL, 2023-03-01 [facility] Hospital RANDOM 10:25:00 Vincent TOTAL IRON BINDING CAPACITY 2023-03-01 Saran Glez [facility] 10:25:00 Vincent FERRITIN LEVEL 2023-03-01 Amaris [facility] Hospit al 10:25:00 Vincent IMMUNOGLOBULIN G 2023-03-01 [facility] Hospi keisha 10:25:00 Vincent ESTIMATED GFR 2023-03-01 Yuriy [facility] al 10:25:00 BILIRUBIN DIRECT 2023-03-01 [facility] 10:25:00 Vincent XR CHEST 1 VW PORTABLE [facility]23-02-[facility] 20[facility]05:54 Vincent ECG 12-LEAD 2023-02-28 Amaris [facility] Hospit al 19:35:52 Vincent MAGNESIUM LEVEL 2023-02-28 Forest Pérezisal S. [facility] keisha 11:07:00 PHOSPHORUS LEVEL 2023-02-28 russell, Edmar [facility] 11:07:00 CBC WITH PLATELET AND 2023-02-28 [facility] 11:07:00 COMPREHENSIVE METABOLIC 2023-02-28 Yuriy [facility] PANEL 11:07:00 ESTIMATED GFR 2023-02-28 Yuriy [facility] Hospit al 11:07:00 [id number] TACROLIMUS LEVEL, 2023-02-28 Ovi [facility] RANDOM 11:07:00 MANUAL DIFFERENTIAL 2023-02-28 Yuriy [facility] spital 11:07:00 HEMODIALYSIS 2023-02-27 [facility] 15:04:27 Max LDH 2023-02-27 Valerio Rodriguez [facility] 13:56:00 [id number] TACROLIMUS LEVEL, 2023-02-27 Ovi Edy [facility] RANDOM 11:00:00 PROTHROMBIN TIME WITH INR 2023-02-27 Luis Huang [facility] 05:49:00 Douglas PARTIAL THROMBOPLASTIN TIME 2023-02-27 Luis Huang [facility] (PTT) 05:49:00 Douglas ANTI XA APIXABAN 2023-02-27 Luis Huang Ho spital 05:49:00 Douglas CBC WITH PLATELET AND 2023-02-27 [facility] DI[facility] 05:48:00 COMPREHENSIVE METABOLIC 2023-02-27 [facility] Hospital PANEL 05:48:00 MAGNESIUM LEVEL 2023-02-27 [facility] keisha 05:48:00 PHOSPHORUS LEVEL 2023-02-27 [facility] Hosp ital 05:48:00 ESTIMATED GFR 2023-02-27 Saima [facility] 05:48:00 IONIZED CALCIUM 2023-02-27 [facility] 05:48:00 Douglas ESTIMATED GFR 2023-02-27 Cleo Lerner [facility] 05:08:00 Maliea POC GLUCOSE 2023-02-27 Isac Arthurchita [facility] 02:18:00 POC GLUCOSE 2023-02-26 Yuriy [facility] 22:02:00 HEMODIALYSIS 2023-02-26 Ward Ochoa [facility] 15:33:26 Max US THORACENTESIS WITH 2023-02-26 [facility] IMAGING 15:26:46 XR CHEST 1 VW PORTABLE 2023-02-26 [facility] 15:23:39 AEROBIC CULTURE 2023-02-26 [facility] Hospit al 14:57:00 ANAEROBIC CULTURE 2023-02-26 [facility] ital 14:57:00 GRAM STAIN 2023-02-26 Saima Arthur [facility] 14:57:00 GLUCOSE LEVEL, [facility] 2023-02-26 [facility] 14:57:00 ALBUMIN, MISC FLUID 2023-02-26 [facility] spital 14:57:00 LDH, MISC FLUID 2023-02-26 Bhachawat, Valerio [facility] 14:57:00 CELL COUNT AND 2023-02-26 [facility] DIFFERENTIAL, BODY FLUID 14:57:00 PROTEIN, MISC FLUID 2023-02-26 [facility] 14:57:00 TRIGLYCERIDES, MISC FLUID 2023-02-26 [facility] 14:57:00 PH, MISC FLUID 2023-02-26 [facility] 14:57:00 CYTOLOGY 2023-02-26 [facility] (NON-GYNECOLOGICAL) REQUEST 14:57:00 PARTIAL THROMBOPLASTIN TIME 2023-02-26 Edmar wells [facility] (PTT) 10:37:00 [id number] TACROLIMUS LEVEL, 2023-02-[address] [facility] RANDOM 10:37:00 PROTHROMBIN TIME WITH INR 2023-02-26 [facility] 06:22:00 CBC WITH PLATELET AND 2023-02-26 [facility] DIFFERENTIAL 06:22:00 COMPREHENSIVE METABOLIC 2023-02-26 [facility] Edmar [facility] Hospital PANEL 06:22:00 MAGNESIUM LEVEL 2023-02-26 [facility] Edmar [facility] keisha 06:22:00 PHOSPHORUS LEVEL 2023-02-26 [facility] 06:22:00 ESTIMATED GFR 2023-02-26 Isac [facility] 06:22:00 IONIZED CALCIUM 2023-02-26 [facility] 06:22:00 POC GLUCOSE 2023-02-26 Y[facility]y [facility] 02:06:00 ENTERIC BACTERIAL PANEL 2023-02-25 Yuriy [facility] 22:26:00 ENTERIC VIRAL PANEL 2023-02-25 [facility] 22:26:00 POC GLUCOSE 2023-02-25 Arthur, [facility] 22:14:00 TRANSFUSE RED BLOOD CELLS 2023-02-25 [facility] 21:58:00 TYPE AND SCREEN 2023-02-25 [facility] Hospit al 17:59:00 FIBRINOGEN 2023-02-25 Edmar Pérez [facility] keisha 17:59:00 PREPARE RBC 2023-02-25 [facility] 17:59:00 POC GLUCOSE 2023-02-25 [facility] 17:17:00 HEMOGLOBIN & HEMATOCRIT 2023-02-25 [facility] 13:24:00 VITAMIN B12 LEVEL 2023-02-25 [facility] Hosp ital 13:24:00 FOLATE LEVEL 2023-02-25 [facility] 13:24:00 XR CHEST 1 VW PORTABLE 2023-02-25 [facility] 12:08:06 [id number] TACROLIMUS LEVEL, 2023-02-25 [facility] RANDOM 10:37:00 CBC WITH PLATELET AND 2023-02-25 [facility] DIFFERENTIAL 07:21:00 PHOSPHORUS LEVEL 2023-02-25 [facility] 07:21:00 IONIZED CALCIUM 2023-02-25 [facility] 07:21:00 SMEAR REVIEW 2023-02-25 Arthur, [facility] ri 07:21:00 MAGNESIUM LEVEL 2023-02-25 Edmar Pérez SMimi [facility] keisha 07:21:00 COMPREHENSIVE METABOLIC 2023-02-25 Edmar wells [facility] PANEL 07:21:00 ESTIMATED GFR 2023-02-25 Edmar Pérez SMimi [facility] keisha 07:21:00 ESTIMATED GFR 2023-02-25 Yuriy [facility] 06:12:00 CLOSTRIDIUM DIFFICILE TOXIN 2023-02-25 [facility] GENE (QUALITATIVE REAL-TIME 01:57:00 PCR) MAGNESIUM LEVEL 2023-02-24 Edmar Pérez SM[facility] keisha 23:40:00 PHOSPHORUS LEVEL 2023-02-24 Edmar wells [facility] ital 23:40:00 POTASSIUM LEVEL 2023-02-24 Edmar Pérez Hospi keisha 23:40:00 IONIZED CALCIUM 2023-02-24 Edmar Pérez [facility] keisha 23:40:00 US CHEST 2023-02-24 [facility], [facility] 23:00:00 TTE LIMITED W AGITATED 2023-02-24 [facility] SALINE WO CONT W DOP 21:21:00 CT ABDOMEN PELVIS W 2023-02-24 Kristajaalfred, Tiffany [facility] spital CONTRAST 21:10:27 INFLUENZA ANTIGEN TEST, 2023-02-24 [facility] REFLEX NEGATIVE TO RPP 15:56:00 RESPIRATORY PATHOGEN PANEL 2023-02-24 [facility] WITH COVID-19 RT-PCR 15:56:00 METHICILLIN-RESISTANT 2023-02-24 [facility] STAPHYLOCOCCUS AUREUS 15:55:00 (MRSA), IRINEO HEMODIALYSIS CATHETER 2023-02-24 [facility] PLACEMENT 14:13:06 HEMODIALYSIS CATHETER 2023-02-24 [facility] PLACEMENT 14:09:55 HEMODIALYSIS CATHETER 2023-02-24 [facility] PLACEMENT 14:05:45 BUN LEVEL 2023-02-24 Ward Ochoa Hospit al 13:56:00 Max CREATININE LEVEL 2023-02-24 Ward Ochoa Hospi keisha 13:56:00 Max CALCIUM LEVEL 2023-02-24 Ward Ochoa Hospit al 13:56:00 Max IONIZED CALCIUM 2023-02-24 Ward Ochoa Hospit al 13:56:00 Max MAGNESIUM LEVEL 2023-02-24 Ward Ochoa Hospit al 13:56:00 Max PHOSPHORUS LEVEL 2023-02-24 Ward Ochoa Hos[facility] keisha 13:56:00 Max SODIUM LEVEL 2023-02-24 Ward Ochoa Hospit al 13:56:00 Max POTASSIUM LEVEL 2023-02-24 Ward Ochoa Hospit al 13:56:00 Max PARTIAL THROMBOPLASTIN TIME 2023-02-24 [facility] (PTT) 13:56:00 Max HEMOGLOBIN & HEMATOCRIT 2023-02-24 [facility] 13:56:00 Max PLATELET COUNT 2023-02-24 Don Wardsiobhan [facility] Hospit al 13:56:00 Max IMMUNOGLOBULIN G 2023-02-24 Aijaz, Tiffany [facility] keisha 13:56:00 ESTIMATED GFR 2023-02-24 Don Wardsiobhan Steveist Hospit al 13:56:00 Max POC GLUCOSE 2023-02-24 [facility] 12:43:00 AK ARTL CATHJ/CANNULJ 2023-02-24 [facility] MNTR/TRANSFUSION SPX PRQ 10:42:26 POC GLUCOSE 2023-02-24 [facility] 10:07:00 BLOOD CULTURE, AEROBIC & 2023-02-24 [facility] ANAEROBIC 07:09:00 CYTOMEGALOVIRUS BY PCR 2023-02-24 [facility] 07:06:00 [facility] ARTERIAL BLOOD GAS 2023-02-24 [facility] pital 07:05:00 LACTIC ACID LEVEL, SEPSIS - 2023-02-24 [facility] NOW AND REPEAT 2X EVERY 3 07:04:00 HOURS BUN LEVEL 2023-02-24 Don Wardsiobhan Steveist Hospit al 07:03:00 Max CREATININE LEVEL 2023-02-24 Don Wardsiobhan [facility] keisha 07:03:00 Max CALCIUM LEVEL 2023-02-24 Don Wardsiobhan Steve[facility] Hospit al 07:03:00 Max IONIZED CALCIUM 2023-02-24 Don Wardsiobhan Steveist Hospit al 07:03:00 Max MAGNESIUM LEVEL 2023-02-24 Don Wardsiobhan [facility] al 07:03:00 Max PHOSPHORUS LEVEL 2023-02-24 Don Wardsiobhan [facility] keisha 07:03:00 Max SODIUM LEVEL 2023-02-24 Don Wardsiobhan [facility] al 07:03:00 Max POTASSIUM LEVEL 2023-02-24 [facility] 07:03:00 Max PARTIAL THROMBOPLASTIN TIME 2023-02-24 [facility] (PTT) 07:03:00 Max ESTIMATED GFR 2023-02-24 [facility] 07[facility]03[facility]00 Max CORTISOL LEVEL, AM 2023-02-[address] [facility] 07:03:00 Max CBC WITH PLATELET AND 2023-02-24 [facility] DIFFERENTIAL 07:01:00 VANCOMYCIN LEVEL, RANDOM 2023-02-24 [facility] 07:00:00 ESTIMATED GFR 2023-02-24 [facility] 06:30:00 POC GLUCOSE 2023-02-24 [facility] 05:05:00 CT CHEST WO CONTRAST 2023-02-24 [facility]sp[facility] 03:23:45 CT HEAD WO CONTRAST 2023-02-24 [facility] spital 03:23:25 BLOOD CULTURE, AEROBIC & 2023-02-24 [facility] ANAEROBIC 02:51:00 POC GLUCOSE 2023-02-24 [facility] al 02:27:00 THYROID STIMULATING HORMONE 2023-02-24 [facility] 00:08:00 T4, FREE 2023-02-24 [facility] 00:08:00 PARATHYROID HORMONE 2023-02-24 [facility] Ho spital 00:08:00 PROTHROMBIN TIME WITH INR 2023-02-24 [facility] 00:08:00 LACTIC ACID LEVEL, SEPSIS - 2023-02-24 [facility] NOW AND REPEAT 2X EVERY 3 00:08:00 HOURS ANTI XA APIXABAN 2023-02-24 [facility] 00:08:00 CRYPTOCOCCAL ANTIGEN SCREEN 2023-02-23 Severo Robertson [facility] 21:50:00 PROCALCITONIN 2023-02-23 Bhachawat, Valerio [facility] 21:50:00 CBC WITH PLATELET AND 2023-02-23 [facility] DIFFERENTIAL 21:50:00 PROTHROMBIN TIME WITH INR 2023-02-23 [facility] 21:50:00 PARTIAL THROMBOPLASTIN TIME 2023-02-23 [facility] (PTT) 21:50:00 LACTIC ACID LEVEL, SEPSIS - 2023-02-23 [facility] NOW AND REPEAT 2X EVERY 3 21:50:00 HOURS CORTISOL LEVEL, RANDOM 2023-02-23 [facility] 21:50:00 COMPREHENSIVE METABOLIC 2023-02-23 [facility] PANEL 21:50:00 ESTIMATED GFR 2023-02-23 Saima Arthur Hospit al 21:50:00 ANTI XA APIXABAN 2023-02-23 ArthurIsac jaureguiSaimabenita [facility] keisha 21:50:00 SMEAR REVIEW 2023-02-23 Saima [facility] Hospit al 21:50:00 ECG 12-LEAD 2023-02-23 Renetta [facility] Hospit al 21:29:57 Rupert POC GLUCOSE 2023-02-23 Saima Arthur Hospit al 21:18:00 ESTIMATED GFR 2023-02-23 Saima [...] Hospi keisha 19:26:00 Max SODIUM LEVEL 2023-02-23 [facility]00 Max POTASSIUM LEVEL 2023-02-23 [facility] 19:26:00 Max ESTIMATED GFR 2023-02-23 [facility] 19:26:00 Max PARTIAL THROMBOPLASTIN TIME 2023-02-23 [facility] (PTT) 19:25:00 Max HEMOGLOBIN & HEMATOCRIT 2023-02-23 [facility] 19:25:00 Max PLATELET COUNT 2023-02-23 [facility] 19:25:00 Max ARTERIAL BLOOD GAS 2023-02-23 [facility] 19:11:00 POC GLUCOSE 2023-02-23 [facility]Is[facility]SaimaUT [facility] al 18:16:00 COVID-19 QUALITATIVE RT-PCR 2023-02-23 [facility] 16:43:00 LACTIC ACID LEVEL 2023-02-23 [facility] 16:37:00 PROCALCITONIN 2023-02-23 Isac [facility]UT [facility] al 16:37:00 SEDIMENTATION RATE 2023-02-23 Arthur, [facility] pital 16:37:00 C-REACTIVE PROTEIN 2023-02-23 Arthur, [facility] pital 16:37:00 XR CHEST 1 VW PORTABLE 2023-02-[address] [facility] 13:55:00 CBC WITH PLATELET AND 2023-02-23 [facility] DIFFERENTIAL 08:50:00 Blanca COMPREHENSIVE METABOLIC 2023-02-23 [facility] PANEL 08:50:00 Blanca [id number] TACROLIMUS LEVEL, 2023-02-23 [facility] RANDOM 08:50:00 Blanca MAGNESIUM LEVEL 2023-02-23 [facility] 08:50:00 Blanca ESTIMATED GFR 2023-02-23 [facility] 08:50:00 Blanca ECG 12-LEAD 2023-02-23 Paige Mar [facility] 02:41:53 Karim SPUTUM CULTURE 2023-02-22 [facility] al 22:25:00 GRAM STAIN 2023-02-22 [facility] 22:25:00 CBC WITH PLATELET AND 2023-02-22 [facility] DIFFERENTIAL 10:19:00 Blanca COMPREHENSIVE METABOLIC 2023-02-22 [facility] PANEL 10:19:00 Blanca [id number] TACROLIMUS LEVEL, 2023-02-22 [facility] RANDOM 10:19:00 Blanca MAGNESIUM LEVEL 2023-02-22 [facility] 10:19:00 Blanca ESTIMATED GFR 2023-02-22 [facility] 10:19:00 Blanca RESPIRATORY PATHOGEN PANEL 2023-02-21 [facility] WITH COVID-19 RT-PCR 22:24:00 XR CHEST 1 VW PORTABLE 2023-02-21 [facility] 18:56:57 HEMODIALYSIS 2023-02-21 Ward Ochoa [facility] 13:53:20 Max CBC WITH PLATELET AND 2023-02-21 [facility] DIFFERENTIAL 09:50:00 Blanca COMPREHENSIVE METABOLIC 2023-02-21 [facility] PANEL 09:50:00 Blanca [id number] TACROLIMUS LEVEL, 2023-02-21 [facility] RANDOM 09:50:00 Blanca MAGNESIUM LEVEL 2023-02-21 [facility] 09:50:00 Blanca ESTIMATED GFR 2023-02-21 [facility] 09:50:00 Blanca DONOR SPECIFIC ANTIBODY 2023-02-21 [facility] 09:50:00 Blanca CBC WITH PLATELET AND 2023-02-20 [facility] DIFFERENTIAL 10:16:00 COMPREHENSIVE METABOLIC 2023-02-20 [facility] PANEL 10:16:00 [id number] TACROLIMUS LEVEL, 2023-02-20 Reji [facility]ia [facility] RANDOM 10:16:00 Tradell ESTIMATED GFR 2023-02-20 Arthur, Saima [facility] 10:16:00 ESTIMATED GFR 2023-02-20 Yann Cleo [facility] 05:07:00 Maliea HEPATITIS B SURFACE ANTIGEN 2023-02-19 [facility] 14:23:00 Max URINE CULTURE 2023-02-19 [facility] Hospit al 13:45:00 Tradell URINALYSIS SCREEN AND 2023-02-19 [facility] MICROSCOPY, WITH REFLEX TO 11:18:00 Tradell CULTURE CBC WITH PLATELET AND 2023-02-19 [facility] 11:16:00 COMPREHENSIVE METABOLIC 2023-02-19 [facility] PANEL 11:16:00 MAGNESIUM LEVEL 2023-02-19 Lu Alegria Ho spital 11:16:00 PHOSPHORUS LEVEL 2023-02-19 Lu Alegria H ospital 11:16:00 ESTIMATED GFR 2023-02-19 Zita Arthurta [facility] 11:16:00 POC GLUCOSE 2023-02-19 Yuriy, Saima [facility] 01:42:00 BLOOD CULTURE, AEROBIC & 2023-02-18 [facility] ANAEROBIC 23:32:00 Tradell POC GLUCOSE 2023-02-18 Yuriy, Saima [facility] 21:40:00 US CHEST 2023-02-18 Arthur, Saima [facility] 21:15:[address]IS 2023-02-[address] [facility] Hospit al 20:24:00 Max POC GLUCOSE 2023-02-18 Arthur, Saima [facility] 16:57:00 POC GLUCOSE 2023-02-18 Arthur, Saima [facility] 12:52:00 TTE COMPLETE, WO CONTRAST, 2023-02-18 Sera [facility] W DOPPLER ([id number]) 12:00:00 Kemble CBC WITH PLATELET AND 2023-02-18 [facility] DIFFERENTIAL 10:14:00 COMPREHENSIVE METABOLIC 2023-02-18 [facility] PANEL 10:14:00 [id number] TACROLIMUS LEVEL, 2023-02-18 [facility] TROUGH 10:14:00 Kemble ESTIMATED GFR 2023-02-18 Saima [facility]ist Hospit al 10:14:00 MAGNESIUM LEVEL 2023-02-18 Yuriy [facility] 10:14:00 XR CHEST 1 VW PORTABLE 2023-02-17 [facility] 22:58:00 Kemble CBC WITH PLATELET AND 2023-02-17 [facility] DIFFERENTIAL 19:05:00 Rupert COMPREHENSIVE METABOLIC 2023-02-17 [facility] PANEL 19:05:00 Rupert PHOSPHORUS LEVEL 2023-02-17 Arthur, [facility] keisha 19:05:00 Rupert MAGNESIUM LEVEL 2023-02-17 Arthur, [facility] 19:05:00 Rupert LACTIC ACID LEVEL, SEPSIS - 2023-02-17 [facility] NOW AND REPEAT 2X EVERY 3 19:05:00 Rupert HOURS ESTIMATED GFR 2023-02-17 [facility] 19:05:00 Rupert AK CRITICAL CARE 2023-02-17 Yuriy [facility]INJURED PATIENT INIT 17:41:41 Rupert 30-74 MIN ECG ED PRELIMINARY 2023-02-17 Renetta [facility] INTERPRETATION 17:41:41 Rupert ECG 12-LEAD 2023-02-17 [facility] 16:34:56 Rupert ESTIMATED GFR 2023-02-13 Cleo Lernerist Hospit al 05:06:00 Maliea POC GLUCOSE 2023-02-12 Saima [facility] Hospit al 17:45:00 POC GLUCOSE 2023-02-12 Isac Arthurchita [facility] 12:39:00 CBC WITH PLATELET AND 2023-02-12 [facility] 10:06:00 COMPREHENSIVE METABOLIC 2023-02-12 [facility] PANEL 10:06:00 PROTHROMBIN TIME WITH INR 2023-02-12 [facility] 10:06:00 ESTIMATED GFR 2023-02-12 [facility] 10:06:00 [id number] TACROLIMUS LEVEL, 2023-02-12 [facility] RANDOM 10:05:00 POC GLUCOSE 2023[facility]02[facility]12 [facility] 02:47:00 HEMODIALYSIS 2023-02-11 Tracey [facility]ist [facility] pital 23:15:41 Aung POC GLUCOSE 2023-02-11 [facility] 22:49:00 POC GLUCOSE 2023-02-11 [facility] 17:21:00 US ABDOMINAL DOPPLER 2023-02-11 [facility] ospital 14:35:45 US ABDOMINAL WITH LIVER 2023-02-11 [facility] 14:35:25 POC GLUCOSE 2023-02-11 [facility] 13:20:00 CBC WITH PLATELET AND 2023-02-11 [facility] DIFFERENTIAL 10:10:00 COMPREHENSIVE METABOLIC 2023-02-11 [facility] PANEL 10:10:00 PROTHROMBIN TIME WITH INR 2023-02-11 [facility] 10:10:00 ESTIMATED GFR 2023-02-11 [facility] 10:10:00 [id number] TACROLIMUS LEVEL, 2023-02-11 [facility] RANDOM 10:10:00 POC GLUCOSE 2023-02-11 [facility] 02:19:00 POC GLUCOSE 2023-02-10 [facility] 23:02:00 ANTINUCLEAR ANTIBODIES 2023-02-10 [facility] (BRYANT) WITH REFLEX TO TITER 20:45:00 AND PATTERN, IMMUNOFLUORESCENCE IMMUNOGLOBULIN A 2023-[facility]-10 [facility] 20:45:00 HEPATITIS B CORE ANTIBODY 2023-02-10 [facility] TOTAL 20:45:00 ALPHA-1 ANTITRYPSIN 2023-02-10 [facility] spital PHENOTYPE 20:45:00 ALPHA-1 ANTITRYPSIN LEVEL 2023-02-10 [facility] 20:45:00 ALPHA FETOPROTEIN 2023-02-10 [facility] ital 20:45:00 CARCINOEMBRYONIC ANTIGEN 2023-02-10 [facility] (CEA) 20:45:00 CANCER ANTIGEN 19-9 2023-02-10 [facility] spital 20:45:00 SMOOTH MUSCLE ANTIBODIES 2023-02-10 [facility] WITH REFLEX TO TITER, IFA 20:45:00 HEMOCHROMATOSIS (HFE) 3 2023-02-10 [facility] MUTATIONS 20:45:00 ACUTE VIRAL HEPATITIS PANEL 2023-02-10 [facility] (HAV, HBV, HCV) 20:45:00 DOUBLE-STRANDED DNA (DSDNA) 2023-02-10 [facility] ANTIBODIES, CRITHIDIA 20:45:00 SMOOTH MUSCLE ANTIBODIES 2023-02-10 [facility] TITER 20:45:00 POC GLUCOSE 2023-02-10 [facility] 17:22:00 HEPATIC FUNCTION PANEL 2023-02-10 [facility] 15:21:00 PROTHROMBIN TIME WITH INR 2023-02-10 [facility] 15:21:00 POC GLUCOSE 2023-02-10 [facility] 13:10:00 CBC WITH PLATELET AND 2023-02-10 [facility] DIFFERENTIAL 10:20:00 Check BASIC METABOLIC PANEL 2023-02-10 [facility] 10:20:00 Vincent [id number] TACROLIMUS LEVEL, 2023-02-10 [facility] RANDOM 10:20:00 Vincent ESTIMATED GFR 2023-02-10 [facility] 10:20:00 Vincent POC GLUCOSE 2023-02-10 [facility] 02:01:00 HEMODIALYSIS 2023-02-09 Tracey [facility] 22:56:13 Aung POC GLUCOSE 2023-02-09 Arthur, [facility] 22:55:00 POC GLUCOSE 2023-02-09 Arthur, [facility] 17:09:00 POC GLUCOSE 2023-02-09 Arthur, [facility] 13:03:00 CBC WITH PLATELET AND 2023-02-09 [facility] DIFFERENTIAL 09:45:00 Vincent BASIC METABOLIC PANEL 2023-02-09 [facility] 09:45:00 Vincent [id number] TACROLIMUS LEVEL, 2023-02-09 [facility] RANDOM 09:45:00 Vincent ESTIMATED GFR 2023-02-09 [facility] 09:45:00 Vincent POC GLUCOSE 2023-02-09 [facility] 02:16:00 POC GLUCOSE 2023-02-08 [facility] 23:06:00 POC GLUCOSE 2023-02-08 [facility] 17:55:00 POC GLUCOSE 2023-02-08 Arthur, [facility] 12:58:00 CBC WITH PLATELET AND 2023-02-08 [facility] DIFFERENTIAL 09:59:00 Vincent BASIC METABOLIC PANEL 2023-02-08 [facility] 09:59:00 Vincent [id number] TACROLIMUS LEVEL, 2023-02-08 [facility] RANDOM 09:59:00 Vincent TOTAL IRON BINDING CAPACITY 2023-02-08 [facility] 09:59:00 Vincent FERRITIN LEVEL 2023-02-08 [facility] 09:59:00 Vincent ESTIMATED GFR 2023-02-08 [facility] al 09:59:00 Vincent POC GLUCOSE 2023-02-08 [facility] 02:43:00 POC GLUCOSE 2023-02-07 [facility] Hospit al 23:28:00 HEMODIALYSIS 2023-02-07 Shanye Younger [facility] ital 19:07:47 XR CHEST 1 VW PORTABLE 2023-02-07 [facility] 18:47:57 Vincent POC GLUCOSE 2023-02-07 Arthur, [facility] 17:45:00 POC GLUCOSE 2023-02-07 Arthur, [facility] 13:05:00 BASIC METABOLIC PANEL 2023-02-07 [facility] 10:15:00 CBC WITH PLATELET AND 2023-02-07 [facility] DIFFERENTIAL 10:15:00 [id number] TACROLIMUS LEVEL, 2023-02-07 [facility] RANDOM 10:15:00 ESTIMATED GFR 2023-02-07 Arthur, [facility] 10:15:00 MANUAL DIFFERENTIAL 2023-02-07 Arthur, [facility] 10:15:00 POC GLUCOSE 2023-02-07 [facility] 02:49:00 POC GLUCOSE 2023-02-06 [facility], [facility] 22:51:00 POC GLUCOSE 2023-02-06 [facility], [facility] 17:41:00 POC GLUCOSE 2023-02-06 Arthur, [facility] 12:50:00 BASIC METABOLIC PANEL 2023-02-06 [facility] 10:45:00 CBC WITH PLATELET AND 2023-02-06 [facility] DIFFERENTIAL 10:45:00 [id number] TACROLIMUS LEVEL, 2023-02-06 [facility], [facility] RANDOM 10:45:00 ESTIMATED GFR 2023-02-06 Arthur, [facility] 10:45:00 MANUAL DIFFERENTIAL 2023-02-06 Arthur, [facility] 10:45:00 POC GLUCOSE 2023-02-06 Arthur, [facility] 01:54:00 POC GLUCOSE 2023-02-05 Arthur, [facility] 23:08:00 POC GLUCOSE 2023-02-05 Arthur, [facility] 17:48:00 POC GLUCOSE 2023-02-05 Arthur, [facility] 13:15:00 COMPREHENSIVE METABOLIC 2023-02-05 [facility] PANEL 10:09:00 CBC WITH PLATELET AND 2023-02-05 [facility] DIFFERENTIAL 10:09:00 ESTIMATED GFR 2023-02-05 Arthur, [facility] 10:09:00 MANUAL DIFFERENTIAL 2023-02-05 Arthur, [facility] spital 10:09:00 POC GLUCOSE 2023-02-05 [facility] 02:13:00 POC GLUCOSE 2023-02-04 [facility] 23:35:00 COVID-19, INFLUENZA A&B, 2023-02-04 [facility] AND RSV QUALITATIVE RT-PCR 18:42:00 POC GLUCOSE 2023-02-04 [facility] 17:26:00 HEMODIALYSIS 2023-02-04 [facility] 17:03:08 Aung POC GLUCOSE 2023-02-04 [facility] 13:19:00 COMPREHENSIVE METABOLIC 2023-02-04 [facility] PANEL 11:05:00 CBC WITH PLATELET AND 2023-02-04 [facility] DIFFERENTIAL 11:05:00 ESTIMATED GFR 2023-02-04 [facility] 11:05:00 [id number] TACROLIMUS LEVEL, 2023-02-04 [facility] TROUGH 11:05:00 MANUAL DIFFERENTIAL 2023-02-04 Arthur [facility] 11:05:00 POC GLUCOSE 2023-02-04 [facility] 03:08:00 POC GLUCOSE 2023-02-03 [facility] 23:00:00 POC GLUCOSE 2023-02-03 Arthur, [facility] 17:47:00 POC GLUCOSE 2023-02-03 [facility] 13:05:00 COMPREHENSIVE METABOLIC 2023-02-03 [facility] PANEL 10:29:00 CBC WITH PLATELET AND 2023-02-03 [facility] DIFFERENTIAL 10:29:00 ESTIMATED GFR 2023-02-03 Arthur, [facility] 10[facility]29:00 [id number] TACROLIMUS LEVEL, 2023-02-03 [facility] TROUGH 10:29:00 MANUAL DIFFERENTIAL 2023-02-03 Arthur [facility] spital 10:29:00 POC GLUCOSE 2023-02-03 Arthur, [facility] 02:02:00 HEMODIALYSIS 2023-02-03 Tracey Solis [facility] 01:08:34 Aung POC GLUCOSE 2023-02-02 Arthur, [facility] 23:13:00 POC GLUCOSE 2023-02-02 [facility], [facility] 17:28:00 POC GLUCOSE 2023-02-02 Arthur, [facility] 13:10:00 [id number] TACROLIMUS LEVEL, 2023-02-02 [facility] TROUGH 10:36:00 Blanca BASIC METABOLIC PANEL 2023-02-02 [facility] 10:30:00 MAGNESIUM LEVEL 2023-02-02 [facility] 10:30:00 PHOSPHORUS LEVEL 2023-02-02 Arthur, [facility] ke[facility] 10:30:00 CBC HEMOGRAM 2023-02-02 [facility] 10:30:00 ESTIMATED GFR 2023-02-02 Arthur, [facility] 10:30:00 POC GLUCOSE 2023-02-02 Arthur, [facility] 03:06:00 POC GLUCOSE 2023-02-01 Arthur, [facility] 23:09:00 POC GLUCOSE 2023-02-01 Arthur [facility] 16:53:00 POC GLUCOSE 2023-02-01 Arthur [facility] 12:50:00 [id number] TACROLIMUS LEVEL, 2023-02-01 [facility] TROUGH 10:46:00 Blanca XR CHEST 1 VW PORTABLE 2023-02-01 [facility] 09:38:09 Devante BASIC METABOLIC PANEL 2023-02-01 [facility] 06:03:00 Devante CBC WITH PLATELET AND 2023-02-01 [facility] DIFFERENTIAL 06:03:00 Devante MAGNESIUM LEVEL 2023-02-01 [facility] 06:03:00 Devante PHOSPHORUS LEVEL 2023-02-01 [facility] keisha 06:03:00 Devante ESTIMATED GFR 2023-02-01 [facility] 06:03:00 Devante POC GLUCOSE 2023-02-01 [facility] 01:06:00 POC GLUCOSE 2023-01-31 [facility] 21:30:00 POC GLUCOSE 2023-01-31 [facility] 17:16:00 POC GLUCOSE 2023-01-31 [facility] 12:55:00 XR CHEST 1 VW PORTABLE 2023-01-31 [facility] 11:02:22 Devante [id number] TACROLIMUS LEVEL, 2023-01-31 [facility] 10:37:00 Blanca ECG 12-LEAD 2023-01-31 Driss [facility] 06:25:23 COMPREHENSIVE METABOLIC 2023-01-31 [facility] PANEL 05:45:00 MAGNESIUM LEVEL 2023-01-31 Arthur, [facility] 05:45:00 PHOSPHORUS LEVEL 2023-01-31 [facility] keisha 05:45:00 CBC WITH PLATELET AND 2023-01-31 [facility] DIFFERENTIAL 05:45:00 ESTIMATED GFR 2023-01-31 Arthur, [facility] 05:45:00 IONIZED CALCIUM 2023-01-31 [facility] 05:45:00 POC GLUCOSE 2023-01-31 [facility] 05:39:00 ESTIMATED GFR 2023-01-31 [facility] 05:12:00 Alyssa POC GLUCOSE 2023-01-31 Isac Arthurchita [facility] 01:36:00 POC GLUCOSE 2023-01-30 Isac Ar[facility]urch[facility] 22:30:00 MAGNESIUM LEVEL 2023-01-30 Isac Ar[facility]urch[facility] 18:45:00 PHOSPHORUS LEVEL 2023-01-30 Isac Arthurchita [facility] keisha 18:45:00 BASIC METABOLIC PANEL 2023-01-30 Arthur, [facility] 18:45:00 ESTIMATED GFR 2023-01-30 Isac Arthurchita [facility] 18:45:00 ESTIMATED GFR 2023-01-30 Isac [facility]urch[facility] 17:16:00 POC GLUCOSE 2023-01-30 Isac Ar[facility]urch[facility] 16:51:00 HEMODIALYSIS 2023-01-30 [facility] 15:43:28 Max ULTRAFILTRATION 2023-01-30 Ward [facility] 15:43:27 Max POC GLUCOSE 2023-01-30 Yuriy [facility] 13:14:00 [id number] TACROLIMUS LEVEL, 2023-01-30 [place] [facility] TROUGH 10:45:00 Blanca IONIZED CALCIUM 2023-01-30 Isac Arthurchita [facility] 10:45:00 POC GLUCOSE 2023-01-30 Arthur, [facility] 10:23:00 ECG 12-LEAD 2023-01-30 Dr[facility] 09:12:03 POC GLUCOSE 2023-01-30 ArthurIsac jaureguiSaima [facility] 05:30:00 CBC WITH PLATELET AND 2023-01-30 Gillian Snowden [facility] DIFFERENTIAL 05:21:00 Alyssa COMPREHENSIVE METABOLIC 2023-01-30 Gillian Snowden [facility] PANEL 05:21:00 Alyssa MAGNESIUM LEVEL 2023-01-30 [facility] 05:21:00 Alyssa PHOSPHORUS LEVEL 2023-01-30 [facility]ian [facility] 05:21:00 Alyssa ESTIMATED GFR 2023-01-30 IsiGillian alcantar [facility] 05:21:00 Alyssa TYPE AND SCREEN 2023-01-30 Saima [facility] 05:20:00 CBC WITH PLATELET AND 2023-01-30 [facility] 04:13:00 Alyssa POC GLUCOSE 2023-01-30 Saima [facility] 01:30:00 POC GLUCOSE 2023-01-29 Zita Arthurta [facility] 22:47:00 MAGNESIUM LEVEL 2023-01-29 Lolita Ochoaan [facility] 21:15:00 Max POTASSIUM LEVEL 2023-01-29 Don Ward [facility] 21:15:00 Max PHOSPHORUS LEVEL 2023-01-29 Ward Ochoa [facility] keisha 21:15:00 Max IONIZED CALCIUM 2023-01-29 Ward Ochoa [facility] 21:15:00 Max POC GLUCOSE 2023-01-29 Zita Arthur[facility] 17:24:00 BUN LEVEL 2023-01-29 Driss [facility] 13:53:00 CREATININE LEVEL 2023-01-29 [facility] 13:53:00 CALCIUM LEVEL 2023-01-29 Driss [facility] 13:53:00 IONIZED CALCIUM 2023-01-29 Driss [facility] 13:53:00 MAGNESIUM LEVEL 2023-01-29 Driss [facility] 13:53:00 PHOSPHORUS LEVEL 2023-01-29 Driss [facility] 13:53:00 POTASSIUM LEVEL 2023-01-29 Driss [facility] 13:53:00 SODIUM LEVEL 2023-01-29 Driss [facility] 13:53:00 PARTIAL THROMBOPLASTIN TIME 2023-01-29 Driss Tam [facility] (PTT) 13:53:00 HEMOGLOBIN & HEMATOCRIT 2023-01-29 Driss Tam [facility] 13:53:00 PLATELET COUNT 2023-01-29 Driss [facility] 13:53:00 ESTIMATED GFR 2023-01-29 Driss Tam [facility] 13:53:00 POC GLUCOSE 2023-01-29 Saima [facility] 13:26:00 POC GLUCOSE 2023-01-29 Zita Arthurta [facility] 11:06:00 XR CHEST 1 VW PORTABLE 2023-01-29 [facility] 11:04:31 Alyssa [id number] TACROLIMUS LEVEL, 2023-01-29 [facility] TROUGH 10:33:00 Blanca POC GLUCOSE 2023-01-29 Saima [facility] 09:25:00 POC GLUCOSE 2023-01-29 Saima Arthur [facility] 07:32:00 ECG 12-LEAD 2023-01-29 Yonatan Driss [facility] 06:43:21 POC GLUCOSE 2023-01-29 Saima Arthur [facility] 06:23:00 VANCOMYCIN LEVEL, RANDOM 2023-01-29 [facility] 05:24:00 CBC WITH PLATELET AND 2023-01-29 [facility] DIFFERENTIAL 05:22:00 Alyssa PARTIAL THROMBOPLASTIN TIME 2023-01-29 [facility] (PTT) 05:21:00 COMPREHENSIVE METABOLIC 2023-01-29 [facility] PANEL 05:21:00 Alyssa MAGNESIUM LEVEL 2023-01-29 [facility] 05:21:00 Alyssa PHOSPHORUS LEVEL 2023-01-29 Isi, Gillianryan Mane [facility] 05:21:00 Alyssa ESTIMATED GFR 2023-01-29 [place] [facility] 05:21:00 Alyssa POC GLUCOSE 2023-01-29 Saima Arthur [facility] 05:20:00 ESTIMATED GFR 2023-01-29 Driss Tam [facility] 05:12:00 POC GLUCOSE 2023-01-29 Zita Arthurta [facility] 04:13:00 POC GLUCOSE 2023-01-29 Saima Arthur [facility] 03:09:00 ARTERIAL BLOOD GAS 2023-01-29 [facility] 01:35:00 Alyssa BASIC METABOLIC PANEL 2023-01-29 [facility] 01:35:00 Alyssa ESTIMATED GFR 2023-01-29 [facility] 01:35:00 Alyssa POC GLUCOSE 2023-01-29 [facility] 01:33:00 XR CHEST 1 VW PORTABLE 2023-01-28 [facility] 22:36:30 POC GLUCOSE 2023-01-28 Yuriy [facility] 21:49:00 ECG 12-LEAD 2023-01-28 [facility] 21:41:26 INFLUENZA ANTIGEN TEST, 2023-01-28 [facility] REFLEX NEGATIVE TO RPP 21:12:00 RESPIRATORY PATHOGEN PANEL 2023-01-28 Hardeep Barrientos [facility] WITH COVID-19 RT-PCR 21:12:00 BUN LEVEL 2023-01-28 [facility] 21:12:00 CREATININE LEVEL 2023-01-28 [facility] 21:12:00 CALCIUM LEVEL 2023-01-28 [facility] 21:12:00 IONIZED CALCIUM 2023-01-28 [facility] 21:12:00 MAGNESIUM LEVEL 2023-01-28 [facility] 21:12:00 PHOSPHORUS LEVEL 2023-01-28 [facility] 21:12:00 POTASSIUM LEVEL 2023-01-28 [facility] 21:12:00 SODIUM LEVEL 2023-01-28 [facility] 21:12:00 PARTIAL THROMBOPLASTIN TIME 2023-01-28 [facility] ([facility]TT) 21:12:00 HEMOGLOBIN & HEMATOCRIT 2023-01-28 [facility] 21:12:00 PLATELET COUNT 2023-01-28 [facility] 21:12:00 ESTIMATED GFR 2023-01-28 Ward O[facility] 21:12:00 Max LACTIC ACID LEVEL, SEPSIS - 2023-01-28 [facility] NOW AND REPEAT 2X EVERY 3 21:00:00 HOURS HEMODIALYSIS CATHETER 2023-01-28 Rm [facility] PLACEMENT 20:15:47 [place] TTE COMPLETE, W CONTRAST, W 2023-01-28 [facility] DOPPLER ([id number]) 18:19:00 CT HEAD WO CONTRAST 2023-01-28 Khanh Ferro Ho spital 18:14:46 PROCALCITONIN 2023-01-28 Desiree [facility] 16:44:00 IONIZED CALCIUM 2023-01-28 Desiree [facility] 16:44:00 LACTIC ACID LEVEL, SEPSIS - 2023-01-28 [facility] NOW AND REPEAT 2X EVERY 3 16:44:00 HOURS POC GLUCOSE 2023-01-28 Saima Arthur Hospit al 16:21:00 ARTERIAL BLOOD GAS 2023-01-28 Desiree Escamilla [facility] 15:04:00 URINE CULTURE 2023-01-28 [facility] 14:30:00 URINALYSIS SCREEN AND 2023-01-28 [facility] MI[facility]OS[facility], WITH REFLEX TO 14:30:00 CULTURE POC GLUCOSE 2023-01-28 [facility] 13:54:00 COVID-19 QUALITATIVE RT-PCR 2023-01-28 Khanh Ferro [facility] 12:55:00 CBC WITH PLATELET AND 2023-01-28 [facility] DIFFERENTIAL 09:48:00 COMPREHENSIVE METABOLIC 2023-01-28 [facility] PANEL 09:48:00 [id number] TACROLIMUS LEVEL, 2023-01-28 [facility] RANDOM 09:48:00 VANCOMYCIN LEVEL, RANDOM 2023-01-28 [facility] 09:48:00 ESTIMATED GFR 2023-01-28 Saima Arthur [facility] 09:48:00 ECG PRE/POST OP 2023-01-28 [facility] 09:05:15 POC GLUCOSE 2023-01-28 [facility] 04:00:00 XR CHEST 1 VW PORTABLE 2023-01-28 [facility] 00:03:48 CBC WITH PLATELET AND 2023-01-27 [facility] DIFFERENTIAL 23:25:00 BASIC METABOLIC PANEL 2023-01-27 [facility] 23:25:00 ESTIMATED GFR 2023-01-27 [facility] 23:25:00 Ian BLOOD CULTURE, AEROBIC & 2023-01-[address] [facility] ANAEROBIC 23:23:00 BLOOD CULTURE, AEROBIC & 2023-01-[address] [facility] ANAEROBIC 23:05:00 POC ARTERIAL BLOOD GAS, 2023-01-27 [facility] CORRECTED AND LYTES 22:45:00 CV VENOGRAPHY SUPERIOR VENA 2023-01-27 Maurilio Pena [facility] CAVA 15:09:18 [place] ACTIVATED CLOTTING TIME 2023-01-27 [facility] 14:10:00 ACTIVATED CLOTTING TIME 2023-01-27 [facility] 13:32:00 ARTERIAL LINE 2023-01-27 Ahmet Weston [facility] keisha 13:29:04 Ian AK ECHO TRANSESOPHAG R-T 2D 2023-01-27 Ahmet Styles [facility] W/PRB IMG ACQUISJ I&R 13:02:00 Ian ACTIVATED CLOTTING TIME 2023-01-27 [facility] 12:59:00 POC ARTERIAL BLOOD GAS, 2023-01-27 [facility] CORRECTED AND LYTES 12:58:00 AK AN ELECTIVE ENDOTRACHEAL 2023-01-27 Enrico [facility] AIRWAY 12:49:00 Ian TAVR FOR SURGERY 2023-01-27 Jensen [facility] ital 12:33:00 Ian CBC WITH PLATELET AND 2023-01-27 [facility] DIFFERENTIAL 09:43:00 COMPREHENSIVE METABOLIC 2023-01-27 [facility] PANEL 09:43:00 [id number] TACROLIMUS LEVEL, 2023-01-27 Driss Tam [facility] RANDOM 09:43:00 CYTOMEGALOVIRUS BY PCR 2023-01-27 [facility] 09:43:00 Vincent PROTHROMBIN TIME WITH INR 2023-01-27 [facility] 09:43:00 Vincent PARTIAL THROMBOPLASTIN TIME 2023-01-27 [facility] ([facility] 09:43:00 Vincent TOTAL IRON BINDING CAPACITY 2023-01-27 [facility] 09:43:00 Vincent FERRITIN LEVEL 2023-01-27 [facility] 09:43:00 Vincent IMMUNOGLOBULIN G 2023-01-27 [facility] keisha 09:43:00 Vincent ESTIMATED GFR 2023-01-27 [facility] 09:43:00 BILIRUBIN DIRECT 2023-01-27 [facility] 09:43:00 Vincent DONOR SPECIFIC ANTIBODY 2023-01-27 [facility] 09:43:00 Vincent FERRITIN LEVEL 2023-01-27 [facility] 04:38:00 TOTAL IRON BINDING CAPACITY 2023-01-27 [facility] 04:38:00 HEPATITIS B SURFACE ANTIGEN 2023-01-27 [facility] 00:10:00 HEMODIALYSIS 2023-01-26 [facility] 23:18:39 ECG 12-LEAD 2023-01-26 [facility] 22:56:37 Vincent XR CHEST 1 VW PORTABLE 2023-01-26 [facility] 21:55:15 CBC WITH PLATELET AND 2023-01-26 [facility] DIFFERENTIAL 20:52:00 PROTHROMBIN TIME WITH INR 2023-01-[address] [facility] 20:52:00 PARTIAL THROMBOPLASTIN TIME 2023-01-26 [facility] 20:52:00 NT-PROBNP 2023-01-26 Yuriy, [facility] 20:52:00 LDH 2023-01-26 Isac Arthurchita [facility] 20:52:00 LACTIC ACID LEVEL 2023-01-26 Isac [facility] 20:52:00 TROPONIN T 2023-01-26 Isac Arthurchita [facility] 20:52:00 COMPREHENSIVE METABOLIC 2023-01-26 [facility]ac [facility] PANEL 20:52:00 ESTIMATED GFR 2023-01-26 Isac Arthurjose g [facility] 20:52:00 MAGNESIUM LEVEL 2023-01-26 Devante Morse [facility] 20:52:00 PHOSPHORUS LEVEL 2023-01-26 Devante Morse [facility] 20:52:00 ESTIMATED GFR 2023-01-26 Devante [facility] 20:50:00 TYPE AND SCREEN 2023-01-26 Devante [facility] 20:38:00 PREPARE RBC 2023-01-26 Devante [facility] 20:38:00 SLEEP STUDY DATA REPORT 2023-01-03 Doctor Unassigned, [facility] 05:01:00 [facility] ECG PRE/POST OP 2022-11-10 Lillian Welsh [facility] sp[facility] 18:34:09 CV RIGHT HEART CATH 2022-10-17 Nabila, Imad [facility] 16:24:50 ESTIMATED GFR 2022-10-17 Nabila, Im[facility] 14:19:00 POC PANEL 2022-10-17 Nabila, Imad [facility] 14:19:00 ECG PRE/POST OP 2022-10-17 Nabila, Imad [facility] 14:07:19 BASIC METABOLIC PANEL 2022-09-29 [facility] 19:26:00 CBC WITH PLATELET AND 2022-09-29 [facility] DIFFERENTIAL 19:26:00 PHOSPHORUS LEVEL 2022-09-29 [facility] 19:26:00 MAGNESIUM LEVEL 2022-09-29 [facility] 19:26:00 HEPATIC FUNCTION PANEL 2022-09-29 [facility], [facility] 19:26:00 LIPID PANEL 2022-09-29 [facility], [facility] 19:26:00 HEMOGLOBIN A1C 2022-09-29 [facility], [facility] 19:26:00 IONIZED CALCIUM 2022-09-29 [facility], [facility] 19:26:00 PARATHYROID HORMONE 2022-09-29 [facility], [facility] spital 19:26:00 T3 2022-09-29 [facility], [facility] 19:26:00 T4 2022-09-29 [facility], [facility] 19:26:00 THYROID STIMULATING HORMONE 2022-09-29 [facility], [facility] 19:26:00 URIC ACID LEVEL 2022-09-29 [facility], [facility] 19:26:00 LDH 2022-09-29 [facility], [facility] 19:26:00 TROPONIN T 2022-09-29 [facility], [facility] 19:26:00 B NATRIURETIC PEPTIDE 2022-09-29 [facility], [facility] 19:26:00 [id number] TACROLIMUS LEVEL, 2022-09-29 [facility], [facility] RANDOM 19:26:00 VITAMIN D 25 HYDROXY LEVEL 2022-09-29 [facility] 19:26:00 PROSTATE SPECIFIC ANTIGEN 2022-09-29 [facility], [facility] 19:26:00 TESTOSTERONE, TOTAL, 2022-09-29 [facility], [facility] ospital IMMUNOASSAY (FOR ADULT 19:26:00 MALES) ESTIMATED GFR 2022-09-29 [facility], [facility] 19:26:00 PROSPERA 2022-09-29 Cleo Lerner [facility] 19:23:00 Maliea TTE COMPLETE, W CONTRAST, W 2022-09-29 [facility], [facility] DOPPLER ([id number]) 18:57:00 XR CHEST 2 VW 2022-09-29 [facility] 17:01:22 BONE DENSITY PERIPHERAL 2022-09-29 [facility] 17:01:06 BONE DENSITY 2022-09-29 [facility] 17:00:27 US ABDOMEN COMPLETE 2022-09-29 [facility] spital 16:11:00 CV CTA TTVR WORKUP W 2022-09-12 [facility] CONTRAST 19:45:00 [place] POC CREATININE 2022-09-12 [facility] 19:21:00 Avila ESTIMATED GFR 2022-09-12 [facility] 19:21:00 Avila POC CREATININE 2022-09-12 [facility] 19:15:00 [place] ECG 12-LEAD 2022-08-08 [facility], [facility] Ho spital 16:23:36 [place] TTE COMPLETE, W CONTRAST, W 2022-08-08 [facility] DOPPLER ([id number]) 15:43:37 [place] VITAMIN D 25 HYDROXY LEVEL 2022-08-06 [facility] 15:49:00 BASIC METABOLIC PANEL 2022-08-06 [facility] 15:49:00 BASIC METABOLIC PANEL 2022-07-21 [facility] 17:03:00 CBC WITH PLATELET AND 2022-07-21 [facility] DIFFERENTIAL 17:03:00 [id number] TACROLIMUS LEVEL, 2022-07-21 [facility] RANDOM 17:03:00 CYTOMEGALOVIRUS BY PCR 2022-07-21 [facility] 17:03:00 ESTIMATED GFR 2022-07-18 [facility] 16:02:00 BASIC METABOLIC PANEL 2022-07-11 [facility] 17:00:00 CBC WITH PLATELET AND 2022-07-11 [facility] DIFFERENTIAL 17:00:00 [id number] TACROLIMUS LEVEL, 2022-07-11 [facility] RANDOM 17:00:00 CYTOMEGALOVIRUS BY PCR 2022-07-11 [facility] 17:00:00 MAGNESIUM LEVEL 2022-06-[address] [facility] Txit al 16:01:00 BASIC METABOLIC PANEL 2022-06-20 [facility] 16:01:00 CBC WITH PLATELET AND 2022-06-20 [facility] DIFFERENTIAL 16:01:00 [id number] TACROLIMUS LEVEL, 2022-06-20 [facility] RANDOM 16:01:00 CBC WITH PLATELET AND 2022-06-10 [facility] DIFFERENTIAL 11:23:00 Vincent BASIC METABOLIC PANEL 2022-06-10 [facility] 11:23:00 Vincent [id number] TACROLIMUS LEVEL, 2022-06-10 [facility] RANDOM 11:23:00 Vincent CYTOMEGALOVIRUS BY PCR 2022-06-10 [facility] 11:23[facility]00 Vincent ESTIMATED GFR 2022-06-10 [facility] 11:23:00 Vincent HEMODIALYSIS 2022-06-10 Will, [facility] 03:00:58 Aung CBC WITH PLATELET AND 2022-06-09 [facility] 11:31:00 Vincent BASIC METABOLIC PANEL 2022-06-09 [facility] 11:31:00 Vincent [id number] TACROLIMUS LEVEL, 2022-06-09 [facility] RANDOM 11:31:00 Vincent PHOSPHORUS LEVEL 2022-06-09 Will, [facility] 11:31:00 Aung MAGNESIUM LEVEL 2022-06-09 Will, [facility] 11:31:00 Aung ESTIMATED GFR 2022-06-09 [facility] 11:31:00 Vincent XR CHEST 1 VW PORTABLE 2022-06-08 [facility] 18:33:18 Vincent CBC WITH PLATELET AND 2022-06-08 [facility] 11:51:00 Vincent BASIC METABOLIC PANEL 2022-06-08 [facility] 11:51:00 Vincent [id number] TACROLIMUS LEVEL, 2022-06-08 [facility] 11:51:00 Vincent PHOSPHORUS LEVEL 2022-06-08 Solis, [facility] 11:51:00 Aung MAGNESIUM LEVEL 2022-06-08 Solis, [facility] 11:51:00 Aung ESTIMATED GFR 2022-06-08 [facility] 11:51:00 Vincent HEMODIALYSIS 2022-06-07 [facility] 14:03:56 CBC WITH PLATELET AND 2022-06-07 [facility] DI[facility] 12:52:00 Vincent BASIC METABOLIC PANEL 2022-06-07 [facility] 12:52:00 Vincent [id number] TACROLIMUS LEVEL, 2022-06-07 [facility] 12:52:00 Vincent PHOSPHORUS LEVEL 2022-06-07 Solis, [facility] 12:52:00 Aung MAGNESIUM LEVEL 2022-06-07 Solis, [facility] 12:52:00 Aung ESTIMATED GFR 2022-06-07 [facility] 12:52:00 Vincent CBC WITH PLATELET AND 2022-06-06 [facility] 10:55:00 Vincent BASIC METABOLIC PANEL 2022-06-06 [facility] 10:55:00 Vincent [id number] TACROLIMUS LEVEL, 2022-06-06 [facility] 10:55:00 Vincent ESTIMATED GFR 2022-06-06 [facility] 10:55:00 Vincent CBC WITH PLATELET AND 2022-06-05 [facility] DIFFERENTIAL 11:27:00 Vincent BASIC METABOLIC PANEL 2022-06-05 [facility] 11:27:00 Vincent [id number] TACROLIMUS LEVEL, 2022-06-05 [facility] 11:27:00 Vincent ESTIMATED GFR 2022-06-05 [facility] 11:27:00 Vincent HEMODIALYSIS 2022-06-04 Tracey [facility] 20:22:17 Aung CBC WITH PLATELET AND 2022-06-04 [facility] DIFFERENTIAL 11:42:00 Kirk Savage BASIC METABOLIC PANEL 2022-06-04 [facility] 11:42:00 Kirk Savage [id number] TACROLIMUS LEVEL, 2022-06-04 [facility] TROUGH 11:42:00 Kirk Savage ESTIMATED GFR 2022-06-04 [facility] 11:42:00 Kirk Savage CBC WITH PLATELET AND 2022-06-[address] [facility] DI[facility] 12:03:00 Kirk Savage BASIC METABOLIC PANEL 2022-06-03 [facility] 12:03:00 Kirk Savage [id number] TACROLIMUS LEVEL, 2022-06-03 [facility] TROUGH 12:03:00 Kirk Savage ESTIMATED GFR 2022-06-03 [facility] 12:03:00 Kirk Savage HEMODIALYSIS 2022-06-03 Tracey [facility] 03:09:17 Aung CBC WITH PLATELET AND 2022-06-[address] [facility] DIFFERENTIAL 10:59:00 Kirk Savage BASIC METABOLIC PANEL 2022-06-02 [facility] 10:59:00 Kirk Savage [id number] TACROLIMUS LEVEL, 2022-06-02 [facility] TROUGH 10:59:00 Kirk Savage ESTIMATED GFR 2022-06-02 [facility] 10:59:00 Kirk Savage CBC WITH PLATELET AND 2022-06-01 Amaris [facility] DIFFERENTIAL 12:22:00 Vincent BASIC METABOLIC PANEL 2022-06-01 Amaris [facility] 12:22:00 Vincent [id number] TACROLIMUS LEVEL, 2022-06-01 Amaris [facility] RANDOM 12:22:00 Vincent ESTIMATED GFR 2022-06-01 [facility] 12:22:00 Vincent [id number] TACROLIMUS LEVEL, 2022-05-31 [facility] 11:40:00 Vincent CBC WITH PLATELET AND 2022-05-31 [facility] DIFFERENTIAL 11:40:00 Vincent BASIC METABOLIC PANEL 2022-05-31 [facility] 11:40:00 Vincent ESTIMATED GFR 2022-05-31 [facility] 11:40:00 Vincent HEMODIALYSIS 2022-05-30 [facility] 21:19:52 [id number] TACROLIMUS LEVEL, 2022-05-30 [facility] R[facility] 11:36:00 Vincent CBC WITH PLATELET AND 2022-05-30 [facility] DIFFERENTIAL 11:36:00 Vincent BASIC METABOLIC PANEL 2022-05-30 [facility] 11:36:00 Vincent ESTIMATED GFR 2022-05-30 [facility] 11:36:00 Vincent XR HAND 3+ VW RIGHT 2022-05-29 Arthur, S[facility]a [facility] 17:41:00 [id number] TACROLIMUS LEVEL, 2022-05-29 [facility] R[facility] 11:09:00 Vincent CBC WITH PLATELET AND 2022-05-29 [facility] 11:09:00 Check BASIC METABOLIC PANEL 2022-05-29 [facility] 11:09:00 Vincent ESTIMATED GFR 2022-05-29 [facility] 11:09:00 Vincent URINE CULTURE 2022-05-28 [facility] 20:04:00 Check URINALYSIS SCREEN AND 2022-05-28 [facility] MICROSCOPY, WITH REFLEX TO 20:04:00 [facility] WITH PLATELET AND 2022-05-28 [facility] DIFFERENTIAL 10:56:00 Vincent BASIC METABOLIC PANEL 2022-05-28 [facility] 10:56:00 Vincent [id number] TACROLIMUS LEVEL, 2022-05-28 [facility] RANDOM 10:56:00 Vincent ESTIMATED GFR 2022-05-28 [facility] 10:56:00 Vincent HEMODIALYSIS 2022-05-28 Tracey [facility] 00:08:22 Aung CBC WITH PLATELET AND 2022-05-27 [facility] DIFFERENTIAL 09:52:00 Vincent BASIC METABOLIC PANEL 2022-05-27 [facility] 09:52:00 Vincent [id number] TACROLIMUS LEVEL, 2022-05-27 [facility] RANDOM 09:52:00 Vincent ESTIMATED GFR 2022-05-27 [facility] 09:52:00 Vincent CBC WITH PLATELET AND 2022-05-26 [facility] DIFFERENTIAL 11:24:00 [id number] TACROLIMUS LEVEL, 2022-05-26 [facility] TROUGH 11:24:00 BASIC METABOLIC PANEL 2022-05-26 Tracey Solis [facility] 11:24:00 Aung ESTIMATED GFR 2022-05-26 Estevan [facility] 11:24:00 Aung HEMODIALYSIS 2022-05-25 Estevan [facility] 17:30:36 Aung CBC WITH PLATELET AND 2022-05-25 [facility] DIFFERENTIAL 12:19:00 [id number] TACROLIMUS LEVEL, 2022-05-25 [facility] TROUGH 12:19:00 COMPREHENSIVE METABOLIC 2022-05-25 [facility] PANEL 12:19:00 ESTIMATED GFR 2022-05-25 [facility] 12:19:00 METHICILLIN-RESISTANT 2022-05-25 [facility] STAPHYLOCOCCUS AUREUS 03:28:00 Arturo foreman (MRSA)IRINEO RESPIRATORY PATHOGEN PANEL 2022-05-25 [facility] WITH COVID-19 RT-PCR 03:18:00 Arturo foreman BLOOD CULTURE, AEROBIC & 2022-05-25 Sera, [facility] ANAEROBIC 03:08:00 [facility] PROCALCITONIN 2022-05-25 [facility] 03:06:00 o, Arturo Kulkarni XR CHEST 1 VW PORTABLE 2022-05-25 [facility] 02:43:42 o, Arturo Kulkarni POC GLUCOSE 2022-05-25 [facility] 01:04:00 COMPREHENSIVE METABOLIC 2022-05-25 [facility] PANEL 00:20:00 [facility] LACTIC ACID LEVEL 2022-05-25 [facility] 00:20:00 ESTIMATED GFR 2022-05-25 [facility] keisha 00:20:00 [facility] BLOOD CULTURE, AEROBIC & 2022-05-25 [facility] ANAEROBIC 00:10:00 [facility]22-05-24 [facility] PANEL 23:30:00 Tarawaly CBC WITH PLATELET AND 2022-05-24 [facility] DIFFERENTIAL 23:30:00 Tarawaly MAGNESIUM LEVEL 2022-05-24 [facility]:30[facility]00 Tarawaly PHOSPHORUS LEVEL 2022-05-24 [facility] keisha 23:30:00 Tarawaly ESTIMATED GFR 2022-05-24 [facility] 23:30:00 Tarawaly ECG 12-LEAD 2022-05-24 [facility] 23:20:38 Tarawaly POC GLUCOSE 2022-05-24 Yuriy [facility] 22:40:00 CBC WITH PLATELET AND 2022-05-24 [facility] DIFFERENTIAL 11:45:00 BASIC METABOLIC PANEL 2022-05-24 [facility] 11:45:00 Aung ESTIMATED GFR 2022-05-24 Tracey [facility] 11:45:00 Aung HEMODIALYSIS 2022-05-24 Tracey [facility] 03:06:56 Aung OR [place] < 1 HOUR 2022-05-23 [facility] 20:30:00 Abdullahi FISTULOGRAPHY, DIALYSIS 2022-05-23 [facility] SHUNT, AND DECLOTTING 19:36:00 Abdullahi US DUPLEX HEMODIALYSIS AVG 2022-05-23 [facility] AVF ACCESS 15:00:00 Sandip CBC WITH PLATELET AND 2022-05-23 [facility] 11:15:00 BASIC METABOLIC PANEL 2022-05-23 [facility] 11:15:00 Vincent [id number] TACROLIMUS LEVEL, 2022-05-23 [facility] R[facility] 11:15:00 Vincent PROTHROMBIN TIME WITH INR 2022-05-23 [facility] 11:15:00 PARTIAL THROMBOPLASTIN TIME 2022-05-23 [facility] (PTT) 11:15:00 ESTIMATED GFR 2022-05-23 Amaris [facility] Hospit al 11:15:00 Vincent ESTIMATED GFR 2022-05-23 Yuriy [facility] 11:03:00 COMPREHENSIVE METABOLIC 2022-05-22 [facility] PAN[facility] 13:45:00 CBC WITH PLATELET AND 2022-05-22 [facility] DIFFERENTIAL 13:45:00 [id number] TACROLIMUS LEVEL, 2022-05-22 [facility] R[facility] 13:45:00 ESTIMATED GFR 2022-05-22 Yuriy [facility] 13:45:00 CBC WITH PLATELET AND 2022-05-22 [facility] DIFFERENTIAL 11:58:00 COMPREHENSIVE METABOLIC 2022-05-22 [facility] PANEL 11:58:00 [id number] TACROLIMUS LEVEL, 2022-05-22 Amaris [facility] RANDOM 11:58:00 Vincent ESTIMATED GFR 2022-05-22 Yuriy [facility] 11:58:00 HEMODIALYSIS 2022-05-21 Tracey [facility] 21:22:11 Aung XR CHEST 1 VW PORTABLE 2022-05-21 [facility] 14:50:00 Vincent CBC WITH PLATELET AND 2022-05-21 [facility] DIFFERENTIAL 12:02:00 COMPREHENSIVE METABOLIC 2022-05-21 [facility] PANEL 12:02:00 [id number] TACROLIMUS LEVEL, 2022-05-21 [facility] 12:02:00 Vincent ESTIMATED GFR 2022-05-21 Isac Arthurchita [facility] 12:02:00 CBC WITH PLATELET AND 2022-05-20 [facility] DIFFERENTIAL 21:36:00 Vincent CBC WITH PLATELET AND 2022-05-20 [facility] 11:57:00 COMPREHENSIVE METABOLIC 2022-05-20 [facility] PANEL 11:57:00 [id number] TACROLIMUS LEVEL, 2022-05-20 [facility] R[facility]OM 11:57:00 Vincent C-REACTIVE PROTEIN 2022-05-[address] [facility] pital 11:57:00 Vincent ESTIMATED GFR 2022-05-20 Yuriy [facility] 11:57:00 CONSULT TO WOUND AND 2022-05-19 Saima Arthur ospital CONTINENCE NURSE 22:23:13 HEMODIALYSIS 2022-05-19 Tracey [facility] 21:05:17 Aung BASIC METABOLIC PANEL 2022-05-19 [facility] 11:13:00 Aung CBC WITH PLATELET AND 2022-05-19 Estevan SolisCeasar [facility] DIFFERENTIAL 11:13:00 Aung ESTIMATED GFR 2022-05-19 Tracey [facility] 11:13:00 Aung COMPREHENSIVE METABOLIC 2022-05-19 Estevan SolisCeasar [facility] PANEL 11:13:00 Aung [id number] TACROLIMUS LEVEL, 2022-05-19 Luis Huang [facility] TROUGH 11:13:00 Douglas CBC WITH PLATELET AND 2022-05-18 [facility] DIFFERENTIAL 11:19:00 Vincent BASIC METABOLIC PANEL 2022-05-18 [facility] 11:19:00 Vincent [id number] TACROLIMUS LEVEL, 2022-05-18 [facility] 11:19:00 Vincent ESTIMATED GFR 2022-05-[address] [facility] 11:19:00 Vincent CBC WITH PLATELET AND 2022-05-17 [facility] DIFFERENTIAL 13:41:00 COMPREHENSIVE METABOLIC 2022-05-17 [facility] PANEL 11:16:00 [id number] TACROLIMUS LEVEL, 2022-05-17 [facility] R[facility] 11:16:00 Vincent IMMUNOGLOBULIN G 2022-05-17 [facility] keisha 11:16:00 Vincent ESTIMATED GFR 2022-05-17 [facility] 11:16:00 DONOR SPECIFIC ANTIBODY 2022-05-17 [facility] 11:16:00 Vincent HEMODIALYSIS 2022-05-17 Tracey Solis [facility] pital 06:06:50 Aung TTE COMPLETE, W CONTRAST, W 2022-05-16 [facility] DOPPLER ([id number]) 21:03:00 CBC WITH PLATELET AND 2022-05-16 [facility] DIFFERENTIAL 11:42:00 COMPREHENSIVE METABOLIC 2022-05-16 [facility] PANEL 11:42:00 [id number] TACROLIMUS LEVEL, 2022-05-16 [facility] R[facility]OM 11:42:00 Vincent TOTAL IRON BINDING CAPACITY 2022-05-16 [facility] 11:42:00 Vincent FERRITIN LEVEL 2022-05-[address] [facility] 11:42:00 Vincent LIPID PANEL 2022-05-[address] [facility] 11:42:00 Vincent THYROID STIMULATING HORMONE 2022-05-16 [facility] 11:42:00 Vincent T4, FREE 2022-05-[address] [facility] 11:42:00 Derek ESTIMATED GFR 2022-05-16 [facility] 11:42:00 DONOR SPECIFIC ANTIBODY 2022-05-16 [facility] 11:42:[address] CHEST WO CONTRAST 2022-05-16 Citlalli Marquez [facility] 03:44:28 HEPATITIS B SURFACE ANTIGEN 2022-05-15 [facility] 20:53:00 Aung HEMODIALYSIS 2022-05-[address] [facility] 17:38:14 Aung CYTOMEGALOVIRUS BY PCR 2022-05-15 [facility] 14:59:00 Derek CBC WITH PLATELET AND 2022-05-15 [facility] DIFFERENTIAL 11:03:00 COMPREHENSIVE METABOLIC 2022-05-15 [facility] PANEL 11:03:00 [id number] TACROLIMUS LEVEL, 2022-05-15 [facility] RANDOM 11:03:00 VANCOMYCIN LEVEL, RANDOM 2022-05-15 [facility] 11:03:00 ESTIMATED GFR 2022-05-15 [facility] 11:03:00 C-REACTIVE PROTEIN 2022-05-15 [facility] 11:03:[address] PROC[address]CITONIN 2022-05-15 [facility] 11:03:00 TROPONIN T 2022-05-15 [facility] 08:00:00 [id number] TACROLIMUS LEVEL, 2022-05-15 [facility] TROUGH 07:05:00 XR CHEST 1 VW PORTABLE 2022-05-15 [facility] 02:15:00 RESPIRATORY PATHOGEN PANEL 2022-05-15 [facility] WITH COVID-19 RT-PCR 01:53:00 INFLUENZA ANTIGEN 2022-05-15 Estevan [facility] 01:53:00 METHICILLIN-RESISTANT 2022-05-15 [facility] STAPHYLOCOCCUS AUREUS 01:52:00 (MRSA), IRINEO BLOOD CULTURE, AEROBIC & 2022-05-15 [facility] ANAEROBIC 01:28:00 Adolfo CBC WITH PLATELET AND 2022-05-15 [facility] DIFFERENTIAL 01:28:00 Adolfo COMPREHENSIVE METABOLIC 2022-05-15 [facility] PANEL 01:28:00 Adolfo TROPONIN T 2022-05-15 [facility] Hospit al 01:28:00 Adolfo B NATRIURETIC PEPTIDE 2022-05-15 [facility] 01:28:00 Adolfo PARTIAL THROMBOPLASTIN TIME 2022-05-15 [facility] (PTT) 01:28:00 Adolfo PROTHROMBIN TIME WITH INR 2022-05-15 [facility] 01:28:00 Adolfo ESTIMATED GFR 2022-05-15 [facility] Hospit al 01:28:00 Adolfo PROCALCITONIN 2022-05-15 [facility] 01:28:00 MAGNESIUM LEVEL 2022-05-15 [facility] 01:28:00 Ololade PHOSPHORUS LEVEL 2022-05-15 [facility] keisha 01:28:00 Ololade AK CRITICAL CARE 2022-05-15 [facility] keisha ILL/INJURED PATIENT INIT 01:10:02 Ololade 30-74 MIN ECG ED PRELIMINARY 2022-05-15 [facility] INTERPRETATION 01:10:02 [id number] 2021-03-16 [facility] 00:00:00 [facility] [place] [id number] 2021-03-16 [facility] 00:00:00 [facility] [place] [id number] 2021-03-16 [facility] 00:00:00 [facility] [place] [id number] 2021-03-16 [facility] 00:00:00 [facility] [place] [id number] 2021-03-16 [facility] 00:00:00 [facility] [place] [id number] 2021-03-16 [facility] 00:00:00 [facility] [place] [id number] 2021-03-16 [facility] 00:00:00 [facility] [place] [id number] 2021-03-16 [facility] 00:00:00 [facility] [place] [id number] 2021-03-16 [facility] 00:00:00 [facility] [place] [id number] 2021-03-16 [facility] 00:00:00 [facility] [place] [id number] 2021-03-16 [facility] 00:00:00 [facility] [place] [id number] 2021-03-16 [facility] 00:00:00 [facility] [place] [id number] 2021-03-16 [facility] 00:00:00 [facility] [place] [id number] 2021-03-16 [facility] 00:00:00 [facility] [place] [id number] 2021-03-16 [facility] 00:00:00 [facility] [place] [id number] 2021-03-16 [facility] 00:00:00 [facility] [place] Plan of Care Planned Activity Planned Date Details Comments Source Future Scheduled 2023-04-21 65+ PNEUMOCOCCAL [facility] Test 08:09:04 VACCINE (1 - PCV) [code = 65+ PNEUMOCOCCAL VACCINE (1 - PCV)] Future Scheduled 2023-04-21 SHINGLES VACCINES ([address] [facility] Test 08:09:04 of 2) [code = SHINGLES VACCINES (1 of 2)] Future Scheduled 2023-04-21 RSV VACCINES > [address] [facility] Test 08:09:04 (1 - 1-dose 60+ series) [code = RSV VACCINES > 60 YR (1 - 1-dose 60+ series)] Future Scheduled 2023-04-21 COVID-19 VACCINE (5 - [facility] Test 08:09:04 season) [code = COVID-19 VACCINE ( - season)] Future Scheduled 2023-04-21 INFLUENZA VACCINE (#1) [facility] Test 08:09:04 [code = INFLUENZA VACCINE (#1)] Future Scheduled 2023-04-21 Screening for [facility] Test 08:09:04 malignant neoplasm of colon (procedure) [code = 347346791] Encounters Start End Encounter Admission Attending Care Care Encounter Source Date/Time Date/Time Type Type Clinicians Facility Department ID 2023-03-03 Outpatient 3 SUMEET, ENC[facility] BIMAL [id number] [facility] 15:24:34 G[facility]MEZ [facility] 2023-02-27 Outpatient 3 [id number] E[facility] BIMAL [id number] [facility] 14:06:53 0825 [facility] [facility] 2023-02-26 Outpatient 3 [id number] E[facility] BIMAL [id number] [facility] 11:52:29 0824 [facility] [place] [facility] 2023-02-24 Outpatient 3 [id number] ENCPL CRD [facility] 12:56:52 0822 [facility] [place] [facility] 2023-02-05 Outpatient 3 [id number] ENCPL CRD [id number] [facility] 10:21:27 0803 [facility] [place] [facility] 2023-02-04 Outpatient 3 [id number] ENCPL REF [id number] [facility] 12:56:16 0802 [facility] [place] 2022-06-13 Outpatient 3 [facility] ENCPL BIMAL 2021 [facility] 10:26:15 hez, 1209 [facility] [place] 2022-06-06 Outpatient 3 [facility] ENC[facility] BIMAL 2021 [facility] 11:25:18 hez, 1202 [facility] [place] [facility] 2022-06-03 Outpatient 3 [id number] ENCPL REF [id number] [facility] 12:09:33 1129 [facility] [place] [facility] 2022-06-02 Outpatient 3 [id number] ENCPL REF [id number] [facility] 13:23:34 1128 [facility] [place] [facility] 2021-10-28 Outpatient 3 [facility] OTH [id number] [facility] 08:09:05 GÓMEZ 0425 [facility] [place] [facility] 2021-10-24 Outpatient 3 [facility] OTH [id number] [facility] 11:26:39 GÓMEZ 0421 [facility] [place] 2021-10-22 Outpatient 3 [facility] OTH [id number] [facility] 11:35:56 GÓMEZ 0419 [facility] [place] 2021-10-18 Outpatient 3 [place] FAY[place] OTH [id number] [facility] 16:20:23 GÓMEZ 0415 [facility] [place] 2021-10-17 Outpatient 3 [id number] ENCPL REF [facility] 11:37:24 0414 [facility] [place] 2021-08-01 Outpatient 3 SUMEET, ENCPL CRD [facility] 12:52:07 GÓMEZ 0909 [facility] [place] 2021-08-01 Outpatient 3 [id number] ENCPL REF [facility] 12:51:30 0908 [facility] [place] 2021-08-01 Outpatient 3 [id number] ENCPL OTH [facility] 12:43:57 0818 [facility] [place] 2021-08-01 Outpatient 3 [id number] ENCPL REF [facility] 12:41:43 0812 [facility] [place] 2021-08-01 Outpatient 3 [id number] ENCPL OTH [facility] 11:53:16 0405 [facility] [place] 2021-07-31 Outpatient Arthur, STLMLC STLMLC [id number] Common 12:43:22 Clint 937[address] [facility] 2021-07-31 Outpatient Arthur, STLMLC STLMLC [id number] Common 10:59:18 Clint 88633 [facility] 2021-07-31 Outpatient Arthur, STLMLC STLC [id number] Common 10:59:00 Clint 039[address] [facility] 2021-03-25 Outpatient NEW ENCGEN ENCGEN [id number] EN CGEN 10:10:56 ADMISSION 2023-04-21 2023-04-21 Telephone Becky, 1.2.840.1 [id number] Methodi 00:00:00 00:00:[address] Juan David 3.430.2.7 Hospit a [place] .3.082398 l .8 2023-04-17 2023-04-17 Orders Merhav, Nse 1.2.840.1 [id number] Methodi 00:00:00 00:00:[address] 3.430.2.7 Hospit a .3.103833 l .8 2023-04-14 2023-04-14 René Martines, 1.2.840.1 [id number] 2100 [id number] Methodi 00:00:00 00:00:[address] 3.430.2.7 Hospit a .3.547696 l .8 2023-04-10 2023-04-10 Orders Merhav, Nse 1.2.840.1 [id number] Methodi 00:00:00 00:00:[address] 3.430.2.7 Hospit a .3.063928 l .8 2023-04-03 2023-04-03 Documentat Merhav, Nse 1.2.840.1 [id number] Methodi 00:00:00 00:00:[address] 3.430.2.7 Hospit a .3.003057 l .8 2023-04-03 2023-04-03 Orders Merhav, Nse 1.2.840.1 [id number] 21 [id number] Methodi 00:00:00 00:00:[address] 3.430.2.7 Hospit a .3.843956 l .8 2023-03-27 2023-03-27 Orders Merhav, Nse 1.2.840.1 [id number] Methodi 00:00:00 00:00:[address] 3.430.2.7 Hospit a .3.102556 l .8 2023-03-20 2023-03-20 Orders Merhav, Nse 1.2.840.1 [id number] Methodi 00:00:00 00:00:[address] 3.430.2.7 Hospit a .3.111001 l .8 2023-03-18 2023-03-18 Christiano Espino, 1.2.840.1 [id number] [id number] Methodi 00:00:00 00:00:00 Román GarnerMimi [address]49.1.[address] 3.430.2.7 Hospit a .3.681957 l .8 2023-03-04 2023-03-16 Inpatient 3 ALENA FAY BIN [id number] 23 [facility] 16:48:00 12:08:00 GÓMEZ [facility]23-03-13 2023-03-13 Orders Merhav, Nse 1.2.840.1 [id number] 21 [id number] Methodi 00:00:00 00:00:[address] 3.430.2.7 Hospit a .3.284245 l .8 2023-03-06 2023-03-06 Documentat Merhav, Nse 1.2.840.1 318899594 [id number] Methodi 00:00:00 00:00:[address] 3.430.2.7 Hospit a .3.732707 l .8 2023-03-06 2023-03-06 Orders Merhav, Nse 1.2.840.1 193563544 21 [id number] Methodi 00:00:00 00:00:[address] 3.430.2.7 Hospit a .3.887892 l .8 2023-02-17 2023-03-04 [facility] Renetta Arthur 1.2.840 .1 [id number] [id number] Methodi 11:28:00 16:18:00 [facility] Arthur, Saima 71991.1.[address] 3.430.2.7 Hospit a .3.502148 l .8 2023-03-02 2023-03-02 Telephone Becky, 1.2.840.1 [id number] 2100 355934 Methodi 00:00:00 00:00:[address] Juan David 3.430.2.7 Hospit a Avila .3.647452 l .8 2023-02-272023-02-27 Orders Merhav, Nse 1.2.840.1 [id number] 21 [id number] Methodi 00:00:00 00:00:[address] 3.430.2.7 Hospit a .3.511526 l .8 2023-02-26 2023-02-26 Orders Sanjari, 1.2.840.1 [id number] 04580 60860 Methodi 00:00:00 00:00:00 Only Omad 14446.1.[address] 3.430.2.7 Hospit a .3.852122 l .8 2023-02-20 2023-02-20 Orders Merhav, Nse 1.2.840.1 [id number] 21 [id number] Methodi 00:00:00 00:00:[address] 3.430.2.7 Hospit a .3.654684 l .8 2023-02-13 2023-02-13 Orders Conrad, 1.2.840.1 [id number] 2100 566478 Methodi 00:00:00 00:00:00 Only Елена 94471.1.[address] 3.430.2.7 Hospit a .3.368479 l .8 2023-02-13 2023-02-13 Orders Merhav, Nse 1.2.840.1 [id number] 21 [id number] Methodi 00:00:00 00:00:[address] 3.430.2.7 Hospit a .3.069286 l .8 2023-01-26 2023-02-12 [facility], 1.2.840.1 [id number] 74919 61910 Methodi 15:20:00 18:04:00 Encounter Saima 17113.1.[address] 3.430.2.7 Hospit a .3.654743 l .8 2023-02-11 2023-02-11 Telephone Porter, 1.2.840.1 [id number] 2100 036456 Methodi 00:00:00 00:00:[address] 3.430.2.7 Hospit a .3.745305 l .8 2023-02-03 2023-02-03 Orders Jadiel, Nse 1.2.840.1 [id number] 21 [id number] Methodi 00:00:00 00:00:[address] 3.430.2.7 Hospit a .3.462578 l .8 2023-01-27 2023-01-27 Surgery Jensen, 1.2.840.1 869336438 65944 61974 Methodi 07:30:00 10:40:[address] Ian 3.430.2.7 Hospit a .3.359219 l .8 2023-01-27 2023-01-27 Anesthesia Cruz, Adelsocarlos 1.2.840.1 26149 1218 8632437107 Methodi 07:34:00 10:20:00 Event MarcosAlma toussaint 38731.1.[address] 3.430.2.7 Hospit a .3.220233 l .8 2023-01-27 2023-01-27 Orders Arabella, 1.2.840.1 245208100 20915 51397 Methodi 00:00:00 00:00:00 Only Tamara 01358.1.[address] 3.430.2.7 Hospit a .3.864107 l .8 2023-01-20 2023-01-20 Orders Simonini, 1.2.840.1 798491769 2100 120753 Methodi 00:00:00 00:00:00 Only Rody 33644.1.[address] 3.430.2.7 Hospit a .3.594312 l .8 2023-01-20 2023-01-20 Refill Robbin, 1.2.840.1 [id number] 843499 9077 Methodi 00:00:00 00:00:[address] 3.430.2.7 Hospit a .3.991610 l .8 2023-01-03 2023-01-03 Spray Machine Operator 1, [facility] Sleep [facility] Bed [facility] 1. 2.840.114 [id number] Univers 20:00:00 22:30:00 Visit Escobra Valdes 350.1.13. 10 ity of [place] [facility]7.2.686 [id number] [facility] [address] 2023-01-03 2023-01-03 Outpatient R ESCOBAR VALDES [facility] [id number] Univers 20:00:00 20:00:00 ESCOBAR VALDES ity of [facility] 2023-01-03 2023-01-03 Orders Doctor [facility] 1.2.840.114 [id number] 660 [facility] 00:00:00 00:00:00 Only Unassigned, ROBIN 350.1.13.10 ity of [facility] 4.2.7.2.686 [facility] [phone] [facility] [address] 2022-12-30 2022-12-30 Refill Erik, 1.2.840.1 [id number] 2100 908530 Methodi 00:00:00 00:00:[address] 3.430.2.7 Hospit a .3.346199 l .8 2022-12-26 2022-12-26 Refill Erik, 1.2.840.1 423454211 2100 [address]9969 Methodi 00:00:00 00:00:[address] 3.430.2.7 Hospit a .3.448111 l .8 2022-12-26 2022-12-26 Refill Robbin, 1.2.840.1 894617581 555964 8978 Methodi 00:00:00 00:00:[address] 3.430.2.7 Hospit a .3.681245 l .8 2022-12-24 2022-12-24 Orders Bartolome, 1.2.840.1 [id number] 128972 7583 Methodi 00:00:00 00:00:00 Only Christ 94909.1.[address] 3.430.2.7 Hospit a .3.520356 l .8 2022-12-19 2022-12-19 Office Srinivas, 1.2.840.1 657428886 801202 9914 Methodi 09:00:00 10:06:53 Visit Román Simmons 86086.1.[address] 3.430.2.7 Hospit a .3.779442 l .8 2022-12-05 2022-12-05 Documentat Conrad, 1.2.840.1 [id number] 2 [id number] Methodi 00:00:00 00:00:00 [address] Christiansen 26842.1.[address] 3.430.2.7 Hospit a .3.979085 l .8 2022-11-10 2022-11-21 Office Cleo Lerner 1.2.840.1 104 501642 4622021655 Methodi 13:20:00 13:56:44 Visit Josue Graham 91248.1.[address] 3.430.2.7 Hospit a .3.995982 l .8 2022-11-11 2022-11-11 Abstract Anton, 1.2.840.1 [id number] 2100 601670 Methodi 00:00:00 00:00:[address] 3.430.2.7 Hospit a .3.650997 l .8 2022-11-10 2022-11-10 Office Lisette, 1.2.840.1 481658444 676954 8386 Methodi 15:30:00 15:50:00 Visit Jonathan 15484.1.[address] Patrice 3.430.2.7 Hospit a .3.796243 l .8 2022-11-10 2022-11-10 Travel 1.2.840.1 1.2.241.422 4617 247832 Methodi 00:00:00 00:00:[address] 3.430.2.7 0.2.7.3.698 Ho spita .3.772573 084.8 l .8 2022-10-27 2022-10-27 Telephone Seth, 1.2.840.1 [id number] 2100 913088 Methodi 00:00:00 00:00:[address] 3.430.2.7 Hospit a .3.129555 l .8 2022-10-20 2022-10-20 Telephone Dank, 1.2.840.1 [id number] 668 2433147 Methodi 00:00:00 00:00:[address] 3.430.2.7 Hospit a .3.529104 l .8 2022-10-17 2022-10-17 [facility], 1.2.840.1 [id number] 2099 422757 Methodi 08:47:00 15:41:00 Encounter Imad 23516.1.[address] 3.430.2.7 Hospit a .3.298078 l .8 2022-10-17 2022-10-17 [facility], 1.2.840.1 [id number] 97533 97517 Methodi 10:39:00 12:14:[address] 3.430.2.7 Hospit a .3.761312 l .8 2022-10-17 2022-10-17 Travel 1.2.840.1 1.2.070.483 9956 897309 Methodi 00:00:00 00:00:[address] 3.430.2.7 0.2.7.3.698 spita .3.657260 084.8 l .8 2022-10-16 2022-10-16 Documentat Provider, 1.2.840.1 [id number] 2 [id number] Methodi 00:00:00 00:00:00 ion Unknown 14413.1.[address] 3.430.2.7 Hospit a .3.970060 l .8 2022-10-06 2022-10-06 [facility], 1.2.840.1 806438163 793098 4642 Methodi 00:00:00 00:00:00 Only Andreea 37443.1.[address] 3.430.2.7 Hospit a .3.184704 l .8 2022-10-06 2022-10-06 Telephone Seth, 1.2.840.1 640493671 2099 302570 Methodi 00:00:00 00:00:[address] 3.430.2.7 Hospit a .3.980452 l .8 2022-10-01 2022-10-01 Orders Conrad, 1.2.840.1 022713806 2099 429187 Methodi 00:00:00 00:00:00 Only Елена 46775.1.[address] 3.430.2.7 Hospit a .3.195669 l .8 2022-09-30 2022-09-30 Telephone Alesia, 1.2.840.1 457550345 21 31457724 Methodi 00:00:00 00:00:[address] 3.430.2.7 Hospit a .3.512301 l .8 2022-09-29 2022-09-29 [facility], 1.2.840.1 [id number] 49698 47637 Methodi 12:08:12 23:59:00 Encounter Ashrith 03433.1.[address] 3.430.2.7 Hospit a .3.154013 l .8 2022-09-29 2022-09-29 [facility], 1.2.840.1 [id number] 25807 93696 Methodi 10:56:47 12:07:00 Encounter Ashrith [address]157.1.[address] 3.430.2.7 Hospit a .3.873062 l .8 2022-09-29 2022-09-29 [facility], 1.2.840.1 847561200 02410 31244 Methodi 10:56:33 12:07:00 Encounter Ashrith 86818.1.[address] 3.430.2.7 Hospit a .3.249718 l .8 2022-09-29 2022-09-29 [facility], 1.2.840.1 101243264 97914 Methodi 10:56:20 12:07:00 Encounter Ashrith 90544.1.[address] 3.430.2.7 Hospit a .3.233241 l .8 2022-09-29 2022-09-29 [facility], 1.2.840.1 [id number] 32435 92874 Methodi 10:00:00 10:55:00 Encounter Ashrith 62770.1.[address] 3.430.2.7 Hospit a .3.444113 l .8 2022-09-29 2022-09-29 [facility] [id number] 463 [place] 00:00:00 00:00:00 ASHRITH [address] 2022-09-29 2022-09-29 Telephone [facility], 1.2.840.1 [id number] 2099 198272 Methodi 00:00:00 00:00:[address] Juan David 3.430.2.7 Hospit a [place] .3.981766 l .8 2022-09-29 2022-09-29 Travel 1.2.840.1 1.2.815.589 1742 599818 Methodi 00:00:00 00:00:[address] 3.430.2.7 0.2.7.3.698 Ho spita .3.871092 084.8 l .8 2022-09-26 2022-09-26 Orders Conrad, 1.2.840.1 [id number] 2099830 Methodi 00:00:00 00:00:00 Only Елена 29816.1.[address] 3.430.2.7 Hospit a .3.523054 l .8 2022-09-22 2022-09-22 Telephone [facility], 1.2.840.1 [id number] 2099420 Methodi 00:00:00 00:00:[address] Juan David 3.430.2.7 Hospit a [place] .3.339313 l .8 2022-09-12 2022-09-12 [facility], 1.2.840.1 [id number] 51162 64722 Methodi 12:50:26 15:16:03 Encounter Maurilio 07491.1.[address] Juan David 3.430.2.7 Hospit a [place] .3.683060 l .8 2022-09-12 2022-09-12 Travel 1.2.840.1 1.2.214.023 4668 952096 Methodi 00:00:00 00:00:[address] 3.430.2.7 0.2.7.3.698 Ho spita .3.852774 084.8 l .8 2022-09-04 2022-09-04 Orders Paiz, 1.2.840.1 [id number] 32652 Methodi 00:00:00 00:00:00 Only Emelia 24589.1.[address] 3.430.2.7 Hospit a .3.718093 l .8 2022-08-26 2022-08-26 [facility], 1.2.840.1 [id number] 2099 064430 Methodi 00:00:00 00:00:[address] Juan David 3.430.2.7 Hospit a [place] .3.030507 l .8 2022-08-20 2022-08-20 Documentat Conrad, 1.2.840.1 240175497 2 [id number] Methodi 00:00:00 00:00:00 ion Елена 56291.1.[address] 3.430.2.7 Hospit a .3.887183 l .8 2022-08-15 2022-08-15 Clinical Cardenas, 1.2.840.1 [id number] 63391 Methodi 10:00:00 10:15:00 Support Elizabeth 12632.1.[address] 3.430.2.7 Hospit a .3.948303 l .8 2022-08-15 2022-08-15 Travel 1.2.840.1 1.2.474.736 4353 172620 Methodi 00:00:00 00:00:[address] 3.430.2.7 0.2.7.3.698 Ho spita .3.562319 084.8 l .8 2022-08-14 2022-08-14 Documentat Conrad, 1.2.840.1 [id number] 2 [id number] Methodi 00:00:00 00:00:00 ion Елена 21389.1.[address] 3.430.2.7 Hospit a .3.892222 l .8 2022-08-08 2022-08-08 Office Becky, 1.2.840.1 132891597 561630 7000 Methodi 09:45:00 10:47:40 Visit Maurilio 48271.1.[address] Juan David 3.430.2.7 Hospit a [place]ila .3.228036 l .8 2022-08-08 2022-08-08 Outpatient [facility] [id number] 181 [place] 00:00:00 00:00:00 MAURILIO [address] 2022-08-08 2022-08-08 Travel 1.2.840.1 1.2.009.528 0385 499933 Methodi 00:00:00 00:00:[address] 3.430.2.7 0.2.7.3.698 Ho spita .3.342479 084.8 l .8 2022-08-01 2022-08-01 Orders Conrad, 1.2.840.1 [id number] 2100 642819 Methodi 00:00:00 00:00:00 Only Елена 15066.1.[address] 3.430.2.7 Hospit a .3.712381 l .8 2022-07-30 2022-07-30 Orders Conrad, 1.2.840.1 [id number] 2099 764460 Methodi 00:00:00 00:00:00 Only Елена 58601.1.[address] 3.430.2.7 Hospit a .3.008479 l .8 2022-07-30 2022-07-30 Telephone Yann, 1.2.840.1 556955421 2100 883340 Methodi 00:00:00 00:00:[address] 3.430.2.7 Hospit a .3.707881 l .8 2022-07-30 2022-07-30 Orders Conrad, 1.2.840.1 961394660 2099 411599 Methodi 00:00:00 00:00:00 Only Елена 72202.1.[address] 3.430.2.7 Hospit a .3.220022 l .8 2022-07-25 2022-07-25 Orders Arabella, 1.2.840.1 328871505 45487 91923 Methodi 00:00:00 00:00:00 Only Tamara 67908.1.[address] 3.430.2.7 Hospit a .3.633326 l .8 2022-07-25 2022-07-25 Orders Conrad, 1.2.840.1 [id number] 2099 362902 Methodi 00:00:00 00:00:00 Only Елена 76964.1.[address] 3.430.2.7 Hospit a .3.382784 l .8 2022-07-24 2022-07-24 Documentat Conrad, 1.2.840.1 850612413 2 918898174 Methodi 00:00:00 00:00:00 ion Елена 70705.1.[address] 3.430.2.7 Hospit a .3.419409 l .8 2022-07-23 2022-07-23 Documentat Conrad, 1.2.840.1 010114421 2 783379744 Methodi 00:00:00 00:00:00 ion Елена 54755.1.[address] 3.430.2.7 Hospit a .3.239064 l .8 2022-07-22 2022-07-22 Orders Conrad, 1.2.840.1 177511791 2099 859589 Methodi 00:00:00 00:00:00 Only Елена 76398.1.[address] 3.430.2.7 Hospit a .3.744127 l .8 2022-07-21 2022-07-21 Refill Erik, 1.2.840.1 067810658 2100 336571 Methodi 00:00:00 00:00:[address] 3.430.2.7 Hospit a .3.757948 l .8 2022-07-18 2022-07-18 Office Robbin, 1.2.840.1 077459613 576351 0730 Methodi 10:00:00 10:20:00 Visit Ashrith 47918.1.[address] 3.430.2.7 Hospit a .3.968165 l .8 2022-07-18 2022-07-18 Lab Robbin, 1.2.840.1 666441584 671095 4423 Methodi 08:00:00 08:05:[address] 3.430.2.7 Hospit a .3.129624 l .8 2022-07-18 2022-07-18 Travel 1.2.840.1 1.2.160.481 0112 097172 Methodi 00:00:00 00:00:[address] 3.430.2.7 0.2.7.3.698 Ho spita .3.199820 084.8 l .8 2022-07-18 2022-07-18 Ya Martines, 1.2.840.1 7242234312099603 Methodi 00:00:00 00:00:00 Only Елена 47904.1.[address] 3.430.2.7 Hospit a .3.713049 l .8 2022-07-10 2022-07-10 Ya Martines, 1.2.840.1 3719014922099080 Methodi 00:00:00 00:00:00 Only Елена 69328.1.[address] 3.430.2.7 Hospit a .3.095891 l .8 2022-06-26 2022-06-26 Documentat Conrad, 1.2.840.1 764663407 2 456240217 Methodi 00:00:00 00:00:00 ion Елена 70262.1.[address] 3.430.2.7 Hospit a .3.732070 l .8 2022-06-20 2022-06-20 Orders Larry, 1.2.840.1 [id number] 173833 7476 Methodi 00:00:00 00:00:00 Only Maxi 38843.1.[address] 3.430.2.7 Hospit a .3.696829 l .8 2022-06-19 2022-06-19 Telephone Yann, 1.2.840.1 [id number] 2100 709887 Methodi 00:00:00 00:00:[address] 3.430.2.7 Hospit a .3.844677 l .8 2022-05-14 2022-06-10 [facility] 1.2.840.1 29632 1029 [id number] Methodi 18:04:00 15:51:00 Encounter Saima Arthur 74428.1.[address] 3.430.2.7 Hospit a .3.031770 l .8 2022-05-23 2022-05-23 Anesthesia Stephon Cholo Kristian 1.2.840.1 1040 39939 3848835321 Methodi 13:37:00 14:41:00 Event Ray Garcia 85289.1.[address] 3.430.2.7 Hospit a .3.459382 l .8 2022-05-23 2022-05-23 [facility] 1.2.840.1 [id number] 149911 1358 Methodi 12:25:00 13:50:00 Nae 11637.1.1 728 s t Abdullahi 3.430.2.7 Hospi ta .3.262527 l .8 2022-05-14 2022-05-14 Travel 1.2.840.1 1.2.407.110 2134 258939 Methodi 00:00:00 00:00:[address] 3.430.2.7 0.2.7.3.698 Ho spita .3.568446 084.8 l .8 2022-04-21 2022-04-21 Reftalya Martines, 1.2.840.1 [id number] 2100 782771 Methodi 00:00:00 00:00:[address] 3.430.2.7 Hospit a .3.693393 l .8 2022-03-12 2022-03-12 Outpatient ROBBIN, [facility] [id number] 213 [place] 00:00:00 00:00:00 ASHRITH 521 Method i 2022-03-12 2022-03-12 Outpatient ROBBIN, [facility] [id number] 814 [place] 00:00:00 00:00:00 ASHRITH 563 Method i 2022-02-10 2022-02-10 Outpatient MILES, [facility] [id number] 521 [place] 00:00:00 00:00:00 ZULY 426 Method i 2022-02-10 2022-02-10 Outpatient SHAKIL, [facility] [id number] 296 [place] 00:00:00 00:00:00 HERNESTO 494 Alo di 2021-12-09 2021-12-09 Outpatient LARRY, [facility] [id number] 491 [place] 00:00:00 00:00:00 MAXI 005 Method i 2021-12-03 2021-12-03 Outpatient LARRY, [facility] [id number] 159 [place] 00:00:00 00:00:00 MAHTYRONSH 813 Method i 2021-12-03 2021-12-03 Outpatient ROBBIN, [facility] [id number] 160 [place] 00:00:00 00:00:00 ASHRITH 574 Method i 2021-10-06 2021-10-29 Inpatient ARTHUR, [facility] 031 [id number] 39 [place] 00:00:00 00:00:00 SAIMA 484 Method i 2021-09-13 2021-09-13 Outpatient TOMPSON, [facility] 021 [id number] 4095 [place] 00:00:00 00:00:00 ELIZABETH Beltrán Method i 2021-08-16 2021-08-16 Outpatient FAM, [facility] 021 [id number] 5893 [place] 00:00:00 00:00:00 ELIZABETH 897 Method i 2021-08-14 2021-08-14 Outpatient FAM, [facility] [id number] 0766 [place] 00:00:00 00:00:00 ELIZABETH 709 Method i 2021-08-14 2021-08-14 Outpatient [facility] [id number] 296 [place] 00:00:00 00:00:00 184 Method i 2021-07-26 2021-07-26 Outpatient JUAQUIN, [facility] [id number] 814 [place] 00:00:00 00:00:00 MATT 843 Method i 2021-07-26 2021-07-26 Outpatient JUAQUIN, [facility] [id number] 450 [place] 00:00:00 00:00:00 MATT 806 Method i 2021-07-26 2021-07-26 Outpatient EVI, [facility] 2100 [id number] [place] 00:00:00 00:00:00 ILIANA 017 Method i 2021-07-19 2021-07-19 Outpatient FAM, [facility] 021 [id number] 6783 [place] 00:00:00 00:00:00 ELIZABETH 225 Method i 2021-07-17 2021-07-17 Outpatient FAM, [facility] [id number] 0707 [place] 00:00:00 00:00:00 ELIZABETH 201 Method i 2021-07-17 2021-07-17 Outpatient FAM, [facility] [id number] 4322 [place] 00:00:00 00:00:00 ELIZABETH 095 Method i 2021-07-17 2021-07-17 Outpatient FAM, [facility] [id number] 5002 [place] 00:00:00 00:00:00 ELIZABETH 689 Method i 2021-06-20 2021-06-20 Outpatient BHPARISRARadha, [facility] [id number] 58430 [place] 00:00:00 00:00:00 ADONAY 503 Method i 2021-06-01 2021-06-04 Inpatient ÁNGEL, [facility] 064 [id number] 64 [place] 00:00:00 00:00:00 COREY Kennedy3 Method i 2021-05-14 2021-05-19 Inpatient ELLIE, [facility] 064 [id number] 7673 [place] 00:00:00 00:00:00 JANNIE [address] 2021-01-08 2021-01-08 Outpatient BOB, [facility] [id number] 3295 [place] 00:00:00 00:00:00 GENET [address] 2021-01-08 2021-01-08 Outpatient IRAJ, [facility] [id number] 075 [place] 00:00:00 00:00:00 AHMED [address] 2020-12-31 2020-12-31 Outpatient ERIK, [facility] [id number] 44209 [place] 00:00:00 00:00:00 ADONAY [address] 2020-12-20 2020-12-20 Outpatient IRAJ, [facility] [id number] 936 [place] 00:00:00 00:00:00 AHMED [address] 2020-12-06 2020-12-06 Outpatient IRAJ, [facility] [id number] 095 [place] 00:00:00 00:00:00 AHMED [address] 2020-11-28 2020-11-28 Outpatient BOB, [facility] 021 [id number] 8600 [place] 00:00:00 00:00:00 GENET [address] 2020-11-20 2020-11-23 Inpatient ELLIE, [facility] 064 [id number] 0254 [place] 00:00:00 00:00:00 JANNIE 762 Method i 2020-11-14 2020-11-14 Outpatient CANDIDO, [facility] [id number] 238 [place] 00:00:00 00:00:00 MALENA [address] 2020-11-14 2020-11-14 Outpatient CANDIDO, [facility] [id number] 238 [place] 00:00:00 00:00:00 MALENA [address] 2020-11-14 2020-11-14 Outpatient VICKEY, [facility] [id number] 8807 [place] 00:00:00 00:00:00 NEDRA [address] 2020-11-14 2020-11-14 Outpatient [facility] [id number] 342 [place] 00:00:00 00:00:[address] 2020-11-12 2020-11-12 Outpatient ERIK, [facility] [id number] [place] 00:00:00 00:00:00 ADONAY [address] 2020-11-07 2020-11-07 Outpatient ERIK, [facility] [id number] [place] 00:00:00 00:00:00 ADONAY [address] 2020-11-07 2020-11-07 Outpatient ROBBIN, [facility] [id number] [place] 00:00:00 00:00:00 ASHRITH [address] 2020-11-07 2020-11-07 Outpatient ROBBIN, [facility] [id number] [place] 00:00:00 00:00:00 ASHRITH [address] 2020-11-07 2020-11-07 Outpatient ROBBIN, [facility] [id number] 921 [place] 00:00:00 00:00:00 ASHRITH [address] 2020-11-07 2020-11-07 Outpatient ROBBIN, [facility] [id number] [place] 00:00:00 00:00:00 ASHRITH [address] 2020-11-07 2020-11-07 Outpatient ROBBIN, [facility] [id number] [place] 00:00:00 00:00:00 ASHRITH [address] 2020-10-26 2020-10-26 Outpatient SHABAZZ, [facility] [id number] [place] 00:00:00 00:00:00 JOSH [facility] 2020-10-16 2020-10-26 Inpatient ELLIE, [facility] [id number] [place] 00:00:00 00:00:00 VIPIN [address] 2020-10-11 2020-10-11 Outpatient IRAJ, [facility] [id number] 317 [place] 00:00:00 00:00:00 AHMED [address] 2020-09-25 2020-09-25 (TEL) STLMLC STLMLC [id number] [place] 00:00:00 00:00:00 [facility] 2020-09-24 2020-09-24 Outpatient AHTHALIAO, [facility] [id number] 668 [place] 00:00:00 00:00:00 ALBA [facility] 2020-09-24 2020-09-24 Outpatient MARIELUERClaire, [facility] [id number] [place] 00:00:00 00:00:00 ALBA [address] 2020-09-15 2020-09-20 Inpatient JACKY CARRASQUILLO [facility] [id number] [place] 00:00:00 00:00:00 [facility] 2020-09-10 2020-09-10 Outpatient SHANNAN, [facility] [id number] [place] 00:00:00 00:00:00 ZULY [facility] 2020-09-06 2020-09-06 Outpatient IRAJ, [facility] [id number] 822 [place] 00:00:00 00:00:00 AHMED [address] 2020-08-24 2020-08-24 Outpatient BHPARISRARadha, [facility] [id number] [place] 00:00:00 00:00:00 ADONAY 758 [facility] 2020-08-24 2020-08-24 Outpatient DHARMESH, [facility] [id number] [place] 00:00:00 00:00:00 RAFIK 728 [facility] 2020-08-09 2020-08-09 Outpatient IRAJ, [facility] [id number] [place] 00:00:00 00:00:00 AHMED [address] 2020-08-07 2020-08-07 Outpatient JONATHANNDClaire, [facility] [id number] [place] 00:00:00 00:00:00 BEHZAD 857 [facility] 2020-08-01 2020-08-01 Outpatient BHIMARAJ, [facility] [id number] [place] 00:00:00 00:00:00 ADONAY [facility] 2020-08-01 2020-08-01 Outpatient BHPARISRARadha, [facility] [id number] [place] 00:00:00 00:00:00 ADONAY [address] 2020-07-31 2020-07-31 Outpatient IRAJ, [facility] [id number] [place] 00:00:00 00:00:00 AHMED [address] 2020-07-07 2020-07-24 Inpatient JOGLEKAR, [facility] [id number] [place] 00:00:00 00:00:00 SUZY [address] 2020-06-20 2020-06-20 Outpatient [facility] [id number] 324 [place] 00:00:00 00:00:[address] 2020-06-20 2020-06-20 Outpatient [facility] [id number] 325 [place] 00:00:00 00:00:[address] 2020-06-14 2020-06-14 Outpatient IRAJ, [facility] [id number] 155 [place] 00:00:00 00:00:00 AHMED [address] 2020-06-11 2020-06-11 Outpatient IRAJ, [facility] [id number] 722 [place] 00:00:00 00:00:00 AHMED [address] 2020-06-11 2020-06-11 Outpatient IRAJ, [facility] [id number] [place] 00:00:00 00:00:00 AHMED [address] 2020-05-18 2020-05-23 Inpatient KEEGAN, J[facility] [id number] 13 [place] 00:00:00 00:00:[address] 2020-05-16 2020-05-16 Outpatient [facility] [id number] [place] 00:00:00 00:00:[address] 2020-05-16 2020-05-16 Outpatient [facility] [id number] 354 [place] 00:00:00 00:00:[address] 2020-05-10 2020-05-10 Outpatient IRAJ, [facility] [id number] 266 [place] 00:00:00 00:00:00 AHMED [address] 2020-04-12 2020-04-12 Outpatient IRAJ, [facility] [id number] 577 [place] 00:00:00 00:00:00 AHMED [address] 2020-03-30 2020-03-30 Outpatient TOMPSON, [facility] [id number] [place] 00:00:00 00:00:00 ELIZABETH [address] 2020-03-26 2020-03-26 Outpatient TOMPSON, [facility] [id number] [place] 00:00:00 00:00:00 ELIZABETH [address] 2020-03-21 2020-03-21 Outpatient TOMPSON, [facility] [id number] [place] 00:00:00 00:00:00 ELIZABETH [address] 2020-03-16 2020-03-16 Outpatient HOBEIKA, [facility] [id number] [place] 00:00:00 00:00:00 NEDRA [address] 2020-03-13 2020-03-13 Outpatient MILES, [facility] [id number] [place] 00:00:00 00:00:00 ZULY [address] 2020-03-09 2020-03-09 Outpatient KINYARWANDA, [facility] [id number] 425 [place] 00:00:00 00:00:00 MEGHAN [address] 2020-03-08 2020-03-08 Outpatient IRAJ, [facility] [id number] 513 [place] 00:00:00 00:00:00 AHMED [address] 2020-02-22 2020-02-22 Outpatient REY, [facility] [id number] 138 [place] 00:00:00 00:00:00 MALENA [address] 2020-02-22 2020-02-22 Outpatient IRAJ, [facility] [id number] 138 [place] 00:00:00 00:00:00 AHMED [address] 2020-02-22 2020-02-22 Outpatient IRAJ, [facility] [id number] 138 [place] 00:00:00 00:00:00 AHMED [address] 2020-02-22 2020-02-22 Outpatient REY, [facility] [id number] 138 [place] 00:00:00 00:00:00 MALENA [address] 2020-02-22 2020-02-22 Outpatient REY, [facility] [id number] 138 [place] 00:00:00 00:00:00 MALENA [address] 2020-02-17 2020-02-17 Outpatient LEIF, [facility] [id number] 450 [place] 00:00:00 00:00:00 JOHNNIE [address] 2020-02-09 2020-02-09 Outpatient IRAJ, [facility] [id number] [place] 00:00:00 00:00:00 AHMED [address] 2020-01-16 2020-01-16 Outpatient BHIMARAJ, [facility] [id number] [place] 00:00:00 00:00:00 ADONAY [address] 2020-01-16 2020-01-16 Outpatient SHAKIL, [facility] [id number] 295 [place] 00:00:00 00:00:00 JAWAIRIA [address] 2020-01-16 2020-01-16 Outpatient [facility] [id number] 508 [place] 00:00:00 00:00:[address] 2020-01-13 2020-01-13 Outpatient NABILA, [facility] 021 [id number] [place] 00:00:00 00:00:00 IMAD [address] 2020-01-12 2020-01-12 Outpatient IRAJ, [facility] [id number] [place] 00:00:00 00:00:00 AHMED 474 [facility] 2020-01-11 2020-01-11 Outpatient BHPARISRAJ, [facility] [id number] [place] 00:00:00 00:00:00 ADONAY 757 [facility] 2020-01-11 2020-01-11 [facility] [id number] [place] 00:00:00 00:00:00 ADONAY 857 [facility] i 2020-01-11 2020-01-11 Outpatient IRAJ, [facility] [id number] [place] 00:00:00 00:00:00 AHMED [address] 2020-01-11 2020-01-11 Outpatient BHPARISRAJ, [facility] [id number] [place] 00:00:00 00:00:00 ADONAY 331 [facility] 2020-01-11 2020-01-11 Outpatient PARISRARadha, [facility] [id number] [place] 00:00:00 00:00:00 ADONAY [address] 2020-01-11 2020-01-11 Outpatient BHPARISRAJ, [facility] [id number] [place] 00:00:00 00:00:00 ADONAY 176 [facility] 2020-01-11 2020-01-11 Outpatient BHPARISRAJ, [facility] [id number] [place] 00:00:00 00:00:00 ADONAY 249 [facility] 2020-01-11 2020-01-11 Outpatient BHPARISRARadha, [facility] [id number] [place] 00:00:00 00:00:00 ADONAY [address] 2020-01-04 2020-01-07 Inpatient ELLIE, [facility] 060 [id number] [place] 00:00:00 00:00:00 JANNIE [address] 2019-12-17 2019-12-17 Outpatient KINYARWANDA, [facility] [id number] [place] 00:00:00 00:00:00 MEGHAN [address] 2019-12-08 2019-12-08 Outpatient IRAJ, [facility] [id number] [place] 00:00:00 00:00:00 AHMED [address] 2019-12-04 2019-12-04 Outpatient IRAJ, [facility] [id number] 269 [place] 00:00:00 00:00:00 AHMED [address] 2019-11-15 2019-11-15 Outpatient IRAJ, [facility] [id number] [place] 00:00:00 00:00:00 AHMED [address] 2019-11-14 2019-11-14 Outpatient KINYARWANDA, [facility] [id number] 404 [place] 00:00:00 00:00:00 MEGHAN [address] 2019-11-05 2019-11-05 Outpatient KINYARWANDA, [facility] [id number] [place] 00:00:00 00:00:00 MEGHAN [address] 2019-10-12 2019-10-12 Outpatient IRAJ, [facility] [id number] [place] 00:00:00 00:00:00 AHMED [address] 2019-10-11 2019-10-11 Outpatient IRAJ, [facility] [id number] [place] 00:00:00 00:00:00 AHMED [address] 2019-10-03 2019-10-03 [facility] [id number] [facility] 11:31:00 11:31:00 [email or web address] [facility], located [facility] 2019-09-22 2019-09-22 Outpatient IRAJ, [facility] [id number] [place] 00:00:00 00:00:00 AHMED [address] 2019-09-08 2019-09-08 Outpatient IRAJ, [facility] [id number] [place] 00:00:00 00:00:00 AHMED [address] 2019-09-08 2019-09-08 Outpatient IRAJ, [facility] [id number] [place] 00:00:00 00:00:00 AHMED 256 [facility] 2019-08-03 2019-08-03 Outpatient SHANNAN [facility] [id number] [place] 00:00:00 00:00:00 ZULY 536 [facility] i 2019-07-14 2019-07-14 [facility] [id number] [facility] 11:00:00 11:00:[address] [facility] 2019-07-07 2019-07-07 [facility] [id number] [facility] 09:10:00 09:10:[address] [facility] located [facility] 2019-03-31 2019-03-31 [facility] [id number] [facility] 10:30:00 10:30:[address] [facility] located [facility] 2018-04-01 2018-04-01 [facility] 13 [id number] [facility] 13:30:00 13:30:[address] [facility] located [facility] 2017-12-07 2017-12-07 [facility] [id number] [facility] 14:02:00 14:02:[address] [facility] located [facility] 2017-09-29 2017-09-29 [facility] [id number] [facility] 11:00:00 11:00:[address] [facility] Results Test Description Test Time Test Comments Results Result Comments Source Basic metabolic panel 2023-04-14 19:45:00 Test Item Value Reference Range Interpretation Comme nts Glucose (test code = 85 mg/dL 65-99 Fastin g reference 2345-7) interval BUN (test code = 3094-0) 36 mg/dL 7-25 H Creatinine (test code = 5.30 mg/dL 0.70-1.28 H 2160-0) eGFR (test code = 12079-0) 11 See_Comment L [Automated message] The system [employer] generated this result transmitted ref erence range: > OR = 6 0 mL/min/1.73m2. The reference range was not used to int erpret this result as normal/abnormal . BUN/creatinine ratio (test 7 See_Comment [Automated message] code = 3097-3) The system ich generated this result transmitted ref erence range: 6 - 22 ( calc). The reference r brittney was not used to interpret this result as normal/abnor mal. Sodium (test code = 138 mmol/L 203-201 1963-2) Potassium (test code = 4.6 mmol/L 3.5-5.3 2823-3) Chloride (test code = 100 mmol/L 98-110 2075-0) CO2 (test code = 2027-9) 28 mmol/L 20-32 Calcium (test code = 11.5 mg/dL 8.6-10.3 H 93980-6) RAC (test code = RAC) Performing Organization Information: Site ID: RGA Name: [facility] Address: [address] [place] [phone] Director: Alannah Roth Lab Interpretation (test Abnormal code = 51226-2) [facility] with platelet and wmrtwzgynmfm9738-02-22 19:45:00 Test Item Value Reference Range Interpretation Comments WBC (test code = 8.2 See_Comment [Automated 2090-2) message] The system which generated this result transmitted reference range : 3.8 - 10.8 Thousand/uL. Th e reference range was not used to interpret this result as normal/abnormal . RBC (test code = 3.64 See_Comment L [Automated 179-8) message] The system which generated this result [...] RAC) Organization Information: Site ID: RGA Name: [facility] Lab Address: [address] [place] [phone] Director: Alannah Roth Lab Interpretation Abnormal (test code = 95286-6) [facility], uacied5182-91-06 19:45:00 Test Item Value Reference Interpretation Comments Range Tacrolimus, highly 4.8 mcg/L L No defini tive sensitive, LC/MS/MS therapeu tic or toxic (test code = [place] 66289-3) beenestablished . Optimal blood d rug levels are influencedby ty pe of transplant, pat ient response, time post-transplant , co-administrati on of other drugs, an d drug formulatio n. The following t rough range is a sugg ested guideline: 5.0- 20.0 mcg/L. This piper t was developed and i ts analytical performance characteristics have been determined by [employer]. It has not been cleared or appr felisa by theFDA. This assay has been validated pursu ant to the CLIA regulations and is used for clinic al purposes. RAC (test code = Performing RAC) Organization Information: Site ID: IG Name: [facility] Lab Address: [address] [place] [phone] Director: Dr. Ramy Shoemaker Lab Interpretation Abnormal (test code = 04202-5) [facility] [id number] 19:45:00 Test Item Value Reference Interpretation Comments Range Source PLASMA (test code = 49006-0) CMV DNA, QN NOT DETECTED IU/mL real time PCR (test code = 57060-3) CMV DNA, QN NOT DETECTED Log IU/mL REFERENCE RANG E: NOT DETECTED PCR (test This test was d eveloped and code = its analytical 58791-3) performancechar acteristics have been deter mined by [employer].It has not been cleared or appr felisa by the U.S. Food andDr ug Administration. This assay has been validated pursuantto the CLIA regulation s and is used for clinical pu rposes. For additional info rmation, please refer [email or web address] ion.[employer]/faq/C MVandEBVPCR(Thi s link is being provided for informational/e ducational purposes only.) RAC (test Performing code = RAC) Organization Information: Site ID: EZ Name: [facility], Address: [address] [place] [phone] Director: Sonam Hunt MD,PhD,SYED [facility] 12 huee4553-07-98 23:32:53 Test Item Value Reference Range Interpretation Comments Ventricular rate 92 (test code = 253) Atrial rate (test 92 code = 255) AK interval (test 64 code = 266) QRSD [...] 28-FEB-2023 14:35,-Sinus rhythm has replaced Junctional rhythm- [facility] mibdbts9112-95-18 21:23:03 Test Item Value Reference Range Interpretation Comments Case number (test code = [id number]) Cytology See link below for (non-gynecological) PDF Lab Report report (test code = 1178) Result status (test code This is Final Report = [id number]) for [id number] [facility] wrcyeyz9907-57-65 02:21:00 Test Item Value Reference Range Interpretation Comments POC glucose (test code = 110 mg/dL 65-99 H Ope rator Name: 42905-5) Gil KenneynDevice ID: [id number] able: [facility] Notified commercial agent Interpretation (test Abnormal code = 03247-3) [facility], 1 Units, Irradiated, CMV Negative, Leukoreduced 2023-02-25 21:48:00 Test Item Value Reference Range Interpretation Comments Product name (test code Red Cells AS1 Leukored = 25) Irrad Unit number (test code [id number] = [id number]) Product code (test code I5087H94 = 3092) Dispense status (test Transfused code = 24) Blood expiration date (test code = 302) Blood type code (test 9500 code = 308) Blood type (test code = O NEGATIVE 1314) Compatibility (test Compatible code = 6400) KEVIN (test code = KEVIN) Ivana WernerDonor specific wsgyftpi7156-72-84 17:18:54 Test Item Value Reference Range Interpretation Comments DSA serum ID (test code [id number] = 5858) DSA serum collection D&T 02/21/2023 [...] = 5861) Case number (test code = [id number]) Donor specific antibody See link below for PDF (test code = 1080) PDF Lab Report [facility] MaozgxijRIQR-VjV-2 (COVID-19) RNA [Presence] in Respiratory specimen by IRINEO with probe hzkhdknxr7425-93-33 15:26:46 Test Item Value Reference Range Interpretation Comments SARS-CoV-2 (COVID-19) RNA Not detected [Presence] in Respiratory specimen by IRINEO with probe detection (test code = 76520-3) Whether patient is employed in a No healthcare setting (test code = 84225-3) Whether the patient has symptoms Yes related to condition of interest (test code = 80021-9) Whether the patient was No hospitalized for condition of interest (test code = 19533-7) Whether the patient was admitted No to intensive care unit (ICU) for condition of interest (test code = 50518-3) Whether patient resides in a No congregate care setting (test code = 06040-9) status (test code = No 00952-2) Date and time of symptom onset Unknown (test code = 91405-2) ERIK Walter ybaiydq0165-16-93 14:38:00 Test Item Value Reference Range Interpretation Comments Urine culture (test SEE COMMENT Bacteriu melvi screen code = 9389269) negative. [facility] HospitalInfluenza virus A and B dae0002-36-03 15:12:45 Test Item Value Reference Range Interpretation Comments SARS-CoV-2 (COVID-19) RNA Not detected [Presence] in Respiratory specimen by IRINEO with probe detection (test code = 84244-0) Whether patient resides in a No congregate care setting (test code = 56438-0) Date and time of symptom onset Unknown (test code = 57654-1) Whether the patient was No hospitalized for condition of interest (test code = 90584-0) Whether the patient was admitted No to intensive care unit (ICU) for condition of interest (test code = 15371-5) Whether patient is employed in a No healthcare setting (test code = 29495-6) Whether the patient has symptoms No related to condition of interest (test code = 10920-6) status (test code = No 75669-3) ERIK GARCIA Pre/Post Op TIMED at 0400 For 3 Qmagddwenem9879-81-69 14:55:08 Test Item Value Reference Range Interpretation Comments Ventricular rate (test 113 code = 253) Atrial rate (test code 113 = 255) AK interval (test code 100 = 266) QRSD interval (test 82 code = 260) QT interval (test code 318 = 264) QTC interval (test code 436 = 265) P axis 1 (test code = 114 267) QRS axis 1 (test code = -38 268) T wave axis (test code 62 = 270) EKG impression (test Sinus tachycardia with code = 273) short AK-Left axis deviation-Pulmonary disease pattern-Nonspecific T wave abnormality-Abnormal ECG- Ivana WareARS-CoV-2 (COVID-19) RNA [Presence] in Respiratory specimen by IRINEO with probe iazbwxgkh5320-28-10 14:51:48 Test Item Value Reference Range Interpretation Comments SARS-CoV-2 (COVID-19) RNA [Presence] Detected in Respiratory specimen by IRINEO with probe detection (test code = 79451-9) Whether patient is employed in a Unknown healthcare setting (test code = 70352-7) Whether the patient has symptoms Unknown related to condition of interest (test code = 03775-2) Whether the patient was hospitalized Unknown for condition of interest (test code = 93057-9) Whether the patient was admitted to Unknown intensive care unit (ICU) for condition of interest (test code = 04523-9) Whether patient resides in a Unknown congregate care setting (test code = 54910-6) status (test code = Unknown 08776-0) Date and time of symptom onset (test Unknown code = 97266-9) ERIK MANE CHATSWORTHActivated clotting grnf3877-34-27 08:04:00 Test Item Value Reference Range Interpretation Comments Activated clotting time 244 See_Comment H Oper ator Name: (test code = 5298) Nehemias Henry Micheal ID: [id number] [Automated mess age] The system [facility] [employer] generated this result transmitted ref erence range: 96 - 152 sec. The reference r brittney was not used to interpret this result as normal/abnor mal. Lab Interpretation (test Abnormal code = 60169-9) [facility] arterial blood gas, corrected and fxeqq2242-90-31 22:45:00 Test Item Value Reference Range Interpretation Comments pH, arterial (test 7.40 7.35-7.45 code = 2744-1) pCO2, arterial (test 42 See_Comment [Autom ated message] code = 2019-8) The system [facility] generated this result transmitted ref erence range: 35 - 45 mmHg. The reference r brittney was not used to interpret this result as normal/abnor mal. pO2, arterial (test 88 See_Comment [Automa rahul message] code = 2703-7) The system [facility] generated this result transmitted ref erence range: 80 - 90 mmHg. The reference r brittney was not used to interpret this result as normal/abnor mal. Temperature, Celsius 37.0 Degrees C (test code = 8310-5) O2 saturation, 96 % 95-100 arterial (test code = 2708-6) pH, arterial 7.40 corrected (test code = 33506-8) pCO2, arterial 42 mmHg corrected (test code = 51334-7) pO2, arterial 88 mmHg Club Director ID: T ran corrected (test code Atul Cindyvice ID: = [id number]) [id number] Base excess, arterial 1 See_Comment [Auto mated message] (test code = 1925-7) The [facility] tem which generated this result transmitted ref erence range: -2 - 2 m Eq/L. The reference r brittney was not used to interpret this result as normal/abnor mal. Hemoglobin, syringe 11.4 g/dL 14.0-18.0 L (test code = 718-7) Potassium, syringe 5.0 See_Comment [Automat ed message] (test code = 23163-9) The sy stem which generated this result transmitted ref erence range: 3.5 - 5. 0 mEq/L. The refe rence range was not u sed to interpret this result as normal/abnor mal. Sodium, syringe (test 134 See_Comment L [Auto mated message] code = 2947-0) The system wh ich generated this result transmitted ref erence range: 135 - 14 8 mEq/L. The refe rence range was not u sed to interpret this result as normal/abnor mal. Ionized calcium, 1.20 mmol/L 1.11-1.32 arterial (test code = 14155-0) Glucose, syringe 89 mg/dL 65-99 (test code = 2345-7) Lactic acid, syringe 0.9 mmol/L 0.5-2.2 (test code = 48383-1) Lab Interpretation Abnormal (test code = 70266-3) [facility] dlctt0164-72-39 14:23:00 Test Item Value Reference Range Interpretation Comments POC sodium (test code = 136 mmol/L 105-274 6594-0) POC potassium (test code 4.7 mmol/L 3.5-5.0 = 6298-4) POC chloride (test code = 97 mmol/L 99-109 L 2069-3) POC CO2 (test code = 29 mmol/L 24-31 21006-5) POC glucose (test code = 91 mg/dL 65-99 2339-0) POC BUN (test code = 41 mg/dL 8-24 H 6299-2) POC creatinine (test code 4.9 mg/dl 0.7-1.2 H = 78555-3) POC hematocrit (test code 37 % 41-51 L = 4544-3) POC anion gap (test code 16 mmol/L 8-20 Ope rator Name: = [id number]) Christiano Marquez DDevice ID: [id number] Lab Interpretation (test Abnormal code = 07639-8) [facility] bzjapabqba6738-11-73 19:23:00 Test Item Value Reference Range Interpretation Comments POC creatinine (test 4.7 mg/dl 0.7-1.2 H Operato r Name: Ng code = 00954-6) PaulineDevic e ID: [id number] Lab Interpretation Abnormal (test code = 96948-5) Ivana WareARS-CoV-2 (COVID-19) RNA [Presence] in Respiratory specimen by IRINEO with probe nwfawufag5123-58-77 10:22:40 Test Item Value Reference Range Interpretation Comments SARS-CoV-2 (COVID-19) RNA Not detected [Presence] in Respiratory specimen by IRINEO with probe detection (test code = 13540-5) Whether patient is employed in a Unknown healthcare setting (test code = 13585-4) Whether the patient has symptoms Unknown related to condition of interest (test code = 61009-4) Whether the patient was Unknown hospitalized for condition of interest (test code = 07196-7) Whether the patient was admitted Unknown to intensive care unit (ICU) for condition of interest (test code = 40115-8) Whether patient resides in a Unknown congregate care setting (test code = 09119-4) status (test code = Unknown 66554-1) Date and time of symptom onset Unknown (test code = 64116-8) ERIK BONNERRS-CoV-2 (COVID-19) RNA [Presence] in Respiratory specimen by IRINEO with probe scutvjyqh4477-20-86 19:22:54 Test Item Value Reference Range Interpretation Comments SARS-CoV-2 (COVID-19) RNA [Presence] Detected in Respiratory specimen by IRINEO with probe detection (test code = 22539-9) Whether patient is employed in a Unknown healthcare setting (test code = 69834-1) Whether the patient has symptoms Unknown related to condition of interest (test code = 24653-8) Whether the patient was hospitalized Unknown for condition of interest (test code = 73150-0) Whether the patient was admitted to Unknown intensive care unit (ICU) for condition of interest (test code = 66017-9) Whether patient resides in a Unknown congregate care setting (test code = 74789-8) status (test code = Unknown 82780-8) Date and time of symptom onset (test Unknown code = 75520-8) VALENCIA MORAVIAN GTYVOPBP-KfQ-1 (COVID-19) RNA [Presence] in Respiratory specimen by IRINEO with probe mhkiefrmu2463-39-84 17:40:48 Test Item Value Reference Range Interpretation Comments SARS-CoV-2 (COVID-19) RNA Not detected Not-Detected [Presence] in Respiratory specimen by IRINEO with probe detection (test code = 15730-2) Whether patient is employed in a healthcare setting (test code = 38911-0) Whether the patient has symptoms related to condition of interest (test code = 77456-6) Patient was hospitalized because of this condition (test code = 64095-3) Whether the patient was admitted to intensive care unit (ICU) for condition of interest (test code = 31236-7) Whether patient resides in a congregate care setting (test code = 40167-5) ERIK MANE IDJWGMMF-LcQ-3 (COVID-19) RNA [Presence] in Respiratory specimen by IRINEO with probe aujxrpstl8586-43-15 15:13:15 Test Item Value Reference Range Interpretation Comments SARS-CoV-2 (COVID-19) RNA Not detected Not-Detected [Presence] in Respiratory specimen by IRINEO with probe detection (test code = 13905-7) Whether patient is employed in a healthcare setting (test code = 76585-3) Whether the patient has symptoms related to condition of interest (test code = 34432-8) Patient was hospitalized because of this condition (test code = 26380-1) Whether the patient was admitted to intensive care unit (ICU) for condition of interest (test code = 86024-9) Whether patient resides in a congregate care setting (test code = 66275-4) ERIK WILSONSARS-CoV-2 (COVID-19) RNA [Presence] in Respiratory specimen by IRINEO with probe lajutssys1762-29-97 15:29:58 Test Item Value Reference Range Interpretation Comments SARS-CoV-2 (COVID-19) RNA Not detected Not-Detected [Presence] in Respiratory specimen by IRINOE with probe detection (test code = 31264-3) Whether patient is employed in a healthcare setting (test code = 19741-9) Whether the patient has symptoms related to condition of interest (test code = 03778-7) Patient was hospitalized because of this condition (test code = 94464-9) Whether the patient was admitted to intensive care unit (ICU) for condition of interest (test code = 77953-9) Whether patient resides in a congregate care setting (test code = 33830-7) ERIK MANE PNEOKWUF-TxN-2 (COVID-19) RNA [Presence] in Respiratory specimen by IRINEO with probe wnlwrenwx6713-59-59 20:16:18 Test Item Value Reference Range Interpretation Comments SARS-CoV-2 (COVID-19) RNA Not detected Not-Detected [Presence] in Respiratory specimen by IRINEO with probe detection (test code = 18308-9) ERIK WILSONSARS-CoV-2 (COVID-19) IgG+IgM Ab [Presence] in Serum or Plasma by Ebqettubegk2564-88-63 15:25:00 Test Item Value Reference Range Interpretation Comments SARS-CoV-2 (COVID-19) IgG+IgM Ab Not detected [Presence] in Serum or Plasma by Immunoassay (test code = 69350-4) ERIK MANE ATXKWWLH-PcZ-2 (COVID-19) IgG Ab [Presence] in Serum or Plasma by Peyzkxvotrr0156-68-98 15:25:00 Test Item Value Reference Range Interpretation Comments SARS-CoV-2 (COVID-19) IgG Ab Not detected [Presence] in Serum or Plasma by Immunoassay (test code = 05085-1) ERIK STEVEIST MFFLELIZ-TqB-1 (COVID-19) IgG+IgM Ab [Presence] in Serum or Plasma by Tcbuxciydwk5055-39-10 06:42:00 Test Item Value Reference Range Interpretation Comments SARS-CoV-2 (COVID-19) IgG+IgM Ab Positive [Presence] in Serum or Plasma by Immunoassay (test code = 67724-5) ERIK MANE BISUGGUH-ZiI-4 (COVID-19) IgG Ab [Presence] in Serum or Plasma by Lcxfxfjslug4519-84-10 06:42:00 Test Item Value Reference Range Interpretation Comments SARS-CoV-2 (COVID-19) IgG Ab Not detected [Presence] in Serum or Plasma by Immunoassay (test code = 23527-2) ERIK WILSONSARS-CoV-2 (COVID-19) RNA [Presence] in Respiratory specimen by IRINEO with probe ackmknwbm7979-06-79 16:10:13 Test Item Value Reference Range Interpretation Comments SARS-CoV-2 (COVID-19) RNA Not detected Not-Detected [Presence] in Respiratory specimen by IRINEO with probe detection (test code = 91694-9) ERIK MORAVIAN QGTOKYAZ-HwP-4 (COVID-19) RNA [Presence] in Respiratory specimen by IRINEO with probe ajccmikkq8987-78-65 14:50:19 Test Item Value Reference Range Interpretation Comments SARS-CoV-2 (COVID-19) RNA Not detected Not-Detected [Presence] in Respiratory specimen by IRINEO with probe detection (test code = 20692-6) ERIK MORAVIAN SSUBRWTA-YvP-4 (COVID-19) RNA [Presence] in Respiratory specimen by IRINEO with probe irwjjwmwk6337-75-77 22:04:03 Test Item Value Reference Range Interpretation Comments SARS-CoV-2 (COVID-19) RNA Not detected Not-Detected [Presence] in Respiratory specimen by IRINEO with probe detection (test code = 73005-6) ERIK MANE [id number]-2 (COVID-19) RNA [Presence] in Respiratory specimen by IRINEO with probe [id number] 17:30:06 Test Item Value Reference Range Interpretation Comments SARS-CoV-2 (COVID-19) RNA Not detected Not-Detected [Presence] in Respiratory specimen by IRINEO with probe detection (test code = 06313-0) ERIK MORAVIAN [id number]-2 (COVID-19) RNA [Presence] in Respiratory specimen by IRINEO with probe [id number] 16:16:05 Test Item Value Reference Range Interpretation Comments SARS-CoV-2 (COVID-19) RNA Not detected Not-Detected [Presence] in Respiratory specimen by IRINEO with probe detection (test code = 04165-1) ERIK MORAVIAN WESTSARS coronavirus 2 RNA [Presence] in Respiratory specimen by IRINEO with probe [id number] 10:25:17 Test Item Value Reference Range Interpretation Comments SARS coronavirus 2 RNA Not detected Not-Detected [Presence] in Respiratory specimen by IRINEO with probe detection (test code = 84782-0) ERIK MORAVIAN WESTSARS coronavirus 2 RNA [Presence] in Respiratory specimen by IRINEO with probe [id number] 06:37:09 Test Item Value Reference Range Interpretation Comments SARS coronavirus 2 RNA Not detected Not-Detected [Presence] in Respiratory specimen by IRINEO with probe detection (test code = 61388-0) ERIK WILSON
[2023-04-24] MEDS ORDERED: HYDROMORPHONE HCL 1 MG/ML INJ IV PRN (13:58)
[2023-04-24] MEDS ORDERED: BISACODYL 10 MG RECTAL SUPP PR PRN (14:06)
[2023-04-24] MEDS ORDERED: SCOPOLAMINE HYDROBROMIDE PATCH TD SCH (14:30)
[2023-04-24] MEDS: LORazepam 2 MG/ML VIAL IV SCH ×3 (14:40→21:00)
[2023-04-24 15:38] VITALS: BMI 29.0
--- NOTE | 2023-04-24 16:42 | P.HP ---
Certification for Inpatient Patient admitted to: Inpatient With expected LOS: >2 Midnights Practitioner: I am a practitioner with admitting privileges, knowledge of patient current condition, hospital course, and medical plan of care. Services: Services provided to patient in accordance with Admission requirements found in Title 42 Section 412.3 of the Code of Federal Regulations Patient History Date of Service: 04/24/23 Reason for admission: SEPTIC, PNEUMONIA, CVA History of Present Illness: MR. 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 HE IS IMMUNOSUPPRESIVE MEDICINES SINCE THEN. HE COMES AFTER A FALL, FOUND TO HAVE PNEUMONIA AND SEPSIS. AT NIGHT DEVELOPS APHASIA AND L SIDE WEAKNESS. CT NEG BUT MRI COULD NOT BE DONE. HE FAILS TO RECOVER. STAYS SEMICOMATOSE AND SO FAMILY HAS DECIDED TO GET HIM ON INPATIENT HOSPICE. I AGREE. Allergies levofloxacin [From Levaquin] Allergy (Verified 04/21/23 20:37) Unknown ciprofloxacin [From Cipro] Adverse Reaction (Severe, Verified 04/21/23 20:37) lungs fill with fluid ciprofloxacin HCl [From Cipro] Adverse Reaction (Severe, Verified 04/21/23 20:37) lungs fill with fluid amoxicillin trihydrate [From Augmentin] Adverse Reaction (Mild, Verified 04/21/23 20:37) headache potassium clavulanate [From Augmentin] Adverse Reaction (Mild, Verified 04/21/23 20:37) headache Home Medications: Fexofenadine/Pseudoephedrine [Alison-D 24 Hour Tablet] 180 mg PO DAILY 10/06/13 Hydralazine [Apresoline*] 25 mg PO BID 10/06/13 Pantoprazole Sodium [Protonix] 40 mg PO DAILY 10/06/13 Pramipexole [Mirapex] 0.125 tab PO DAILY 10/06/13 Pravastatin Sodium [Pravachol] 40 mg PO BEDTIME 10/06/13 Tacrolimus [Prograf] 0.5 mg PO BEDTIME 10/06/13 Tacrolimus [Prograf] 1 mg PO DAILY 10/06/13 predniSONE [Deltasone] 5 mg PO DAILY 10/06/13 Acetaminophen 1,000 mg PO Q8H PRN 01/20/21 Aspirin [Aspirin EC 81 MG] 81 mg PO DAILY 01/20/21 Fluticasone [Flonase 50mcg Nasal [place]] 2 sprays NS DAILY 01/20/21 Montelukast [Singulair] 10 mg PO BEDTIME 01/20/21 Apixaban [Eliquis] 2.5 mg PO BID 04/22/23 Cyanocobalamin (Vitamin B-12) [Vitamin B-12] 100 mcg PO DAILY 04/22/23 Denosumab 60 mg SQ SEECOM 04/22/23 Folic Acid/Vit B Complex and C [[place] Tablet] 1 tab PO DAILY 04/22/23 Gabapentin [Neurontin] 100 mg PO BEDTIME 04/22/23 - Past Medical/Surgical History Diabetic: No -: ESRD (Dr. Velazquez/ Dr. Valdivia) -: Heart transplant -: HTN -: Lymphedema -: Shingles -: Heart transplant 2012 -: Balloon assist pump installed 2012 -: Wound cleaning debridement 2011 -: Defibrillator/pacemaker 2008 -: Cardiac ablation 2007 -: Mortons Neuroma removed left foot 2007 -: Pacemaker installed 2006 -: Tendon replacement interior tight ankle 2005 - Social History Smoking Status: Never smoker Alcohol use: Yes CD- Drugs: No Caffeine use: Yes Place of Residence: Home Review of Systems is unable to be obtained Physical Examination - Physical Exam General: Moderate distress, Unresponsive HEENT: Atraumatic, PERRLA, Mucous membr. moist/pink, EOMI, Sclerae nonicteric Neck: Supple, 2+ carotid pulse no bruit, No LAD, Without JVD or thyroid abnormality Respiratory: Clear to auscultation bilaterally, Diminished Cardiovascular: Abnormal S1 S2 Gastrointestinal: Hypoactive Musculoskeletal: No tenderness Integumentary: No rashes Neurological: Other (SEMICOMA) Lymphatics: No axilla or inguinal lymphadenopathy Assessment and Plan - Problems (Diagnosis) (1) Sepsis Current Visit: Yes Status: Acute Plan: HE IS NOT IMPROVING DEPITE BROAD SPECTRUM ANTIBIOTICS HE WILL BE ON HOSPICE FROM NOW ABOVE. HE MAY NOT SURVIVE MORE THAN A FEW DAYS. FAMILY IS AWARE AND VERY CONTENT. (2) Hemiplegia affecting left nondominant side Current Visit: Yes Status: Acute - Advance Directives Does patient have a Living Will: Yes Does patient have a Durable POA for Healthcare: Yes
[2023-04-25] MEDS: LORazepam 2 MG/ML VIAL IV SCH ×9 (03:00→23:35)
[2023-04-26] MEDS: LORazepam 2 MG/ML VIAL IV SCH ×3 (02:55→09:26)
--- NOTE | 2023-04-27 21:33 | P.DS ---
Admission Date: 04/24/23 Discharge Date: 04/27/23 Disposition: Discharge Condition: Reason for Admission: SEPTIC, PNEUMONIA, CVA - Problems (1) Sepsis Status: Acute (2) Hemiplegia affecting left nondominant side Status: Acute Brief History of Present Illness: MR. 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 HE IS IMMUNOSUPPRESIVE MEDICINES SINCE THEN. HE COMES AFTER A FALL, FOUND TO HAVE PNEUMONIA AND SEPSIS. AT NIGHT DEVELOPS APHASIA AND L SIDE WEAKNESS. CT NEG BUT MRI COULD NOT BE DONE. HE FAILS TO RECOVER. STAYS SEMICOMATOSE AND SO FAMILY HAS DECIDED TO GET HIM ON INPATIENT HOSPICE. I AGREE. Hospital Course: MR SAMPSON IS A HEART TRANSPLANT PAITIENT WHO HAS SURVIVED 10 YEARS. HE IS IN AND OUT OF HOSPITAL FOR MANY RESSONS LIKE INFECTIONS. THIS TIME HE BROKE ANKLE, WAS SENT HOME FROM ER, COULD NOT TAKE CARE OF HIM. IN ER HE WAS FOUND TO HAVE PNEUMONIA AND WAS TREATED. OVERNIGHT HE BECAME APHASIC AND WEAK ON L SIDE AND NEVER IMPROVED. HE BECAME COMATOSE AND FAMILY FOLLOWING HIS WISHES MADE HIM DNR AND PUT HIM ON HOSPICE. Vital Signs/Physical Exam: Temp Pulse Resp BP Pulse Ox 100.4 F 130 H 23 H 130/72 74 L 04/26/23 08:00 04/26/23 08:00 04/26/23 08:00 04/26/23 08:00 04/26/23 08:00 Home Medications: Fexofenadine/Pseudoephedrine [Alison-D 24 Hour Tablet] 180 mg PO DAILY 10/06/13 Hydralazine [Apresoline*] 25 mg PO BID 10/06/13 Pantoprazole Sodium [Protonix] 40 mg PO DAILY 10/06/13 Pramipexole [Mirapex] 0.125 tab PO DAILY 10/06/13 Pravastatin Sodium [Pravachol] 40 mg PO BEDTIME 10/06/13 Tacrolimus [Prograf] 0.5 mg PO BEDTIME 10/06/13 Tacrolimus [Prograf] 1 mg PO DAILY 10/06/13 predniSONE [Deltasone] 5 mg PO DAILY 10/06/13 Acetaminophen 1,000 mg PO Q8H PRN 01/20/21 Aspirin [Aspirin EC 81 MG] 81 mg PO DAILY 01/20/21 Fluticasone [Flonase 50mcg Nasal [place]] 2 sprays NS DAILY 01/20/21 Montelukast [Singulair] 10 mg PO BEDTIME 01/20/21 Apixaban [Eliquis] 2.5 mg PO BID 04/22/23 Cyanocobalamin (Vitamin B-12) [Vitamin B-12] 100 mcg PO DAILY 04/22/23 Denosumab 60 mg SQ SEECOM 04/22/23 Folic Acid/Vit B Complex and C [[place] Tablet] 1 tab PO DAILY 04/22/23 Gabapentin [Neurontin] 100 mg PO BEDTIME 04/22/23
[2023-04-30 12:55] VITALS: BP 130/72; TEMP 100.4
[2023-04-30 12:56] VITALS: O2SAT 77
== END 2023-04-26 09:58 | disposition expired | DRG 951 ==
LOC: 2ND 13:42
PROVIDERS: ADMIT Internal Medicine; ATTEND Internal Medicine
DX: Z51.5 Encounter for palliative care (principal)